=== PATIENT | male | born 1990 | race Caucasian/White ===

== ENCOUNTER 2016-08-31 05:55 | Emergency (ER) | payer OTHER ==
[~2016-08-31 05:55] MED LIST: CLON0.5T PO
[2016-08-31] MEDS ORDERED: ASPIRIN 81 MG CHEW TABLET As Ordered ONE (06:38)
[2016-08-31 06:52] LABS: BASO % 0.2 % (0.0-1.0); EOS # 0.1 K/mm3 (0.0-0.50); EOS % 1.2 % (0.0-3.0); LARGE UNSTAINED CELL # 0.2 K/mm3 (0.0-0.4); LARGE UNSTAINED CELL % 1.8 % (0.0-4.0); MEAN CORPUSCULAR HEMOGLOBIN 30.6 pg (27.0-33.0); MEAN CORPUSCULAR HGB CONC 34.3 g/dl (32.0-36.5); MEAN CORPUSCULAR VOLUME 89.3 fl (80.0-96.0); MONO # 0.5 K/mm3 (0.0-0.8); MONO % 5.9 % (0.0-5.0); NEUTROPHILS # 5.9 K/mm3 (1.8-7.7); NEUTROPHILS % 67.9 % (36.0-66.0); PLATELET COUNT, AUTOMATED 383 k/mm3 (150-450); RED CELL DISTRIBUTION WIDTH 12.5 % (11.5-14.5); WHITE BLOOD COUNT 8.8 K/mm3 (4.0-10.0)
[2016-08-31 07:07] LABS: ANION GAP 7 MEQ/L (8-16); BLOOD UREA NITROGEN 7 MG/DL (7-18); CALCIUM LEVEL 9.2 MG/DL (8.5-10.1); CARBON DIOXIDE LEVEL 29 MEQ/L (21-32); CHLORIDE LEVEL 105 MEQ/L (98-107); CREATININE FOR GFR 0.94 MG/DL (0.70-1.30); GLOMERULAR FILTRATION RATE > 60.0 (>60); GLUCOSE, FASTING 95 MG/DL (70-105); POTASSIUM SERUM 3.1 MEQ/L (3.5-5.1); SODIUM LEVEL 141 MEQ/L (136-145)
[2016-08-31] MEDS ORDERED: ACETAMINOPHEN 325 MG TAB As Ordered ONE (07:25)
[2016-08-31] MEDS ORDERED: POTASSIUM CHLORIDE 10 MEQ SR TABLET As Ordered ONE (07:25)
--- NOTE | 2016-08-31 07:37 | EDDOCDS ---
Nurse's Notes [facility] Name: Josue Oliveros Age: 26 yrs Sex: Male : 1990 Arrival Date: 08/31/2016 Time: 05:55 Bed 10 Private MD: Diagnosis: Cocaine abuse;Palpitations-due to same;Chest pain, unspecified Presentation: 08/31 06:02 Presenting complaint: Patient states: chest pain, heart racing, heart palpations, [facility] fluttering since about 8pm last evening. Aspirin was not taken prior to arrival. Adult Sepsis Screening: The patient does not have new or worsening altered mentation. Patient's respiratory rate is less than 22. Systolic blood pressure is greater than 100. Patient has a qSOFA score of 0- Negative Sepsis Screen. Suicide/Homicide risk assessment- the patient denies having any suicidal and/or homicidal ideations and does not present with any other emotional, behavioral or mental health complaints. 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 Transition of care: patient was not received from another setting of care. 06:02 Acuity: HEATH Level 3 [facility] 06:02 Method Of Arrival: Walkin/Carried/Asstd [facility] Triage Assessment: 06:04 General: Appears in no apparent distress, Behavior is cooperative. Pain: Location: [facility] chest Pain currently is 5 out of 10 on a pain scale. HIV screening NA for this visit Offered previously. Cardiovascular: Chest pain is described as Pain is 5 out of 10 on a pain scale. radiates Does not radiate. episodes are continuous began last evening. Historical: - Allergies: Tramadol HCl (Hives); - Home Meds: 1. atenolol 25 mg Oral tab 1 tab once daily ran out for quite some time 2. ibuprofen 800 mg Oral tab 1 tab every 8 hours as needed (Last dose: Unknown) - PMHx: ADD; Anxiety; Atrial Fib; dental problems; Panic Attacks; Substance Abuse; - PSHx: none; - Social history: Smoking status: Patient uses tobacco products, light tobacco smoker. No barriers to communication noted. - Family history: Not pertinent. - : The pt / caregiver states he / she is not on anticoagulants. Home medication list is obtained from the patient. - Exposure Risk Screening:: None identified. Screenin:43 Screening information is obtained from the patient. Fall risk: No risks identified. cf2 Assistance ADL's: requires no assistance with activities of daily living. Abuse/DV Screen: The patient / caregiver reports he/she is: not in a situation that causes fear, pain or injury. Nutritional screening: No deficits noted. Advance Directives: Further advance directive information is declined. home support is adequate. Assessment: 06:43 General: Patient to er states he was "shooting up cocaine last night and took Perc 10's cf2 (5 tablets) and now my chest hurts". Patient with visible fresh track daugherty to bilateral upper extremities. Patient states he shoots cocaine and snorts the Percocet. "I don't do it that often but I was with my friends and well you know". "I used to have a problem with drugs and stuff". Patient alert and oriented, no s/s distress, respirations equal and unlabored, skin warm and dry. No neuro deficits. Patient placed on program management specialist, IV access established via #20 to left forearm and bloods drawn. Urine sample obtained and sent to lab. . Cardiovascular: Capillary refill < 3 seconds Clubbing of nail beds is absent JVD is absent Rhythm is sinus rhythm Chest pain is described as diffuse, quality is burning, heaviness, is located in left anterior chest wall radiates Does not radiate. episodes are continuous Chest pain began last night after ingestion. Respiratory: No deficits noted. GI: No deficits noted. : No deficits noted. Derm: No deficits noted. Musculoskeletal: No deficits noted. Injury Description: No known injury. 07:34 General: Appears in no apparent distress, Behavior is anxious. Pain: Location: chest ml6 Pain currently is 5 out of 10 on a pain scale. Pain does not radiate. Quality of pain is described as aching, Pain began 2-3 days ago Is continuous Alleviated by nothing. Neurological: No deficits noted. 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 Cardiovascular: No deficits noted. Capillary refill < 3 seconds is brisk Heart tones S1 S2 present Edema is absent. Pulses are all present. Rhythm is sinus rhythm No ectopy. Chest pain is described as mild, quality is burning, heaviness, is located in substernal area radiates Does not radiate. 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 Respiratory: No deficits noted. Airway is patent Respiratory effort is even, unlabored, Respiratory pattern is. GI: No deficits noted. Vital Signs: 06:01 BP 141 / 86; Pulse 102; Resp 18; Temp 99.1; Pulse Ox 98% ; Weight 79.38 kg; Height 6 [facility] ft. 2 in. (187.96 cm); Pain 5/10; 07:35 BP 128 / 84; Pulse 78 MON; Resp 18; Temp 98.1(O); Pulse Ox 99% on R/A; Pain 5/10; ml6 06:01 Body Mass Index 22.47 (79.38 kg, 187.96 cm) [facility] Vitals: 06:01 Log In Time: August 31, 2016 at 05:55. [facility] ED Course: 05:56 Patient visited by Lou Ortega. b 05:56 Patient moved to Waiting [facility] 06:03 Triage Initiated [facility] 06:05 Patient moved to 10 [facility] 06:06 Tisha Taylor MD is Attending Physician. fg 06:07 Priscilla Burkett RN is Primary Nurse. cf2 06:07 Patient visited by Priscilla Burkett RN. cf2 06:17 Patient visited by Tisha Taylor MD. fg 06:37 Troponin Sent. cf2 06:38 Cardiac Injury Profile Sent. cf2 06:38 CBC with Diff Sent. cf2 06:38 Basic Metabolic Profile Sent. cf2 06:38 B-Type Natiuretic Peptide Sent. cf2 06:43 The patient / caregiver is instructed regarding the plan of care and ED course. Patient cf2 has correct armband on for positive identification. Placed in gown. Bed in low position. Call light in reach. Side rails up X 1. Side rails up X2. director of first impressions on. Pulse ox on. NIBP on. Property :Personal belongings accompany Pt. Door closed. Noise minimized. Visitors limited. Lights dimmed. Moved to private room. Verbal reassurance given. Warm blanket given. Pillow given. Head of bed elevated. 06:43 Inserted saline lock: 20 gauge in left forearm and blood collected. The patient cf2 tolerated the procedure well. No procedures done that require assistance. 06:52 Patient visited by Priscilla Burkett RN. cf2 07:02 Attending Physician role handed off by Tisha Taylor MD pc 07:02 Nilson Mcdaniel MD is Attending Physician. pc 07:14 Patient visited by Stephen Tobar RN. ml6 07:25 [facility] is Referral Physician. pc 07:25 Addiction Services is Referral Physician. pc 07:35 Discontinued IV bleeding controlled, pressure dressing applied, No redness/swelling at ml6 site. Administered Medications: 06:42 Drug: Aspirin 324 mg [aspirin 81 mg chewable tablet (4 tabs)] Route: PO; cf2 06:42 Drug: NS 0.9% 1000 ml [sodium chloride 0.9 % intravenous solution] Route: IV; Rate: cf2 bolus; Site: left antecubital; 07:33 Follow up: IV Status: Completed infusion; Infusion discontinued; IV Intake: 1000ml ml6 07:33 Drug: Potassium Chloride 40 mEq [potassium chloride ER 10 mEq tablet,extended release ml6 (4 tabs)] Route: PO; 07:33 Follow up: Response: Pt left department before re-evaluation is appropriate ml6 07:33 Drug: Acetaminophen 650 mg [acetaminophen 325 mg tablet (2 tabs)] Route: PO; ml6 07:33 Follow up: Response: Pt left department before re-evaluation is appropriate ml6 Intake: 07:33 IV: 1000.00ml; Total: 1000.00ml. ml6 Order Results: Lab Order: B-Type Natiuretic Peptide; SPEC'M 08/31/16 06:34 Test: BRAIN NATRIURETIC PEPTIDE; Value: 7.4; Range: <100; Units: PG/ML; Status: F Lab Order: Basic Metabolic Profile; SPEC'M 08/31/16 06:34 Test: GLUCOSE, FASTING; Value: 95; Range: 70-105; Units: MG/DL; Status: F Test: BLOOD UREA NITROGEN; Value: 7; Range: 7-18; Units: MG/DL; Status: F Test: CREATININE FOR GFR; Value: 0.94; Range: 0.70-1.30; Units: MG/DL; Status: F Test: GLOMERULAR FILTRATION RATE; Value: > 60.0; Range: >60; Status: F Test: SODIUM LEVEL; Value: 141; Range: 136-145; Units: MEQ/L; Status: F Test: POTASSIUM SERUM; Value: 3.1; Range: 3.5-5.1; Abnormal: Below low normal; Units: MEQ/L; Status: F Test: CHLORIDE LEVEL; Value: 105; Range: 98-107; Units: MEQ/L; Status: F Test: CARBON DIOXIDE LEVEL; Value: 29; Range: 21-32; Units: MEQ/L; Status: F Test: ANION GAP; Value: 7; Range: 8-16; Abnormal: Below low normal; Units: MEQ/L; Status: F Test: CALCIUM LEVEL; Value: 9.2; Range: 8.5-10.1; Units: MG/DL; Status: F Test Note: ; Units are mL/min/1.73 m2 Chronic Kidney Disease Staging per NKF: Stage I & II GFR >=60 Normal to Mildly Decreased Stage III GFR 30-59 Moderately Decreased Stage IV GFR 15-29 Severely Decreased Stage V GFR <15 Very Little GFR Left ESRD GFR <15 on RABBLER Lab Order: CBC with Diff; SPEC'M 08/31/16 06:34 Test: WHITE BLOOD COUNT; Value: 8.8; Range: 4.0-10.0; Units: K/mm3; Status: F Test: RED BLOOD COUNT; Value: 4.72; Range: 4.30-6.10; Units: M/mm3; Status: F Test: HEMOGLOBIN; Value: 14.5; Range: 14.0-18.0; Units: g/dl; Status: F Test: HEMATOCRIT; Value: 42.1; Range: 42.0-52.0; Units: %; Status: F Test: MEAN CORPUSCULAR VOLUME; Value: 89.3; Range: 80.0-96.0; Units: fl; Status: F Test: MEAN CORPUSCULAR HEMOGLOBIN; Value: 30.6; Range: 27.0-33.0; Units: pg; Status: F Test: MEAN CORPUSCULAR HGB CONC; Value: 34.3; Range: 32.0-36.5; Units: g/dl; Status: F Test: RED CELL DISTRIBUTION WIDTH; Value: 12.5; Range: 11.5-14.5; Units: %; Status: F Test: PLATELET COUNT, AUTOMATED; Value: 383; Range: 150-450; Units: k/mm3; Status: F Test: NEUTROPHILS %; Value: 67.9; Range: 36.0-66.0; Abnormal: Above high normal; Units: %; Status: F Test: LYMPH %; Value: 23.0; Range: 24.0-44.0; Abnormal: Below low normal; Units: %; Status: F Test: MONO %; Value: 5.9; Range: 0.0-5.0; Abnormal: Above high normal; Units: %; Status: F Test: EOS %; Value: 1.2; Range: 0.0-3.0; Units: %; Status: F Test: BASO %; Value: 0.2; Range: 0.0-1.0; Units: %; Status: F Test: LARGE UNSTAINED CELL %; Value: 1.8; Range: 0.0-4.0; Units: %; Status: F Test: NEUTROPHILS #; Value: 5.9; Range: 1.8-7.7; Units: K/mm3; Status: F Test: LYMPH #; Value: 2.0; Range: 1.5-6.5; Units: K/mm3; Status: F Test: MONO #; Value: 0.5; Range: 0.0-0.8; Units: K/mm3; Status: F Test: EOS #; Value: 0.1; Range: 0.0-0.50; Units: K/mm3; Status: F Test: BASO #; Value: 0.0; Range: 0.0-0.2; Units: K/mm3; Status: F Test: LARGE UNSTAINED CELL #; Value: 0.2; Range: 0.0-0.4; Units: K/mm3; Status: F Lab Order: Cardiac Injury Profile; SPEC'M 08/31/16 06:34 Test: CPK CREATINE PHOSPHOKINASE; Value: 111; Range: 39-308; Units: U/L; Status: F Test: CK-MB VALUE MASS; Value: 1.1; Range: 0.0-3.6; Units: NG/ML; Status: F Test: MB/CK RELATIVE INDEX; Value: 0.99; Range: < OR =4; Status: F Test Note: ; DIAGNOSIS CRITERIA MMB ng/ml Relative Index (RI) NON-AMI < or = 5 N/A [place]ZEL [place]ONE > 5 < or = 4 AMI > 5 > 4 Lab Order: Troponin; SPEC'M 08/31/16 06:34 Test: TROPONIN I; Value: < 0.02; Range: < 0.10; Units: NG/ML; Status: F Test Note: ; Troponin I Reference Interval for [employer] LOCI: 99th Percentile= 0.00-0.045 ng/ml Risk Stratification: <= 0.10 ng/ml Decreased Risk for Adverse Clinical Events. 0.10-1.50 ng/ml Increased Risk for Adverse Clinical Events. Evaluation of additional criterion and/or repeat testing in 2-6 hours is suggested to rule out myocardial damage. >= 1.50 ng/ml Indicative of Myocardial Injury. Outcome: 07:25 Discharge ordered by Provider. 07:35 Discharge Assessment: patient administered narcotics - no. The following High Risk 6 Discharge criteria are identified: None. Discharged to home ambulatory. Condition: stable. Discharge instructions given to patient, Instructed on discharge instructions, follow up and referral plans. medication usage, Demonstrated understanding of instructions, medications, discussed with patient that he needs to discontinue his opiate and cocaine use in order to feel better Pt was receptive of discharge instructions/ teaching. No special radiology studies were completed. 07:36 Patient left the ED. ml6 Signatures: Nilson Mcdaniel MD MD pc Lowe, Matthew, RN RN ml6 Lauren LundbergRN RN [facility] Tisha Taylor MD MD fg Beck, Gabriela gjb Familetti-Gonzalez, Christina,RN RN cf2 MTDVishal
--- NOTE | 2016-08-31 07:37 | EDDOCDS ---
Physician Documentation [facility] Name: Josue Oliveros Age: 26 yrs Sex: Male : 1990 Arrival Date: 08/31/2016 Time: 05:55 Bed 10 Private MD: Disposition: 08/31 07:23 Critical Care: Critical care not applicable. pc Disposition: 08/31/16 07:25 Discharged to Home/Self Care. Impression: Cocaine abuse, Palpitations - due to same, Chest pain, unspecified. - Condition is Stable. - Discharge Instructions: Nonspecific Chest Pain, Stimulant Use Disorder-Cocaine. - Medication Reconciliation, Local Pharmacy Hours form. - Follow up: [facility]; When: Call to arrange an appointment; Reason: To establish care. Follow up: Addiction Services; When: Call to arrange an appointment; Reason: To establish care. - Problem is new. - Symptoms are unchanged. Historical: - Allergies: Tramadol HCl (Hives); - Home Meds: 1. atenolol 25 mg Oral tab 1 tab once daily ran out for quite some time 2. ibuprofen 800 mg Oral tab 1 tab every 8 hours as needed (Last dose: Unknown) - PMHx: ADD; Anxiety; Atrial Fib; dental problems; Panic Attacks; Substance Abuse; - PSHx: none; - Social history: Smoking status: Patient uses tobacco products, light tobacco smoker. No barriers to communication noted. - Family history: Not pertinent. - : The pt / caregiver states he / she is not on anticoagulants. Home medication list is obtained from the patient. - Exposure Risk Screening:: None identified. Vital Signs: 06:01 BP 141 / 86; Pulse 102; Resp 18; Temp 99.1; Pulse Ox 98% ; Weight 79.38 kg / 175 lbs; [facility] Height 6 ft. 2 in. (187.96 cm); Pain 5/10; 07:35 BP 128 / 84; Pulse 78 MON; Resp 18; Temp 98.1(O); Pulse Ox 99% on R/A; Pain 5/10; ml6 06:01 Body Mass Index 22.47 (79.38 kg, 187.96 cm) [facility] MDM: 06:18 Aspirin Chewable Tablet 324 mg PO once ordered. fg 06:18 Dewaxer/Pulse Ox/q 30 min VS ordered. fg 06:18 IV Saline Lock ordered. fg 06:18 Rhythm Strip to chart ordered. fg 06:18 Undress patient appropriately for examination ordered. fg 06:18 NS 0.9% 1000 ml IV at bolus once ordered. fg 06:19 B-Type Natiuretic Peptide Ordered. EDMS 06:19 Basic Metabolic Profile Ordered. EDMS 06:19 CBC with Diff Ordered. EDMS 06:19 Cardiac Injury Profile Ordered. EDMS 06:19 Troponin Ordered. EDMS 06:19 portable chest Ordered. EDMS 06:19 ECG WITH READING ER PHYS+CARDIAG ordered. EDMS 07:21 Basic Metabolic Profile Reviewed. pc 07:21 CBC with Diff Reviewed. pc 07:21 B-Type Natiuretic Peptide Reviewed. pc 07:21 Cardiac Injury Profile Reviewed. pc 07:21 Troponin Reviewed. pc 07:21 Potassium Chloride Extended Release Tablet 40 mEq PO once ordered. pc 07:23 Acetaminophen Tablet 650 mg PO once ordered. pc 07:23 The patient was medicated with aspirin in the Emergency Department. Test pc interpretation: LAB - all labs as ordered have been reviewed, interpreted and considered in the overall management of the clinical presentation; X-RAY - interpreted by me, 2 view chest, no acute disease. The patient has been re-examined and re-evaluated. There is no appreciated change of the patient's symptoms at this time. Disposition: The historical points, examination findings, and any diagnostic results supporting the provided diagnosis, were discussed with the patient or legal guardian. The need for outpatient follow up with the provider listed on their discharge instructions was discussed. They were encouraged to return to [facility], or the nearest ED, if symptoms worsen/persist, or for any other questions/concerns. Administered Medications: 06:42 Drug: Aspirin 324 mg [aspirin 81 mg chewable tablet (4 tabs)] Route: PO; cf2 06:42 Drug: NS 0.9% 1000 ml [sodium chloride 0.9 % intravenous solution] Route: IV; Rate: cf2 bolus; Site: left antecubital; 07:33 Follow up: IV Status: Completed infusion; Infusion discontinued; IV Intake: 1000ml ml6 07:33 Drug: Potassium Chloride 40 mEq [potassium chloride ER 10 mEq tablet,extended release ml6 (4 tabs)] Route: PO; 07:33 Follow up: Response: Pt left department before re-evaluation is appropriate ml6 07:33 Drug: Acetaminophen 650 mg [acetaminophen 325 mg tablet (2 tabs)] Route: PO; ml6 07:33 Follow up: Response: Pt left department before re-evaluation is appropriate ml6 Signatures: Dispatcher [employer] Nilson Marie MD MD pc Lowe, Matthew RN RN ml6 Lauren Lundberg RN RN [facility] Tisha Taylor MD MD Priscilla Burkett RN RN cf2 MTDD
--- NOTE | 2016-08-31 07:44 | REP ---
Clinical: Chest pain . Comparison: 04/17/2016. Findings: The mediastinum and cardiac silhouette are stable and within normal limits for portable technique. The lung pearson are clear without acute consolidation, effusion, or pneumothorax. Skeletal structures are intact. Impression: Normal portable chest x-ray Signed by Edwin Zhao MD 08/31/2016 07:36 A
--- NOTE | 2016-09-01 07:19 | ECGEPIP ---
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
--- NOTE | 2016-09-02 08:37 | EDDOCDS ---
Nurse's Notes [facility] Name: Josue Oliveros Age: 26 yrs Sex: Male : 1990 Arrival Date: 08/31/2016 Time: 05:55 Bed 10 Private MD: Diagnosis: Cocaine abuse;Palpitations-due to same;Chest pain, unspecified Presentation: 08/31 06:02 Presenting complaint: Patient states: chest pain, heart racing, heart palpations, [facility] fluttering since about 8pm last evening. Aspirin was not taken prior to arrival. Adult Sepsis Screening: The patient does not have new or worsening altered mentation. Patient's respiratory rate is less than 22. Systolic blood pressure is greater than 100. Patient has a qSOFA score of 0- Negative Sepsis Screen. Suicide/Homicide risk assessment- the patient denies having any suicidal and/or homicidal ideations and does not present with any other emotional, behavioral or mental health complaints. 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 Transition of care: patient was not received from another setting of care. 06:02 Acuity: HEATH Level 3 [facility] 06:02 Method Of Arrival: Walkin/Carried/Asstd [facility] Triage Assessment: 06:04 General: Appears in no apparent distress, Behavior is cooperative. Pain: Location: [facility] chest Pain currently is 5 out of 10 on a pain scale. HIV screening NA for this visit Offered previously. Cardiovascular: Chest pain is described as Pain is 5 out of 10 on a pain scale. radiates Does not radiate. episodes are continuous began last evening. Historical: - Allergies: Tramadol HCl (Hives); - Home Meds: 1. atenolol 25 mg Oral tab 1 tab once daily ran out for quite some time 2. ibuprofen 800 mg Oral tab 1 tab every 8 hours as needed (Last dose: Unknown) - PMHx: ADD; Anxiety; Atrial Fib; dental problems; Panic Attacks; Substance Abuse; - PSHx: none; - Social history: Smoking status: Patient uses tobacco products, light tobacco smoker. No barriers to communication noted. - Family history: Not pertinent. - : The pt / caregiver states he / she is not on anticoagulants. Home medication list is obtained from the patient. - Exposure Risk Screening:: None identified. Screenin:43 Screening information is obtained from the patient. Fall risk: No risks identified. cf2 Assistance ADL's: requires no assistance with activities of daily living. Abuse/DV Screen: The patient / caregiver reports he/she is: not in a situation that causes fear, pain or injury. Nutritional screening: No deficits noted. Advance Directives: Further advance directive information is declined. home support is adequate. Assessment: 06:43 General: Patient to er states he was "shooting up cocaine last night and took Perc 10's cf2 (5 tablets) and now my chest hurts". Patient with visible fresh track daugherty to bilateral upper extremities. Patient states he shoots cocaine and snorts the Percocet. "I don't do it that often but I was with my friends and well you know". "I used to have a problem with drugs and stuff". Patient alert and oriented, no s/s distress, respirations equal and unlabored, skin warm and dry. No neuro deficits. Patient placed on patient monitor, IV access established via #20 to left forearm and bloods drawn. Urine sample obtained and sent to lab. . Cardiovascular: Capillary refill < 3 seconds Clubbing of nail beds is absent JVD is absent Rhythm is sinus rhythm Chest pain is described as diffuse, quality is burning, heaviness, is located in left anterior chest wall radiates Does not radiate. episodes are continuous Chest pain began last night after ingestion. Respiratory: No deficits noted. GI: No deficits noted. : No deficits noted. Derm: No deficits noted. Musculoskeletal: No deficits noted. Injury Description: No known injury. 07:34 General: Appears in no apparent distress, Behavior is anxious. Pain: Location: chest ml6 Pain currently is 5 out of 10 on a pain scale. Pain does not radiate. Quality of pain is described as aching, Pain began 2-3 days ago Is continuous Alleviated by nothing. Neurological: No deficits noted. 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 Cardiovascular: No deficits noted. Capillary refill < 3 seconds is brisk Heart tones S1 S2 present Edema is absent. Pulses are all present. Rhythm is sinus rhythm No ectopy. Chest pain is described as mild, quality is burning, heaviness, is located in substernal area radiates Does not radiate. 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 Respiratory: No deficits noted. Airway is patent Respiratory effort is even, unlabored, Respiratory pattern is. GI: No deficits noted. Vital Signs: 06:01 BP 141 / 86; Pulse 102; Resp 18; Temp 99.1; Pulse Ox 98% ; Weight 79.38 kg; Height 6 [facility] ft. 2 in. (187.96 cm); Pain 5/10; 07:35 BP 128 / 84; Pulse 78 MON; Resp 18; Temp 98.1(O); Pulse Ox 99% on R/A; Pain 5/10; ml6 06:01 Body Mass Index 22.47 (79.38 kg, 187.96 cm) [facility] Vitals: 06:01 Log In Time: August 31, 2016 at 05:55. [facility] ED Course: 05:56 Patient visited by Lou Ortega. b 05:56 Patient moved to Waiting [facility] 06:03 Triage Initiated [facility] 06:05 Patient moved to 10 [facility] 06:06 Tisha Taylor MD is Attending Physician. fg 06:07 Priscilla Burkett RN is Primary Nurse. cf2 06:07 Patient visited by Priscilla Burkett RN. cf2 06:17 Patient visited by Tisha Taylor MD. fg 06:37 Troponin Sent. cf2 06:38 Cardiac Injury Profile Sent. cf2 06:38 CBC with Diff Sent. cf2 06:38 Basic Metabolic Profile Sent. cf2 06:38 B-Type Natiuretic Peptide Sent. cf2 06:43 The patient / caregiver is instructed regarding the plan of care and ED course. Patient cf2 has correct armband on for positive identification. Placed in gown. Bed in low position. Call light in reach. Side rails up X 1. Side rails up X2. secured entrance monitor on. Pulse ox on. NIBP on. Property :Personal belongings accompany Pt. Door closed. Noise minimized. Visitors limited. Lights dimmed. Moved to private room. Verbal reassurance given. Warm blanket given. Pillow given. Head of bed elevated. 06:43 Inserted saline lock: 20 gauge in left forearm and blood collected. The patient cf2 tolerated the procedure well. No procedures done that require assistance. 06:52 Patient visited by Priscilla Burkett RN. cf2 07:02 Attending Physician role handed off by Tisha Taylor MD pc 07:02 Nilson Mcdaniel MD is Attending Physician. pc 07:14 Patient visited by Stephen Tobar RN. ml6 07:25 [facility] is Referral Physician. pc 07:25 Addiction Services is Referral Physician. pc 07:35 Discontinued IV bleeding controlled, pressure dressing applied, No redness/swelling at ml6 site. 07:42 [facility] [place] Payment Agreement was scanned into [employer] and attached to record. hs2 07:58 portable chest Returned. EDMS 13:46 T-Sheet-- Draft Copy was scanned into [employer] and attached to record. gb 13:46 ECG/EKG was scanned into [employer] and attached to record. gb 09/01 07:41 EKG-ADULT Returned. EDMS Administered Medications: 08/31 06:42 Drug: Aspirin 324 mg [aspirin 81 mg chewable tablet (4 tabs)] Route: PO; cf2 06:42 Drug: NS 0.9% 1000 ml [sodium chloride 0.9 % intravenous solution] Route: IV; Rate: cf2 bolus; Site: left antecubital; 07:33 Follow up: IV Status: Completed infusion; Infusion discontinued; IV Intake: 1000ml ml6 07:33 Drug: Potassium Chloride 40 mEq [potassium chloride ER 10 mEq tablet,extended release ml6 (4 tabs)] Route: PO; 07:33 Follow up: Response: Pt left department before re-evaluation is appropriate ml6 07:33 Drug: Acetaminophen 650 mg [acetaminophen 325 mg tablet (2 tabs)] Route: PO; ml6 07:33 Follow up: Response: Pt left department before re-evaluation is appropriate ml6 Intake: 07:33 IV: 1000.00ml; Total: 1000.00ml. ml6 Order Results: Lab Order: B-Type Natiuretic Peptide; SPEC'M 08/31/16 06:34 Test: BRAIN NATRIURETIC PEPTIDE; Value: 7.4; Range: <100; Units: PG/ML; Status: F Lab Order: Basic Metabolic Profile; SPEC'M 08/31/16 06:34 Test: GLUCOSE, FASTING; Value: 95; Range: 70-105; Units: MG/DL; Status: F Test: BLOOD UREA NITROGEN; Value: 7; Range: 7-18; Units: MG/DL; Status: F Test: CREATININE FOR GFR; Value: 0.94; Range: 0.70-1.30; Units: MG/DL; Status: F Test: GLOMERULAR FILTRATION RATE; Value: > 60.0; Range: >60; Status: F Test: SODIUM LEVEL; Value: 141; Range: 136-145; Units: MEQ/L; Status: F Test: POTASSIUM SERUM; Value: 3.1; Range: 3.5-5.1; Abnormal: Below low normal; Units: MEQ/L; Status: F Test: CHLORIDE LEVEL; Value: 105; Range: 98-107; Units: MEQ/L; Status: F Test: CARBON DIOXIDE LEVEL; Value: 29; Range: 21-32; Units: MEQ/L; Status: F Test: ANION GAP; Value: 7; Range: 8-16; Abnormal: Below low normal; Units: MEQ/L; Status: F Test: CALCIUM LEVEL; Value: 9.2; Range: 8.5-10.1; Units: MG/DL; Status: F Test Note: ; Units are mL/min/1.73 m2 Chronic Kidney Disease Staging per NKF: Stage I & II GFR >=60 Normal to Mildly Decreased Stage III GFR 30-59 Moderately Decreased Stage IV GFR 15-29 Severely Decreased Stage V GFR <15 Very Little GFR Left ESRD GFR <15 on DARKROOM TECHNICIAN Lab Order: CBC with Diff; SPEC'M 08/31/16 06:34 Test: WHITE BLOOD COUNT; Value: 8.8; Range: 4.0-10.0; Units: K/mm3; Status: F Test: RED BLOOD COUNT; Value: 4.72; Range: 4.30-6.10; Units: M/mm3; Status: F Test: HEMOGLOBIN; Value: 14.5; Range: 14.0-18.0; Units: g/dl; Status: F Test: HEMATOCRIT; Value: 42.1; Range: 42.0-52.0; Units: %; Status: F Test: MEAN CORPUSCULAR VOLUME; Value: 89.3; Range: 80.0-96.0; Units: fl; Status: F Test: MEAN CORPUSCULAR HEMOGLOBIN; Value: 30.6; Range: 27.0-33.0; Units: pg; Status: F Test: MEAN CORPUSCULAR HGB CONC; Value: 34.3; Range: 32.0-36.5; Units: g/dl; Status: F Test: RED CELL DISTRIBUTION WIDTH; Value: 12.5; Range: 11.5-14.5; Units: %; Status: F Test: PLATELET COUNT, AUTOMATED; Value: 383; Range: 150-450; Units: k/mm3; Status: F Test: NEUTROPHILS %; Value: 67.9; Range: 36.0-66.0; Abnormal: Above high normal; Units: %; Status: F Test: LYMPH %; Value: 23.0; Range: 24.0-44.0; Abnormal: Below low normal; Units: %; Status: F Test: MONO %; Value: 5.9; Range: 0.0-5.0; Abnormal: Above high normal; Units: %; Status: F Test: EOS %; Value: 1.2; Range: 0.0-3.0; Units: %; Status: F Test: BASO %; Value: 0.2; Range: 0.0-1.0; Units: %; Status: F Test: LARGE UNSTAINED CELL %; Value: 1.8; Range: 0.0-4.0; Units: %; Status: F Test: NEUTROPHILS #; Value: 5.9; Range: 1.8-7.7; Units: K/mm3; Status: F Test: LYMPH #; Value: 2.0; Range: 1.5-6.5; Units: K/mm3; Status: F Test: MONO #; Value: 0.5; Range: 0.0-0.8; Units: K/mm3; Status: F Test: EOS #; Value: 0.1; Range: 0.0-0.50; Units: K/mm3; Status: F Test: BASO #; Value: 0.0; Range: 0.0-0.2; Units: K/mm3; Status: F Test: LARGE UNSTAINED CELL #; Value: 0.2; Range: 0.0-0.4; Units: K/mm3; Status: F Lab Order: Cardiac Injury Profile; SPEC'M 08/31/16 06:34 Test: CPK CREATINE PHOSPHOKINASE; Value: 111; Range: 39-308; Units: U/L; Status: F Test: CK-MB VALUE MASS; Value: 1.1; Range: 0.0-3.6; Units: NG/ML; Status: F Test: MB/CK RELATIVE INDEX; Value: 0.99; Range: < OR =4; Status: F Test Note: ; DIAGNOSIS CRITERIA MMB ng/ml Relative Index (RI) NON-AMI < or = 5 N/A [place]ZEL [place]ONE > 5 < or = 4 AMI > 5 > 4 Lab Order: Troponin; SPEC'M 08/31/16 06:34 Test: TROPONIN I; Value: < 0.02; Range: < 0.10; Units: NG/ML; Status: F Test Note: ; Troponin I Reference Interval for [employer] LOCI: 99th Percentile= 0.00-0.045 ng/ml Risk Stratification: <= 0.10 ng/ml Decreased Risk for Adverse Clinical Events. 0.10-1.50 ng/ml Increased Risk for Adverse Clinical Events. Evaluation of additional criterion and/or repeat testing in 2-6 hours is suggested to rule out myocardial damage. >= 1.50 ng/ml Indicative of Myocardial Injury. Radiology Order: portable chest Test: portable chest REASON FOR EXAMINATION: Chest Pain; Clinical: Chest pain .; ; Comparison: 04/17/2016.; ; Findings:; The mediastinum and cardiac silhouette are stable and within normal limits for; portable technique. The lung pearson are clear without acute consolidation,; effusion, or pneumothorax. 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 07:35 Discharge Assessment: patient administered narcotics - no. The following High Risk ml6 Discharge criteria are identified: None. Discharged to home ambulatory. Condition: stable. Discharge instructions given to patient, Instructed on discharge instructions, follow up and referral plans. medication usage, Demonstrated understanding of instructions, medications, discussed with patient that he needs to discontinue his opiate and cocaine use in order to feel better Pt was receptive of discharge instructions/ teaching. No special radiology studies were completed. 07:36 Patient left the ED. ml6 Signatures: Dispatcher [employer] EDMS Nilson Mcdaniel MD MD Lillian Knight, Reg Reg gb Stephen Tobar, RN RN ml6 Lauren Lundberg RN RN [facility] Tisha Taylor MD MD Lou Ortega Hillary, Reg Reg hs2 Priscilla Burkett,RN RN cf2 Chart Complete [facility]
--- NOTE | 2016-09-02 08:37 | EDDOCDS ---
Physician Documentation [facility] Name: Josue Oliveros Age: 26 yrs Sex: Male : 1990 Arrival Date: 08/31/2016 Time: 05:55 Bed 10 Private MD: Disposition: 08/31 07:23 Critical Care: Critical care not applicable. pc Disposition: 08/31/16 07:25 Discharged to Home/Self Care. Impression: Cocaine abuse, Palpitations - due to same, Chest pain, unspecified. - Condition is Stable. - Discharge Instructions: Nonspecific Chest Pain, Stimulant Use Disorder-Cocaine. - Medication Reconciliation, Local Pharmacy Hours form. - Follow up: [facility]; When: Call to arrange an appointment; Reason: To establish care. Follow up: Addiction Services; When: Call to arrange an appointment; Reason: To establish care. - Problem is new. - Symptoms are unchanged. Historical: - Allergies: Tramadol HCl (Hives); - Home Meds: 1. atenolol 25 mg Oral tab 1 tab once daily ran out for quite some time 2. ibuprofen 800 mg Oral tab 1 tab every 8 hours as needed (Last dose: Unknown) - PMHx: ADD; Anxiety; Atrial Fib; dental problems; Panic Attacks; Substance Abuse; - PSHx: none; - Social history: Smoking status: Patient uses tobacco products, light tobacco smoker. No barriers to communication noted. - Family history: Not pertinent. - : The pt / caregiver states he / she is not on anticoagulants. Home medication list is obtained from the patient. - Exposure Risk Screening:: None identified. Vital Signs: 06:01 BP 141 / 86; Pulse 102; Resp 18; Temp 99.1; Pulse Ox 98% ; Weight 79.38 kg / 175 lbs; [facility] Height 6 ft. 2 in. (187.96 cm); Pain 5/10; 07:35 BP 128 / 84; Pulse 78 MON; Resp 18; Temp 98.1(O); Pulse Ox 99% on R/A; Pain 5/10; ml6 06:01 Body Mass Index 22.47 (79.38 kg, 187.96 cm) [facility] MDM: 06:18 Aspirin Chewable Tablet 324 mg PO once ordered. fg 06:18 Workforce Development Assistant/Pulse Ox/q 30 min VS ordered. fg 06:18 IV Saline Lock ordered. fg 06:18 Rhythm Strip to chart ordered. fg 06:18 Undress patient appropriately for examination ordered. fg 06:18 NS 0.9% 1000 ml IV at bolus once ordered. fg 06:19 B-Type Natiuretic Peptide Ordered. EDMS 06:19 Basic Metabolic Profile Ordered. EDMS 06:19 CBC with Diff Ordered. EDMS 06:19 Cardiac Injury Profile Ordered. EDMS 06:19 Troponin Ordered. EDMS 06:19 portable chest Ordered. EDMS 06:19 ECG WITH READING ER PHYS+CARDIAG ordered. EDMS 07:21 Basic Metabolic Profile Reviewed. pc 07:21 CBC with Diff Reviewed. pc 07:21 B-Type Natiuretic Peptide Reviewed. pc 07:21 Cardiac Injury Profile Reviewed. pc 07:21 Troponin Reviewed. pc 07:21 Potassium Chloride Extended Release Tablet 40 mEq PO once ordered. pc 07:23 Acetaminophen Tablet 650 mg PO once ordered. pc 07:23 The patient was medicated with aspirin in the Emergency Department. Test pc interpretation: LAB - all labs as ordered have been reviewed, interpreted and considered in the overall management of the clinical presentation; X-RAY - interpreted by me, 2 view chest, no acute disease. The patient has been re-examined and re-evaluated. There is no appreciated change of the patient's symptoms at this time. Disposition: The historical points, examination findings, and any diagnostic results supporting the provided diagnosis, were discussed with the patient or legal guardian. The need for outpatient follow up with the provider listed on their discharge instructions was discussed. They were encouraged to return to [facility], or the nearest ED, if symptoms worsen/persist, or for any other questions/concerns. 07:42 [facility] Payment Agreement was scanned into [employer] and attached to record. hs2 13:46 T-Sheet-- Draft Copy was scanned into [employer] and attached to record. gb 13:46 ECG/EKG was scanned into [employer] and attached to record. gb Administered Medications: 06:42 Drug: Aspirin 324 mg [aspirin 81 mg chewable tablet (4 tabs)] Route: PO; cf2 06:42 Drug: NS 0.9% 1000 ml [sodium chloride 0.9 % intravenous solution] Route: IV; Rate: cf2 bolus; Site: left antecubital; 07:33 Follow up: IV Status: Completed infusion; Infusion discontinued; IV Intake: 1000ml ml6 07:33 Drug: Potassium Chloride 40 mEq [potassium chloride ER 10 mEq tablet,extended release ml6 (4 tabs)] Route: PO; 07:33 Follow up: Response: Pt left department before re-evaluation is appropriate ml6 07:33 Drug: Acetaminophen 650 mg [acetaminophen 325 mg tablet (2 tabs)] Route: PO; ml6 07:33 Follow up: Response: Pt left department before re-evaluation is appropriate ml6 Signatures: Dispatcher [employer] EDMS Nilson Mcdaniel MD MD pc Barnhardt, Gloria, Reg Reg gb Stephen Tobar RN RN ml6 Lauren Lundberg RN RN [facility] Tisha Taylor MD MD Cristina Meier, Reg Reg hs2 Priscilla Burkett,RN RN cf2 The chart was reviewed and I authenticate all verbal orders and agree with the evaluation and treatment provided.Attachments: 07:42 [facility] Payment Agreement hs2 13:46 T-Sheet-- Draft Copy gb 13:46 ECG/EKG gb Chart Complete MTDD
--- NOTE | 2016-09-02 08:37 | EDDOCDS ---
Physician Documentation [facility] Name: Josue Oliveros Age: 26 yrs Sex: Male : 1990 Arrival Date: 08/31/2016 Time: 05:55 Bed 10 Private MD: Disposition: 08/31 07:23 Critical Care: Critical care not applicable. pc Disposition: 08/31/16 07:25 Discharged to Home/Self Care. Impression: Cocaine abuse, Palpitations - due to same, Chest pain, unspecified. - Condition is Stable. - Discharge Instructions: Nonspecific Chest Pain, Stimulant Use Disorder-Cocaine. - Medication Reconciliation, Local Pharmacy Hours form. - Follow up: [facility]; When: Call to arrange an appointment; Reason: To establish care. Follow up: Addiction Services; When: Call to arrange an appointment; Reason: To establish care. - Problem is new. - Symptoms are unchanged. Historical: - Allergies: Tramadol HCl (Hives); - Home Meds: 1. atenolol 25 mg Oral tab 1 tab once daily ran out for quite some time 2. ibuprofen 800 mg Oral tab 1 tab every 8 hours as needed (Last dose: Unknown) - PMHx: ADD; Anxiety; Atrial Fib; dental problems; Panic Attacks; Substance Abuse; - PSHx: none; - Social history: Smoking status: Patient uses tobacco products, light tobacco smoker. No barriers to communication noted. - Family history: Not pertinent. - : The pt / caregiver states he / she is not on anticoagulants. Home medication list is obtained from the patient. - Exposure Risk Screening:: None identified. Vital Signs: 06:01 BP 141 / 86; Pulse 102; Resp 18; Temp 99.1; Pulse Ox 98% ; Weight 79.38 kg / 175 lbs; [facility] Height 6 ft. 2 in. (187.96 cm); Pain 5/10; 07:35 BP 128 / 84; Pulse 78 MON; Resp 18; Temp 98.1(O); Pulse Ox 99% on R/A; Pain 5/10; ml6 06:01 Body Mass Index 22.47 (79.38 kg, 187.96 cm) [facility] MDM: 06:18 Aspirin Chewable Tablet 324 mg PO once ordered. fg 06:18 Custom Miller/Pulse Ox/q 30 min VS ordered. fg 06:18 IV Saline Lock ordered. fg 06:18 Rhythm Strip to chart ordered. fg 06:18 Undress patient appropriately for examination ordered. fg 06:18 NS 0.9% 1000 ml IV at bolus once ordered. fg 06:19 B-Type Natiuretic Peptide Ordered. EDMS 06:19 Basic Metabolic Profile Ordered. EDMS 06:19 CBC with Diff Ordered. EDMS 06:19 Cardiac Injury Profile Ordered. EDMS 06:19 Troponin Ordered. EDMS 06:19 portable chest Ordered. EDMS 06:19 ECG WITH READING ER PHYS+CARDIAG ordered. EDMS 07:21 Basic Metabolic Profile Reviewed. pc 07:21 CBC with Diff Reviewed. pc 07:21 B-Type Natiuretic Peptide Reviewed. pc 07:21 Cardiac Injury Profile Reviewed. pc 07:21 Troponin Reviewed. pc 07:21 Potassium Chloride Extended Release Tablet 40 mEq PO once ordered. pc 07:23 Acetaminophen Tablet 650 mg PO once ordered. pc 07:23 The patient was medicated with aspirin in the Emergency Department. Test pc interpretation: LAB - all labs as ordered have been reviewed, interpreted and considered in the overall management of the clinical presentation; X-RAY - interpreted by me, 2 view chest, no acute disease. The patient has been re-examined and re-evaluated. There is no appreciated change of the patient's symptoms at this time. Disposition: The historical points, examination findings, and any diagnostic results supporting the provided diagnosis, were discussed with the patient or legal guardian. The need for outpatient follow up with the provider listed on their discharge instructions was discussed. They were encouraged to return to [facility], or the nearest ED, if symptoms worsen/persist, or for any other questions/concerns. 07:42 [facility] [place] Agreement was scanned into [employer] and attached to record. hs2 13:46 T-Sheet-- Draft Copy was scanned into [employer] and attached to record. gb 13:46 ECG/EKG was scanned into [employer] and attached to record. gb Administered Medications: 06:42 Drug: Aspirin 324 mg [aspirin 81 mg chewable tablet (4 tabs)] Route: PO; cf2 06:42 Drug: NS 0.9% 1000 ml [sodium chloride 0.9 % intravenous solution] Route: IV; Rate: cf2 bolus; Site: left antecubital; 07:33 Follow up: IV Status: Completed infusion; Infusion discontinued; IV Intake: 1000ml ml6 07:33 Drug: Potassium Chloride 40 mEq [potassium chloride ER 10 mEq tablet,extended release ml6 (4 tabs)] Route: PO; 07:33 Follow up: Response: Pt left department before re-evaluation is appropriate ml6 07:33 Drug: Acetaminophen 650 mg [acetaminophen 325 mg tablet (2 tabs)] Route: PO; ml6 07:33 Follow up: Response: Pt left department before re-evaluation is appropriate ml6 Signatures: Dispatcher [employer] EDMS Nilson Mcdaniel MD MD pc Barnhardt, Gloria, Reg Reg gb Stephen Tobar RN RN ml6 Lauren Lundberg RN RN [facility] Tisha Taylor MD MD Cristina Meier, Reg Reg hs2 Priscilla Burkett,RN RN cf2 The chart was reviewed and I authenticate all verbal orders and agree with the evaluation and treatment provided.Attachments: 07:42 [facility] Payment Agreement hs2 13:46 T-Sheet-- Draft Copy gb 13:46 ECG/EKG gb Chart Complete MTDD
== END 2016-08-31 07:36 | disposition home or self-care (01) ==
LOC: M ED 05:55
DX: R07.9 Chest pain, unspecified (principal); R00.0 Tachycardia, unspecified; I48.91 Unspecified atrial fibrillation; F19.10 Other psychoactive substance abuse, uncomplicated; F17.210 Nicotine dependence, cigarettes, uncomplicated

== ENCOUNTER 2016-10-05 16:36 | Emergency (ER) | payer OTHER ==
[2016-10-05 17:20] LABS: BASO % 0.2 % (0.0-1.0); EOS # 0.1 K/mm3 (0.0-0.50); EOS % 0.6 % (0.0-3.0); LARGE UNSTAINED CELL # 0.3 K/mm3 (0.0-0.4); LARGE UNSTAINED CELL % 2.8 % (0.0-4.0); LYMPH # 1.4 K/mm3 (1.5-6.5); LYMPH % 15.6 % (24.0-44.0); MEAN CORPUSCULAR HEMOGLOBIN 29.8 pg (27.0-33.0); MEAN CORPUSCULAR HGB CONC 33.2 g/dl (32.0-36.5); MEAN CORPUSCULAR VOLUME 89.9 fl (80.0-96.0); MONO # 0.6 K/mm3 (0.0-0.8); NEUTROPHILS # 6.9 K/mm3 (1.8-7.7); NEUTROPHILS % 74.8 % (36.0-66.0); PLATELET COUNT, AUTOMATED 280 k/mm3 (150-450); RED CELL DISTRIBUTION WIDTH 12.4 % (11.5-14.5); WHITE BLOOD COUNT 9.2 K/mm3 (4.0-10.0)
--- NOTE | 2016-10-05 17:30 | REP ---
Clinical: Acute chest pain . Comparison: 08/31/2016 . Technique: PA and lateral. Findings: The mediastinum and cardiac silhouette are normal. The lung pearson are clear and without acute consolidation, effusion, or pneumothorax. The skeletal structures are intact and normal. Impression: 1. No acute cardiopulmonary process. Signed by Edwin Zhao MD 10/05/2016 05:20 P
[2016-10-05 17:52] LABS: ALBUMIN 4.2 GM/DL (3.2-5.2); ALBUMIN/GLOBULIN RATIO 1.35 (1.00-1.93); ALKALINE PHOSPHATASE 84 U/L (45-117); ALT/SGPT 19 U/L (12-78); ANION GAP 7 MEQ/L (8-16); AST/SGOT 19 U/L (15-37); BILIRUBIN,DIRECT 0.2 MG/DL (0.0-0.2); BILIRUBIN,TOTAL 0.7 MG/DL (0.2-1.0); BLOOD UREA NITROGEN 16 MG/DL (7-18); CALCIUM LEVEL 9.1 MG/DL (8.5-10.1); CARBON DIOXIDE LEVEL 29 MEQ/L (21-32); CHLORIDE LEVEL 106 MEQ/L (98-107); CREATININE FOR GFR 0.87 MG/DL (0.70-1.30); GLOMERULAR FILTRATION RATE > 60.0 (>60); GLUCOSE, FASTING 86 MG/DL (70-105); POTASSIUM SERUM 4.2 MEQ/L (3.5-5.1); SODIUM LEVEL 142 MEQ/L (136-145); TOTAL PROTEIN 7.3 GM/DL (6.4-8.2)
--- NOTE | 2016-10-05 18:32 | EDDOCDS ---
Nurse's Notes [facility] Name: Josue Oliveros Age: 26 yrs Sex: Male : 1990 Arrival Date: 10/05/2016 Time: 16:36 Bed 6 Private MD: Diagnosis: Chest pain, unspecified Presentation: 10/05 16:42 Presenting complaint: EMS states: Chest pain for 4 hours. History of A fib. Took Heroin [facility] yesterday. Has done cotton shots today x3. Has not been taking Atenolol. . FSBS--101. SL #20 left forearm. Had 1 nitro and 324mg aspirin. 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 324mg by EMS. Suicide/Homicide risk assessment- the patient denies having any suicidal and/or homicidal ideations and does not present with any other emotional, behavioral or mental health complaints. Status: Patient is not a sales and service engineer or dependent. Transition of care: patient was not received from another setting of care. 16:42 Acuity: HEATH Level 3 [facility] 16:42 Method Of Arrival: Ambulance [facility] 18:30 Adult Sepsis Screening: The patient does not have new or worsening altered mentation. ms18 Patient's respiratory rate is less than 22. Systolic blood pressure is greater than 100. Patient has a qSOFA score of 0- Negative Sepsis Screen. Triage Assessment: 16:48 HIV screening NA for this visit Offered previously. The patient is triaged at the [facility] bedside. See Assessment in Nurses Notes section of ED record. 18:30 Cardiovascular: Chest pain is described as diffuse, radiates Does not radiate. episodes ms18 are continuous began today. Historical: - Allergies: Tramadol HCl (Hives); - Home Meds: 1. atenolol 25 mg Oral tab 1 tab once daily ran out for quite some time 2. ibuprofen 800 mg Oral tab 1 tab every 8 hours as needed (Last dose: 10/05/2016 07:00) - PMHx: ADD; Anxiety; Atrial Fib; dental problems; Panic Attacks; Substance Abuse; - PSHx: none; - Social history: Smoking status: Patient uses tobacco products, light tobacco smoker. No barriers to communication noted, The patient speaks fluent Sinhala. - Family history: Not pertinent. - : The pt / caregiver states he / she is not on anticoagulants. Home medication list is obtained from the patient. - Exposure Risk Screening:: None identified. Screenin:50 Screening information is obtained from the patient. Fall risk: No risks identified. mcp Assistance ADL's: requires no assistance with activities of daily living. Abuse/DV Screen: The patient / caregiver reports he/she is: not in a situation that causes fear, pain or injury. Nutritional screening: No deficits noted. Advance Directives: There is no active DNR order. home support is adequate. Assessment: 16:48 General: Appears uncomfortable, Behavior is cooperative. Pain: Location: chest Pain mcp currently is 9 out of 10 on a pain scale. Neurological: No deficits noted. Cardiovascular: Rhythm is sinus tachycardia Chest pain is described as severe, quality is stabbing, radiates to left arm(s). Respiratory: Airway is patent Respiratory effort is even, unlabored, Breath sounds are clear bilaterally. Derm: Skin is pink, warm & dry. 18:25 General: Appears in no apparent distress, comfortable, slender, Behavior is appropriate ms18 for age, cooperative. Pain: Denies pain. Neurological: No deficits noted. Cardiovascular: Rhythm is regular Chest pain is denied. Respiratory: No deficits noted. Derm: Skin is pink, warm & dry. Vital Signs: 16:46 BP 130 / 58; Pulse 111; Resp 18; Temp 97.8(TE); Pulse Ox 97% on R/A; Weight 81.65 kg; dem1 Height 6 ft. 2 in. (187.96 cm); Pain 10/10; 18:03 BP 129 / 60; Pulse 110 MON; Resp 18; Temp 97.7(O); Pulse Ox 100% ; ms18 16:46 Body Mass Index 23.11 (81.65 kg, 187.96 cm) [facility] Vitals: 16:46 Log In Time N/A - ambulance arrival. [facility] ED Course: 16:37 Patient visited by Shital Hobson, Icu Registered Nurse. deg 16:37 Reena Roberson,ROMEO is Primary Nurse. deg 16:37 Ace Chou MD is Attending Physician. br1 16:37 Patient moved to Waiting deg 16:37 Patient moved to 6 deg 16:45 Triage Initiated mcp 16:50 The patient / caregiver is instructed regarding the plan of care and ED course. Patient mcp has correct armband on for positive identification. Placed in gown. Bed in low position. Call light in reach. Adult w/ patient. garbage pick up man on. Pulse ox on. NIBP on. 16:50 Maintain field IV. Dressing intact. Good blood return noted. Site clean & dry. Gauge & mcp site: #18 left forearm. 16:51 Patient visited by Demetrice Archer RN. mcp 16:54 EKG done. (by ED staff). Reviewed by Ace Chou MD. dem1 16:55 Patient visited by Tanya White. dem1 16:55 Patient visited by Ace Chou MD. br1 17:10 Labs drawn. (by ED staff). Sent per order to lab. mcp 17:12 Patient visited by Demetrice Archer RN. mcp 17:12 LIVER PROFILE Sent. mcp 17:12 LIPASE Sent. mcp 17:12 D-Dimer Quant Sent. mcp 17:12 Basic Metabolic Profile Sent. mcp 17:12 CBC with Diff Sent. mcp 17:12 Cardiac Injury Profile Sent. mcp 17:12 Troponin Sent. mcp 17:49 [facility] Agreement was scanned into [employer] and attached to record. [email or web address] 18:03 Patient visited by Ace Chou MD. br1 18:06 [facility] is Referral Physician. br1 18:13 Chest, 2 View (pa\E\lat) Returned. EDMS 18:28 Discontinued IV lock intact, bleeding controlled, pressure dressing applied, No ms18 redness/swelling at site. pt pulled out his own IV prior to being given discharge paperwork. No procedures done that require assistance. Administered Medications: 17:03 Drug: Nitrostat 0.4 mg [Nitrostat 0.4 mg sublingual tablet (1 tabs)] Route: Sublingual; [facility] Order Results: Lab Order: Basic Metabolic Profile; SPEC'M 10/05/16 17:07 Test: GLUCOSE, FASTING; Value: 86; Range: 70-105; Units: MG/DL; Status: F Test: BLOOD UREA NITROGEN; Value: 16; Range: 7-18; Units: MG/DL; Status: F Test: CREATININE FOR GFR; Value: 0.87; Range: 0.70-1.30; Units: MG/DL; Status: F Test: GLOMERULAR FILTRATION RATE; Value: > 60.0; Range: >60; Status: F Test: SODIUM LEVEL; Value: 142; Range: 136-145; Units: MEQ/L; Status: F Test: POTASSIUM SERUM; Value: 4.2; Range: 3.5-5.1; Units: MEQ/L; Status: F Test: CHLORIDE LEVEL; Value: 106; Range: 98-107; Units: MEQ/L; Status: F Test: CARBON DIOXIDE LEVEL; Value: 29; Range: 21-32; Units: MEQ/L; Status: F Test: ANION GAP; Value: 7; Range: 8-16; Abnormal: Below low normal; Units: MEQ/L; Status: F Test: CALCIUM LEVEL; Value: 9.1; Range: 8.5-10.1; Units: MG/DL; Status: F Test Note: ; Units are mL/min/1.73 m2 Chronic Kidney Disease Staging per NKF: Stage I & II GFR >=60 Normal to Mildly Decreased Stage III GFR 30-59 Moderately Decreased Stage IV GFR 15-29 Severely Decreased Stage V GFR <15 Very Little GFR Left ESRD GFR <15 on CATHODE MAKER Lab Order: CBC with Diff; SPEC'M 10/05/16 17:07 Test: WHITE BLOOD COUNT; Value: 9.2; Range: 4.0-10.0; Units: K/mm3; Status: F Test: RED BLOOD COUNT; Value: 4.89; Range: 4.30-6.10; Units: M/mm3; Status: F Test: HEMOGLOBIN; Value: 14.6; Range: 14.0-18.0; Units: g/dl; Status: F Test: HEMATOCRIT; Value: 43.9; Range: 42.0-52.0; Units: %; Status: F Test: MEAN CORPUSCULAR VOLUME; Value: 89.9; Range: 80.0-96.0; Units: fl; Status: F Test: MEAN CORPUSCULAR HEMOGLOBIN; Value: 29.8; Range: 27.0-33.0; Units: pg; Status: F Test: MEAN CORPUSCULAR HGB CONC; Value: 33.2; Range: 32.0-36.5; Units: g/dl; Status: F Test: RED CELL DISTRIBUTION WIDTH; Value: 12.4; Range: 11.5-14.5; Units: %; Status: F Test: PLATELET COUNT, AUTOMATED; Value: 280; Range: 150-450; Units: k/mm3; Status: F Test: NEUTROPHILS %; Value: 74.8; Range: 36.0-66.0; Abnormal: Above high normal; Units: %; Status: F Test: LYMPH %; Value: 15.6; Range: 24.0-44.0; Abnormal: Below low normal; Units: %; Status: F Test: MONO %; Value: 6.0; Range: 0.0-5.0; Abnormal: Above high normal; Units: %; Status: F Test: EOS %; Value: 0.6; Range: 0.0-3.0; Units: %; Status: F Test: BASO %; Value: 0.2; Range: 0.0-1.0; Units: %; Status: F Test: LARGE UNSTAINED CELL %; Value: 2.8; Range: 0.0-4.0; Units: %; Status: F Test: NEUTROPHILS #; Value: 6.9; Range: 1.8-7.7; Units: K/mm3; Status: F Test: LYMPH #; Value: 1.4; Range: 1.5-6.5; Abnormal: Below low normal; Units: K/mm3; Status: F Test: MONO #; Value: 0.6; Range: 0.0-0.8; Units: K/mm3; Status: F Test: EOS #; Value: 0.1; Range: 0.0-0.50; Units: K/mm3; Status: F Test: BASO #; Value: 0.0; Range: 0.0-0.2; Units: K/mm3; Status: F Test: LARGE UNSTAINED CELL #; Value: 0.3; Range: 0.0-0.4; Units: K/mm3; Status: F Lab Order: Cardiac Injury Profile; SPEC'M 10/05/16 17:07 Test: CPK CREATINE PHOSPHOKINASE; Value: 108; Range: 39-308; Units: U/L; Status: F Test: CK-MB VALUE MASS; Value: 1.6; Range: 0.0-3.6; Units: NG/ML; Status: F Test: MB/CK RELATIVE INDEX; Value: 1.48; Range: < OR =4; Status: F Test Note: ; DIAGNOSIS CRITERIA MMB ng/ml Relative Index (RI) NON-AMI < or = 5 N/A HAZEL ZONE > 5 < or = 4 AMI > 5 > 4 Lab Order: Troponin; [facility]' 10/05/16 17:07 Test: TROPONIN I; Value: < 0.02; Range: < 0.10; Units: NG/ML; Status: F Test Note: ; Troponin I Reference Interval for Siemens Cube Route LOCI: 99th Percentile= 0.00-0.045 ng/ml Risk Stratification: <= 0.10 ng/ml Decreased Risk for Adverse Clinical Events. 0.10-1.50 ng/ml Increased Risk for Adverse Clinical Events. Evaluation of additional criterion and/or repeat testing in 2-6 hours is suggested to rule out myocardial damage. >= 1.50 ng/ml Indicative of Myocardial Injury. Lab Order: D-Dimer Quant; [facility]' 10/05/16 17:07 Test: D-DIMER QUANT; Value: 408.3; Range: <500; Units: ng/ml; Status: F Lab Order: LIPASE; [facility]' 10/05/16 17:07 Test: LIPASE; Value: 84; Range: 73-393; Units: U/L; Status: F Lab Order: LIVER PROFILE; [facility] 10/05/16 17:07 Test: AST/SGOT; Value: 19; Range: 15-37; Units: U/L; Status: F Test: ALT/SGPT; Value: 19; Range: 12-78; Units: U/L; Status: F Test: ALKALINE PHOSPHATASE; Value: 84; Range: 45-117; Units: U/L; Status: F Test: BILIRUBIN,TOTAL; Value: 0.7; Range: 0.2-1.0; Units: MG/DL; Status: F Test: BILIRUBIN,DIRECT; Value: 0.2; Range: 0.0-0.2; Units: MG/DL; Status: F Test: TOTAL PROTEIN; Value: 7.3; Range: 6.4-8.2; Units: GM/DL; Status: F Test: ALBUMIN; Value: 4.2; Range: 3.2-5.2; Units: GM/DL; Status: F Test: ALBUMIN/GLOBULIN RATIO; Value: 1.35; Range: 1.00-1.93; Status: F Radiology Order: Chest, 2 View (pa\E\lat) Test: Chest, 2 View (pa\E\lat) REASON FOR EXAMINATION: Chest Pain; Clinical: Acute chest pain .; ; Comparison: 08/31/2016 .; ; Technique: PA and lateral.; ; Findings:; The mediastinum and cardiac silhouette are normal. The lung pearson are clear and; without acute consolidation, effusion, or pneumothorax. The skeletal structures; are intact and normal.; ; Impression:; 1. No acute cardiopulmonary process.; ; ; Signed by; Edwin Zhao MD 10/05/2016 05:20 P; Outcome: 18:06 Discharge ordered by Provider. br1 18:28 Discharge Assessment: Patient awake, alert and oriented x 3. No cognitive and/or ms18 functional deficits noted. Patient verbalized understanding of disposition instructions. patient administered narcotics - no. The following High Risk Discharge criteria are identified: None. Discharged to home ambulatory. Condition: good Condition: stable Condition: improved. Discharge instructions given to patient, Instructed on discharge instructions, follow up and referral plans. Demonstrated understanding of instructions, Pt was receptive of discharge instructions/ teaching. No special radiology studies were completed. Property sent home with patient. :Personal belongings accompany Pt. 18:31 Patient left the ED. ms18 Signatures: Dispatcher [employer] EDShital Camarillo, Icu Registered Nurse Unit deg Demetrice Archer RN Ace Machado mcp, MD MD br1 Tanya White Mallory, RN RN ms18 Yudelka Warner, Reg Reg [email or web address] MTDD
--- NOTE | 2016-10-05 18:32 | EDDOCDS ---
Physician Documentation [facility] Name: Josue Oliveros Age: 26 yrs Sex: Male : 1990 Arrival Date: 10/05/2016 Time: 16:36 Bed 6 Private MD: Disposition: 10/05/16 18:06 Discharged to Home/Self Care. Impression: Chest pain, unspecified. - Condition is Stable. - Discharge Instructions: Nonspecific Chest Pain. - Medication Reconciliation, Local Pharmacy Hours form. - Follow up: Private Physician; When: 2 - 3 days; Reason: Recheck today's complaints. Follow up: [facility]; When: 2 - 3 days; Reason: Recheck today's complaints. - Problem is new. - Symptoms are resolved. - Notes: You were seen in the ED for chest pain. Bloodwork along with EKG of the heart and chest Xray showed no acute cause of the symptoms. Although offered observation and further testing in the ED, you have declined and requested discharge home at this time. Please call your primary doctor to discuss the ED visit and arrange to be seen for follow up in the office - if you have no doctor please call the [facility] to arrange to be seen. Return to the ED for any return of chest pain, trouble breathing, lightheadedness, loss of consciousness, or any other concerns. Historical: - Allergies: Tramadol HCl (Hives); - Home Meds: 1. atenolol 25 mg Oral tab 1 tab once daily ran out for quite some time 2. ibuprofen 800 mg Oral tab 1 tab every 8 hours as needed (Last dose: 10/05/2016 07:00) - PMHx: ADD; Anxiety; Atrial Fib; dental problems; Panic Attacks; Substance Abuse; - PSHx: none; - Social history: Smoking status: Patient uses tobacco products, light tobacco smoker. No barriers to communication noted, The patient speaks fluent Armenian. - Family history: Not pertinent. - : The pt / caregiver states he / she is not on anticoagulants. Home medication list is obtained from the patient. - Exposure Risk Screening:: None identified. Vital Signs: 10/05 16:46 BP 130 / 58; Pulse 111; Resp 18; Temp 97.8(TE); Pulse Ox 97% on R/A; Weight 81.65 kg / dem1 180.01 lbs; Height 6 ft. 2 in. 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 br1 16:40 IV Saline Lock ordered. br1 16:40 Rhythm Strip to chart ordered. br1 16:40 Undress patient appropriately for examination ordered. br1 16:41 ECG WITH READING ER PHYS+CARDIAG ordered. EDMS 16:41 Basic Metabolic Profile Ordered. EDMS 16:41 CBC with Diff Ordered. EDMS 16:41 Cardiac Injury Profile Ordered. EDMS 16:41 Troponin Ordered. EDMS 16:42 Chest, 2 View (pa\E\lat) Ordered. EDMS 16:56 Nitrostat 0.4 mg Sublingual once ordered. br1 17:03 D-Dimer Quant Ordered. EDMS 17:05 LIPASE Ordered. EDMS 17:05 LIVER PROFILE Ordered. EDMS 17:48 Financial registration complete. [email or web address] 17:49 [facility] Payment Agreement was scanned into [employer] and attached to record. ks16 17:59 Basic Metabolic Profile Reviewed. br1 17:59 CBC with Diff Reviewed. br1 17:59 Cardiac Injury Profile Reviewed. br1 17:59 Troponin Reviewed. br1 17:59 D-Dimer Quant Reviewed. br1 17:59 LIPASE Reviewed. br1 17:59 LIVER PROFILE Reviewed. br1 Administered Medications: 17:03 Drug: Nitrostat 0.4 mg [Nitrostat 0.4 mg sublingual tablet (1 tabs)] Route: Sublingual; [facility] Signatures: Dispatcher [employer] EDMS Demetrice Archer RN RN mcp Roggie, Brian, MD MD br1 Reena Roberson RN RN ms18 Yudelka Warner, Reg Reg [email or web address] The chart was reviewed and I authenticate all verbal orders and agree with the evaluation and treatment provided.Corrections: (The following items were deleted from the chart) 17:05 16:58 LIVER PROFILE+LAB ordered. EDMS EDMS 17:05 16:58 LIPASE+LAB ordered. EDMS EDMS Attachments: 17:49 [facility] Payment Agreement [email or web address] MTDD
--- NOTE | 2016-10-06 19:46 | ECGEPIP ---
Stationary ECG Study [facility] - ED Test Date: 2016-10-05 Pat Name: NIEVES BLOCK Department: Room: - Gender: M Classifier Operator: tess : 1990 Requested By: OLINDA Pinto Order Number: [id number] Reading MD: Manuela Hunt Measurements Intervals [place] Rate: 106 P: 80 DC: 123 QRS: 38 QRSD: 93 T: 51 QT: 345 QTc: 459 Interpretive Statements SINUS TACHYCARDIA POSSIBLE LEFT ATRIAL ENLARGEMENT ABNORMAL RHYTHM ECG INCREASED RATE 08/31/16 Electronically Signed On 10-06-2016 19:46:21 EST by Manuela Hunt
--- NOTE | 2016-10-07 19:32 | EDDOCDS ---
Physician Documentation [facility] Name: Josue Oliveros Age: 26 yrs Sex: Male : 1990 Arrival Date: 10/05/2016 Time: 16:36 Bed 6 Private MD: Disposition: 10/05/16 18:06 Discharged to Home/Self Care. Impression: Chest pain, unspecified. - Condition is Stable. - Discharge Instructions: Nonspecific Chest Pain. - Medication Reconciliation, Local Pharmacy Hours form. - Follow up: Private Physician; When: 2 - 3 days; Reason: Recheck today's complaints. Follow up: [facility]; When: 2 - 3 days; Reason: Recheck today's complaints. - Problem is new. - Symptoms are resolved. - Notes: You were seen in the ED for chest pain. Bloodwork along with EKG of the heart and chest Xray showed no acute cause of the symptoms. Although offered observation and further testing in the ED, you have declined and requested discharge home at this time. Please call your primary doctor to discuss the ED visit and arrange to be seen for follow up in the office - if you have no doctor please call the [facility] to arrange to be seen. Return to the ED for any return of chest pain, trouble breathing, lightheadedness, loss of consciousness, or any other concerns. Historical: - Allergies: Tramadol HCl (Hives); - Home Meds: 1. atenolol 25 mg Oral tab 1 tab once daily ran out for quite some time 2. ibuprofen 800 mg Oral tab 1 tab every 8 hours as needed (Last dose: 10/05/2016 07:00) - PMHx: ADD; Anxiety; Atrial Fib; dental problems; Panic Attacks; Substance Abuse; - PSHx: none; - Social history: Smoking status: Patient uses tobacco products, light tobacco smoker. No barriers to communication noted, The patient speaks fluent Chinese. - Family history: Not pertinent. - : The pt / caregiver states he / she is not on anticoagulants. Home medication list is obtained from the patient. - Exposure Risk Screening:: None identified. Vital Signs: 10/05 16:46 BP 130 / 58; Pulse 111; Resp 18; Temp 97.8(TE); Pulse Ox 97% on R/A; Weight 81.65 kg / dem1 180.01 lbs; Height 6 ft. 2 in. 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 br1 16:40 IV Saline Lock ordered. br1 16:40 Rhythm Strip to chart ordered. br1 16:40 Undress patient appropriately for examination ordered. br1 16:41 ECG WITH READING ER PHYS+CARDIAG ordered. EDMS 16:41 Basic Metabolic Profile Ordered. EDMS 16:41 CBC with Diff Ordered. EDMS 16:41 Cardiac Injury Profile Ordered. EDMS 16:41 Troponin Ordered. EDMS 16:42 Chest, 2 View (pa\E\lat) Ordered. EDMS 16:56 Nitrostat 0.4 mg Sublingual once ordered. br1 17:03 D-Dimer Quant Ordered. EDMS 17:05 LIPASE Ordered. EDMS 17:05 LIVER PROFILE Ordered. EDMS 17:48 Financial registration complete. [email or web address] 17:49 [facility] Payment Agreement was scanned into [employer] and attached to record. ks16 17:59 Basic Metabolic Profile Reviewed. br1 17:59 CBC with Diff Reviewed. br1 17:59 Cardiac Injury Profile Reviewed. br1 17:59 Troponin Reviewed. br1 17:59 D-Dimer Quant Reviewed. br1 17:59 LIPASE Reviewed. br1 17:59 LIVER PROFILE Reviewed. br1 10/06 11:22 T-Sheet-- Draft Copy was scanned into [employer] and attached to record. gb 11:22 ECG/EKG was scanned into [employer] and attached to record. gb 11:23 Radiology Report was scanned into [employer] and attached to record. gb Administered Medications: 10/05 17:03 Drug: Nitrostat 0.4 mg [Nitrostat 0.4 mg sublingual tablet (1 tabs)] Route: Sublingual; [facility] Signatures: Dispatcher [employer] EDMS Demetrice Archer RN RN [facility] Lillian Knight, Reg Reg gb Ace Chou MD MD br1 Reena Roberson RN RN ms18 Alana, Yudelka, Reg Reg [email or web address] The chart was reviewed and I authenticate all verbal orders and agree with the evaluation and treatment provided.Corrections: (The following items were deleted from the chart) 17: 16:58 LIVER PROFILE+LAB ordered. EDMS EDMS 17: 16:58 LIPASE+LAB ordered. EDMS EDMS Attachments: 17:49 [facility] Payment Agreement [email or web address] 10/06 11:22 T-Sheet-- Draft Copy gb 11:22 ECG/EKG gb Chart Complete MTDD
--- NOTE | 2016-10-07 19:32 | EDDOCDS ---
Nurse's Notes [facility] Name: Josue Oliveros Age: 26 yrs Sex: Male : 1990 Arrival Date: 10/05/2016 Time: 16:36 Bed 6 Private MD: Diagnosis: Chest pain, unspecified Presentation: 10/05 16:42 Presenting complaint: EMS states: Chest pain for 4 hours. History of A fib. Took Heroin [facility] yesterday. Has done cotton shots today x3. Has not been taking Atenolol. . FSBS--101. SL #20 left forearm. Had 1 nitro and 324mg aspirin. 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 Suicide/Homicide risk assessment- the patient denies having any suicidal and/or homicidal ideations and does not present with any other emotional, behavioral or mental health complaints. Status: Patient is not a telegraph service rater or dependent. Transition of care: patient was not received from another setting of care. 16:42 Acuity: HEATH Level 3 [facility] 16:42 Method Of Arrival: Ambulance [facility] 18:30 Adult Sepsis Screening: The patient does not have new or worsening altered mentation. ms18 Patient's respiratory rate is less than 22. Systolic blood pressure is greater than 100. Patient has a qSOFA score of 0- Negative Sepsis Screen. Triage Assessment: 16:48 HIV screening NA for this visit Offered previously. The patient is triaged at the [facility] bedside. See Assessment in Nurses Notes section of ED record. 18:30 Cardiovascular: Chest pain is described as diffuse, radiates Does not radiate. episodes ms18 are continuous began today. Historical: - Allergies: Tramadol HCl (Hives); - Home Meds: 1. atenolol 25 mg Oral tab 1 tab once daily ran out for quite some time 2. ibuprofen 800 mg Oral tab 1 tab every 8 hours as needed (Last dose: 10/05/2016 07:00) - PMHx: ADD; Anxiety; Atrial Fib; dental problems; Panic Attacks; Substance Abuse; - PSHx: none; - Social history: Smoking status: Patient uses tobacco products, light tobacco smoker. No barriers to communication noted, The patient speaks fluent Nepali. - Family history: Not pertinent. - : The pt / caregiver states he / she is not on anticoagulants. Home medication list is obtained from the patient. - Exposure Risk Screening:: None identified. Screenin:50 Screening information is obtained from the patient. Fall risk: No risks identified. mcp Assistance ADL's: requires no assistance with activities of daily living. Abuse/DV Screen: The patient / caregiver reports he/she is: not in a situation that causes fear, pain or injury. Nutritional screening: No deficits noted. Advance Directives: There is no active DNR order. home support is adequate. Assessment: 16:48 General: Appears uncomfortable, Behavior is cooperative. Pain: Location: chest Pain mcp currently is 9 out of 10 on a pain scale. Neurological: No deficits noted. Cardiovascular: Rhythm is sinus tachycardia Chest pain is described as severe, quality is stabbing, radiates to left arm(s). Respiratory: Airway is patent Respiratory effort is even, unlabored, Breath sounds are clear bilaterally. Derm: Skin is pink, warm & dry. 18:25 General: Appears in no apparent distress, comfortable, slender, Behavior is appropriate ms18 for age, cooperative. Pain: Denies pain. Neurological: No deficits noted. Cardiovascular: Rhythm is regular Chest pain is denied. Respiratory: No deficits noted. Derm: Skin is pink, warm & dry. Vital Signs: 16:46 BP 130 / 58; Pulse 111; Resp 18; Temp 97.8(TE); Pulse Ox 97% on R/A; Weight 81.65 kg; dem1 Height 6 ft. 2 in. (187.96 cm); Pain 10/10; 18:03 BP 129 / 60; Pulse 110 MON; Resp 18; Temp 97.7(O); Pulse Ox 100% ; ms18 16:46 Body Mass Index 23.11 (81.65 kg, 187.96 cm) [facility] Vitals: 16:46 Log In Time N/A - ambulance arrival. [facility] ED Course: 16:37 Patient visited by Shital Hobson, Insights Strategist. deg 16:37 Reena Roberson,ROMEO is Primary Nurse. deg 16:37 Olinda Chou MD is Attending Physician. br1 16:37 Patient moved to Waiting deg 16:37 Patient moved to 6 deg 16:45 Triage Initiated mcp 16:50 The patient / caregiver is instructed regarding the plan of care and ED course. Patient mcp has correct armband on for positive identification. Placed in gown. Bed in low position. Call light in reach. Adult w/ patient. school health aide on. Pulse ox on. NIBP on. 16:50 Maintain field IV. Dressing intact. Good blood return noted. Site clean & dry. Gauge & mcp site: #18 left forearm. 16:51 Patient visited by Demetrice Archer RN. mcp 16:54 EKG done. (by ED staff). Reviewed by Olinda Chou MD. dem1 16:55 Patient visited by Tanya White. dem1 16:55 Patient visited by Olinda Chou MD. br1 17:10 Labs drawn. (by ED staff). Sent per order to lab. mcp 17:12 Patient visited by Demetrice Archer RN. mcp 17:12 LIVER PROFILE Sent. mcp 17:12 LIPASE Sent. mcp 17:12 D-Dimer Quant Sent. mcp 17:12 Basic Metabolic Profile Sent. mcp 17:12 CBC with Diff Sent. mcp 17:12 Cardiac Injury Profile Sent. mcp 17:12 Troponin Sent. mcp 17:49 [facility] Payment Agreement was scanned into [employer] and attached to record. ks16 18:03 Patient visited by Olinda Chou MD. br1 18:06 [facility] is Referral Physician. br1 18:13 Chest, 2 View (pa\E\lat) Returned. EDMS 18:28 Discontinued IV lock intact, bleeding controlled, pressure dressing applied, No ms18 redness/swelling at site. pt pulled out his own IV prior to being given discharge paperwork. No procedures done that require assistance. 10/06 11:22 T-Sheet-- Draft Copy was scanned into [employer] and attached to record. gb 11:22 ECG/EKG was scanned into [employer] and attached to record. gb 11:23 Radiology Report was scanned into [employer] and attached to record. gb 20:02 EKG-ADULT Returned. EDMS Administered Medications: 10/05 17:03 Drug: Nitrostat 0.4 mg [Nitrostat 0.4 mg sublingual tablet (1 tabs)] Route: Sublingual; [facility] Order Results: Lab Order: Basic Metabolic Profile; SPEC'M 10/05/16 17:07 Test: GLUCOSE, FASTING; Value: 86; Range: 70-105; Units: MG/DL; Status: F Test: BLOOD UREA NITROGEN; Value: 16; Range: 7-18; Units: MG/DL; Status: F Test: CREATININE FOR GFR; Value: 0.87; Range: 0.70-1.30; Units: MG/DL; Status: F Test: GLOMERULAR FILTRATION RATE; Value: > 60.0; Range: >60; Status: F Test: SODIUM LEVEL; Value: 142; Range: 136-145; Units: MEQ/L; Status: F Test: POTASSIUM SERUM; Value: 4.2; Range: 3.5-5.1; Units: MEQ/L; Status: F Test: CHLORIDE LEVEL; Value: 106; Range: 98-107; Units: MEQ/L; Status: F Test: CARBON DIOXIDE LEVEL; Value: 29; Range: 21-32; Units: MEQ/L; Status: F Test: ANION GAP; Value: 7; Range: 8-16; Abnormal: Below low normal; Units: MEQ/L; Status: F Test: CALCIUM LEVEL; Value: 9.1; Range: 8.5-10.1; Units: MG/DL; Status: F Test Note: ; Units are mL/min/1.73 m2 Chronic Kidney Disease Staging per NKF: Stage I & II GFR >=60 Normal to Mildly Decreased Stage III GFR 30-59 Moderately Decreased Stage IV GFR 15-29 Severely Decreased Stage V GFR <15 Very Little GFR Left ESRD GFR <15 on COAL GASIFICATION TECHNICIAN Lab Order: CBC with Diff; SPEC'M 10/05/16 17:07 Test: WHITE BLOOD COUNT; Value: 9.2; Range: 4.0-10.0; Units: K/mm3; Status: F Test: RED BLOOD COUNT; Value: 4.89; Range: 4.30-6.10; Units: M/mm3; Status: F Test: HEMOGLOBIN; Value: 14.6; Range: 14.0-18.0; Units: g/dl; Status: F Test: HEMATOCRIT; Value: 43.9; Range: 42.0-52.0; Units: %; Status: F Test: MEAN CORPUSCULAR VOLUME; Value: 89.9; Range: 80.0-96.0; Units: fl; Status: F Test: MEAN CORPUSCULAR HEMOGLOBIN; Value: 29.8; Range: 27.0-33.0; Units: pg; Status: F Test: MEAN CORPUSCULAR HGB CONC; Value: 33.2; Range: 32.0-36.5; Units: g/dl; Status: F Test: RED CELL DISTRIBUTION WIDTH; Value: 12.4; Range: 11.5-14.5; Units: %; Status: F Test: PLATELET COUNT, AUTOMATED; Value: 280; Range: 150-450; Units: k/mm3; Status: F Test: NEUTROPHILS %; Value: 74.8; Range: 36.0-66.0; Abnormal: Above high normal; Units: %; Status: F Test: LYMPH %; Value: 15.6; Range: 24.0-44.0; Abnormal: Below low normal; Units: %; Status: F Test: MONO %; Value: 6.0; Range: 0.0-5.0; Abnormal: Above high normal; Units: %; Status: F Test: EOS %; Value: 0.6; Range: 0.0-3.0; Units: %; Status: F Test: BASO %; Value: 0.2; Range: 0.0-1.0; Units: %; Status: F Test: LARGE UNSTAINED CELL %; Value: 2.8; Range: 0.0-4.0; Units: %; Status: F Test: NEUTROPHILS #; Value: 6.9; Range: 1.8-7.7; Units: K/mm3; Status: F Test: LYMPH #; Value: 1.4; Range: 1.5-6.5; Abnormal: Below low normal; Units: K/mm3; Status: F Test: MONO #; Value: 0.6; Range: 0.0-0.8; Units: K/mm3; Status: F Test: EOS #; Value: 0.1; Range: 0.0-0.50; Units: K/mm3; Status: F Test: BASO #; Value: 0.0; Range: 0.0-0.2; Units: K/mm3; Status: F Test: LARGE UNSTAINED CELL #; Value: 0.3; Range: 0.0-0.4; Units: K/mm3; Status: F Lab Order: Cardiac Injury Profile; SPEC'M 10/05/16 17:07 Test: CPK CREATINE PHOSPHOKINASE; Value: 108; Range: 39-308; Units: U/L; Status: F Test: CK-MB VALUE MASS; Value: 1.6; Range: 0.0-3.6; Units: NG/ML; Status: F Test: MB/CK RELATIVE INDEX; Value: 1.48; Range: < OR =4; Status: F Test Note: ; DIAGNOSIS CRITERIA MMB ng/ml Relative Index (RI) NON-AMI < or = 5 N/A HAZEL ZONE > 5 < or = 4 AMI > 5 > 4 Lab Order: Troponin; [facility]' 10/05/16 17:07 Test: TROPONIN I; Value: < 0.02; Range: < 0.10; Units: NG/ML; Status: F Test Note: ; Troponin I Reference Interval for [employer] LOCI: 99th Percentile= 0.00-0.045 ng/ml Risk Stratification: <= 0.10 ng/ml Decreased Risk for Adverse Clinical Events. 0.10-1.50 ng/ml Increased Risk for Adverse Clinical Events. Evaluation of additional criterion and/or repeat testing in 2-6 hours is suggested to rule out myocardial damage. >= 1.50 ng/ml Indicative of Myocardial Injury. Lab Order: D-Dimer Quant; [facility]' 10/05/16 17:07 Test: D-DIMER QUANT; Value: 408.3; Range: <500; Units: ng/ml; Status: F Lab Order: LIPASE; [facility] 10/05/16 17:07 Test: LIPASE; Value: 84; Range: 73-393; Units: U/L; Status: F Lab Order: LIVER PROFILE; [facility] 10/05/16 17:07 Test: AST/SGOT; Value: 19; Range: 15-37; Units: U/L; Status: F Test: ALT/SGPT; Value: 19; Range: 12-78; Units: U/L; Status: F Test: ALKALINE PHOSPHATASE; Value: 84; Range: 45-117; Units: U/L; Status: F Test: BILIRUBIN,TOTAL; Value: 0.7; Range: 0.2-1.0; Units: MG/DL; Status: F Test: BILIRUBIN,DIRECT; Value: 0.2; Range: 0.0-0.2; Units: MG/DL; Status: F Test: TOTAL PROTEIN; Value: 7.3; Range: 6.4-8.2; Units: GM/DL; Status: F Test: ALBUMIN; Value: 4.2; Range: 3.2-5.2; Units: GM/DL; Status: F Test: ALBUMIN/GLOBULIN RATIO; Value: 1.35; Range: 1.00-1.93; Status: F Radiology Order: EKG-ADULT Test: EKG-ADULT REASON FOR EXAMINATION: Chest Pain; Stationary ECG Study; [facility] - ED; ; Test Date: 2016-10-05; Pat Name: JOSUE OLIVEROS Department:; Room: -; Gender: M 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; : 1990 Requested By: OLINDA Pinto; Order Number: [id number] Reading MD: Manuela Hunt; Measurements; Intervals [place]; Rate: 106 P: 80; TN: 123 QRS: 38; QRSD: 93 T: 51; QT: 345; QTc: 459; Interpretive Statements; SINUS TACHYCARDIA; POSSIBLE LEFT ATRIAL ENLARGEMENT; ABNORMAL RHYTHM ECG; INCREASED RATE 08/31/16; Electronically Signed On 10-06-2016 19:46:21 EST by Manuela Hunt; Radiology Order: Chest, 2 View (pa\E\lat) Test: Chest, 2 View (pa\E\lat) REASON FOR EXAMINATION: Chest Pain; Clinical: Acute chest pain .; ; Comparison: 08/31/2016 .; ; Technique: PA and lateral.; ; Findings:; The mediastinum and cardiac silhouette are normal. The lung pearson are clear and; without acute consolidation, effusion, or pneumothorax. The skeletal structures; are intact and normal.; ; Impression:; 1. No acute cardiopulmonary process.; ; ; Signed by; Edwin Zhao MD 10/05/2016 05:20 P; Outcome: 18:06 Discharge ordered by Provider. br1 18:28 Discharge Assessment: Patient awake, alert and oriented x 3. No cognitive and/or ms18 functional deficits noted. Patient verbalized understanding of disposition instructions. patient administered narcotics - no. The following High Risk Discharge criteria are identified: None. Discharged to home ambulatory. Condition: good Condition: stable Condition: improved. Discharge instructions given to patient, Instructed on discharge instructions, follow up and referral plans. Demonstrated understanding of instructions, Pt was receptive of discharge instructions/ teaching. No special radiology studies were completed. Property sent home with patient. :Personal belongings accompany Pt. 18:31 Patient left the ED. ms18 Signatures: Dispatcher [employer] EDMS Shital Hobson, Insights Strategist Unit deg Demetrice Archer, ROMEO RN [facility] Lillian Knight, Reg Reg gb Olinda Chou MD MD br1 Tanya White1 Reena Roberson RN RN ms18 Yudelka Warner, Reg Reg ks16 Chart Complete MTDD
--- NOTE | 2016-10-07 19:32 | EDDOCDS ---
Physician Documentation [facility] Name: Josue Oliveros Age: 26 yrs Sex: Male : 1990 Arrival Date: 10/05/2016 Time: 16:36 Bed 6 Private MD: Disposition: 10/05/16 18:06 Discharged to Home/Self Care. Impression: Chest pain, unspecified. - Condition is Stable. - Discharge Instructions: Nonspecific Chest Pain. - Medication Reconciliation, Local Pharmacy Hours form. - Follow up: Private Physician; When: 2 - 3 days; Reason: Recheck today's complaints. Follow up: [facility]; When: 2 - 3 days; Reason: Recheck today's complaints. - Problem is new. - Symptoms are resolved. - Notes: You were seen in the ED for chest pain. Bloodwork along with EKG of the heart and chest Xray showed no acute cause of the symptoms. Although offered observation and further testing in the ED, you have declined and requested discharge home at this time. Please call your primary doctor to discuss the ED visit and arrange to be seen for follow up in the office - if you have no doctor please call the [facility] to arrange to be seen. Return to the ED for any return of chest pain, trouble breathing, lightheadedness, loss of consciousness, or any other concerns. Historical: - Allergies: Tramadol HCl (Hives); - Home Meds: 1. atenolol 25 mg Oral tab 1 tab once daily ran out for quite some time 2. ibuprofen 800 mg Oral tab 1 tab every 8 hours as needed (Last dose: 10/05/2016 07:00) - PMHx: ADD; Anxiety; Atrial Fib; dental problems; Panic Attacks; Substance Abuse; - PSHx: none; - Social history: Smoking status: Patient uses tobacco products, light tobacco smoker. No barriers to communication noted, The patient speaks fluent Belarusian. - Family history: Not pertinent. - : The pt / caregiver states he / she is not on anticoagulants. Home medication list is obtained from the patient. - Exposure Risk Screening:: None identified. Vital Signs: 10/05 16:46 BP 130 / 58; Pulse 111; Resp 18; Temp 97.8(TE); Pulse Ox 97% on R/A; Weight 81.65 kg / dem1 180.01 lbs; Height 6 ft. 2 in. (187.96 cm); Pain 10/10; 18:03 BP 129 / 60; Pulse 110 MON; Resp 18; Temp 97.7(O); Pulse Ox 100% ; ms18 16:46 Body Mass Index 23.11 (81.65 kg, 187.96 cm) dem1 MDM: 16:40 Director Of Assessing/Pulse Ox/q 30 min VS ordered. br1 16:40 IV Saline Lock ordered. br1 16:40 Rhythm Strip to chart ordered. br1 16:40 Undress patient appropriately for examination ordered. br1 16:41 ECG WITH READING ER PHYS+CARDIAG ordered. EDMS 16:41 Basic Metabolic Profile Ordered. EDMS 16:41 CBC with Diff Ordered. EDMS 16:41 Cardiac Injury Profile Ordered. EDMS 16:41 Troponin Ordered. EDMS 16:42 Chest, 2 View (pa\E\lat) Ordered. EDMS 16:56 Nitrostat 0.4 mg Sublingual once ordered. br1 17:03 D-Dimer Quant Ordered. EDMS 17:05 LIPASE Ordered. EDMS 17:05 LIVER PROFILE Ordered. EDMS 17:48 Financial registration complete. [email or web address] 17:49 [facility] Payment Agreement was scanned into [employer] and attached to record. ks16 17:59 Basic Metabolic Profile Reviewed. br1 17:59 CBC with Diff Reviewed. br1 17:59 Cardiac Injury Profile Reviewed. br1 17:59 Troponin Reviewed. br1 17:59 D-Dimer Quant Reviewed. br1 17:59 LIPASE Reviewed. br1 17:59 LIVER PROFILE Reviewed. br1 10/06 11:22 T-Sheet-- Draft Copy was scanned into [employer] and attached to record. gb 11:22 ECG/EKG was scanned into [employer] and attached to record. gb 11:23 Radiology Report was scanned into [employer] and attached to record. gb Administered Medications: 10/05 17:03 Drug: Nitrostat 0.4 mg [Nitrostat 0.4 mg sublingual tablet (1 tabs)] Route: Sublingual; [facility] Signatures: Dispatcher [employer] EDMS Demetrice Archer RN RN [facility] Lillian Knight, Reg Reg gb Ace Chou MD MD br1 Reena Roberson RN RN ms18 Alana, Yudelka, Reg Reg [email or web address] The chart was reviewed and I authenticate all verbal orders and agree with the evaluation and treatment provided.Corrections: (The following items were deleted from the chart) 17: 16:58 LIVER PROFILE+LAB ordered. EDMS EDMS 17: 16:58 LIPASE+LAB ordered. EDMS EDMS Attachments: 17:49 [facility] Payment Agreement [email or web address] 10/06 11:22 T-Sheet-- Draft Copy gb 11:22 ECG/EKG gb Chart Complete MTDD
== END 2016-10-05 18:31 | disposition home or self-care (01) ==
LOC: M ED 16:36
DX: R07.9 Chest pain, unspecified (principal); F90.9 Attention-deficit hyperactivity disorder, unspecified type; F41.0 Panic disorder [episodic paroxysmal anxiety]; I48.91 Unspecified atrial fibrillation; K08.9 Disorder of teeth and supporting structures, unspecified; F19.10 Other psychoactive substance abuse, uncomplicated; Z79.899 Other long term (current) drug therapy; Z88.8 Allergy status to other drugs, medicaments and biological substances

== ENCOUNTER 2016-10-12 01:33 | Emergency (ER) | payer OTHER ==
[2016-10-12] MEDS ORDERED: ASPIRIN 81 MG CHEW TABLET As Ordered ONE (01:51)
[2016-10-12 01:58] LABS: BASO % 0.2 % (0.0-1.0); EOS # 0.1 K/mm3 (0.0-0.50); EOS % 1.5 % (0.0-3.0); LARGE UNSTAINED CELL # 0.1 K/mm3 (0.0-0.4); LARGE UNSTAINED CELL % 1.9 % (0.0-4.0); LYMPH # 1.3 K/mm3 (1.5-6.5); LYMPH % 18.5 % (24.0-44.0); MEAN CORPUSCULAR HEMOGLOBIN 29.3 pg (27.0-33.0); MEAN CORPUSCULAR HGB CONC 32.5 g/dl (32.0-36.5); MEAN CORPUSCULAR VOLUME 90.4 fl (80.0-96.0); MONO # 0.4 K/mm3 (0.0-0.8); MONO % 5.2 % (0.0-5.0); NEUTROPHILS # 5.2 K/mm3 (1.8-7.7); NEUTROPHILS % 72.6 % (36.0-66.0); PLATELET COUNT, AUTOMATED 249 k/mm3 (150-450); RED CELL DISTRIBUTION WIDTH 12.3 % (11.5-14.5); WHITE BLOOD COUNT 7.1 K/mm3 (4.0-10.0)
[2016-10-12 02:23] LABS: ANION GAP 5 MEQ/L (8-16); BLOOD UREA NITROGEN 9 MG/DL (7-18); CALCIUM LEVEL 8.6 MG/DL (8.5-10.1); CARBON DIOXIDE LEVEL 31 MEQ/L (21-32); CHLORIDE LEVEL 106 MEQ/L (98-107); CREATININE FOR GFR 0.85 MG/DL (0.70-1.30); GLOMERULAR FILTRATION RATE > 60.0 (>60); GLUCOSE, FASTING 94 MG/DL (70-105); POTASSIUM SERUM 3.6 MEQ/L (3.5-5.1); SODIUM LEVEL 142 MEQ/L (136-145)
--- NOTE | 2016-10-12 03:47 | EDDOCDS ---
Physician Documentation [facility] Name: Josue Oliveros Age: 26 yrs Sex: Male : 1990 Arrival Date: 10/12/2016 Time: 01:33 Bed 8 Private MD: Disposition: 10/12/16 03:38 Patient has left against medical advice. Impression: Chest pain, unspecified. - Patients states they are going to Home/Self Care. - Condition is Good. - Discharge Instructions: Nonspecific Chest Pain. Medication Reconciliation, Local Pharmacy Hours form. Follow up: Private Physician; When: Call to arrange an appointment; Reason: Recheck today's complaints. - Problem is chronic. - Symptoms have improved. Historical: - Allergies: Tramadol HCl (Hives); - Home Meds: 1. ibuprofen 800 mg Oral tab 1 tab every 8 hours as needed - PMHx: ADD; Anxiety; Atrial Fib; dental problems; Panic Attacks; Substance Abuse; - PSHx: none; - Social history: Smoking status: Patient uses tobacco products, current every day smoker. Patient uses street drugs, heroin, Christina, IV drugs, heroin, No barriers to communication noted, The patient speaks fluent Ukrainian, Speaks appropriately for age, Preferred Language: Ukrainian. - Family history: Mother has/had A-fib. - : The pt / caregiver states he / she is not on anticoagulants. Home medication list is obtained from the patient. - Exposure Risk Screening:: None identified. Vital Signs: 10/12 01:40 BP 130 / 81; Pulse 98; Resp 16; Temp 97.5(O); Pulse Ox 100% on R/A; Weight 81.65 kg / lf1 180.01 lbs (R); Height 6 ft. 2 in. (187.96 cm); Pain 8/10; 01:42 BP 130 / 81 (auto/); mlc 01:43 Pulse Ox 99% ; mlc 02:08 BP 127 / 80 (auto/); mlc 02:08 Pulse 92 MON; Pulse Ox 100% ; mlc 02:30 BP 126 / 82 (auto/); mlc 02:30 Pulse 88 MON; Pulse Ox 100% ; mlc 02:59 Pulse 90 MON; Pulse Ox 100% ; mlc 03:00 BP 117 / 77 (auto/); mlc 03:00 Pulse 89 MON; Pulse Ox 100% ; mlc 03:30 BP 124 / 81 (auto/); mlc 03:31 Pulse 88 MON; Pulse Ox 100% ; mlc 01:40 Body Mass Index 23.11 (81.65 kg, 187.96 cm) lf1 MDM: 01:49 Aspirin Chewable Tablet 324 mg PO once ordered. fg 01:49 Home Health Aide Caregiver/Pulse Ox/q 30 min VS ordered. fg 01:49 IV Saline Lock ordered. fg 01:49 Rhythm Strip to chart ordered. fg 01:49 Undress patient appropriately for examination ordered. fg 01:49 NS 0.9% 1000 ml IV at bolus once ordered. fg 01:51 Basic Metabolic Profile Ordered. EDMS 01:51 CBC with Diff Ordered. EDMS 01:51 Cardiac Injury Profile Ordered. EDMS 01:51 Troponin Ordered. EDMS 01:51 portable chest Ordered. EDMS 01:51 ECG WITH READING ER PHYS+CARDIAG ordered. EDMS 03:15 Financial registration complete. hs2 03:16 [facility] Payment Agreement was scanned into [employer] and attached to record. hs2 Administered Medications: 02:02 Drug: Aspirin 324 mg [aspirin 81 mg chewable tablet (4 tabs)] Route: PO; mlc 03:01 Follow up: Response: No Adverse Reaction mlc 02:02 Drug: NS 0.9% 1000 ml [sodium chloride 0.9 % intravenous solution] Route: IV; Rate: mlc bolus; Site: right antecubital; 03:01 Follow up: IV Status: Completed infusion mlc Signatures: Dispatcher [employer] EDMO Laverne Bashir RN RN lf1 Aurelia Mar RN RN [facility] Tisha Taylor MD MD Cristina Meier, Reg Reg hs2 The chart was reviewed and I authenticate all verbal orders and agree with the evaluation and treatment provided.Attachments: 03:16 [facility] Payment Agreement hs2 MTDD
--- NOTE | 2016-10-12 03:47 | EDDOCDS ---
Nurse's Notes [facility] Name: Josue Oliveros Age: 26 yrs Sex: Male : 1990 Arrival Date: 10/12/2016 Time: 01:33 Bed 8 Private MD: Diagnosis: Chest pain, unspecified Presentation: 10/12 01:39 Presenting complaint: Patient states: Was injecting heroin 2 hours ago and started lf1 having chest pain one hour ago. Also reports doing Christina today. Pt. reports pain is currently 8/10 and pt. reports nothing makes it better. Pt states left shoulder feels weak. Adult Sepsis Screening: Patient has new or worsening altered mentation (1 point). Patient's respiratory rate is less than 22. Adult Sepsis Screening: Systolic blood pressure is greater than 100. Patient has a qSOFA score of 0- Negative Sepsis Screen. Suicide/Homicide risk assessment- the patient denies having any suicidal and/or homicidal ideations and does not present with any other emotional, behavioral or mental health complaints. Status: Patient is not a environmental services tech or dependent. Transition of care: patient was not received from another setting of care. 01:39 Acuity: HEATH Level 2 lf1 01:39 Method Of Arrival: Wheelchair lf1 Triage Assessment: 01:43 General: Appears slender, unkempt, Behavior is drowsy, restless. Pain: Location: lf1 anterior aspect of left upper chest, mid-sternal area and left breast Pain currently is 8 out of 10 on a pain scale. HIV screening NA for this visit Offered previously. The patient is triaged at the bedside. See Assessment in Nurses Notes section of ED record. Neurological: Level of Consciousness is awake, alert, obeys commands, Oriented to person, place, time, Speech is normal. EENT: No deficits noted. Cardiovascular: Chest pain is described as Pain is 8 out of 10 on a pain scale. quality is heaviness, is located in left anterior. Respiratory: Respiratory effort is even, unlabored, Respiratory pattern is regular, Reports shortness of breath. GI: Denies nausea, vomiting. Derm: track daugherty to BL UE. Injury Description: No known injury. Historical: - Allergies: Tramadol HCl (Hives); - Home Meds: 1. ibuprofen 800 mg Oral tab 1 tab every 8 hours as needed - PMHx: ADD; Anxiety; Atrial Fib; dental problems; Panic Attacks; Substance Abuse; - PSHx: none; - Social history: Smoking status: Patient uses tobacco products, current every day smoker. Patient uses street drugs, heroin, Christina, IV drugs, heroin, No barriers to communication noted, The patient speaks fluent Yi, Speaks appropriately for age, Preferred Language: Yi. - Family history: Mother has/had A-fib. - : The pt / caregiver states he / she is not on anticoagulants. Home medication list is obtained from the patient. - Exposure Risk Screening:: None identified. Screenin:48 Screening information is obtained from the patient. Fall risk: No risks identified. lf1 Assistance ADL's: requires no assistance with activities of daily living. Abuse/DV Screen: The patient / caregiver reports he/she is: not in a situation that causes fear, pain or injury. Nutritional screening: No deficits noted. Advance Directives: Currently, there is no health care proxy. home support is adequate. Assessment: 02:04 Adult Sepsis Screening:. General: Appears in no apparent distress, uncomfortable, mlc Behavior is cooperative. Pain: Location: xyphoid area and mid-sternal area Pain currently is 10 out of 10 on a pain scale. Neurological: Level of Consciousness is awake, alert, Oriented to person, place, time. Neurological: Pupils are PERRLA. Cardiovascular: Capillary refill < 3 seconds Heart tones S1 S2 present Rhythm is sinus rhythm Chest pain is described as Pain is 10 out of 10 on a pain scale. radiates Does not radiate. episodes are continuous. Respiratory: Airway is patent Respiratory effort is even, unlabored, Respiratory pattern is regular, Breath sounds are clear bilaterally. GI: Abdomen is non- distended Bowel sounds present X 4 quads. Abd is soft X 4 quads. Derm: Skin is pink, warm & dry. 03:00 Reassessment: Patient appears in no apparent distress at this time. Patient states mlc symptoms have not improved. pt reports decrease in pain, pt reports fatigue. resp easy/unlabored. . 03:44 General: Appears in no apparent distress, comfortable, Behavior is cooperative. mlc Neurological: Level of Consciousness is awake, alert, Oriented to person, place, time. Cardiovascular: Rhythm is sinus rhythm. Respiratory: Airway is patent Respiratory effort is even, unlabored, Respiratory pattern is regular. Vital Signs: 01:40 BP 130 / 81; Pulse 98; Resp 16; Temp 97.5(O); Pulse Ox 100% on R/A; Weight 81.65 kg lf1 (R); Height 6 ft. 2 in. (187.96 cm); Pain 8/10; 01:42 BP 130 / 81 (auto/); mlc 01:43 Pulse Ox 99% ; mlc 02:08 BP 127 / 80 (auto/); mlc 02:08 Pulse 92 MON; Pulse Ox 100% ; mlc 02:30 BP 126 / 82 (auto/); mlc 02:30 Pulse 88 MON; Pulse Ox 100% ; mlc 02:59 Pulse 90 MON; Pulse Ox 100% ; mlc 03:00 BP 117 / 77 (auto/); mlc 03:00 Pulse 89 MON; Pulse Ox 100% ; mlc 03:30 BP 124 / 81 (auto/); mlc 03:31 Pulse 88 MON; Pulse Ox 100% ; mlc 01:40 Body Mass Index 23.11 (81.65 kg, 187.96 cm) [facility] Vitals: 01:40 Log In Time: October 12, 2016 at 01:40. 1 ED Course: 01:37 Patient visited by Selena Osullivan. jp5 01:37 Patient moved to Waiting jp5 01:38 Aurelia Mar RN is Primary Nurse. kb5 01:38 Tisha Taylor MD is Attending Physician. fg 01:38 Patient visited by Tisha Taylor MD. fg 01:38 Patient moved to 2 kb5 01:43 Triage Initiated lf1 01:48 Patient visited by Laverne Bashir RN. lf1 01:54 Inserted saline lock: 20 gauge in right antecubital area and blood collected. The nn1 patient tolerated the procedure well. 01:56 EKG done. (by ED staff). Reviewed by Tisha Taylor MD. rn1 02:04 The patient / caregiver is instructed regarding the plan of care and ED course. Cardiac mlc monitor on. Pulse ox on. NIBP on. 02:07 Patient visited by Aurelia Mar RN. mlc 03:00 No procedures done that require assistance. mlc 03:01 Patient visited by Aurelia Mar RN. mlc 03:16 [facility] Payment Agreement was scanned into [employer] and attached to record. hs2 03:31 Patient moved to 8 cz 03:45 Discontinued IV lock intact, bleeding controlled, pressure dressing applied, No mlc redness/swelling at site. Administered Medications: 02:02 Drug: Aspirin 324 mg [aspirin 81 mg chewable tablet (4 tabs)] Route: PO; mlc 03:01 Follow up: Response: No Adverse Reaction [facility] 02:02 Drug: NS 0.9% 1000 ml [sodium chloride 0.9 % intravenous solution] Route: IV; Rate: mlc bolus; Site: right antecubital; 03:01 Follow up: IV Status: Completed infusion mlc Order Results: Lab Order: Basic Metabolic Profile; SPEC'M 10/12/16 01:49 Test: GLUCOSE, FASTING; Value: 94; Range: 70-105; Units: MG/DL; Status: F Test: BLOOD UREA NITROGEN; Value: 9; Range: 7-18; Units: MG/DL; Status: F Test: CREATININE FOR GFR; Value: 0.85; Range: 0.70-1.30; Units: MG/DL; Status: F Test: GLOMERULAR FILTRATION RATE; Value: > 60.0; Range: >60; Status: F Test: SODIUM LEVEL; Value: 142; Range: 136-145; Units: MEQ/L; Status: F Test: POTASSIUM SERUM; Value: 3.6; Range: 3.5-5.1; Units: MEQ/L; Status: F Test: CHLORIDE LEVEL; Value: 106; Range: 98-107; Units: MEQ/L; Status: F Test: CARBON DIOXIDE LEVEL; Value: 31; Range: 21-32; Units: MEQ/L; Status: F Test: ANION GAP; Value: 5; Range: 8-16; Abnormal: Below low normal; Units: MEQ/L; Status: F Test: CALCIUM LEVEL; Value: 8.6; Range: 8.5-10.1; Units: MG/DL; Status: F Test Note: ; Units are mL/min/1.73 m2 Chronic Kidney Disease Staging per NKF: Stage I & II GFR >=60 Normal to Mildly Decreased Stage III GFR 30-59 Moderately Decreased Stage IV GFR 15-29 Severely Decreased Stage V GFR <15 Very Little GFR Left ESRD GFR <15 on VP GENETIC Lab Order: CBC with Diff; SPEC'M 10/12/16 01:49 Test: WHITE BLOOD COUNT; Value: 7.1; Range: 4.0-10.0; Units: K/mm3; Status: F Test: RED BLOOD COUNT; Value: 4.62; Range: 4.30-6.10; Units: M/mm3; Status: F Test: HEMOGLOBIN; Value: 13.5; Range: 14.0-18.0; Abnormal: Below low normal; Units: g/dl; Status: F Test: HEMATOCRIT; Value: 41.7; Range: 42.0-52.0; Abnormal: Below low normal; Units: %; Status: F Test: MEAN CORPUSCULAR VOLUME; Value: 90.4; Range: 80.0-96.0; Units: fl; Status: F Test: MEAN CORPUSCULAR HEMOGLOBIN; Value: 29.3; Range: 27.0-33.0; Units: pg; Status: F Test: MEAN CORPUSCULAR HGB CONC; Value: 32.5; Range: 32.0-36.5; Units: g/dl; Status: F Test: RED CELL DISTRIBUTION WIDTH; Value: 12.3; Range: 11.5-14.5; Units: %; Status: F Test: PLATELET COUNT, AUTOMATED; Value: 249; Range: 150-450; Units: k/mm3; Status: F Test: NEUTROPHILS %; Value: 72.6; Range: 36.0-66.0; Abnormal: Above high normal; Units: %; Status: F Test: LYMPH %; Value: 18.5; Range: 24.0-44.0; Abnormal: Below low normal; Units: %; Status: F Test: MONO %; Value: 5.2; Range: 0.0-5.0; Abnormal: Above high normal; Units: %; Status: F Test: EOS %; Value: 1.5; Range: 0.0-3.0; Units: %; Status: F Test: BASO %; Value: 0.2; Range: 0.0-1.0; Units: %; Status: F Test: LARGE UNSTAINED CELL %; Value: 1.9; Range: 0.0-4.0; Units: %; Status: F Test: NEUTROPHILS #; Value: 5.2; Range: 1.8-7.7; Units: K/mm3; Status: F Test: LYMPH #; Value: 1.3; Range: 1.5-6.5; Abnormal: Below low normal; Units: K/mm3; Status: F Test: MONO #; Value: 0.4; Range: 0.0-0.8; Units: K/mm3; Status: F Test: EOS #; Value: 0.1; Range: 0.0-0.50; Units: K/mm3; Status: F Test: BASO #; Value: 0.0; Range: 0.0-0.2; Units: K/mm3; Status: F Test: LARGE UNSTAINED CELL #; Value: 0.1; Range: 0.0-0.4; Units: K/mm3; Status: F Lab Order: Cardiac Injury Profile; [facility] 10/12/16 01:49 Test: CPK CREATINE PHOSPHOKINASE; Value: 88; Range: 39-308; Units: U/L; Status: F Test: CK-MB VALUE MASS; Value: 1.0; Range: 0.0-3.6; Units: NG/ML; Status: F Test: MB/CK RELATIVE INDEX; Value: 1.13; Range: < OR =4; Status: F Test Note: ; DIAGNOSIS CRITERIA MMB ng/ml Relative Index (RI) NON-AMI < or = 5 N/A HAZEL ZONE > 5 < or = 4 AMI > 5 > 4 Lab Order: Troponin; [facility] 10/12/16 01:49 Test: TROPONIN I; Value: < 0.02; Range: < 0.10; Units: NG/ML; Status: F Test Note: ; Troponin I Reference Interval for Turbocoating LOCI: 99th Percentile= 0.00-0.045 ng/ml Risk Stratification: <= 0.10 ng/ml Decreased Risk for Adverse Clinical Events. 0.10-1.50 ng/ml Increased Risk for Adverse Clinical Events. Evaluation of additional criterion and/or repeat testing in 2-6 hours is suggested to rule out myocardial damage. >= 1.50 ng/ml Indicative of Myocardial Injury. Outcome: 03:38 Patient left against medical advice. fg 03:45 Discharge Assessment: patient administered narcotics - no. The following High Risk mlc Discharge criteria are identified: Yes, pt leaving AMA. The patient is leaving AMA: AMA form signed, Notification of AMA status is made to the charge nurse, the renal social worker, the ED attending physician. Condition: stable Condition: unchanged. Discharge instructions given to patient, Instructed on discharge instructions, Demonstrated understanding of instructions. No special radiology studies were completed. Property sent home with patient. 03:46 Patient left the ED. [facility] Signatures: Barak Sánchez, RN RN cz Cj Wing, MARKETING BUSINESS ANALYST MARKETING BUSINESS ANALYST kb5 Laverne Bashir RN RN lf1 Aurelia Mar RN RN [facility] Jose Freeman rn1 Mick Arroyo RN RN nn1 Selena Osullivan jp5 Tisha Taylor MD MD fg Stanton, Hillary, Reg Reg hs2 MTDD
--- NOTE | 2016-10-12 08:07 | REP ---
Clinical: Chest pain . Comparison: 10/05/2016 . Findings: The mediastinum and cardiac silhouette are stable and within normal limits for portable technique. The lung pearson are clear without acute consolidation, effusion, or pneumothorax. Skeletal structures are intact. Impression: Normal portable chest x-ray Signed by Edwin Zhao MD 10/12/2016 07:59 A
--- NOTE | 2016-10-13 15:08 | ECGEPIP ---
Stationary ECG Study [facility] - ED Test Date: 2016-10-12 Pat Name: NIEVES BLOCK Department: Room: - Gender: M Ladle Watcher: rn : 1990 Requested By: YOVANI Vivar Order Number: [id number] Reading MD: Manuela Hunt Measurements Intervals [place] Rate: 87 P: 78 ID: [id number] QRS: 37 QRSD: 106 T: 53 QT: 369 QTc: 445 Interpretive Statements SINUS RHYTHM DECREASED RATE 10/05/16 Electronically Signed On 10-13-2016 15:08:01 EST by Manuela Hunt
--- NOTE | 2016-10-14 04:47 | EDDOCDS ---
Physician Documentation [facility] Name: Josue Oliveros Age: 26 yrs Sex: Male : 1990 Arrival Date: 10/12/2016 Time: 01:33 Bed 8 Private MD: Disposition: 10/12/16 03:38 Patient has left against medical advice. Impression: Chest pain, unspecified. - Patients states they are going to Home/Self Care. - Condition is Good. - Discharge Instructions: Nonspecific Chest Pain. Medication Reconciliation, Local Pharmacy Hours form. Follow up: Private Physician; When: Call to arrange an appointment; Reason: Recheck today's complaints. - Problem is chronic. - Symptoms have improved. Historical: - Allergies: Tramadol HCl (Hives); - Home Meds: 1. ibuprofen 800 mg Oral tab 1 tab every 8 hours as needed - PMHx: ADD; Anxiety; Atrial Fib; dental problems; Panic Attacks; Substance Abuse; - PSHx: none; - Social history: Smoking status: Patient uses tobacco products, current every day smoker. Patient uses street drugs, heroin, Christina, IV drugs, heroin, No barriers to communication noted, The patient speaks fluent Taiwanese, Speaks appropriately for age, Preferred Language: Taiwanese. - Family history: Mother has/had A-fib. - : The pt / caregiver states he / she is not on anticoagulants. Home medication list is obtained from the patient. - Exposure Risk Screening:: None identified. Vital Signs: 10/12 01:40 BP 130 / 81; Pulse 98; Resp 16; Temp 97.5(O); Pulse Ox 100% on R/A; Weight 81.65 kg / lf1 180.01 lbs (R); Height 6 ft. 2 in. (187.96 cm); Pain 8/10; 01:42 BP 130 / 81 (auto/); mlc 01:43 Pulse Ox 99% ; mlc 02:08 BP 127 / 80 (auto/); mlc 02:08 Pulse 92 MON; Pulse Ox 100% ; mlc 02:30 BP 126 / 82 (auto/); mlc 02:30 Pulse 88 MON; Pulse Ox 100% ; mlc 02:59 Pulse 90 MON; Pulse Ox 100% ; mlc 03:00 BP 117 / 77 (auto/); mlc 03:00 Pulse 89 MON; Pulse Ox 100% ; mlc 03:30 BP 124 / 81 (auto/); mlc 03:31 Pulse 88 MON; Pulse Ox 100% ; mlc 01:40 Body Mass Index 23.11 (81.65 kg, 187.96 cm) lf1 MDM: 01:49 Aspirin Chewable Tablet 324 mg PO once ordered. fg 01:49 Veterinary Epidemiologist/Pulse Ox/q 30 min VS ordered. fg 01:49 IV Saline Lock ordered. fg 01:49 Rhythm Strip to chart ordered. fg 01:49 Undress patient appropriately for examination ordered. fg 01:49 NS 0.9% 1000 ml IV at bolus once ordered. fg 01:51 Basic Metabolic Profile Ordered. EDMS 01:51 CBC with Diff Ordered. EDMS 01:51 Cardiac Injury Profile Ordered. EDMS 01:51 Troponin Ordered. EDMS 01:51 portable chest Ordered. EDMS 01:51 ECG WITH READING ER PHYS+CARDIAG ordered. EDMS 03:15 Financial registration complete. hs2 03:16 [facility] Payment Agreement was scanned into [employer] and attached to record. hs2 21:27 T-Sheet-- Draft Copy was scanned into [employer] and attached to record. klr Administered Medications: 02:02 Drug: Aspirin 324 mg [aspirin 81 mg chewable tablet (4 tabs)] Route: PO; mlc 03:01 Follow up: Response: No Adverse Reaction mlc 02:02 Drug: NS 0.9% 1000 ml [sodium chloride 0.9 % intravenous solution] Route: IV; Rate: mlc bolus; Site: right antecubital; 03:01 Follow up: IV Status: Completed infusion mlc Signatures: Dispatcher [employer] EDIA Laverne Bashir RN RN lf1 Aurelia Mar RN RN [facility] Tisha Taylor MD MD Cristina Meier, Reg Reg hs2 Katina Vaughn klr The chart was reviewed and I authenticate all verbal orders and agree with the evaluation and treatment provided.Attachments: 03:16 [facility] Payment Agreement hs2 21:27 T-Sheet-- Draft Copy klr Chart Complete MTDD
--- NOTE | 2016-10-14 04:47 | EDDOCDS ---
Nurse's Notes [facility] Name: Josue Oliveros Age: 26 yrs Sex: Male : 1990 Arrival Date: 10/12/2016 Time: 01:33 Bed 8 Private MD: Diagnosis: Chest pain, unspecified Presentation: 10/12 01:39 Presenting complaint: Patient states: Was injecting heroin 2 hours ago and started lf1 having chest pain one hour ago. Also reports doing Christina today. Pt. reports pain is currently 8/10 and pt. reports nothing makes it better. Pt states left shoulder feels weak. Adult Sepsis Screening: Patient has new or worsening altered mentation (1 point). Patient's respiratory rate is less than 22. Adult Sepsis Screening: Systolic blood pressure is greater than 100. Patient has a qSOFA score of 0- Negative Sepsis Screen. Suicide/Homicide risk assessment- the patient denies having any suicidal and/or homicidal ideations and does not present with any other emotional, behavioral or mental health complaints. Status: Patient is not a director of home health services or dependent. Transition of care: patient was not received from another setting of care. 01:39 Acuity: HEATH Level 2 lf1 01:39 Method Of Arrival: Wheelchair lf1 Triage Assessment: 01:43 General: Appears slender, unkempt, Behavior is drowsy, restless. Pain: Location: lf1 anterior aspect of left upper chest, mid-sternal area and left breast Pain currently is 8 out of 10 on a pain scale. HIV screening NA for this visit Offered previously. The patient is triaged at the bedside. See Assessment in Nurses Notes section of ED record. Neurological: Level of Consciousness is awake, alert, obeys commands, Oriented to person, place, time, Speech is normal. EENT: No deficits noted. Cardiovascular: Chest pain is described as Pain is 8 out of 10 on a pain scale. quality is heaviness, is located in left anterior. Respiratory: Respiratory effort is even, unlabored, Respiratory pattern is regular, Reports shortness of breath. GI: Denies nausea, vomiting. Derm: track daugherty to BL UE. Injury Description: No known injury. Historical: - Allergies: Tramadol HCl (Hives); - Home Meds: 1. ibuprofen 800 mg Oral tab 1 tab every 8 hours as needed - PMHx: ADD; Anxiety; Atrial Fib; dental problems; Panic Attacks; Substance Abuse; - PSHx: none; - Social history: Smoking status: Patient uses tobacco products, current every day smoker. Patient uses street drugs, heroin, Christina, IV drugs, heroin, No barriers to communication noted, The patient speaks fluent Occitan, Speaks appropriately for age, Preferred Language: Occitan. - Family history: Mother has/had A-fib. - : The pt / caregiver states he / she is not on anticoagulants. Home medication list is obtained from the patient. - Exposure Risk Screening:: None identified. Screenin:48 Screening information is obtained from the patient. Fall risk: No risks identified. lf1 Assistance ADL's: requires no assistance with activities of daily living. Abuse/DV Screen: The patient / caregiver reports he/she is: not in a situation that causes fear, pain or injury. Nutritional screening: No deficits noted. Advance Directives: Currently, there is no health care proxy. home support is adequate. Assessment: 02:04 Adult Sepsis Screening:. General: Appears in no apparent distress, uncomfortable, mlc Behavior is cooperative. Pain: Location: xyphoid area and mid-sternal area Pain currently is 10 out of 10 on a pain scale. Neurological: Level of Consciousness is awake, alert, Oriented to person, place, time. Neurological: Pupils are PERRLA. Cardiovascular: Capillary refill < 3 seconds Heart tones S1 S2 present Rhythm is sinus rhythm Chest pain is described as Pain is 10 out of 10 on a pain scale. radiates Does not radiate. episodes are continuous. Respiratory: Airway is patent Respiratory effort is even, unlabored, Respiratory pattern is regular, Breath sounds are clear bilaterally. GI: Abdomen is non- distended Bowel sounds present X 4 quads. Abd is soft X 4 quads. Derm: Skin is pink, warm & dry. 03:00 Reassessment: Patient appears in no apparent distress at this time. Patient states mlc symptoms have not improved. pt reports decrease in pain, pt reports fatigue. resp easy/unlabored. . 03:44 General: Appears in no apparent distress, comfortable, Behavior is cooperative. mlc Neurological: Level of Consciousness is awake, alert, Oriented to person, place, time. Cardiovascular: Rhythm is sinus rhythm. Respiratory: Airway is patent Respiratory effort is even, unlabored, Respiratory pattern is regular. Social Work Consult: 03:51 LWBS/AMA AMA: Patient is refusing further stabilizing treatment at [facility], although jl offered treatment regardless of method of payment or ability to pay. Patient is aware that this action is being undertaken against the advice of the medical staff at [facility]. Pt. has capacity to understand the potential consequences of this choice. pt did notify ED staff. Patient / guardian did sign Refusal of Services form. Pt left before being seen by PSA. Vital Signs: 01:40 BP 130 / 81; Pulse 98; Resp 16; Temp 97.5(O); Pulse Ox 100% on R/A; Weight 81.65 kg lf1 (R); Height 6 ft. 2 in. (187.96 cm); Pain 8/10; 01:42 BP 130 / 81 (auto/); mlc 01:43 Pulse Ox 99% ; mlc 02:08 BP 127 / 80 (auto/); mlc 02:08 Pulse 92 MON; Pulse Ox 100% ; mlc 02:30 BP 126 / 82 (auto/); mlc 02:30 Pulse 88 MON; Pulse Ox 100% ; mlc 02:59 Pulse 90 MON; Pulse Ox 100% ; mlc 03:00 BP 117 / 77 (auto/); mlc 03:00 Pulse 89 MON; Pulse Ox 100% ; mlc 03:30 BP 124 / 81 (auto/); mlc 03:31 Pulse 88 MON; Pulse Ox 100% ; mlc 01:40 Body Mass Index 23.11 (81.65 kg, 187.96 cm) 1 Vitals: 01:40 Log In Time: October 12, 2016 at 01:40. 1 ED Course: 01:37 Patient visited by Selena Osullivan. jp5 01:37 Patient moved to Waiting jp5 01:38 Aurelia Mar,RN is Primary Nurse. kb5 01:38 Tisha Taylro MD is Attending Physician. fg 01:38 Patient visited by Tisha Taylor MD. fg 01:38 Patient moved to 2 kb5 01:43 Triage Initiated lf1 01:48 Patient visited by Laverne Bashir RN. lf1 01:54 Inserted saline lock: 20 gauge in right antecubital area and blood collected. The nn1 patient tolerated the procedure well. 01:56 EKG done. (by ED staff). Reviewed by Tisha Taylor MD. rn1 02:04 The patient / caregiver is instructed regarding the plan of care and ED course. Cardiac mlc monitor on. Pulse ox on. NIBP on. 02:07 Patient visited by Aurelia Mar RN. mlc 03:00 No procedures done that require assistance. mlc 03:01 Patient visited by Aurelia Mar RN. mlc 03:16 [facility] Payment Agreement was scanned into [employer] and attached to record. hs2 03:31 Patient moved to 8 cz 03:45 Discontinued IV lock intact, bleeding controlled, pressure dressing applied, No mlc redness/swelling at site. 08:33 portable chest Returned. EDMS 21:27 T-Sheet-- Draft Copy was scanned into [employer] and attached to record. klr 10/13 15:14 EKG-ADULT Returned. EDMS Administered Medications: 10/12 02:02 Drug: Aspirin 324 mg [aspirin 81 mg chewable tablet (4 tabs)] Route: PO; mlc 03:01 Follow up: Response: No Adverse Reaction mlc 02:02 Drug: NS 0.9% 1000 ml [sodium chloride 0.9 % intravenous solution] Route: IV; Rate: mlc bolus; Site: right antecubital; 03:01 Follow up: IV Status: Completed infusion mlc Order Results: Lab Order: Basic Metabolic Profile; SPEC'M 10/12/16 01:49 Test: GLUCOSE, FASTING; Value: 94; Range: 70-105; Units: MG/DL; Status: F Test: BLOOD UREA NITROGEN; Value: 9; Range: 7-18; Units: MG/DL; Status: F Test: CREATININE FOR GFR; Value: 0.85; Range: 0.70-1.30; Units: MG/DL; Status: F Test: GLOMERULAR FILTRATION RATE; Value: > 60.0; Range: >60; Status: F Test: SODIUM LEVEL; Value: 142; Range: 136-145; Units: MEQ/L; Status: F Test: POTASSIUM SERUM; Value: 3.6; Range: 3.5-5.1; Units: MEQ/L; Status: F Test: CHLORIDE LEVEL; Value: 106; Range: 98-107; Units: MEQ/L; Status: F Test: CARBON DIOXIDE LEVEL; Value: 31; Range: 21-32; Units: MEQ/L; Status: F Test: ANION GAP; Value: 5; Range: 8-16; Abnormal: Below low normal; Units: MEQ/L; Status: F Test: CALCIUM LEVEL; Value: 8.6; Range: 8.5-10.1; Units: MG/DL; Status: F Test Note: ; Units are mL/min/1.73 m2 Chronic Kidney Disease Staging per NKF: Stage I & II GFR >=60 Normal to Mildly Decreased Stage III GFR 30-59 Moderately Decreased Stage IV GFR 15-29 Severely Decreased Stage V GFR <15 Very Little GFR Left ESRD GFR <15 on DEMOLITION ENGINEER Lab Order: CBC with Diff; SPEC'M 10/12/16 01:49 Test: WHITE BLOOD COUNT; Value: 7.1; Range: 4.0-10.0; Units: K/mm3; Status: F Test: RED BLOOD COUNT; Value: 4.62; Range: 4.30-6.10; Units: M/mm3; Status: F Test: HEMOGLOBIN; Value: 13.5; Range: 14.0-18.0; Abnormal: Below low normal; Units: g/dl; Status: F Test: HEMATOCRIT; Value: 41.7; Range: 42.0-52.0; Abnormal: Below low normal; Units: %; Status: F Test: MEAN CORPUSCULAR VOLUME; Value: 90.4; Range: 80.0-96.0; Units: fl; Status: F Test: MEAN CORPUSCULAR HEMOGLOBIN; Value: 29.3; Range: 27.0-33.0; Units: pg; Status: F Test: MEAN CORPUSCULAR HGB CONC; Value: 32.5; Range: 32.0-36.5; Units: g/dl; Status: F Test: RED CELL DISTRIBUTION WIDTH; Value: 12.3; Range: 11.5-14.5; Units: %; Status: F Test: PLATELET COUNT, AUTOMATED; Value: 249; Range: 150-450; Units: k/mm3; Status: F Test: NEUTROPHILS %; Value: 72.6; Range: 36.0-66.0; Abnormal: Above high normal; Units: %; Status: F Test: LYMPH %; Value: 18.5; Range: 24.0-44.0; Abnormal: Below low normal; Units: %; Status: F Test: MONO %; Value: 5.2; Range: 0.0-5.0; Abnormal: Above high normal; Units: %; Status: F Test: EOS %; Value: 1.5; Range: 0.0-3.0; Units: %; Status: F Test: BASO %; Value: 0.2; Range: 0.0-1.0; Units: %; Status: F Test: LARGE UNSTAINED CELL %; Value: 1.9; Range: 0.0-4.0; Units: %; Status: F Test: NEUTROPHILS #; Value: 5.2; Range: 1.8-7.7; Units: K/mm3; Status: F Test: LYMPH #; Value: 1.3; Range: 1.5-6.5; Abnormal: Below low normal; Units: K/mm3; Status: F Test: MONO #; Value: 0.4; Range: 0.0-0.8; Units: K/mm3; Status: F Test: EOS #; Value: 0.1; Range: 0.0-0.50; Units: K/mm3; Status: F Test: BASO #; Value: 0.0; Range: 0.0-0.2; Units: K/mm3; Status: F Test: LARGE UNSTAINED CELL #; Value: 0.1; Range: 0.0-0.4; Units: K/mm3; Status: F Lab Order: Cardiac Injury Profile; SPEC'M 10/12/16 01:49 Test: CPK CREATINE PHOSPHOKINASE; Value: 88; Range: 39-308; Units: U/L; Status: F Test: CK-MB VALUE MASS; Value: 1.0; Range: 0.0-3.6; Units: NG/ML; Status: F Test: MB/CK RELATIVE INDEX; Value: 1.13; Range: < OR =4; Status: F Test Note: ; DIAGNOSIS CRITERIA MMB ng/ml Relative Index (RI) NON-AMI < or = 5 N/A HAZEL ZONE > 5 < or = 4 AMI > 5 > 4 Lab Order: Troponin; SPEC'M 10/12/16 01:49 Test: TROPONIN I; Value: < 0.02; Range: < 0.10; Units: NG/ML; Status: F Test Note: ; Troponin I Reference Interval for Siemens [place] LOCI: 99th Percentile= 0.00-0.045 ng/ml Risk Stratification: <= 0.10 ng/ml Decreased Risk for Adverse Clinical Events. 0.10-1.50 ng/ml Increased Risk for Adverse Clinical Events. Evaluation of additional criterion and/or repeat testing in 2-6 hours is suggested to rule out myocardial damage. >= 1.50 ng/ml Indicative of Myocardial Injury. Radiology Order: portable chest Test: portable chest REASON FOR EXAMINATION: Chest Pain; Clinical: Chest pain .; ; Comparison: 10/05/2016 .; ; Findings:; The mediastinum and cardiac silhouette are stable and within normal limits for; portable technique. The lung pearson are clear without acute consolidation,; effusion, or pneumothorax. Skeletal structures are intact.; ; Impression:; Normal portable chest x-ray; ; ; Signed by; Edwin Zhao MD 10/12/2016 07:59 A; Radiology Order: EKG-ADULT Test: EKG-ADULT REASON FOR EXAMINATION: Chest Pain; Stationary ECG Study; 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 fg 03:45 Discharge Assessment: patient administered narcotics - no. The following High Risk mlc Discharge criteria are identified: Yes, pt leaving AMA. The patient is leaving AMA: AMA form signed, Notification of AMA status is made to the charge nurse, the social media content specialist, the ED attending physician. Condition: stable Condition: unchanged. Discharge instructions given to patient, Instructed on discharge instructions, Demonstrated understanding of instructions. No special radiology studies were completed. Property sent home with patient. 03:46 Patient left the ED. mlc Signatures: Dispatcher [employer] EDMS Barak Sánchez, RN RN cz Geoff Quintana, PSA PSA jl Cj Wing, RHINOLOGIST RHINOLOGIST kb5 Laverne Bashir,RN RN lf1 Aurelia Mar,RN RN Jose Ash rn1 Mick ArroyoRN RN nn1 Selena Osullivan jp5 Tisha Taylor MD MD Cristina Meier, [facility] Reg 2 Katina Vaughn Chart Complete MTDD
--- NOTE | 2016-10-14 04:47 | EDDOCDS ---
Physician Documentation [facility] Name: Josue Oliveros Age: 26 yrs Sex: Male : 1990 Arrival Date: 10/12/2016 Time: 01:33 Bed 8 Private MD: Disposition: 10/12/16 03:38 Patient has left against medical advice. Impression: Chest pain, unspecified. - Patients states they are going to Home/Self Care. - Condition is Good. - Discharge Instructions: Nonspecific Chest Pain. Medication Reconciliation, Local Pharmacy Hours form. Follow up: Private Physician; When: Call to arrange an appointment; Reason: Recheck today's complaints. - Problem is chronic. - Symptoms have improved. Historical: - Allergies: Tramadol HCl (Hives); - Home Meds: 1. ibuprofen 800 mg Oral tab 1 tab every 8 hours as needed - PMHx: ADD; Anxiety; Atrial Fib; dental problems; Panic Attacks; Substance Abuse; - PSHx: none; - Social history: Smoking status: Patient uses tobacco products, current every day smoker. Patient uses street drugs, heroin, Christina, IV drugs, heroin, No barriers to communication noted, The patient speaks fluent Haitian, Speaks appropriately for age, Preferred Language: Haitian. - Family history: Mother has/had A-fib. - : The pt / caregiver states he / she is not on anticoagulants. Home medication list is obtained from the patient. - Exposure Risk Screening:: None identified. Vital Signs: 10/12 01:40 BP 130 / 81; Pulse 98; Resp 16; Temp 97.5(O); Pulse Ox 100% on R/A; Weight 81.65 kg / lf1 180.01 lbs (R); Height 6 ft. 2 in. (187.96 cm); Pain 8/10; 01:42 BP 130 / 81 (auto/); mlc 01:43 Pulse Ox 99% ; mlc 02:08 BP 127 / 80 (auto/); mlc 02:08 Pulse 92 MON; Pulse Ox 100% ; mlc 02:30 BP 126 / 82 (auto/); mlc 02:30 Pulse 88 MON; Pulse Ox 100% ; mlc 02:59 Pulse 90 MON; Pulse Ox 100% ; mlc 03:00 BP 117 / 77 (auto/); mlc 03:00 Pulse 89 MON; Pulse Ox 100% ; mlc 03:30 BP 124 / 81 (auto/); mlc 03:31 Pulse 88 MON; Pulse Ox 100% ; mlc 01:40 Body Mass Index 23.11 (81.65 kg, 187.96 cm) lf1 MDM: 01:49 Aspirin Chewable Tablet 324 mg PO once ordered. fg 01:49 It Support Consultant/Pulse Ox/q 30 min VS ordered. fg 01:49 IV Saline Lock ordered. fg 01:49 Rhythm Strip to chart ordered. fg 01:49 Undress patient appropriately for examination ordered. fg 01:49 NS 0.9% 1000 ml IV at bolus once ordered. fg 01:51 Basic Metabolic Profile Ordered. EDMS 01:51 CBC with Diff Ordered. EDMS 01:51 Cardiac Injury Profile Ordered. EDMS 01:51 Troponin Ordered. EDMS 01:51 portable chest Ordered. EDMS 01:51 ECG WITH READING ER PHYS+CARDIAG ordered. EDMS 03:15 Financial registration complete. hs2 03:16 [facility] Payment Agreement was scanned into [employer] and attached to record. hs2 21:27 T-Sheet-- Draft Copy was scanned into [employer] and attached to record. klr Administered Medications: 02:02 Drug: Aspirin 324 mg [aspirin 81 mg chewable tablet (4 tabs)] Route: PO; mlc 03:01 Follow up: Response: No Adverse Reaction mlc 02:02 Drug: NS 0.9% 1000 ml [sodium chloride 0.9 % intravenous solution] Route: IV; Rate: mlc bolus; Site: right antecubital; 03:01 Follow up: IV Status: Completed infusion mlc Signatures: Dispatcher [employer] EDAR Laverne Bashir RN RN lf1 Aurelia Mar RN RN [facility] [place] Tisha Taylor MD MD Cristina Meier, Reg Reg hs2 Katina Vaughn klr The chart was reviewed and I authenticate all verbal orders and agree with the evaluation and treatment provided.Attachments: 03:16 [facility] Payment Agreement hs2 21:27 T-Sheet-- Draft Copy klr Chart Complete MTDD
--- NOTE | 2016-10-14 20:47 | EDDOCDS ---
Nurse's Notes [facility], [place] Name: Jouse Oliveros Age: 26 yrs Sex: Male : 1990 Arrival Date: 10/12/2016 Time: 01:33 Bed 8 Private MD: Diagnosis: Chest pain, unspecified Presentation: 10/12 01:39 Presenting complaint: Patient states: Was injecting heroin 2 hours ago and started lf1 having chest pain one hour ago. Also reports doing Christina today. Pt. reports pain is currently 8/10 and pt. reports nothing makes it better. Pt states left shoulder feels weak. Adult Sepsis Screening: Patient has new or worsening altered mentation (1 point). Patient's respiratory rate is less than 22. Adult Sepsis Screening: Systolic blood pressure is greater than 100. Patient has a qSOFA score of 0- Negative Sepsis Screen. Suicide/Homicide risk assessment- the patient denies having any suicidal and/or homicidal ideations and does not present with any other emotional, behavioral or mental health complaints. Status: Patient is not a public service officer or dependent. Transition of care: patient was not received from another setting of care. 01:39 Acuity: HEATH Level 2 lf1 01:39 Method Of Arrival: Wheelchair lf1 Triage Assessment: 01:43 General: Appears slender, unkempt, Behavior is drowsy, restless. Pain: Location: lf1 anterior aspect of left upper chest, mid-sternal area and left breast Pain currently is 8 out of 10 on a pain scale. HIV screening NA for this visit Offered previously. The patient is triaged at the bedside. See Assessment in Nurses Notes section of ED record. Neurological: Level of Consciousness is awake, alert, obeys commands, Oriented to person, place, time, Speech is normal. EENT: No deficits noted. Cardiovascular: Chest pain is described as Pain is 8 out of 10 on a pain scale. quality is heaviness, is located in left anterior. Respiratory: Respiratory effort is even, unlabored, Respiratory pattern is regular, Reports shortness of breath. GI: Denies nausea, vomiting. Derm: track daugherty to BL UE. Injury Description: No known injury. Historical: - Allergies: Tramadol HCl (Hives); - Home Meds: 1. ibuprofen 800 mg Oral tab 1 tab every 8 hours as needed - PMHx: ADD; Anxiety; Atrial Fib; dental problems; Panic Attacks; Substance Abuse; - PSHx: none; - Social history: Smoking status: Patient uses tobacco products, current every day smoker. Patient uses street drugs, heroin, Christina, IV drugs, heroin, No barriers to communication noted, The patient speaks fluent Portuguese, Speaks appropriately for age, Preferred Language: Portuguese. - Family history: Mother has/had A-fib. - : The pt / caregiver states he / she is not on anticoagulants. Home medication list is obtained from the patient. - Exposure Risk Screening:: None identified. Screenin:48 Screening information is obtained from the patient. Fall risk: No risks identified. lf1 Assistance ADL's: requires no assistance with activities of daily living. Abuse/DV Screen: The patient / caregiver reports he/she is: not in a situation that causes fear, pain or injury. Nutritional screening: No deficits noted. Advance Directives: Currently, there is no health care proxy. home support is adequate. Assessment: 02:04 Adult Sepsis Screening:. General: Appears in no apparent distress, uncomfortable, mlc Behavior is cooperative. Pain: Location: xyphoid area and mid-sternal area Pain currently is 10 out of 10 on a pain scale. Neurological: Level of Consciousness is awake, alert, Oriented to person, place, time. Neurological: Pupils are PERRLA. Cardiovascular: Capillary refill < 3 seconds Heart tones S1 S2 present Rhythm is sinus rhythm Chest pain is described as Pain is 10 out of 10 on a pain scale. radiates Does not radiate. episodes are continuous. Respiratory: Airway is patent Respiratory effort is even, unlabored, Respiratory pattern is regular, Breath sounds are clear bilaterally. GI: Abdomen is non- distended Bowel sounds present X 4 quads. Abd is soft X 4 quads. Derm: Skin is pink, warm & dry. 03:00 Reassessment: Patient appears in no apparent distress at this time. Patient states mlc symptoms have not improved. pt reports decrease in pain, pt reports fatigue. resp easy/unlabored. . 03:44 General: Appears in no apparent distress, comfortable, Behavior is cooperative. mlc Neurological: Level of Consciousness is awake, alert, Oriented to person, place, time. Cardiovascular: Rhythm is sinus rhythm. Respiratory: Airway is patent Respiratory effort is even, unlabored, Respiratory pattern is regular. Social Work Consult: 03:51 LWBS/AMA AMA: Patient is refusing further stabilizing treatment at [facility], although jl offered treatment regardless of method of payment or ability to pay. Patient is aware that this action is being undertaken against the advice of the medical staff at [facility]. Pt. has capacity to understand the potential consequences of this choice. pt did notify ED staff. Patient / guardian did sign Refusal of Services form. Pt left before being seen by PSA. Vital Signs: 01:40 BP 130 / 81; Pulse 98; Resp 16; Temp 97.5(O); Pulse Ox 100% on R/A; Weight 81.65 kg lf1 (R); Height 6 ft. 2 in. (187.96 cm); Pain 8/10; 01:42 BP 130 / 81 (auto/); mlc 01:43 Pulse Ox 99% ; mlc 02:08 BP 127 / 80 (auto/); mlc 02:08 Pulse 92 MON; Pulse Ox 100% ; mlc 02:30 BP 126 / 82 (auto/); mlc 02:30 Pulse 88 MON; Pulse Ox 100% ; mlc 02:59 Pulse 90 MON; Pulse Ox 100% ; mlc 03:00 BP 117 / 77 (auto/); mlc 03:00 Pulse 89 MON; Pulse Ox 100% ; mlc 03:30 BP 124 / 81 (auto/); mlc 03:31 Pulse 88 MON; Pulse Ox 100% ; mlc 01:40 Body Mass Index 23.11 (81.65 kg, 187.96 cm) 1 Vitals: 01:40 Log In Time: October 12, 2016 at 01:40. 1 ED Course: 01:37 Patient visited by Selena Osullivan. jp5 01:37 Patient moved to Waiting jp5 01:38 Aurelia Mar,RN is Primary Nurse. kb5 01:38 Tisha Taylor MD is Attending Physician. fg 01:38 Patient visited by Tisha Taylor MD. fg 01:38 Patient moved to 2 kb5 01:43 Triage Initiated lf1 01:48 Patient visited by Laverne Bashir RN. lf1 01:54 Inserted saline lock: 20 gauge in right antecubital area and blood collected. The nn1 patient tolerated the procedure well. 01:56 EKG done. (by ED staff). Reviewed by Tisha Taylor MD. rn1 02:04 The patient / caregiver is instructed regarding the plan of care and ED course. Cardiac mlc monitor on. Pulse ox on. NIBP on. 02:07 Patient visited by Aurelia Mar RN. mlc 03:00 No procedures done that require assistance. mlc 03:01 Patient visited by Aurelia Mar RN. mlc 03:16 [facility] Payment Agreement was scanned into [employer] and attached to record. hs2 03:31 Patient moved to 8 cz 03:45 Discontinued IV lock intact, bleeding controlled, pressure dressing applied, No mlc redness/swelling at site. 08:33 portable chest Returned. EDMS 21:27 T-Sheet-- Draft Copy was scanned into [employer] and attached to record. klr 10/13 15:14 EKG-ADULT Returned. EDMS Administered Medications: 10/12 02:02 Drug: Aspirin 324 mg [aspirin 81 mg chewable tablet (4 tabs)] Route: PO; mlc 03:01 Follow up: Response: No Adverse Reaction mlc 02:02 Drug: NS 0.9% 1000 ml [sodium chloride 0.9 % intravenous solution] Route: IV; Rate: mlc bolus; Site: right antecubital; 03:01 Follow up: IV Status: Completed infusion mlc Order Results: Lab Order: Basic Metabolic Profile; SPEC'M 10/12/16 01:49 Test: GLUCOSE, FASTING; Value: 94; Range: 70-105; Units: MG/DL; Status: F Test: BLOOD UREA NITROGEN; Value: 9; Range: 7-18; Units: MG/DL; Status: F Test: CREATININE FOR GFR; Value: 0.85; Range: 0.70-1.30; Units: MG/DL; Status: F Test: GLOMERULAR FILTRATION RATE; Value: > 60.0; Range: >60; Status: F Test: SODIUM LEVEL; Value: 142; Range: 136-145; Units: MEQ/L; Status: F Test: POTASSIUM SERUM; Value: 3.6; Range: 3.5-5.1; Units: MEQ/L; Status: F Test: CHLORIDE LEVEL; Value: 106; Range: 98-107; Units: MEQ/L; Status: F Test: CARBON DIOXIDE LEVEL; Value: 31; Range: 21-32; Units: MEQ/L; Status: F Test: ANION GAP; Value: 5; Range: 8-16; Abnormal: Below low normal; Units: MEQ/L; Status: F Test: CALCIUM LEVEL; Value: 8.6; Range: 8.5-10.1; Units: MG/DL; Status: F Test Note: ; Units are mL/min/1.73 m2 Chronic Kidney Disease Staging per NKF: Stage I & II GFR >=60 Normal to Mildly Decreased Stage III GFR 30-59 Moderately Decreased Stage IV GFR 15-29 Severely Decreased Stage V GFR <15 Very Little GFR Left ESRD GFR <15 on STORAGE MANAGEMENT CONSULTANT Lab Order: CBC with Diff; SPEC'M 10/12/16 01:49 Test: WHITE BLOOD COUNT; Value: 7.1; Range: 4.0-10.0; Units: K/mm3; Status: F Test: RED BLOOD COUNT; Value: 4.62; Range: 4.30-6.10; Units: M/mm3; Status: F Test: HEMOGLOBIN; Value: 13.5; Range: 14.0-18.0; Abnormal: Below low normal; Units: g/dl; Status: F Test: HEMATOCRIT; Value: 41.7; Range: 42.0-52.0; Abnormal: Below low normal; Units: %; Status: F Test: MEAN CORPUSCULAR VOLUME; Value: 90.4; Range: 80.0-96.0; Units: fl; Status: F Test: MEAN CORPUSCULAR HEMOGLOBIN; Value: 29.3; Range: 27.0-33.0; Units: pg; Status: F Test: MEAN CORPUSCULAR HGB CONC; Value: 32.5; Range: 32.0-36.5; Units: g/dl; Status: F Test: RED CELL DISTRIBUTION WIDTH; Value: 12.3; Range: 11.5-14.5; Units: %; Status: F Test: PLATELET COUNT, AUTOMATED; Value: 249; Range: 150-450; Units: k/mm3; Status: F Test: NEUTROPHILS %; Value: 72.6; Range: 36.0-66.0; Abnormal: Above high normal; Units: %; Status: F Test: LYMPH %; Value: 18.5; Range: 24.0-44.0; Abnormal: Below low normal; Units: %; Status: F Test: MONO %; Value: 5.2; Range: 0.0-5.0; Abnormal: Above high normal; Units: %; Status: F Test: EOS %; Value: 1.5; Range: 0.0-3.0; Units: %; Status: F Test: BASO %; Value: 0.2; Range: 0.0-1.0; Units: %; Status: F Test: LARGE UNSTAINED CELL %; Value: 1.9; Range: 0.0-4.0; Units: %; Status: F Test: NEUTROPHILS #; Value: 5.2; Range: 1.8-7.7; Units: K/mm3; Status: F Test: LYMPH #; Value: 1.3; Range: 1.5-6.5; Abnormal: Below low normal; Units: K/mm3; Status: F Test: MONO #; Value: 0.4; Range: 0.0-0.8; Units: K/mm3; Status: F Test: EOS #; Value: 0.1; Range: 0.0-0.50; Units: K/mm3; Status: F Test: BASO #; Value: 0.0; Range: 0.0-0.2; Units: K/mm3; Status: F Test: LARGE UNSTAINED CELL #; Value: 0.1; Range: 0.0-0.4; Units: K/mm3; Status: F Lab Order: Cardiac Injury Profile; SPEC'M 10/12/16 01:49 Test: CPK CREATINE PHOSPHOKINASE; Value: 88; Range: 39-308; Units: U/L; Status: F Test: CK-MB VALUE MASS; Value: 1.0; Range: 0.0-3.6; Units: NG/ML; Status: F Test: MB/CK RELATIVE INDEX; Value: 1.13; Range: < OR =4; Status: F Test Note: ; DIAGNOSIS CRITERIA MMB ng/ml Relative Index (RI) NON-AMI < or = 5 N/A HAZEL ZONE > 5 < or = 4 AMI > 5 > 4 Lab Order: Troponin; SPEC'M 10/12/16 01:49 Test: TROPONIN I; Value: < 0.02; Range: < 0.10; Units: NG/ML; Status: F Test Note: ; Troponin I Reference Interval for Siemens Sagle LOCI: 99th Percentile= 0.00-0.045 ng/ml Risk Stratification: <= 0.10 ng/ml Decreased Risk for Adverse Clinical Events. 0.10-1.50 ng/ml Increased Risk for Adverse Clinical Events. Evaluation of additional criterion and/or repeat testing in 2-6 hours is suggested to rule out myocardial damage. >= 1.50 ng/ml Indicative of Myocardial Injury. Radiology Order: portable chest Test: portable chest REASON FOR EXAMINATION: Chest Pain; Clinical: Chest pain .; ; Comparison: 10/05/2016 .; ; Findings:; The mediastinum and cardiac silhouette are stable and within normal limits for; portable technique. The lung pearson are clear without acute consolidation,; effusion, or pneumothorax. Skeletal structures are intact.; ; Impression:; Normal portable chest x-ray; ; ; Signed by; Edwin Zhao MD 10/12/2016 07:59 A; Radiology Order: EKG-ADULT Test: EKG-ADULT REASON FOR EXAMINATION: Chest Pain; Stationary ECG Study; [facility] - ED; ; Test Date: 2016-10-12; Pat Name: JOSUE OLIVEROS Department:; Room: -; Gender: Senior Benefits Analyst: rn; : 1990 Requested By: TISHA Vivar; Order Number: [id number] Reading MD: Manuela Hunt; Measurements; Intervals Leander; Rate: 87 P: 78; WY: 143 QRS: 37; QRSD: 106 T: 53; QT: 369; QTc: 445; Interpretive Statements; SINUS RHYTHM; DECREASED RATE 10/05/16; Electronically Signed On 10-13-2016 15:08:01 EST by Manuela Hunt; Outcome: 03:38 Patient left against medical advice. fg 03:45 Discharge Assessment: patient administered narcotics - no. The following High Risk mlc Discharge criteria are identified: Yes, pt leaving AMA. The patient is leaving AMA: AMA form signed, Notification of AMA status is made to the charge nurse, the high school social studies tutor, the ED attending physician. Condition: stable Condition: unchanged. Discharge instructions given to patient, Instructed on discharge instructions, Demonstrated understanding of instructions. No special radiology studies were completed. Property sent home with patient. 03:46 Patient left the ED. mlc Signatures: Dispatcher [employer] EDMS Barak Sánchez, RN RN cz Geoff Quintana, PSA PSA jl Cj Wing, RN QUALITY RN QUALITY kb5 Laverne Bashir,RN RN lf1 Aurelia Mar,RN RN Jose Ash rn1 Mick ArroyoRN RN nn1 Selena Osullivan jp5 Tisha Taylor MD MD Cristina Meier, [facility] Reg 2 Katina Vaughn Chart Complete MTDD
--- NOTE | 2016-10-14 20:47 | EDDOCDS ---
Physician Documentation [facility] Name: Josue Oliveros Age: 26 yrs Sex: Male : 1990 Arrival Date: 10/12/2016 Time: 01:33 Bed 8 Private MD: Disposition: 10/12/16 03:38 Patient has left against medical advice. Impression: Chest pain, unspecified. - Patients states they are going to Home/Self Care. - Condition is Good. - Discharge Instructions: Nonspecific Chest Pain. Medication Reconciliation, Local Pharmacy Hours form. Follow up: Private Physician; When: Call to arrange an appointment; Reason: Recheck today's complaints. - Problem is chronic. - Symptoms have improved. Historical: - Allergies: Tramadol HCl (Hives); - Home Meds: 1. ibuprofen 800 mg Oral tab 1 tab every 8 hours as needed - PMHx: ADD; Anxiety; Atrial Fib; dental problems; Panic Attacks; Substance Abuse; - PSHx: none; - Social history: Smoking status: Patient uses tobacco products, current every day smoker. Patient uses street drugs, heroin, Christina, IV drugs, heroin, No barriers to communication noted, The patient speaks fluent Beninese, Speaks appropriately for age, Preferred Language: Beninese. - Family history: Mother has/had A-fib. - : The pt / caregiver states he / she is not on anticoagulants. Home medication list is obtained from the patient. - Exposure Risk Screening:: None identified. Vital Signs: 10/12 01:40 BP 130 / 81; Pulse 98; Resp 16; Temp 97.5(O); Pulse Ox 100% on R/A; Weight 81.65 kg / lf1 180.01 lbs (R); Height 6 ft. 2 in. (187.96 cm); Pain 8/10; 01:42 BP 130 / 81 (auto/); mlc 01:43 Pulse Ox 99% ; mlc 02:08 BP 127 / 80 (auto/); mlc 02:08 Pulse 92 MON; Pulse Ox 100% ; mlc 02:30 BP 126 / 82 (auto/); mlc 02:30 Pulse 88 MON; Pulse Ox 100% ; mlc 02:59 Pulse 90 MON; Pulse Ox 100% ; mlc 03:00 BP 117 / 77 (auto/); mlc 03:00 Pulse 89 MON; Pulse Ox 100% ; mlc 03:30 BP 124 / 81 (auto/); mlc 03:31 Pulse 88 MON; Pulse Ox 100% ; mlc 01:40 Body Mass Index 23.11 (81.65 kg, 187.96 cm) lf1 MDM: 01:49 Aspirin Chewable Tablet 324 mg PO once ordered. fg 01:49 Farmworker Rice/Pulse Ox/q 30 min VS ordered. fg 01:49 IV Saline Lock ordered. fg 01:49 Rhythm Strip to chart ordered. fg 01:49 Undress patient appropriately for examination ordered. fg 01:49 NS 0.9% 1000 ml IV at bolus once ordered. fg 01:51 Basic Metabolic Profile Ordered. EDMS 01:51 CBC with Diff Ordered. EDMS 01:51 Cardiac Injury Profile Ordered. EDMS 01:51 Troponin Ordered. EDMS 01:51 portable chest Ordered. EDMS 01:51 ECG WITH READING ER PHYS+CARDIAG ordered. EDMS 03:15 Financial registration complete. hs2 03:16 [facility] Payment Agreement was scanned into [employer] and attached to record. hs2 21:27 T-Sheet-- Draft Copy was scanned into [employer] and attached to record. klr Administered Medications: 02:02 Drug: Aspirin 324 mg [aspirin 81 mg chewable tablet (4 tabs)] Route: PO; mlc 03:01 Follow up: Response: No Adverse Reaction mlc 02:02 Drug: NS 0.9% 1000 ml [sodium chloride 0.9 % intravenous solution] Route: IV; Rate: mlc bolus; Site: right antecubital; 03:01 Follow up: IV Status: Completed infusion mlc Signatures: Dispatcher [employer] EDUT Laverne Bashir RN RN lf1 Aurelia Mar RN RN [facility] Tisha Taylor MD MD Cristina Meier, Reg Reg hs2 Katina Vaughn klr The chart was reviewed and I authenticate all verbal orders and agree with the evaluation and treatment provided.Attachments: 03:16 [facility] Payment Agreement hs2 21:27 T-Sheet-- Draft Copy klr Chart Complete MTDD
--- NOTE | 2016-10-14 20:47 | EDDOCDS ---
Physician Documentation [facility] Name: Josue Oliveros Age: 26 yrs Sex: Male : 1990 Arrival Date: 10/12/2016 Time: 01:33 Bed 8 Private MD: Disposition: 10/12/16 03:38 Patient has left against medical advice. Impression: Chest pain, unspecified. - Patients states they are going to Home/Self Care. - Condition is Good. - Discharge Instructions: Nonspecific Chest Pain. Medication Reconciliation, Local Pharmacy Hours form. Follow up: Private Physician; When: Call to arrange an appointment; Reason: Recheck today's complaints. - Problem is chronic. - Symptoms have improved. Historical: - Allergies: Tramadol HCl (Hives); - Home Meds: 1. ibuprofen 800 mg Oral tab 1 tab every 8 hours as needed - PMHx: ADD; Anxiety; Atrial Fib; dental problems; Panic Attacks; Substance Abuse; - PSHx: none; - Social history: Smoking status: Patient uses tobacco products, current every day smoker. Patient uses street drugs, heroin, Christina, IV drugs, heroin, No barriers to communication noted, The patient speaks fluent South African, Speaks appropriately for age, Preferred Language: South African. - Family history: Mother has/had A-fib. - : The pt / caregiver states he / she is not on anticoagulants. Home medication list is obtained from the patient. - Exposure Risk Screening:: None identified. Vital Signs: 10/12 01:40 BP 130 / 81; Pulse 98; Resp 16; Temp 97.5(O); Pulse Ox 100% on R/A; Weight 81.65 kg / lf1 180.01 lbs (R); Height 6 ft. 2 in. (187.96 cm); Pain 8/10; 01:42 BP 130 / 81 (auto/); mlc 01:43 Pulse Ox 99% ; mlc 02:08 BP 127 / 80 (auto/); mlc 02:08 Pulse 92 MON; Pulse Ox 100% ; mlc 02:30 BP 126 / 82 (auto/); mlc 02:30 Pulse 88 MON; Pulse Ox 100% ; mlc 02:59 Pulse 90 MON; Pulse Ox 100% ; mlc 03:00 BP 117 / 77 (auto/); mlc 03:00 Pulse 89 MON; Pulse Ox 100% ; mlc 03:30 BP 124 / 81 (auto/); mlc 03:31 Pulse 88 MON; Pulse Ox 100% ; mlc 01:40 Body Mass Index 23.11 (81.65 kg, 187.96 cm) lf1 MDM: 01:49 Aspirin Chewable Tablet 324 mg PO once ordered. fg 01:49 Certified Caregiver/Pulse Ox/q 30 min VS ordered. fg 01:49 IV Saline Lock ordered. fg 01:49 Rhythm Strip to chart ordered. fg 01:49 Undress patient appropriately for examination ordered. fg 01:49 NS 0.9% 1000 ml IV at bolus once ordered. fg 01:51 Basic Metabolic Profile Ordered. EDMS 01:51 CBC with Diff Ordered. EDMS 01:51 Cardiac Injury Profile Ordered. EDMS 01:51 Troponin Ordered. EDMS 01:51 portable chest Ordered. EDMS 01:51 ECG WITH READING ER PHYS+CARDIAG ordered. EDMS 03:15 Financial registration complete. hs2 03:16 [facility] Payment Agreement was scanned into [email or web address] and attached to record. hs2 21:27 T-Sheet-- Draft Copy was scanned into [email or web address] and attached to record. klr Administered Medications: 02:02 Drug: Aspirin 324 mg [aspirin 81 mg chewable tablet (4 tabs)] Route: PO; mlc 03:01 Follow up: Response: No Adverse Reaction mlc 02:02 Drug: NS 0.9% 1000 ml [sodium chloride 0.9 % intravenous solution] Route: IV; Rate: mlc bolus; Site: right antecubital; 03:01 Follow up: IV Status: Completed infusion mlc Signatures: Dispatcher [employer] EDUT Laverne Bashir RN RN lf1 Aurelia Mar RN RN [facility] Tisha Taylor MD MD Cristina Meier, Reg Reg hs2 Katina Vaughn klr The chart was reviewed and I authenticate all verbal orders and agree with the evaluation and treatment provided.Attachments: 03:16 [facility] Payment Agreement hs2 21:27 T-Sheet-- Draft Copy klr Chart Complete MTDD
--- NOTE | 2016-10-14 20:50 | EDDOCDS ---
Nurse's Notes [facility] Name: Josue Oliveros Age: 26 yrs Sex: Male : 1990 Arrival Date: 10/12/2016 Time: 01:33 Bed 8 Private MD: Diagnosis: Chest pain, unspecified Presentation: 10/12 01:39 Presenting complaint: Patient states: Was injecting heroin 2 hours ago and started lf1 having chest pain one hour ago. Also reports doing Christina today. Pt. reports pain is currently 8/10 and pt. reports nothing makes it better. Pt states left shoulder feels weak. Adult Sepsis Screening: Patient has new or worsening altered mentation (1 point). Patient's respiratory rate is less than 22. Adult Sepsis Screening: Systolic blood pressure is greater than 100. Patient has a qSOFA score of 0- Negative Sepsis Screen. Suicide/Homicide risk assessment- the patient denies having any suicidal and/or homicidal ideations and does not present with any other emotional, behavioral or mental health complaints. Status: Patient is not a support services coordinator or dependent. Transition of care: patient was not received from another setting of care. 01:39 Acuity: HEATH Level 2 lf1 01:39 Method Of Arrival: Wheelchair lf1 Triage Assessment: 01:43 General: Appears slender, unkempt, Behavior is drowsy, restless. Pain: Location: lf1 anterior aspect of left upper chest, mid-sternal area and left breast Pain currently is 8 out of 10 on a pain scale. HIV screening NA for this visit Offered previously. The patient is triaged at the bedside. See Assessment in Nurses Notes section of ED record. Neurological: Level of Consciousness is awake, alert, obeys commands, Oriented to person, place, time, Speech is normal. EENT: No deficits noted. Cardiovascular: Chest pain is described as Pain is 8 out of 10 on a pain scale. quality is heaviness, is located in left anterior. Respiratory: Respiratory effort is even, unlabored, Respiratory pattern is regular, Reports shortness of breath. GI: Denies nausea, vomiting. Derm: track daugherty to BL UE. Injury Description: No known injury. Historical: - Allergies: Tramadol HCl (Hives); - Home Meds: 1. ibuprofen 800 mg Oral tab 1 tab every 8 hours as needed - PMHx: ADD; Anxiety; Atrial Fib; dental problems; Panic Attacks; Substance Abuse; - PSHx: none; - Social history: Smoking status: Patient uses tobacco products, current every day smoker. Patient uses street drugs, heroin, Christina, IV drugs, heroin, No barriers to communication noted, The patient speaks fluent French, Speaks appropriately for age, Preferred Language: French. - Family history: Mother has/had A-fib. - : The pt / caregiver states he / she is not on anticoagulants. Home medication list is obtained from the patient. - Exposure Risk Screening:: None identified. Screenin:48 Screening information is obtained from the patient. Fall risk: No risks identified. lf1 Assistance ADL's: requires no assistance with activities of daily living. Abuse/DV Screen: The patient / caregiver reports he/she is: not in a situation that causes fear, pain or injury. Nutritional screening: No deficits noted. Advance Directives: Currently, there is no health care proxy. home support is adequate. Assessment: 02:04 Adult Sepsis Screening:. General: Appears in no apparent distress, uncomfortable, mlc Behavior is cooperative. Pain: Location: xyphoid area and mid-sternal area Pain currently is 10 out of 10 on a pain scale. Neurological: Level of Consciousness is awake, alert, Oriented to person, place, time. Neurological: Pupils are PERRLA. Cardiovascular: Capillary refill < 3 seconds Heart tones S1 S2 present Rhythm is sinus rhythm Chest pain is described as Pain is 10 out of 10 on a pain scale. radiates Does not radiate. episodes are continuous. Respiratory: Airway is patent Respiratory effort is even, unlabored, Respiratory pattern is regular, Breath sounds are clear bilaterally. GI: Abdomen is non- distended Bowel sounds present X 4 quads. Abd is soft X 4 quads. Derm: Skin is pink, warm & dry. 03:00 Reassessment: Patient appears in no apparent distress at this time. Patient states mlc symptoms have not improved. pt reports decrease in pain, pt reports fatigue. resp easy/unlabored. . 03:44 General: Appears in no apparent distress, comfortable, Behavior is cooperative. mlc Neurological: Level of Consciousness is awake, alert, Oriented to person, place, time. Cardiovascular: Rhythm is sinus rhythm. Respiratory: Airway is patent Respiratory effort is even, unlabored, Respiratory pattern is regular. Social Work Consult: 03:51 LWBS/AMA AMA: Patient is refusing further stabilizing treatment at [facility], although jl offered treatment regardless of method of payment or ability to pay. Patient is aware that this action is being undertaken against the advice of the medical staff at [facility]. Pt. has capacity to understand the potential consequences of this choice. pt did notify ED staff. Patient / guardian did sign Refusal of Services form. Pt left before being seen by PSA. Vital Signs: 01:40 BP 130 / 81; Pulse 98; Resp 16; Temp 97.5(O); Pulse Ox 100% on R/A; Weight 81.65 kg lf1 (R); Height 6 ft. 2 in. (187.96 cm); Pain 8/10; 01:42 BP 130 / 81 (auto/); mlc 01:43 Pulse Ox 99% ; mlc 02:08 BP 127 / 80 (auto/); mlc 02:08 Pulse 92 MON; Pulse Ox 100% ; mlc 02:30 BP 126 / 82 (auto/); mlc 02:30 Pulse 88 MON; Pulse Ox 100% ; mlc 02:59 Pulse 90 MON; Pulse Ox 100% ; mlc 03:00 BP 117 / 77 (auto/); mlc 03:00 Pulse 89 MON; Pulse Ox 100% ; mlc 03:30 BP 124 / 81 (auto/); mlc 03:31 Pulse 88 MON; Pulse Ox 100% ; mlc 01:40 Body Mass Index 23.11 (81.65 kg, 187.96 cm) 1 Vitals: 01:40 Log In Time: October 12, 2016 at 01:40. 1 ED Course: 01:37 Patient visited by Selena Osullivan. jp5 01:37 Patient moved to Waiting jp5 01:38 Aurelia Mar,RN is Primary Nurse. kb5 01:38 Tisha Taylor MD is Attending Physician. fg 01:38 Patient visited by Tisha Taylor MD. fg 01:38 Patient moved to 2 kb5 01:43 Triage Initiated lf1 01:48 Patient visited by Laverne Bashir RN. lf1 01:54 Inserted saline lock: 20 gauge in right antecubital area and blood collected. The nn1 patient tolerated the procedure well. 01:56 EKG done. (by ED staff). Reviewed by Tisha Taylor MD. rn1 02:04 The patient / caregiver is instructed regarding the plan of care and ED course. Cardiac mlc monitor on. Pulse ox on. NIBP on. 02:07 Patient visited by Aurelia Mar RN. mlc 03:00 No procedures done that require assistance. mlc 03:01 Patient visited by Aurelia Mar RN. mlc 03:16 [facility] Payment Agreement was scanned into [email or web address] and attached to record. hs2 03:31 Patient moved to 8 cz 03:45 Discontinued IV lock intact, bleeding controlled, pressure dressing applied, No mlc redness/swelling at site. 08:33 portable chest Returned. EDMS 21:27 T-Sheet-- Draft Copy was scanned into [email or web address] and attached to record. klr 10/13 15:14 EKG-ADULT Returned. EDMS Administered Medications: 10/12 02:02 Drug: Aspirin 324 mg [aspirin 81 mg chewable tablet (4 tabs)] Route: PO; mlc 03:01 Follow up: Response: No Adverse Reaction mlc 02:02 Drug: NS 0.9% 1000 ml [sodium chloride 0.9 % intravenous solution] Route: IV; Rate: mlc bolus; Site: right antecubital; 03:01 Follow up: IV Status: Completed infusion mlc Order Results: Lab Order: Basic Metabolic Profile; SPEC'M 10/12/16 01:49 Test: GLUCOSE, FASTING; Value: 94; Range: 70-105; Units: MG/DL; Status: F Test: BLOOD UREA NITROGEN; Value: 9; Range: 7-18; Units: MG/DL; Status: F Test: CREATININE FOR GFR; Value: 0.85; Range: 0.70-1.30; Units: MG/DL; Status: F Test: GLOMERULAR FILTRATION RATE; Value: > 60.0; Range: >60; Status: F Test: SODIUM LEVEL; Value: 142; Range: 136-145; Units: MEQ/L; Status: F Test: POTASSIUM SERUM; Value: 3.6; Range: 3.5-5.1; Units: MEQ/L; Status: F Test: CHLORIDE LEVEL; Value: 106; Range: 98-107; Units: MEQ/L; Status: F Test: CARBON DIOXIDE LEVEL; Value: 31; Range: 21-32; Units: MEQ/L; Status: F Test: ANION GAP; Value: 5; Range: 8-16; Abnormal: Below low normal; Units: MEQ/L; Status: F Test: CALCIUM LEVEL; Value: 8.6; Range: 8.5-10.1; Units: MG/DL; Status: F Test Note: ; Units are mL/min/1.73 m2 Chronic Kidney Disease Staging per NKF: Stage I & II GFR >=60 Normal to Mildly Decreased Stage III GFR 30-59 Moderately Decreased Stage IV GFR 15-29 Severely Decreased Stage V GFR <15 Very Little GFR Left ESRD GFR <15 on SEED PRODUCTION FIELD SUPERVISOR Lab Order: CBC with Diff; SPEC'M 10/12/16 01:49 Test: WHITE BLOOD COUNT; Value: 7.1; Range: 4.0-10.0; Units: K/mm3; Status: F Test: RED BLOOD COUNT; Value: 4.62; Range: 4.30-6.10; Units: M/mm3; Status: F Test: HEMOGLOBIN; Value: 13.5; Range: 14.0-18.0; Abnormal: Below low normal; Units: g/dl; Status: F Test: HEMATOCRIT; Value: 41.7; Range: 42.0-52.0; Abnormal: Below low normal; Units: %; Status: F Test: MEAN CORPUSCULAR VOLUME; Value: 90.4; Range: 80.0-96.0; Units: fl; Status: F Test: MEAN CORPUSCULAR HEMOGLOBIN; Value: 29.3; Range: 27.0-33.0; Units: pg; Status: F Test: MEAN CORPUSCULAR HGB CONC; Value: 32.5; Range: 32.0-36.5; Units: g/dl; Status: F Test: RED CELL DISTRIBUTION WIDTH; Value: 12.3; Range: 11.5-14.5; Units: %; Status: F Test: PLATELET COUNT, AUTOMATED; Value: 249; Range: 150-450; Units: k/mm3; Status: F Test: NEUTROPHILS %; Value: 72.6; Range: 36.0-66.0; Abnormal: Above high normal; Units: %; Status: F Test: LYMPH %; Value: 18.5; Range: 24.0-44.0; Abnormal: Below low normal; Units: %; Status: F Test: MONO %; Value: 5.2; Range: 0.0-5.0; Abnormal: Above high normal; Units: %; Status: F Test: EOS %; Value: 1.5; Range: 0.0-3.0; Units: %; Status: F Test: BASO %; Value: 0.2; Range: 0.0-1.0; Units: %; Status: F Test: LARGE UNSTAINED CELL %; Value: 1.9; Range: 0.0-4.0; Units: %; Status: F Test: NEUTROPHILS #; Value: 5.2; Range: 1.8-7.7; Units: K/mm3; Status: F Test: LYMPH #; Value: 1.3; Range: 1.5-6.5; Abnormal: Below low normal; Units: K/mm3; Status: F Test: MONO #; Value: 0.4; Range: 0.0-0.8; Units: K/mm3; Status: F Test: EOS #; Value: 0.1; Range: 0.0-0.50; Units: K/mm3; Status: F Test: BASO #; Value: 0.0; Range: 0.0-0.2; Units: K/mm3; Status: F Test: LARGE UNSTAINED CELL #; Value: 0.1; Range: 0.0-0.4; Units: K/mm3; Status: F Lab Order: Cardiac Injury Profile; SPEC'M 10/12/16 01:49 Test: CPK CREATINE PHOSPHOKINASE; Value: 88; Range: 39-308; Units: U/L; Status: F Test: CK-MB VALUE MASS; Value: 1.0; Range: 0.0-3.6; Units: NG/ML; Status: F Test: MB/CK RELATIVE INDEX; Value: 1.13; Range: < OR =4; Status: F Test Note: ; DIAGNOSIS CRITERIA MMB ng/ml Relative Index (RI) NON-AMI < or = 5 N/A [place]ZEL [place]ONE > 5 < or = 4 AMI > 5 > 4 Lab Order: Troponin; SPEC'M 10/12/16 01:49 Test: TROPONIN I; Value: < 0.02; Range: < 0.10; Units: NG/ML; Status: F Test Note: ; Troponin I Reference Interval for Siemens [place] LOCI: 99th Percentile= 0.00-0.045 ng/ml Risk Stratification: <= 0.10 ng/ml Decreased Risk for Adverse Clinical Events. 0.10-1.50 ng/ml Increased Risk for Adverse Clinical Events. Evaluation of additional criterion and/or repeat testing in 2-6 hours is suggested to rule out myocardial damage. >= 1.50 ng/ml Indicative of Myocardial Injury. Radiology Order: portable chest Test: portable chest REASON FOR EXAMINATION: Chest Pain; Clinical: Chest pain .; ; Comparison: 10/05/2016 .; ; Findings:; The mediastinum and cardiac silhouette are stable and within normal limits for; portable technique. The lung pearson are clear without acute consolidation,; effusion, or pneumothorax. 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 fg 03:45 Discharge Assessment: patient administered narcotics - no. The following High Risk mlc Discharge criteria are identified: Yes, pt leaving AMA. The patient is leaving AMA: AMA form signed, Notification of AMA status is made to the charge nurse, the social work administrator, the ED attending physician. Condition: stable Condition: unchanged. Discharge instructions given to patient, Instructed on discharge instructions, Demonstrated understanding of instructions. No special radiology studies were completed. Property sent home with patient. 03:46 Patient left the ED. mlc Signatures: Dispatcher [employer] EDMS Barak Sánchez, RN RN cz Geoff Quintana, PSA PSA jl Cj Wing, MOTEL OPERATOR MOTEL OPERATOR kb5 Laverne Bashir,RN RN lf1 Aurelia Mar,RN RN Jose Ash rn1 Mick ArroyoRN RN nn1 Selena Osullivan jp5 Tisha Taylor MD MD Cristina Meier, [facility] Reg 2 Katina Vaughn Chart Complete MTDD
--- NOTE | 2016-10-14 20:50 | EDDOCDS ---
Physician Documentation [facility] Name: Josue Oliveros Age: 26 yrs Sex: Male : 1990 Arrival Date: 10/12/2016 Time: 01:33 Bed 8 Private MD: Disposition: 10/12/16 03:38 Patient has left against medical advice. Impression: Chest pain, unspecified. - Patients states they are going to Home/Self Care. - Condition is Good. - Discharge Instructions: Nonspecific Chest Pain. Medication Reconciliation, Local Pharmacy Hours form. Follow up: Private Physician; When: Call to arrange an appointment; Reason: Recheck today's complaints. - Problem is chronic. - Symptoms have improved. Historical: - Allergies: Tramadol HCl (Hives); - Home Meds: 1. ibuprofen 800 mg Oral tab 1 tab every 8 hours as needed - PMHx: ADD; Anxiety; Atrial Fib; dental problems; Panic Attacks; Substance Abuse; - PSHx: none; - Social history: Smoking status: Patient uses tobacco products, current every day smoker. Patient uses street drugs, heroin, Christina, IV drugs, heroin, No barriers to communication noted, The patient speaks fluent Haitian, Speaks appropriately for age, Preferred Language: Haitian. - Family history: Mother has/had A-fib. - : The pt / caregiver states he / she is not on anticoagulants. Home medication list is obtained from the patient. - Exposure Risk Screening:: None identified. Vital Signs: 10/12 01:40 BP 130 / 81; Pulse 98; Resp 16; Temp 97.5(O); Pulse Ox 100% on R/A; Weight 81.65 kg / lf1 180.01 lbs (R); Height 6 ft. 2 in. (187.96 cm); Pain 8/10; 01:42 BP 130 / 81 (auto/); mlc 01:43 Pulse Ox 99% ; mlc 02:08 BP 127 / 80 (auto/); mlc 02:08 Pulse 92 MON; Pulse Ox 100% ; mlc 02:30 BP 126 / 82 (auto/); mlc 02:30 Pulse 88 MON; Pulse Ox 100% ; mlc 02:59 Pulse 90 MON; Pulse Ox 100% ; mlc 03:00 BP 117 / 77 (auto/); mlc 03:00 Pulse 89 MON; Pulse Ox 100% ; mlc 03:30 BP 124 / 81 (auto/); mlc 03:31 Pulse 88 MON; Pulse Ox 100% ; mlc 01:40 Body Mass Index 23.11 (81.65 kg, 187.96 cm) lf1 MDM: 01:49 Aspirin Chewable Tablet 324 mg PO once ordered. fg 01:49 Silicator/Pulse Ox/q 30 min VS ordered. fg 01:49 IV Saline Lock ordered. fg 01:49 Rhythm Strip to chart ordered. fg 01:49 Undress patient appropriately for examination ordered. fg 01:49 NS 0.9% 1000 ml IV at bolus once ordered. fg 01:51 Basic Metabolic Profile Ordered. EDMS 01:51 CBC with Diff Ordered. EDMS 01:51 Cardiac Injury Profile Ordered. EDMS 01:51 Troponin Ordered. EDMS 01:51 portable chest Ordered. EDMS 01:51 ECG WITH READING ER PHYS+CARDIAG ordered. EDMS 03:15 Financial registration complete. hs2 03:16 [facility] Payment Agreement was scanned into [employer] and attached to record. hs2 21:27 T-Sheet-- Draft Copy was scanned into [employer] and attached to record. klr Administered Medications: 02:02 Drug: Aspirin 324 mg [aspirin 81 mg chewable tablet (4 tabs)] Route: PO; mlc 03:01 Follow up: Response: No Adverse Reaction mlc 02:02 Drug: NS 0.9% 1000 ml [sodium chloride 0.9 % intravenous solution] Route: IV; Rate: mlc bolus; Site: right antecubital; 03:01 Follow up: IV Status: Completed infusion mlc Signatures: Dispatcher [employer] EDCT Laverne Bashir RN RN lf1 Aurelia Mar RN RN [facility] [place] [place] Tisha Taylor MD MD Cristina Meier, Reg Reg hs2 Katina Vaughn klr The chart was reviewed and I authenticate all verbal orders and agree with the evaluation and treatment provided.Attachments: 03:16 [facility] Payment Agreement hs2 21:27 T-Sheet-- Draft Copy klr Chart Complete MTDD
--- NOTE | 2016-10-14 20:50 | EDDOCDS ---
Physician Documentation [facility] Name: Josue Oliveros Age: 26 yrs Sex: Male : 1990 Arrival Date: 10/12/2016 Time: 01:33 Bed 8 Private MD: Disposition: 10/12/16 03:38 Patient has left against medical advice. Impression: Chest pain, unspecified. - Patients states they are going to Home/Self Care. - Condition is Good. - Discharge Instructions: Nonspecific Chest Pain. Medication Reconciliation, Local Pharmacy Hours form. Follow up: Private Physician; When: Call to arrange an appointment; Reason: Recheck today's complaints. - Problem is chronic. - Symptoms have improved. Historical: - Allergies: Tramadol HCl (Hives); - Home Meds: 1. ibuprofen 800 mg Oral tab 1 tab every 8 hours as needed - PMHx: ADD; Anxiety; Atrial Fib; dental problems; Panic Attacks; Substance Abuse; - PSHx: none; - Social history: Smoking status: Patient uses tobacco products, current every day smoker. Patient uses street drugs, heroin, Christina, IV drugs, heroin, No barriers to communication noted, The patient speaks fluent Ecuadorean, Speaks appropriately for age, Preferred Language: Ecuadorean. - Family history: Mother has/had A-fib. - : The pt / caregiver states he / she is not on anticoagulants. Home medication list is obtained from the patient. - Exposure Risk Screening:: None identified. Vital Signs: 10/12 01:40 BP 130 / 81; Pulse 98; Resp 16; Temp 97.5(O); Pulse Ox 100% on R/A; Weight 81.65 kg / lf1 180.01 lbs (R); Height 6 ft. 2 in. (187.96 cm); Pain 8/10; 01:42 BP 130 / 81 (auto/); mlc 01:43 Pulse Ox 99% ; mlc 02:08 BP 127 / 80 (auto/); mlc 02:08 Pulse 92 MON; Pulse Ox 100% ; mlc 02:30 BP 126 / 82 (auto/); mlc 02:30 Pulse 88 MON; Pulse Ox 100% ; mlc 02:59 Pulse 90 MON; Pulse Ox 100% ; mlc 03:00 BP 117 / 77 (auto/); mlc 03:00 Pulse 89 MON; Pulse Ox 100% ; mlc 03:30 BP 124 / 81 (auto/); mlc 03:31 Pulse 88 MON; Pulse Ox 100% ; mlc 01:40 Body Mass Index 23.11 (81.65 kg, 187.96 cm) lf1 MDM: 01:49 Aspirin Chewable Tablet 324 mg PO once ordered. fg 01:49 Bed Manager/Pulse Ox/q 30 min VS ordered. fg 01:49 IV Saline Lock ordered. fg 01:49 Rhythm Strip to chart ordered. fg 01:49 Undress patient appropriately for examination ordered. fg 01:49 NS 0.9% 1000 ml IV at bolus once ordered. fg 01:51 Basic Metabolic Profile Ordered. EDMS 01:51 CBC with Diff Ordered. EDMS 01:51 Cardiac Injury Profile Ordered. EDMS 01:51 Troponin Ordered. EDMS 01:51 portable chest Ordered. EDMS 01:51 ECG WITH READING ER PHYS+CARDIAG ordered. EDMS 03:15 Financial registration complete. hs2 03:16 [facility] Payment Agreement was scanned into [employer] and attached to record. hs2 21:27 T-Sheet-- Draft Copy was scanned into [employer] and attached to record. klr Administered Medications: 02:02 Drug: Aspirin 324 mg [aspirin 81 mg chewable tablet (4 tabs)] Route: PO; mlc 03:01 Follow up: Response: No Adverse Reaction mlc 02:02 Drug: NS 0.9% 1000 ml [sodium chloride 0.9 % intravenous solution] Route: IV; Rate: mlc bolus; Site: right antecubital; 03:01 Follow up: IV Status: Completed infusion mlc Signatures: Dispatcher [employer] EDHI Laverne Bashir RN RN lf1 Aurelia Mar RN RN [facility] Tisha Taylor MD MD Cristina Meier, Reg Reg hs2 Katina Vaughn klr The chart was reviewed and I authenticate all verbal orders and agree with the evaluation and treatment provided.Attachments: 03:16 [facility] Payment Agreement hs2 21:27 T-Sheet-- Draft Copy klr Chart Complete MTDD
== END 2016-10-12 03:46 | disposition home or self-care (01) ==
LOC: M ED 01:33
DX: R07.9 Chest pain, unspecified (principal); F11.20 Opioid dependence, uncomplicated; F90.0 Attention-deficit hyperactivity disorder, predominantly inattentive type; F41.9 Anxiety disorder, unspecified; I48.91 Unspecified atrial fibrillation; F17.200 Nicotine dependence, unspecified, uncomplicated; Z88.5 Allergy status to narcotic agent

== ENCOUNTER 2016-10-26 16:21 | Emergency (ER) | payer OTHER ==
[2016-10-26] MEDS ORDERED: ATEN25TA PO (16:35)
[2016-10-26 17:59] VITALS: BP 122/72
--- NOTE | 2016-10-26 20:44 | ECGEPIP ---
Stationary ECG Study [facility] - ED Test Date: 2016-10-26 Pat Name: NIEVES BLOCK Department: Room: - Gender: M Calker: ct : 1990 Requested By: Vani Chairez Order Number: [id number] Reading MD: Vani Chairez Measurements Intervals [place] Rate: 104 P: 78 [place]: 140 QRS: 54 QRSD: 92 T: 62 QT: 347 QTc: 458 Interpretive Statements SINUS TACHYCARDIA ABNORMAL RHYTHM ECG NONSPECIFIC ST T WAVE CHANGES PROLONGED QTC CW 10/12/16 - RATE INCREASED NONSPECIFIC ST T WAVE CHANGES Electronically Signed On 10-26-2016 20:44:45 EST by Vani Chairez
== END 2016-10-26 18:03 | disposition home or self-care (01) ==
LOC: M ED 17:25
DX: T40.1X1A Poisoning by heroin, accidental (unintentional), initial encounter (principal); X58.XXXA Exposure to other specified factors, initial encounter; Y92.89 Other specified places as the place of occurrence of the external cause; Y93.89 Activity, other specified; Y99.8 Other external cause status; I48.91 Unspecified atrial fibrillation; Z79.899 Other long term (current) drug therapy; F17.210 Nicotine dependence, cigarettes, uncomplicated

== ENCOUNTER 2016-11-19 03:30 | Emergency (ER) | payer OTHER ==
[~2016-11-19] VITALS: Ht 188 cm; Wt 83.9 kg
[~2016-11-19 03:30] MED LIST changes: +ATEN25TA PO
[2016-11-19] MEDS ORDERED: NS 1,000 ML IV ONE (04:00)
[2016-11-19 04:30] LABS: BASO % 0.1 % (0.0-1.0); EOS # 0.1 K/mm3 (0.0-0.50); EOS % 0.5 % (0.0-3.0); LARGE UNSTAINED CELL # 0.1 K/mm3 (0.0-0.4); LARGE UNSTAINED CELL % 1.1 % (0.0-4.0); LYMPH # 1.3 K/mm3 (1.5-6.5); LYMPH % 10.8 % (24.0-44.0); MEAN CORPUSCULAR HEMOGLOBIN 30.4 pg (27.0-33.0); MEAN CORPUSCULAR HGB CONC 32.5 g/dl (32.0-36.5); MEAN CORPUSCULAR VOLUME 93.6 fl (80.0-96.0); MONO # 0.7 K/mm3 (0.0-0.8); MONO % 6.4 % (0.0-5.0); NEUTROPHILS # 8.8 K/mm3 (1.8-7.7); NEUTROPHILS % 81.1 % (36.0-66.0); PLATELET COUNT, AUTOMATED 227 k/mm3 (150-450); WHITE BLOOD COUNT 10.8 K/mm3 (4.0-10.0)
[2016-11-19] MEDS ORDERED: ONDANSETRON 4MG/2ML VIAL (J2405) IV ONE (04:30)
[2016-11-19 05:16] LABS: ALBUMIN 4.5 GM/DL (3.2-5.2); ALBUMIN/GLOBULIN RATIO 1.22 (1.00-1.93); ALKALINE PHOSPHATASE 68 U/L (45-117); ALT/SGPT 86 U/L (12-78); ANION GAP 9 MEQ/L (8-16); AST/SGOT 26 U/L (15-37); BILIRUBIN,DIRECT 0.1 MG/DL (0.0-0.2); BILIRUBIN,TOTAL 0.9 MG/DL (0.2-1.0); BLOOD UREA NITROGEN 10 MG/DL (7-18); CALCIUM LEVEL 8.9 MG/DL (8.5-10.1); CARBON DIOXIDE LEVEL 30 MEQ/L (21-32); CHLORIDE LEVEL 100 MEQ/L (98-107); CREATININE FOR GFR 0.82 MG/DL (0.70-1.30); GLOMERULAR FILTRATION RATE > 60.0 (>60); GLUCOSE, FASTING 102 MG/DL (70-105); POTASSIUM SERUM 3.4 MEQ/L (3.5-5.1); SODIUM LEVEL 139 MEQ/L (136-145); TOTAL PROTEIN 8.2 GM/DL (6.4-8.2)
[2016-11-19] MEDS ORDERED: GI COCKTAIL 50ML BTL(HYOSCYAMINE/MAALOX/LIDOCAINE VISCOUS)(1:3:1) PO ONE (05:45)
[2016-11-19 06:30] VITALS: BP 151/77
--- NOTE | 2016-11-19 08:26 | ECGEPIP ---
Stationary ECG Study [facility] - ED Test Date: 2016-11-19 Pat Name: NIEVES BLOCK Department: Room: - Gender: M Commissions Coordinator: De La RosaB: 1990 Requested By: PARAG Rodgers Order Number: [id number] Reading MD: Manuela Hunt Measurements Intervals [place] Rate: 98 P: 77 [place]: 144 QRS: 50 QRSD: 104 T: 66 QT: 353 QTc: 453 Interpretive Statements SINUS RHYTHM SIMILAR 10/26/16 Electronically Signed On 11-19-2016 8:25:43 EDT by Manuela Hunt
== END 2016-11-19 06:33 | disposition home or self-care (01) ==
LOC: M ED 05:14
DX: R07.9 Chest pain, unspecified (principal); R11.2 Nausea with vomiting, unspecified
CPT/HCPCS: 80048; 80076; 82550; 82553; 83690; 85025; 93005; 93041; 96361; 96374; 99284; J2405

== ENCOUNTER 2016-11-19 22:50 | Emergency (ER) | payer OTHER ==
[~2016-11-19] VITALS: Ht 188 cm; Wt 83.9 kg
[2016-11-19 22:50] VITALS: BP 139/79
== END 2016-11-20 | disposition left against medical advice (07) ==
LOC: M ED 23:37
DX: R11.10 Vomiting, unspecified (principal); Z53.21 Procedure and treatment not carried out due to patient leaving prior to being seen by health care provider

== ENCOUNTER 2017-07-07 03:22 | Emergency (ER) | payer MEDICAID ==
[~2017-07-07] VITALS: Ht 188 cm; Wt 76.8 kg
[~2017-07-07 03:22] MED LIST changes: +NORCOTAB PO; +PENI500T PO
[2017-07-07 04:36] LABS: BASO % 0.1 % (0.0-1.0); EOS # 0.1 10^3/uL (0.0-0.50); IMMATURE GRANULOCYTE % 0.4 % (0-0); LYMPH % 6.9 % (24.0-44.0); MEAN CORPUSCULAR HEMOGLOBIN 30.5 pg (27.0-33.0); MEAN CORPUSCULAR HGB CONC 33.4 g/dl (32.0-36.5); MEAN CORPUSCULAR VOLUME 91.1 fl (80.0-96.0); MONO # 1.1 10^3/uL (0.0-0.8); MONO % 7.5 % (0.0-5.0); NEUTROPHILS # 12.2 10^3/uL (1.8-7.7); NEUTROPHILS % 84.1 % (36.0-66.0); PLATELET COUNT, AUTOMATED 349 10^3/uL (150-450); RED CELL DISTRIBUTION WIDTH 12.7 % (11.5-14.5); WHITE BLOOD COUNT 14.5 10^3/uL (4.0-10.0)
[2017-07-07 04:40] LABS: VENOUS BASE EXCESS 0.1 (-2.0-2.0); VENOUS O2 SATURATION 98.3 % (60.0-80.0); VENOUS PARTIAL PRESSURE CO2 43.1 mmHg (38.0-50.0); VENOUS PARTIAL PRESSURE O2 106.9 mmHg (30.0-50.0); VENOUS STANDARD HCO3 24.6 MEQ/L; VENOUS TOTAL CO2 26.6 MEQ/L (24.0-28.0)
[2017-07-07 05:06] LABS: ALBUMIN 3.8 GM/DL (3.2-5.2); ALBUMIN/GLOBULIN RATIO 1.19 (1.00-1.93); ALKALINE PHOSPHATASE 80 U/L (45-117); ALT/SGPT 26 U/L (12-78); ANION GAP 8 MEQ/L (8-16); AST/SGOT 29 U/L (7-37); BILIRUBIN,DIRECT 0.1 MG/DL (0.0-0.2); BILIRUBIN,TOTAL 0.3 MG/DL (0.2-1.0); BLOOD UREA NITROGEN 15 MG/DL (7-18); CALCIUM LEVEL 8.6 MG/DL (8.5-10.1); CARBON DIOXIDE LEVEL 29 MEQ/L (21-32); CHLORIDE LEVEL 103 MEQ/L (98-107); CREATININE FOR GFR 0.83 MG/DL (0.70-1.30); GLOMERULAR FILTRATION RATE > 60.0 (>60); GLUCOSE, FASTING 144 MG/DL (70-105); POTASSIUM SERUM 3.5 MEQ/L (3.5-5.1); SODIUM LEVEL 140 MEQ/L (136-145)
[2017-07-07 05:27] LABS: METHADONE URINE NEGATIVE (NEGATIVE)
[2017-07-07 05:45] VITALS: BP 119/60
== END 2017-07-07 05:57 | disposition home or self-care (01) ==
LOC: EDBD 03:22 → M ED 03:22
DX: F11.129 Opioid abuse with intoxication, unspecified (principal); T40.1X1A Poisoning by heroin, accidental (unintentional), initial encounter; Z79.2 Long term (current) use of antibiotics; Z88.5 Allergy status to narcotic agent
CPT/HCPCS: 36415; 80048; 80076; 80307; 82550; 82803; 83605; 84443; 85025; 93041; 99285; G0480

== ENCOUNTER 2017-08-15 01:23 | Emergency (ER) | payer MEDICAID | END 2017-08-15 03:59 | disposition home or self-care (01) | LOC: M ED 01:23 | DX: F16.10 Hallucinogen abuse, uncomplicated (principal); Z88.5 Allergy status to narcotic agent; F17.210 Nicotine dependence, cigarettes, uncomplicated | CPT/HCPCS: 93005 ==

== ENCOUNTER 2017-08-17 01:23 | Emergency (ER) | payer MEDICAID, SELFPAY ==
[2017-08-17] MEDS: NALOXONE INJ 2 MG/2 ML SYRINGE (J2310) IM ×2 (01:14)
[~2017-08-17 01:23] MED LIST changes: -ATEN25TA PO; -CLON0.5T PO; +NALOXONE INJ 2 MG/2 ML SYRINGE (J2310) IV; -NORCOTAB PO; -PENI500T PO
== END 2017-08-17 01:40 | disposition home or self-care (01) ==
LOC: M ED 01:23
DX: F12.10 Cannabis abuse, uncomplicated (principal); T40.1X4A Poisoning by heroin, undetermined, initial encounter; X58.XXXA Exposure to other specified factors, initial encounter; Y92.89 Other specified places as the place of occurrence of the external cause; Y93.89 Activity, other specified; Y99.8 Other external cause status; F17.210 Nicotine dependence, cigarettes, uncomplicated
CPT/HCPCS: J2310

== ENCOUNTER 2017-08-18 18:08 | Emergency (ER) | payer MEDICAID ==
[2017-08-18] MEDS ORDERED: CLINDAMYCIN 900 MG in APPROPRIATE DILUENT 1 EA IV (21:15)
== END 2017-08-18 21:31 | disposition home or self-care (01) ==
LOC: M ED 18:08
DX: R07.89 Other chest pain (principal); I48.91 Unspecified atrial fibrillation; Z88.5 Allergy status to narcotic agent; F11.20 Opioid dependence, uncomplicated
CPT/HCPCS: 71020

== ENCOUNTER 2017-09-27 04:52 | Emergency (ER) | payer MEDICAID, SELFPAY, OTHER | END 2017-09-27 06:48 | disposition home or self-care (01) | LOC: M ED 04:52 | DX: R07.89 Other chest pain (principal); I10 Essential (primary) hypertension; F41.9 Anxiety disorder, unspecified; F33.9 Major depressive disorder, recurrent, unspecified; I48.91 Unspecified atrial fibrillation; Z88.5 Allergy status to narcotic agent; F17.210 Nicotine dependence, cigarettes, uncomplicated; F11.20 Opioid dependence, uncomplicated | CPT/HCPCS: 93005 ==

== ENCOUNTER 2017-12-21 00:26 | Emergency (ER) | payer MEDICAID ==
[2017-12-21 00:46] LABS: BASO % 0.3 % (0.0-1.0); EOS # 0.2 10^3/uL (0.0-0.50); EOS % 1.9 % (0.0-3.0); HEMATOCRIT 42.4 % (42.0-52.0); HEMOGLOBIN 14.2 g/dl (13.5-17.5); IMMATURE GRANULOCYTE % 0.2 % (0-3.0); LYMPH # 2.2 10^3/uL (1.5-6.5); LYMPH % 23.7 % (24.0-44.0); MEAN CORPUSCULAR HEMOGLOBIN 30.7 pg (27.0-33.0); MEAN CORPUSCULAR HGB CONC 33.5 g/dl (32.0-36.5); MEAN CORPUSCULAR VOLUME 91.6 fl (80.0-96.0); MONO # 0.8 10^3/uL (0.0-0.8); MONO % 9.1 % (0.0-5.0); NEUTROPHILS # 5.9 10^3/uL (1.8-7.7); NEUTROPHILS % 64.8 % (36.0-66.0); PLATELET COUNT, AUTOMATED 327 10^3/uL (150-450); RED BLOOD COUNT 4.63 10^6/uL (4.30-6.10); RED CELL DISTRIBUTION WIDTH 13.7 % (11.5-14.5); WHITE BLOOD COUNT 9.1 10^3/uL (4.0-10.0)
[2017-12-21 01:20] LABS: PROTHROMBIN TIME 14.4 SECONDS (12.4-14.5)
[2017-12-21 01:21] LABS: PARTIAL THROMBOPLASTIN TIME 29.9 SECONDS (26.8-37.9)
[2017-12-21 01:22] LABS: ANION GAP 2 MEQ/L (8-16); BLOOD UREA NITROGEN 15 MG/DL (7-18); CALCIUM LEVEL 8.8 MG/DL (8.5-10.1); CARBON DIOXIDE LEVEL 31 MEQ/L (21-32); CHLORIDE LEVEL 106 MEQ/L (98-107); CPK CREATINE PHOSPHOKINASE 139 U/L (39-308); CREATININE FOR GFR 0.94 MG/DL (0.70-1.30); ETHYL ALCOHOL (ETHANOL) 0.006 % (0.000-0.010); GLOMERULAR FILTRATION RATE > 60.0 (>60); GLUCOSE, FASTING 91 MG/DL (70-100); POTASSIUM SERUM 4.3 MEQ/L (3.5-5.1); SODIUM LEVEL 139 MEQ/L (136-145); TROPONIN I < 0.02 NG/ML (< 0.10)
[2017-12-21 01:23] LABS: CK-MB VALUE MASS 1.2 NG/ML (<3.6); MB/CK RELATIVE INDEX 0.86 (< OR =4)
[2017-12-21] MEDS: NS 1,000 ML IV (01:34)
[2017-12-21 02:06] LABS: AMPHETAMINES LEVEL URINE POSITIVE (NEGATIVE); BARBITURATES URINE NEGATIVE (NEGATIVE); BENZODIAZEPINES URINE NEGATIVE (NEGATIVE); CANNABINOIDS URINE NEGATIVE (NEGATIVE); COCAINE METABOLITE URINE NEGATIVE (NEGATIVE); METHADONE URINE NEGATIVE (NEGATIVE); OPIATES URINE POSITIVE (NEGATIVE); PHENCYCLIDINE URINE NEGATIVE (NEGATIVE)
== END 2017-12-21 02:24 | disposition home or self-care (01) ==
LOC: M ED 00:26
DX: F16.10 Hallucinogen abuse, uncomplicated (principal); I10 Essential (primary) hypertension; F19.10 Other psychoactive substance abuse, uncomplicated; F17.200 Nicotine dependence, unspecified, uncomplicated; Z88.5 Allergy status to narcotic agent
CPT/HCPCS: 93005

== ENCOUNTER 2018-03-11 07:57 | Emergency (ER) | payer OTHER ==
[2018-03-11] MEDS: NS 1,000 ML IV ×2 (08:48→12:04)
[2018-03-11] MEDS: LORazepam 2 MG/ML VIAL (J2060) IV (08:51)
[2018-03-11] MEDS: ASPIRIN 81 MG CHEW TABLET PO (08:51)
[2018-03-11 09:10] LABS: BASO % 0.4 % (0.0-1.0); EOS % 0.6 % (0.0-3.0); HEMOGLOBIN 13.3 g/dl (13.5-17.5); IMMATURE GRANULOCYTE % 0.3 % (0-3.0); LYMPH # 1.9 10^3/uL (1.5-6.5); LYMPH % 28.1 % (24.0-44.0); MEAN CORPUSCULAR HGB CONC 32.4 g/dl (32.0-36.5); MEAN CORPUSCULAR VOLUME 92.6 fl (80.0-96.0); MONO # 0.9 10^3/uL (0.0-0.8); MONO % 12.4 % (0.0-5.0); NEUTROPHILS % 58.2 % (36.0-66.0); PLATELET COUNT, AUTOMATED 298 10^3/uL (150-450); RED BLOOD COUNT 4.43 10^6/uL (4.30-6.10); RED CELL DISTRIBUTION WIDTH 13.4 % (11.5-14.5); WHITE BLOOD COUNT 6.8 10^3/uL (4.0-10.0)
[2018-03-11 09:21] LABS: INR 1.25; PROTHROMBIN TIME 15.8 SECONDS (12.1-14.4)
[2018-03-11 09:23] LABS: PARTIAL THROMBOPLASTIN TIME 33.6 SECONDS (25.4-37.6)
[2018-03-11 09:42] LABS: ALBUMIN 3.9 GM/DL (3.2-5.2); ALBUMIN/GLOBULIN RATIO 1.08 (1.00-1.93); ALKALINE PHOSPHATASE 85 U/L (45-117); ALT/SGPT 20 U/L (12-78); ANION GAP 8 MEQ/L (8-16); AST/SGOT 17 U/L (7-37); BILIRUBIN,DIRECT 0.1 MG/DL (0.0-0.2); BILIRUBIN,TOTAL 0.4 MG/DL (0.2-1.0); BLOOD UREA NITROGEN 14 MG/DL (7-18); CALCIUM LEVEL 8.5 MG/DL (8.5-10.1); CARBON DIOXIDE LEVEL 27 MEQ/L (21-32); CHLORIDE LEVEL 106 MEQ/L (98-107); CPK CREATINE PHOSPHOKINASE 191 U/L (39-308); CREATININE FOR GFR 1.12 MG/DL (0.70-1.30); ETHYL ALCOHOL (ETHANOL) < 0.003 % (0.000-0.010); GLOMERULAR FILTRATION RATE > 60.0 (>60); GLUCOSE, FASTING 71 MG/DL (70-100); LIPASE 81 U/L (73-393); POTASSIUM SERUM 4.2 MEQ/L (3.5-5.1); SALICYLATE LEVEL 5.1 MG/DL (5.0-30.0); SODIUM LEVEL 141 MEQ/L (136-145); TOTAL PROTEIN 7.5 GM/DL (6.4-8.2); TROPONIN I < 0.02 NG/ML (< 0.10)
[2018-03-11 09:47] LABS: CK-MB VALUE MASS 2.6 NG/ML (<3.6); FREE T4 1.04 NG/DL (0.76-1.46); MB/CK RELATIVE INDEX 1.36 (< OR =4)
[2018-03-11 09:54] LABS: ACETAMINOPHEN LEVEL < 2.0 UG/ML (10.0-30.0)
[2018-03-11] MEDS ORDERED: AMMONIA AROMATIC INHALANT (FLOOR STOCK) As Ordered (11:16)
[2018-03-11 11:58] LABS: AMPHETAMINES LEVEL URINE NEGATIVE (NEGATIVE); BARBITURATES URINE NEGATIVE (NEGATIVE); BENZODIAZEPINES URINE NEGATIVE (NEGATIVE); CANNABINOIDS URINE NEGATIVE (NEGATIVE); COCAINE METABOLITE URINE NEGATIVE (NEGATIVE); METHADONE URINE NEGATIVE (NEGATIVE); OPIATES URINE POSITIVE (NEGATIVE); PHENCYCLIDINE URINE NEGATIVE (NEGATIVE)
[2018-03-11 16:19] LABS: CK-MB VALUE MASS 2.4 NG/ML (<3.6); CPK CREATINE PHOSPHOKINASE 166 U/L (39-308); MB/CK RELATIVE INDEX 1.44 (< OR =4); TROPONIN I < 0.02 NG/ML (< 0.10)
== END 2018-03-11 17:46 | disposition home or self-care (01) ==
LOC: M ED 07:57
DX: R07.89 Other chest pain (principal); F19.10 Other psychoactive substance abuse, uncomplicated; Z88.5 Allergy status to narcotic agent; F17.210 Nicotine dependence, cigarettes, uncomplicated
CPT/HCPCS: J2060

== ENCOUNTER 2018-04-08 18:31 | Emergency (ER) | payer OTHER ==
[2018-04-08] MEDS: KETOROLAC 60 MG/2 ML VIAL (J1885) IM ×2 (19:45→19:49)
== END 2018-04-08 20:23 | disposition left against medical advice (07) ==
LOC: M ED 18:31
DX: S20.219A Contusion of unspecified front wall of thorax, initial encounter (principal); W51.XXXA Accidental striking against or bumped into by another person, initial encounter; Y92.89 Other specified places as the place of occurrence of the external cause; F17.200 Nicotine dependence, unspecified, uncomplicated; Z88.5 Allergy status to narcotic agent
CPT/HCPCS: 71046

== ENCOUNTER 2018-05-21 02:08 | Emergency (ER) | payer OTHER | END 2018-05-21 04:10 | disposition home or self-care (01) | LOC: M ED 02:08 | DX: F19.10 Other psychoactive substance abuse, uncomplicated (principal); F17.210 Nicotine dependence, cigarettes, uncomplicated | CPT/HCPCS: 99284 ==

== ENCOUNTER 2018-06-26 02:33 | Emergency (ER) | payer OTHER | END 2018-06-26 02:52 | disposition left against medical advice (07) | LOC: M ED 02:33 | DX: M25.571 Pain in right ankle and joints of right foot (principal); V09.9XXA Pedestrian injured in unspecified transport accident, initial encounter; Y92.410 Unspecified street and highway as the place of occurrence of the external cause; Y93.9 Activity, unspecified; Y99.9 Unspecified external cause status; F19.10 Other psychoactive substance abuse, uncomplicated; Z72.0 Tobacco use; Z88.5 Allergy status to narcotic agent; Z53.21 Procedure and treatment not carried out due to patient leaving prior to being seen by health care provider | CPT/HCPCS: 99283 ==

== ENCOUNTER 2018-10-13 16:00 | Emergency (ER) | payer OTHER ==
[~2018-10-13] VITALS: Ht 188 cm; Wt 82.1 kg
[~2018-10-13 16:00] MED LIST changes: +ATEN25TA PO; +CLON0.5T8 PO; -NALOXONE INJ 2 MG/2 ML SYRINGE (J2310) IV; +NORCOTAB PO; +PENI500T PO
[2018-10-13] MEDS ORDERED: LORazepam 2 MG/ML VIAL (J2060) IM ONE (17:00)
[2018-10-13] MEDS ORDERED: LORazepam 2 MG/ML VIAL (J2060) IV STA (17:01)
[2018-10-13] MEDS ORDERED: LORazepam 2 MG TAB PO ONE (18:15)
[2018-10-14 05:20] VITALS: BP 120/66
== END 2018-10-14 05:54 | disposition home or self-care (01) ==
LOC: M ED 16:00 → EDBD 16:00 → M ED 10-14 05:54
DX: F19.10 Other psychoactive substance abuse, uncomplicated (principal); F60.9 Personality disorder, unspecified; Z88.5 Allergy status to narcotic agent; F17.210 Nicotine dependence, cigarettes, uncomplicated
CPT/HCPCS: 96374; 99284; J2060

== ENCOUNTER 2018-11-04 21:49 | Emergency (ER) | payer OTHER ==
[~2018-11-04] VITALS: Ht 188 cm; Wt 93.0 kg
[2018-11-04 22:28] LABS: HEMATOCRIT 41.7 % (42.0-52.0); MEAN CORPUSCULAR HEMOGLOBIN 31.6 pg (27.0-33.0); MEAN CORPUSCULAR HGB CONC 33.6 g/dl (32.0-36.5); MEAN CORPUSCULAR VOLUME 94.1 fl (80.0-96.0); PLATELET COUNT, AUTOMATED 303 10^3/uL (150-450); RED BLOOD COUNT 4.43 10^6/uL (4.30-6.10); WHITE BLOOD COUNT 10.2 10^3/uL (4.0-10.0)
[2018-11-04] MEDS ORDERED: LORazepam 1 MG TAB PO ONE (22:45)
[2018-11-04 22:48] LABS: ACETAMINOPHEN LEVEL < 2.0 UG/ML (10.0-30.0); ALBUMIN 4.4 GM/DL (3.2-5.2); ALT/SGPT 87 U/L (12-78); BILIRUBIN,DIRECT 0.3 MG/DL (0.0-0.2); BILIRUBIN,TOTAL 1.1 MG/DL (0.2-1.0); BLOOD UREA NITROGEN 22 MG/DL (7-18); CALCIUM LEVEL 8.5 MG/DL (8.5-10.1); CARBON DIOXIDE LEVEL 28 MEQ/L (21-32); CHLORIDE LEVEL 107 MEQ/L (98-107); CREATININE FOR GFR 0.94 MG/DL (0.70-1.30); ETHYL ALCOHOL (ETHANOL) < 0.003 % (0.000-0.010); GLOMERULAR FILTRATION RATE > 60.0 (>60); GLUCOSE, FASTING 92 MG/DL (70-100); POTASSIUM SERUM 4.2 MEQ/L (3.5-5.1); SALICYLATE LEVEL 3.8 MG/DL (5.0-30.0); SODIUM LEVEL 140 MEQ/L (136-145); TOTAL PROTEIN 8.1 GM/DL (6.4-8.2)
[2018-11-05 06:25] VITALS: BP 138/79
[2018-11-05 06:57] LABS: AMPHETAMINES LEVEL URINE POSITIVE (NEGATIVE); BARBITURATES URINE NEGATIVE (NEGATIVE); BENZODIAZEPINES URINE NEGATIVE (NEGATIVE); CANNABINOIDS URINE NEGATIVE (NEGATIVE); COCAINE METABOLITE URINE POSITIVE (NEGATIVE); METHADONE URINE NEGATIVE (NEGATIVE); OPIATES URINE POSITIVE (NEGATIVE); PHENCYCLIDINE URINE NEGATIVE (NEGATIVE)
== END 2018-11-05 07:43 | disposition home or self-care (01) ==
LOC: M ED 21:49
DX: F19.10 Other psychoactive substance abuse, uncomplicated (principal); I48.91 Unspecified atrial fibrillation; I10 Essential (primary) hypertension; F32.9 Major depressive disorder, single episode, unspecified; F41.9 Anxiety disorder, unspecified; Z88.5 Allergy status to narcotic agent
CPT/HCPCS: 80048; 80076; 80307; 84443; 85027; 99284; G0480

== ENCOUNTER 2018-11-07 09:53 | Emergency (ER) | payer OTHER ==
[~2018-11-07] VITALS: Ht 188 cm; Wt 81.7 kg
[~2018-11-07 09:53] MED LIST changes: +HYDR-3715 PO; -NORCOTAB PO
[2018-11-07] MEDS ORDERED: NS 1,000 ML IV ONE ×2 (10:00→12:00)
[2018-11-07 11:04] LABS: BASO % 0.3 % (0.0-1.0); EOS # 0.1 10^3/uL (0.0-0.50); EOS % 1.6 % (0.0-3.0); HEMATOCRIT 41.2 % (42.0-52.0); HEMOGLOBIN 13.7 g/dl (13.5-17.5); LYMPH # 2.1 10^3/uL (1.5-6.5); LYMPH % 23.8 % (24.0-44.0); MEAN CORPUSCULAR HEMOGLOBIN 31.1 pg (27.0-33.0); MEAN CORPUSCULAR HGB CONC 33.3 g/dl (32.0-36.5); MEAN CORPUSCULAR VOLUME 93.4 fl (80.0-96.0); MONO # 1.1 10^3/uL (0.0-0.8); MONO % 12.4 % (0.0-5.0); NEUTROPHILS # 5.3 10^3/uL (1.8-7.7); NEUTROPHILS % 61.7 % (36.0-66.0); PLATELET COUNT, AUTOMATED 291 10^3/uL (150-450); RED BLOOD COUNT 4.41 10^6/uL (4.30-6.10); WHITE BLOOD COUNT 8.7 10^3/uL (4.0-10.0)
[2018-11-07 11:21] LABS: ERYTHROCYTE SEDIMENTATION RATE 7 mm/hr (0-15)
[2018-11-07 11:37] LABS: ACETAMINOPHEN LEVEL < 2.0 UG/ML (10.0-30.0); ALBUMIN 4.2 GM/DL (3.2-5.2); ALT/SGPT 77 U/L (12-78); BILIRUBIN,DIRECT 0.3 MG/DL (0.0-0.2); BILIRUBIN,TOTAL 0.8 MG/DL (0.2-1.0); BLOOD UREA NITROGEN 13 MG/DL (7-18); CALCIUM LEVEL 9.1 MG/DL (8.5-10.1); CARBON DIOXIDE LEVEL 27 MEQ/L (21-32); CHLORIDE LEVEL 102 MEQ/L (98-107); CPK CREATINE PHOSPHOKINASE 781 U/L (39-308); CREATININE FOR GFR 1.02 MG/DL (0.70-1.30); ETHYL ALCOHOL (ETHANOL) < 0.003 % (0.000-0.010); GLOMERULAR FILTRATION RATE > 60.0 (>60); GLUCOSE, FASTING 61 MG/DL (70-100); POTASSIUM SERUM 3.6 MEQ/L (3.5-5.1); SALICYLATE LEVEL < 1.7 MG/DL (5.0-30.0); SODIUM LEVEL 139 MEQ/L (136-145); TOTAL PROTEIN 7.8 GM/DL (6.4-8.2)
[2018-11-07 11:43] LABS: AMPHETAMINES LEVEL URINE NEGATIVE (NEGATIVE); BARBITURATES URINE NEGATIVE (NEGATIVE); BENZODIAZEPINES URINE NEGATIVE (NEGATIVE); CANNABINOIDS URINE NEGATIVE (NEGATIVE); COCAINE METABOLITE URINE POSITIVE (NEGATIVE); METHADONE URINE NEGATIVE (NEGATIVE); OPIATES URINE POSITIVE (NEGATIVE); PHENCYCLIDINE URINE NEGATIVE (NEGATIVE)
[2018-11-07 11:59] VITALS: BP 131/68
[2018-11-07] MEDS ORDERED: LORazepam 2 MG/ML VIAL (J2060) IV STA (12:32)
--- NOTE | 2018-11-08 06:17 | ECGEPIP ---
Stationary ECG Study 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
== END 2018-11-07 13:15 | disposition left against medical advice (07) ==
LOC: M ED 09:53
DX: F19.10 Other psychoactive substance abuse, uncomplicated (principal); I48.91 Unspecified atrial fibrillation; R00.0 Tachycardia, unspecified; Z88.5 Allergy status to narcotic agent
CPT/HCPCS: 36415; 80048; 80076; 80307; 82550; 84443; 85025; 85652; 93005; 93041; 94760; 99285; G0480

== ENCOUNTER 2018-11-07 21:59 | Emergency (ER) | payer OTHER ==
[2018-11-07] MEDS ORDERED: chlorproMAZINE INJ 50MG/2ML AMP (J3230) IM STA (22:26)
[2018-11-08 12:18] VITALS: BP 127/63
== END 2018-11-08 12:20 | disposition home or self-care (01) ==
LOC: M ED 21:59
DX: F16.10 Hallucinogen abuse, uncomplicated (principal); F19.10 Other psychoactive substance abuse, uncomplicated; R00.0 Tachycardia, unspecified; Z88.5 Allergy status to narcotic agent
CPT/HCPCS: 96372; 99284; J3230

== ENCOUNTER 2018-11-26 00:52 | Emergency (ER) | payer OTHER ==
[~2018-11-26] VITALS: Ht 188 cm; Wt 81.8 kg
[2018-11-26 00:52] VITALS: BP 126/78
== END 2018-11-26 02:07 | disposition left against medical advice (07) ==
LOC: M ED 00:52
DX: Z53.21 Procedure and treatment not carried out due to patient leaving prior to being seen by health care provider (principal)

== ENCOUNTER 2019-01-13 10:53 | Emergency (ER) | payer OTHER ==
[~2019-01-13] VITALS: Ht 188 cm; Wt 81.8 kg
[2019-01-13] MEDS ORDERED: DOXY100C37 PO (11:28)
--- NOTE | 2019-01-13 11:34 | REP ---
Clinical: Foreign body. Technique: AP and lateral views of the left forearm. Findings: Fractured needle fragment is identified in the subcutaneous tissues along the anterior proximal third of the forearm. No bony Impression: Fractured needle fragment in the anterior subcutaneous tissues. Electronically Signed by Edwin Zhao MD 01/13/2019 11:25 A
--- NOTE | 2019-01-13 13:00 | REP ---
Clinical: Foreign body. Technique: Real time rubio scale and color evaluation using linear high frequency transducer. Findings: Ultrasound examination is limited due to multiple factors including the patient's mental status. The needle fragment is identified and does not appear to be within a patent vessel as color images do not show surrounding flow. However, the possibility that this needle fragment is surrounded by clot in the thrombosed vessel cannot be definitively excluded. Electronically Signed by Edwin Zhao MD 01/13/2019 12:51 P
[2019-01-13 17:31] VITALS: BP 122/71
--- NOTE | 2019-01-15 16:22 | ED PDOC ---
Post-Departure Follow-Up dr pérez faxed formal report of extremity us for fu Vani Hadley MD January 15, 2019 16:22
== END 2019-01-13 17:32 | disposition home or self-care (01) ==
LOC: M ED 10:53
DX: S50.852A Superficial foreign body of left forearm, initial encounter (principal); W46.0XXA Contact with hypodermic needle, initial encounter; Y92.9 Unspecified place or not applicable; F16.10 Hallucinogen abuse, uncomplicated; Z88.5 Allergy status to narcotic agent

== ENCOUNTER 2019-04-03 11:43 | Emergency (ER) | payer OTHER, SELFPAY ==
[~2019-04-03] VITALS: Ht 188 cm; Wt 102.3 kg
[2019-04-03 11:43] VITALS: BP 131/73
[~2019-04-03 11:43] MED LIST changes: +DOXY100C37 PO
[2019-04-03] MEDS ORDERED: IBUP-1022 PO (12:39)
[2019-04-03] MEDS ORDERED: PENI25TA PO (12:39)
== END 2019-04-03 13:06 | disposition home or self-care (01) ==
LOC: M ED 11:43
DX: K02.9 Dental caries, unspecified (principal); Z88.5 Allergy status to narcotic agent

== ENCOUNTER 2019-04-22 08:47 | Emergency (ER) | payer OTHER, SELFPAY ==
[~2019-04-22 08:47] MED LIST changes: +IBUP-1022 PO; +PENI25TA PO
[2019-04-22 09:26] LABS: BASO % 0.1 % (0.0-1.0); EOS % 0.4 % (0.0-3.0); HEMATOCRIT 39.5 % (42.0-52.0); HEMOGLOBIN 13.6 g/dl (13.5-17.5); LYMPH # 0.3 10^3/uL (1.5-5.0); MEAN CORPUSCULAR HEMOGLOBIN 31.6 pg (27.0-33.0); MEAN CORPUSCULAR HGB CONC 34.4 g/dl (32.0-36.5); MEAN CORPUSCULAR VOLUME 91.9 fl (80.0-96.0); MONO % 0.6 % (0.0-5.0); NEUTROPHILS # 6.4 10^3/uL (1.5-8.5); NEUTROPHILS % 93.8 % (36.0-66.0); PLATELET COUNT, AUTOMATED 261 10^3/uL (150-450); WHITE BLOOD COUNT 6.8 10^3/uL (4.0-10.0)
[2019-04-22] MEDS ORDERED: ACETAMINOPHEN TAB 650MG DOSE (2X325MG) PO ONE (09:30)
[2019-04-22] MEDS ORDERED: NS 1,000 ML IV ONE ×2 (09:30→12:15)
[2019-04-22 09:40] LABS: INR 1.35; PROTHROMBIN TIME 16.4 SECONDS (11.8-14.0)
--- NOTE | 2019-04-22 09:50 | REP ---
Clinical: Acute chest pain . Comparison: 04/08/2018 . Findings: The mediastinum and cardiac silhouette are stable and within normal limits for portable technique. The lung pearson are clear without acute consolidation, effusion, or pneumothorax. Skeletal structures are intact. Impression: No acute cardiopulmonary process appreciated. Electronically Signed by Edwin Zhao MD 04/22/2019 09:42 A
[2019-04-22 10:01] LABS: ALBUMIN 3.7 GM/DL (3.2-5.2); ALT/SGPT 18 U/L (12-78); BILIRUBIN,DIRECT 0.3 MG/DL (0.0-0.2); BILIRUBIN,TOTAL 1.2 MG/DL (0.2-1.0); BLOOD UREA NITROGEN 17 MG/DL (7-18); CALCIUM LEVEL 8.9 MG/DL (8.5-10.1); CARBON DIOXIDE LEVEL 26 MEQ/L (21-32); CHLORIDE LEVEL 105 MEQ/L (98-107); CK-MB VALUE MASS 1.3 NG/ML (<3.6); CPK CREATINE PHOSPHOKINASE 128 U/L (39-308); CREATININE FOR GFR 1.02 MG/DL (0.70-1.30); GLOMERULAR FILTRATION RATE > 60.0 (>60); GLUCOSE, FASTING 91 MG/DL (70-100); LIPASE 85 U/L (73-393); MB/CK RELATIVE INDEX 1.02 (< OR =4); POTASSIUM SERUM 3.8 MEQ/L (3.5-5.1); SODIUM LEVEL 140 MEQ/L (136-145); TOTAL PROTEIN 7.6 GM/DL (6.4-8.2); TROPONIN I < 0.02 NG/ML (< 0.10)
[2019-04-22 14:42] VITALS: BP 101/55
--- NOTE | 2019-04-23 16:45 | ECGEPIP ---
[facility] - ED Test Date: 2019-04-22 Pat Name: NIEVES BLOCK Department: Room: - Gender: Male Pyroglazer: bobo : 1990 Requested By: OLINDA Pinto Order Number: [id number] Reading MD: Manuela Hunt Measurements Intervals [place] Rate: 120 P: 79 [place]: 134 QRS: 51 QRSD: 111 T: 56 QT: 319 QTc: 451 Interpretive Statements SINUS TACHYCARDIA MODERATE INTRAVENTRICULAR CONDUCTION DELAY ABNORMAL RHYTHM ECG INCREASED RATE/IVCD COMPARED 11/07/18 Electronically Signed on 04-23-2019 16:45:22 EDT by Manuela Hunt
== END 2019-04-22 14:52 | disposition home or self-care (01) ==
LOC: M ED 08:47
DX: R07.9 Chest pain, unspecified (principal); R50.9 Fever, unspecified; R06.02 Shortness of breath; I48.91 Unspecified atrial fibrillation; F19.10 Other psychoactive substance abuse, uncomplicated; Z88.5 Allergy status to narcotic agent

== ENCOUNTER 2019-05-03 08:58 | Inpatient (IN) | payer MEDICAID, SELFPAY ==
[~2019-05-03] VITALS: Ht 188 cm; Wt 79.5 kg
[2019-05-03] MEDS ORDERED: ACETAMINOPHEN 325 MG TAB PO ONE ×2 (09:15→10:15)
[2019-05-03] MEDS ORDERED: PROMETHAZINE INJ 25 MG/ML VIAL (J2550) IM ONE (09:45)
[2019-05-03] MEDS ORDERED: NS 1,000 ML IV ONE ×4 (10:15→18:30)
[2019-05-03] MEDS ORDERED: LORazepam 2 MG/ML VIAL (J2060) IM STA (10:15)
[2019-05-03 10:22] LABS: HEMATOCRIT 44.3 % (42.0-52.0); HEMOGLOBIN 14.9 g/dl (13.5-17.5); MEAN CORPUSCULAR HEMOGLOBIN 31.6 pg (27.0-33.0); MEAN CORPUSCULAR HGB CONC 33.6 g/dl (32.0-36.5); MEAN CORPUSCULAR VOLUME 94.1 fl (80.0-96.0); PLATELET COUNT, AUTOMATED 234 10^3/uL (150-450); RED BLOOD COUNT 4.71 10^6/uL (4.30-6.10)
--- NOTE | 2019-05-03 10:28 | REP ---
TWO-VIEW CHEST: REASON: Chest pain. COMPARISON: 04/22/2019 The technique utilized in obtaining the radiograph has magnified the cardiac silhouette and accentuated the interstitial markings. FINDINGS: The superior mediastinal structures are midline. The cardiac silhouette is unremarkable in size, shape, and position. The diaphragmatic surfaces of the lungs are regular, and the costophrenic angles are clear. The pulmonary pearson are clear. The imaged osseous structures are intact. IMPRESSION: There is no acute cardiopulmonary disease. No change. Electronically Signed by Edvin Ryder DO 05/03/2019 11:24 A
[2019-05-03 10:55] LABS: LYMPHOCYTES 3 % (16-44); METAMYELOCYTES 1 % (0-0); MONOCYTES 2 % (0-5); NEUTROPHILS 82 % (28-66); PLATELET ESTIMATE NORMAL (NORMAL)
[2019-05-03 10:59] LABS: BLOOD UREA NITROGEN 28 MG/DL (7-18); CALCIUM LEVEL 8.9 MG/DL (8.5-10.1); CARBON DIOXIDE LEVEL 26 MEQ/L (21-32); CHLORIDE LEVEL 102 MEQ/L (98-107); CREATININE FOR GFR 1.27 MG/DL (0.70-1.30); GLOMERULAR FILTRATION RATE > 60.0 (>60); GLUCOSE, FASTING 80 MG/DL (70-100); POTASSIUM SERUM 3.7 MEQ/L (3.5-5.1); SODIUM LEVEL 136 MEQ/L (136-145)
[2019-05-03 11:42] LABS: INFLUENZA A AMPLIFICATION NEGATIVE (NEGATIVE); INFLUENZA B AMPLIFICATION NEGATIVE (NEGATIVE)
[2019-05-03] MEDS ORDERED: IBUPROFEN 600 MG TAB PO ONE (13:30)
[2019-05-03 14:33] LABS: ALBUMIN 3.8 GM/DL (3.2-5.2); ALT/SGPT 71 U/L (12-78); BILIRUBIN,DIRECT 0.8 MG/DL (0.0-0.2); BILIRUBIN,TOTAL 1.6 MG/DL (0.2-1.0); TOTAL PROTEIN 7.4 GM/DL (6.4-8.2)
[2019-05-03 16:25] LABS: AMPHETAMINES LEVEL URINE POSITIVE (NEGATIVE); BARBITURATES URINE NEGATIVE (NEGATIVE); BENZODIAZEPINES URINE NEGATIVE (NEGATIVE); CANNABINOIDS URINE NEGATIVE (NEGATIVE); COCAINE METABOLITE URINE POSITIVE (NEGATIVE); METHADONE URINE NEGATIVE (NEGATIVE); OPIATES URINE POSITIVE (NEGATIVE); PHENCYCLIDINE URINE NEGATIVE (NEGATIVE)
[2019-05-03] MEDS ORDERED: NALOXONE INJ 0.4 MG/1 ML VIAL (J2310) IV STA (16:43)
[2019-05-03 17:15] LABS: BASO % 0.2 % (0.0-1.0); HEMATOCRIT 39.6 % (42.0-52.0); HEMOGLOBIN 13.5 g/dl (13.5-17.5); LYMPH # 0.3 10^3/uL (1.5-5.0); LYMPH % 1.4 % (24.0-44.0); MEAN CORPUSCULAR HEMOGLOBIN 32.2 pg (27.0-33.0); MEAN CORPUSCULAR HGB CONC 34.1 g/dl (32.0-36.5); MEAN CORPUSCULAR VOLUME 94.5 fl (80.0-96.0); MONO % 4.6 % (0.0-5.0); NEUTROPHILS % 93.3 % (36.0-66.0); PLATELET COUNT, AUTOMATED 213 10^3/uL (150-450); RED BLOOD COUNT 4.19 10^6/uL (4.30-6.10); WHITE BLOOD COUNT 21.5 10^3/uL (4.0-10.0)
[2019-05-03 17:38] LABS: BLOOD UREA NITROGEN 32 MG/DL (7-18); CALCIUM LEVEL 8.2 MG/DL (8.5-10.1); CARBON DIOXIDE LEVEL 24 MEQ/L (21-32); CHLORIDE LEVEL 105 MEQ/L (98-107); CREATININE FOR GFR 1.43 MG/DL (0.70-1.30); GLOMERULAR FILTRATION RATE > 60.0 (>60); GLUCOSE, FASTING 102 MG/DL (70-100); POTASSIUM SERUM 3.9 MEQ/L (3.5-5.1); SODIUM LEVEL 137 MEQ/L (136-145)
[2019-05-03] MEDS ORDERED: PIPERACILLIN/TAZOBACTAM SOD 3.375 GM in D5W MINI-BAG PLUS 50 ML IV ONE (18:30)
--- NOTE | 2019-05-03 19:13 | REPVR ---
EXAM: CT Abdomen and Pelvis Without Contrast EXAM DATE/TIME: 05/03/2019 5:54 PM CLINICAL HISTORY: 28 years old, male; Condition or disease; Kidney or ureter condition; Acute renal insufficiency; Fever and vomiting; Additional info: Fever, vomiting, acute renal failure TECHNIQUE: Imaging protocol: Computed tomography of the abdomen and pelvis without contrast. Radiation optimization: All CT scans at this facility use at least one of these dose optimization techniques: automated exposure control; mA and/or kV adjustment per patient size (includes targeted exams where dose is matched to clinical indication); or iterative reconstruction. COMPARISON: CT ABD PELVIS W/O CONTRAST 05/04/2014 7:45 AM FINDINGS: Lungs: There is atelectasis at the lung bases. Liver: The liver is normal. Gallbladder and bile ducts: The gallbladder is normal. Pancreas: The pancreas is normal. Spleen: The spleen is mildly enlarged measuring 14.5 cm. No focal lesion is seen. Adrenals: The adrenal glands are normal. Kidneys and ureters: The kidneys are normal. No calculus or hydronephrosis. Stomach and bowel: Unremarkable. No obstruction. No mucosal thickening. Appendix: The appendix contains small appendicoliths. No wall thickening or inflammation. No dilation. No change from prior scan. Intraperitoneal space: Unremarkable. No free air. No significant fluid collection. Vasculature: Unremarkable. No abdominal aortic aneurysm. Lymph nodes: Unremarkable. No enlarged lymph nodes. Bladder: The bladder is normal with no evidence of calculi. Reproductive: Unremarkable as visualized. Bones/joints: Unremarkable. No acute fracture. Soft tissues: Unremarkable. IMPRESSION: 1. No renal lesion, calculus or hydronephrosis. 2. There are appendicoliths in the appendix with no evidence of acute appendicitis. No change from prior scan. 3. Mild splenomegaly, 14.5 cm. 4. No acute findings. Electronically signed by: Jamie Robles On 05/03/2019 19:13:33 PM
[2019-05-03] MEDS ORDERED: VANCOMYCIN HCL 1,000 MG, VIAL MATE ADAPTER 1 EACH in D5W 250 ML IV ONE (19:30)
[2019-05-03 19:45] VITALS: BP 106/58
[2019-05-03 20:00] VITALS: BP 89/53
[2019-05-03] MEDS: NS 1,000 ML IV SCH (20:36)
[2019-05-03 21:00] VITALS: BP 92/55
[2019-05-03 21:00] LABS: HEMATOCRIT 35.3 % (42.0-52.0); HEMOGLOBIN 11.7 g/dl (13.5-17.5); MEAN CORPUSCULAR HEMOGLOBIN 31.6 pg (27.0-33.0); MEAN CORPUSCULAR HGB CONC 33.1 g/dl (32.0-36.5); MEAN CORPUSCULAR VOLUME 95.4 fl (80.0-96.0); PLATELET COUNT, AUTOMATED 192 10^3/uL (150-450)
[2019-05-03 21:26] LABS: ALBUMIN 2.5 GM/DL (3.2-5.2); ALT/SGPT 232 U/L (12-78); BILIRUBIN,TOTAL 2.1 MG/DL (0.2-1.0); BLOOD UREA NITROGEN 27 MG/DL (7-18); CALCIUM LEVEL 7.2 MG/DL (8.5-10.1); CARBON DIOXIDE LEVEL 22 MEQ/L (21-32); CHLORIDE LEVEL 112 MEQ/L (98-107); CREATININE FOR GFR 1.31 MG/DL (0.70-1.30); GLOMERULAR FILTRATION RATE > 60.0 (>60); GLUCOSE, FASTING 118 MG/DL (70-100); POTASSIUM SERUM 3.8 MEQ/L (3.5-5.1); SODIUM LEVEL 141 MEQ/L (136-145); TOTAL PROTEIN 5.7 GM/DL (6.4-8.2)
[2019-05-03 21:40] LABS: LYMPHOCYTES 1 % (16-44); MONOCYTES 4 % (0-5); NEUTROPHILS 88 % (28-66)
[2019-05-03 21:41] LABS: PLATELET ESTIMATE NORMAL (NORMAL)
[2019-05-03 22:00] VITALS: BP 83/46
[2019-05-03 23:00] VITALS: BP 82/45
[2019-05-03] MEDS ORDERED: SODIUM CHLORIDE 0.9% 1000ML IV ONE (23:15)
[2019-05-04] VITALS (19 sets, daily range): BP systolic 75–104; BP diastolic 45–59
[2019-05-04] MEDS: PIPERACILLIN/TAZOBACTAM SOD 3.375 GM in D5W MINI-BAG PLUS 50 ML IV SCH ×4 (00:20→20:41)
[2019-05-04] MEDS: NS 1,000 ML IV SCH ×3 (03:19→16:30)
[2019-05-04 04:17] LABS: BASO # 0.1 10^3/uL (0.0-0.2); BASO % 0.2 % (0.0-1.0); HEMATOCRIT 37.5 % (42.0-52.0); HEMOGLOBIN 11.7 g/dl (13.5-17.5); LYMPH # 0.8 10^3/uL (1.5-5.0); LYMPH % 3.7 % (24.0-44.0); MEAN CORPUSCULAR HGB CONC 31.2 g/dl (32.0-36.5); MEAN CORPUSCULAR VOLUME 102.5 fl (80.0-96.0); MONO # 1.6 10^3/uL (0.0-0.8); NEUTROPHILS # 19.7 10^3/uL (1.5-8.5); NEUTROPHILS % 88.5 % (36.0-66.0); PLATELET COUNT, AUTOMATED 149 10^3/uL (150-450); RED BLOOD COUNT 3.66 10^6/uL (4.30-6.10); WHITE BLOOD COUNT 22.3 10^3/uL (4.0-10.0)
[2019-05-04] MEDS: VANCOMYCIN HCL 1,000 MG, VIAL MATE ADAPTER 1 EACH in D5W 250 ML IV SCH ×3 (04:39→20:42)
[2019-05-04 04:45] LABS: PLATELET COUNT, AUTOMATED 176 10^3/uL (150-450)
[2019-05-04 04:47] LABS: ALBUMIN 2.1 GM/DL (3.2-5.2); ALT/SGPT 201 U/L (12-78); BILIRUBIN,TOTAL 1.8 MG/DL (0.2-1.0); BLOOD UREA NITROGEN 24 MG/DL (7-18); CARBON DIOXIDE LEVEL 17 MEQ/L (21-32); CHLORIDE LEVEL 119 MEQ/L (98-107); CK-MB VALUE MASS 1.1 NG/ML (<3.6); CPK CREATINE PHOSPHOKINASE 251 U/L (39-308); CREATININE FOR GFR 1.04 MG/DL (0.70-1.30); GLOMERULAR FILTRATION RATE > 60.0 (>60); GLUCOSE, FASTING 72 MG/DL (70-100); MB/CK RELATIVE INDEX 0.44 (< OR =4); POTASSIUM SERUM 4.2 MEQ/L (3.5-5.1); SODIUM LEVEL 142 MEQ/L (136-145); TOTAL PROTEIN 5.4 GM/DL (6.4-8.2); TROPONIN I < 0.02 NG/ML (< 0.10)
[2019-05-04 04:57] LABS: FIBRINOGEN 342 MG/DL (221-452); INR 1.77; PARTIAL THROMBOPLASTIN TIME 33.9 SECONDS (25.0-38.4); PROTHROMBIN TIME 20.4 SECONDS (11.8-14.0)
[2019-05-04 05:07] LABS: ERYTHROCYTE SEDIMENTATION RATE 11 mm/hr (0-15)
[2019-05-04 05:34] LABS: D-DIMER QUANT > 4000 ng/ml (<500)
--- NOTE | 2019-05-04 05:44 | ECGEPIP ---
[facility] - ED Test Date: 2019-05-03 Pat Name: NIEVES BLOCK Department: Room: - Gender: Male Enologist: : 1990 Requested By: Nilson Garza Order Number: [id number] Reading MD: Nilson Mcdaniel Measurements Intervals [place] Rate: 145 P: 74 AK: 112 QRS: 24 QRSD: 90 T: 46 QT: 307 QTc: 477 Interpretive Statements SINUS TACHYCARDIA WITH SHORT AK INTERVAL RATE CHANGE COMPARED TO 04/22/19 Electronically Signed on 05-04-2019 5:44:13 EDT by Nilson Mcdaniel
--- NOTE | 2019-05-04 07:21 | REP ---
REASON FOR EXAM: Nausea and vomiting. COMPARISON EXAMINATION: 05/26/2015 Multiple ultrasonographic images of the liver show the hepatic parenchymal echopattern to be within normal limits. There are no masses or ductal dilatation. The common bile duct measures 4 mm. Multiple ultrasonographic images of the gallbladder show no abnormal gallbladder wall thickening or pericholecystic fluid. The gallbladder wall is actually thinner today than when seen on the prior exam of 05/26/2015. The imaged portion of pancreas and right kidney are within normal limits. IMPRESSION: Right upper quadrant ultrasound is within normal limits and essentially unchanged from the prior exam. Electronically Signed by Edvin Ryder DO 05/04/2019 09:17 A
--- NOTE | 2019-05-04 13:59 | HPE ---
DATE OF ADMISSION: 05/03/2019 CHIEF COMPLAINT: Chest pain. This is 28-year-old male with a history of substance abuse who states that approximately 3 a.m. this morning, he used emerita. He developed chest pain shortly thereafter. He felt "oozy." He had dry mouth. He came to the emergency room by ambulance. Upon arrival, temperature was 103.2, pulse was 146, blood pressure was 121/80, respirations were 24, oxygen (O2) saturation was 100% on room air. Laboratory studies were drawn. White count was 5.0, hemoglobin 14.9, hematocrit 44.3, platelets were 234, neutrophils were 82. He had 12 bands. Platelets were normal. Electrolytes were normal. Blood urea nitrogen (BUN) was elevated at 28, creatinine was 1.27, total bilirubin was 1.6, direct bilirubin 0.8, AST was 238, ALT 71. Urine for toxicology was positive for opiates, positive for amphetamines, positive for cocaine. Radiology studies: Chest x-ray showed no acute cardiopulmonary disease. Gallbladder ultrasound was negative. Abdomen and pelvis CAT scan without contrast showed no renal lesion, calculus, or hydronephrosis. There are appendicoliths in the appendix with no evidence of acute appendicitis. No change from prior scan. Mild splenomegaly 14.5 cm. No acute findings. The patient was given Tylenol for the fever. He was nauseated. He did vomit. He was given phenergan. He was given lorazepam for agitation with good response. Intravenous (IV) fluids were started. Blood pressure was slightly low, around 11. Fluid boluses were increased. Blood pressure was monitored. Dropped into the 80s. He received more fluid boluses. Temperature was rechecked at 1500 and was down to 101. The patient was less responsive; and in the afternoon, Narcan was given. The patient does respond if stimulated. Laboratories were repeated. At 1705, electrolytes were normal. BUN was elevated at 32, creatinine 1.43. White count was up to 21.5, hemoglobin 13.5, hematocrit 39.6, platelets were 216. Decision was made to admit the patient. The hospitalists were called. The patient will be admitted. Blood cultures will be drawn. IV antibiotics, vancomycin and Zosyn will be started. IV fluids continued. The patient admitted to the service of Dr. Estrada to the intensive care unit. Fever, substance abuse, dehydration. ALLERGIES: TRAMADOL. PRIMARY CARE PROVIDER: He currently has none. SOCIAL HISTORY: He is . He states he lives wherever. Ethyl alcohol (EtOH): None if ever. He smokes at least one pack of cigarettes per day, he said. Recreational drug use: Urine positive for amphetamines, opiates, cocaine. PAST MEDICAL HISTORY: Anxiety. Per the record, it says atrial fibrillation. I can find that confirmed nowhere. The patient is not cooperative. Does not state yes or no, that he has had it, or even knows what it is. Stated past history and found in the old record of a foot drop treated in the past by Dr. Larson. PAST SURGICAL HISTORY: Per the record, it says jaw. He is not cooperative in any confirmation of this. HOME MEDICATIONS: None per the record. FAMILY HISTORY: States father alive with a history of alcohol abuse, chronic back pain, anxiety, hypertension, chronic obstructive pulmonary disease (COPD). The patient does not deny or discuss this. He is not cooperative with answering very many questions. Per the record, mother, history of alcohol abuse, anxiety, and heart murmur. Again, the patient is not cooperative with answering. teletypesetter monitor shows sinus tachycardia. The patient is sleeping but is arousable. Attempt at review of systems, the patient was not cooperative. He did say he was currently in no pain and that he had to go urinate. Otherwise, he was not cooperating with answering questions for review of systems. PHYSICAL EXAMINATION: A 28-year-old male, in no acute distress. Height 74 inches, weight 77.27 kg, body mass index (BMI) 21.9. The is asleep, arouses easily, and then goes back to sleep. Does know where he is and who he is and his date of . Pupils equal and react to light. Extraocular movements (EOMs) intact Cornea and sclerae clear. Conjunctivae normal. No facial asymmetry. Pharynx, tongue, and gums pink and moist. Tongue is midline. NECK: Supple without lymphadenopathy. No thyromegaly. No goiter. CHEST: Clear to auscultation without wheeze or retraction. HEART: Regular without murmur or gallop. ABDOMEN: Benign. Bowel sounds positive. GENITOURINARY ()/RECTAL: Not done. EXTREMITIES: Moving all extremities equally well, spontaneously with purpose. Peripheral pulses equal and palpable bilaterally. No clubbing, cyanosis, or edema. SKIN: Is warm and dry. Small sore just above his left eyebrow. No open areas or drainage. IMPRESSION AND PLAN: 1. Polysubstance abuse. 2. Dehydration. 3. Fever of unknown origin. 4. Hypotension. The patient will be admitted to ICU. Hypotension and dehydration. Continue IV fluids. Recheck a med profile. Elevated white count. Vancomycin and Zosyn. Blood cultures, urine culture. Tylenol for fever. Deep venous thrombosis (DVT) prophylaxis. The patient is moving all extremities. Early ambulation.
--- NOTE | 2019-05-04 15:10 | IPNPDOC ---
Text Note Date of Service The patient was seen on 05/04/19. NOTE SUBJECTIVE: This is a 28-year-old male admitted with sepsis. Source is unknown. He also appears to have a toxic encephalopathy due to substance abuse and metabolic encephalopathy associated with sepsis. This morning he is starting to awaken, but still is not fully alert and appropriate. For example, he is stating he is hungry but does not realize he has food on a tray in front of him. OBJECTIVE: Physical exam Please see below for vital signs. HENT: Neck is supple, no adenopathy or thyromegaly, oral mucosa is moist, no scleral injection Cardiovascular: Regular rate and rhythm with a normal S1 and S2. Respiratory: Clear to auscultation with good air movement. Abdomen: Soft, nontender, nondistended, bowel tones are present. Extremities: No peripheral edema or lesions. Neuro: No gross neuromotor deficit, patient is able to feed himself ASSESSMENT/PLAN: 1. Sepsis. Patient has leukocytosis with a white cell count of 22.3. Patient has mild temperature of 99.1. He has been transiently tachycardic with heart rate of 104. He has been hypotensive with systolics down to 81. The patient remains on empiric antibiotics of vancomycin and Zosyn; blood cultures are negative to date. MRSA PCR is positive, however. 2. Toxic encephalopathy. Patient has a history of polysubstance abuse. Urine drug screen is positive for amphetamines and opiates and cocaine. 3. Metabolic encephalopathy. This is being attributed to sepsis. Both his metabolic and toxic encephalopathy are improving with supportive care. The patient has been kept in the ICU due to persistent relative hypotension. He is entirely asymptomatic, however. If he remains otherwise stable he can be transitioned to PCU. VS,Fishbone, I+O VS, Fishbone, I+O Laboratory Tests 05/03/19 17:05 Red Blood Count 4.19 L, Mean Corpuscular Volume 94.5, Mean Corpuscular H emoglobin 32.2, Mean Corpuscular Hemoglobin Concent 34.1, Red Cell Distribution Width 12.8, Neutrophils (%) (Auto) 93.3 H, Lymphocytes (%) (Auto) 1.4 L, Monocytes (%) (Auto) 4.6, Eosinophils (%) (Auto) 0.0, Basophils (%) (Auto) 0.2, Neutrophils # (Auto) 20.0 H, Lymphocytes # (Auto) 0.3 L, Monocytes # (Auto) 1.0 H, Eosinophils # (Auto) 0.0, Basophils # (Auto) 0.0, Calcium Level 8.2 L 05/03/19 20:53 Red Blood Count 3.70 L, Mean Corpuscular Volume 95.4, Mean Corpuscular Hemog lobin 31.6, Mean Corpuscular Hemoglobin Concent 33.1, Red Cell Distribution Width 13.0, Calcium Level 7.2 L, Aspartate Amino Transf (AST/SGOT) 478 H, Alanine Aminotransferase (ALT/SGPT) 232 H, Alkaline Phosphatase 166 H, Total Bilirubin 2.1 H, Total Protein 5.7 #L, Albumin 2.5 #L 05/04/19 04:09 Red Blood Count 3.66 L, Mean Corpuscular Volume 102.5 H, Mean Corpuscular Hemoglobin 32.0, Mean Corpuscular Hemoglobin Concent 31.2 L, Red Cell Distribution Width 13.2, Neutrophils (%) (Auto) 88.5 H, Lymphocytes (%) (Auto) 3.7 L, Monocytes (%) (Auto) 7.0 H, Eosinophils (%) (Auto) 0.0, Basophils (%) (Auto) 0.2, Neutrophils # (Auto) 19.7 H, Lymphocytes # (Auto) 0.8 L, Monocytes # (Auto) 1.6 H, Eosinophils # (Auto) 0.0, Basophils # (Auto) 0.1, Calcium Level 7.0 L, Aspartate Amino Transf (AST/SGOT) 306 H, Alanine Aminotransferase (ALT/SGPT) 201 H, Alkaline Phosphatase 144 H, Total Bilirubin 1.8 H, Total Protein 5.4 L, Albumin 2.1 L, Total Creatine Kinase 251 05/04/19 04:36 Vital Signs Date Time Temp Pulse Resp B/P (MAP) Pulse Ox O2 Delivery O2 Flow Rate FiO2 05/04/19 12:39 99.1 92 16 98/50 (66) 98 05/03/19 09:10 Room Air I&O- Last 24 Hours up to 6 AM 05/04/19 06:00 Intake Total 5665 ml Output Total 1750 ml Balance 3915 ml KENZIE NOVAK MD May 04, 2019 15:10
--- NOTE | 2019-05-04 15:21 | IPN ---
DATE: 05/04/2019 He was admitted from the emergency room (ER). He had come after taking emerita and complained of chest pain, burning, and left anterior. He had also felt lightheaded. He was given intravenous (IV) fluids. His white count went up. He was started on IV antibiotics, and ultrasound right upper quadrant was negative. CT scan, other than mild splenomegaly, was unremarkable. He was admitted to the intensive care unit (ICU) unit. He had been hypotensive, was getting IV fluid boluses. Serial troponins are being done. Discussed with Dr. Jara, hospitalist. He recommends also an echocardiogram to look for valvular problem, endocarditis. Procalcitonin has been ordered. CRP and sed rate. Antibiotics are being continued. He has remained afebrile. He was febrile when he came in; in the morning at 9:10 a.m. was 103. He was given Tylenol. It was down to 101.5 at 1323 hours, and he has been afebrile since with the most recent temperature being 97.5, but remains hypotensive, 78/48, 95/45, currently running 80s systolic. Discussed with Dr. Jara. We are continuing the IV fluids, antibiotics. An EKG was done, showed sinus rhythm. There were no acute ischemic changes. Repeat labs at 2053 hours have shown the AST and ALT going up to 478, 232, with a bilirubin of 2.1. Repeat labs are pending. Patient remains oriented to person/place. Patient was assessed by Dr. Jara, will followup on the current labs that have just been ordered. Continue IV fluids as well as IV antibiotics.
--- NOTE | 2019-05-04 17:16 | ECGEPIP ---
[facility] Test Date: 2019-05-04 Pat Name: NIEVES BLOCK Department: Room: [place] [address] Gender: Male Pattern Puncher: DIXIE : 1990 Requested By: Monika Nicole [facility] Order Number: [id number] Reading MD: Rasta Lamb Measurements Intervals [place] Rate: 86 P: 73 GA: 147 QRS: 32 QRSD: 93 T: 39 QT: 392 QTc: 470 Interpretive Statements SINUS RHYTHM COMPARED TO THE LAST FOUR TRACINGS IN THE SYSTEM, HEART RATE IS NOW SLOWER OTHERWISE NO SIGNIFICANT CHANGES Electronically Signed on 05-04-2019 17:16:16 EDT by Rasta Lamb
[2019-05-04] MEDS: IBUPROFEN 600 MG TAB PO PRN (20:43)
[2019-05-05] VITALS (7 sets, daily range): BP systolic 99–133; BP diastolic 57–91
[2019-05-05] MEDS: NS 1,000 ML IV SCH ×2 (01:52→20:42)
[2019-05-05] MEDS: PIPERACILLIN/TAZOBACTAM SOD 3.375 GM in D5W MINI-BAG PLUS 50 ML IV SCH ×4 (01:52→20:42)
[2019-05-05] MEDS: VANCOMYCIN HCL 1,000 MG, VIAL MATE ADAPTER 1 EACH in D5W 250 ML IV SCH (04:38)
[2019-05-05 05:08] LABS: BASO % 0.2 % (0.0-1.0); EOS # 0.1 10^3/uL (0.0-0.5); EOS % 0.7 % (0.0-3.0); HEMATOCRIT 32.6 % (42.0-52.0); HEMOGLOBIN 10.8 g/dl (13.5-17.5); LYMPH # 1.6 10^3/uL (1.5-5.0); LYMPH % 10.2 % (24.0-44.0); MEAN CORPUSCULAR HEMOGLOBIN 31.6 pg (27.0-33.0); MEAN CORPUSCULAR HGB CONC 33.1 g/dl (32.0-36.5); MEAN CORPUSCULAR VOLUME 95.3 fl (80.0-96.0); MONO % 6.8 % (0.0-5.0); NEUTROPHILS # 12.4 10^3/uL (1.5-8.5); NEUTROPHILS % 81.4 % (36.0-66.0); PLATELET COUNT, AUTOMATED 169 10^3/uL (150-450); RED BLOOD COUNT 3.42 10^6/uL (4.30-6.10); WHITE BLOOD COUNT 15.2 10^3/uL (4.0-10.0)
[2019-05-05 05:40] LABS: ALBUMIN 2.4 GM/DL (3.2-5.2); ALT/SGPT 130 U/L (12-78); BILIRUBIN,TOTAL 0.4 MG/DL (0.2-1.0); BLOOD UREA NITROGEN 11 MG/DL (7-18); CALCIUM LEVEL 7.9 MG/DL (8.5-10.1); CARBON DIOXIDE LEVEL 24 MEQ/L (21-32); CHLORIDE LEVEL 116 MEQ/L (98-107); CREATININE FOR GFR 0.76 MG/DL (0.70-1.30); GLOMERULAR FILTRATION RATE > 60.0 (>60); GLUCOSE, FASTING 102 MG/DL (70-100); POTASSIUM SERUM 3.7 MEQ/L (3.5-5.1); SODIUM LEVEL 144 MEQ/L (136-145); TOTAL PROTEIN 5.7 GM/DL (6.4-8.2)
[2019-05-05] MEDS: IBUPROFEN 600 MG TAB PO PRN ×2 (05:49→18:04)
--- NOTE | 2019-05-05 06:35 | ECHO ---
DATE OF PROCEDURE: 05/04/2019 DATE OF : 1990 AGE: 28 REFERRING PHYSICIAN: Monika Robert PATIENT LOCATION: Room 3210 REASON FOR STUDY: Chest pain. 2-D MEASUREMENTS: IVS: 0.9 cm LV: 5.0 cm LVPW: 0.9 cm LA: 3.3 cm Aorta: 2.8 cm IVC: 2.7 cm DOPPLER MEASUREMENTS: Peak velocity across the aortic valve: 1.3 m/s Peak velocity across the LVOT: 0.89 m/s Mitral E: 0.81 Mitral A: 0.52 Ratio: 1.6 Maximum tricuspid valve velocity: 2.0 m/s 2-D COMMENTS: 1. Normal left ventricular size, wall thickness, and normal global left ventricular systolic function. The estimated left ventricular systolic ejection fraction is 60-65%. 2. Normal left atrium. Normal right atrium and right ventricle. 3. The atrial septum appeared to be normal without evidence of defect or shunt. 4. Normal aortic root. 5. No pericardial effusion seen. 6. The aortic valve, mitral valve, tricuspid valve, and pulmonic valve appeared to be normal. The proximal pulmonary artery branches also appeared to be normal. 7. The inferior vena cava is dilated, central venous pressure might be elevated. DOPPLER: Only trace mitral regurgitation and trace tricuspid regurgitation detected. The calculated pulmonary artery systolic pressure was normal. Assessment of the left ventricular diastolic function also was normal. IMPRESSION: 1. Normal global left ventricular systolic function. Left ventricular diastolic function also was normal. 2. Trace mitral regurgitation. 3. Trace tricuspid regurgitation with a normal calculated pulmonary artery systolic pressure. 4. The inferior vena cava/IVC was enlarged. MTDD
[2019-05-05 10:54] LABS: HEPATITIS B SURFACE ANTIGEN NEGATIVE (NEGATIVE)
[2019-05-05 11:13] LABS: HEPATITIS B CORE ANTIBODY IGM NEGATIVE (NEGATIVE)
[2019-05-05 11:14] LABS: HIV 1&2 SCREEN CENTAUR NEGATIVE (NEGATIVE)
[2019-05-05 11:15] LABS: HEPATITIS A ANTIBODY IGM NEGATIVE (NEGATIVE)
[2019-05-05 11:20] LABS: HEPATITIS C VIRUS ABY INDEX > 11.0 INDEX (<0.8)
--- NOTE | 2019-05-05 14:11 | PHACANCOPD ---
PHARMACY VANCOMYCIN DOSING Pt Demographics Demographics Patient Age:28 , Weight:79.500 , Gender: male Adjusted Body Weight Date: 05/05/19, Adjusted Body Weight: Kg Events Past 24 Hours Events Past 24 Hours: NO: Dialysis, Diuretic Therapy, Change in CrCl, Fever, Elevation in WBC, Pending Diagnostics, Pending Procedures, Other Vancomycin Vancomycin Target Ranges: 15-20 mcg/ml Vancomycin Load Y/N: No Load Dose Date Time Vancomycin Load Dose: Date: Time: Vancomycin Dose Date: 05/05/19. Current Vancomycin Dose: [1250MG IV Q8H] Intermittent Dosing?: No Labs Labs Item Value Date Time White Blood Count 15.2 10^3/uL H 05/05/19458 White Blood Count 22.3 10^3/uL H 05/04/19408 White Blood Count 25.0 10^3/uL H 05/03/192052 Creatinine 1.31 MG/DL H 05/03/192052 Creatinine 1.04 MG/DL 05/04/19408 Creatinine 0.76 MG/DL 05/05/19458 Vancomycin Level Trough 10.9 UG/ML 05/05/19 1248 C-Reactive Protein, Quantitative 10.80 MG/DL H 05/04/19 0409 Procalcitonin 43.71 NG/ML 05/04/19 0409 Micro Microbiology 05/05/19 Blood Culture, Received Pending 05/03/19 Blood Culture - Preliminary, Resulted 05/03/19 Blood Culture - Preliminary, Resulted No growth after 24 hours . All specim... 05/03/19 Urine Culture - Final, Complete Creatinine Clearance Date:05/05/19. Creatinine Clearance: . Assessment and Plan Maintaining Current Dose?: No Reason for dose change: Trough too low Pharmacist Note Pharmacist Note Date: 05/05/19. Pharmacist note: Trough today resulted at 10.9 mg/ml. This is below our goal of 15-20mcg/ml. Pt's renal function has improved and WBCs are trending down. Micro has not resulted in any growth yet. I have increased this patient's dose to Vanco 1250mg IV Q8H@1400. I have scheduled a repeat trough for tomorrow @1300. We will continue to monitor and adjust dose as needed. [facility] May 05, 2019 14:11
[2019-05-05] MEDS: VANCOMYCIN HCL 500 MG in D5W MINI-BAG PLUS 100 ML IV SCH ×2 (14:39→22:23)
[2019-05-05] MEDS: VANCOMYCIN HCL 750 MG, VIAL MATE ADAPTER 1 EACH in D5W 250 ML IV SCH ×2 (17:52→23:29)
--- NOTE | 2019-05-05 20:10 | IPNPDOC ---
Text Note Date of Service The patient was seen on 05/05/19. NOTE Subjective: This is a 28-year-old male admitted with sepsis. He also had toxic metabolic encephalopathy due to substance abuse and metabolic encephalopathy associated with sepsis. He is fully awake, alert and conversant today. He has been afebrile. Blood pressures are controlled. Objective: Physical exam: Please see below for vital signs. General: Patient is sitting up in a chair and his mother is in the room HENT: Neck is supple, no adenopathy or thyromegaly, oral mucosa is moist, no scleral injection Cardiovascular: Regular rate and rhythm with a normal S1 and S2. Respiratory: Clear to auscultation with good air movement. Abdomen: Soft, nontender, nondistended, bowel tones are present. Extremities: No peripheral edema or lesions Neuro: No gross neuromotor deficit, patient is able to feed himself Skin: Patient has some tattoos and markings of IV drug abuse ASSESSMENT/PLAN: 1. Sepsis. His leukocytosis has improved to a white cell count of 15.2. Patient has been afebrile. Tachycardia and hypotension have resolved. The patient remains on empiric antibiotics of vancomycin and Zosyn; one of 2 blood cultures is positive for gram-positive cocci in clusters. MRSA PCR is positive. Awaiting final culture result; have obtained repeat blood culture as well. Echocardiogram obtained did not show signs of endocarditis; patient's sedimentation rate is only 11. Doubt need for transesophageal echocardiogram. 2. Toxic encephalopathy. Patient has a history of polysubstance abuse. Urine drug screen was positive for amphetamines and opiates and cocaine. Toxic encephalopathy is resolved. 3. Polysubstance abuse. The patient is being given resources and referral for [facility] rehabilitation services. 4. Metabolic encephalopathy. This is being attributed to sepsis. Both his metabolic and toxic encephalopathy are improving with supportive care. The patient's sepsis is resolving. Hypotension and tachycardia have resolved. Patient is sufficiently stable for transition to medical floor with remote telemetry monitoring. VS,Fishbone, I+O VS, Fishbone, I+O Laboratory Tests 05/05/19 04:59 Red Blood Count 3.42 L, Mean Corpuscular Volume 95.3, Mean Corpuscular Hemoglobin 31.6, Mean Corpuscular Hemoglobin Concent 33.1, Red Cell Distribution Width 13.2, Neutrophils (%) (Auto) 81.4 H, Lymphocytes (%) (Auto) 10.2 L, Mo nocytes (%) (Auto) 6.8 H, Eosinophils (%) (Auto) 0.7, Basophils (%) (Auto) 0.2, Neutrophils # (Auto) 12.4 H, Lymphocytes # (Auto) 1.6, Monocytes # (Auto) 1.0 H, Eosinophils # (Auto) 0.1, Basophils # (Auto) 0.0, Calcium Level 7.9 L, Aspartate Amino Transf (AST/SGOT) 123 H, Alanine Aminotransferase (ALT/SGPT) 130 H, Alkaline Phosphatase 143 H, Total Bilirubin 0.4 #, Total Protein 5.7 L, Albumin 2.4 L Vital Signs Date Time Temp Pulse Resp B/P (MAP) Pulse Ox O2 Delivery O2 Flow Rate FiO2 05/05/19 15:38 98.1 67 18 133/91 (105) 100 05/03/19 09:10 Room Air l I&O- Last 24 Hours up to 6 AM 05/05/19 06:00 Intake Total 5380 ml Output Total 2375 ml Balance 3005 ml KENZIE NOVAK MD May 05, 2019 20:10
[2019-05-06] MEDS: PIPERACILLIN/TAZOBACTAM SOD 3.375 GM in D5W MINI-BAG PLUS 50 ML IV SCH ×2 (01:39→09:18)
[2019-05-06 06:00] VITALS: BP 123/77
[2019-05-06] MEDS: NS 1,000 ML IV SCH ×2 (06:03→19:01)
[2019-05-06] MEDS: VANCOMYCIN HCL 500 MG in D5W MINI-BAG PLUS 100 ML IV SCH ×3 (06:03→22:07)
[2019-05-06 06:51] LABS: BASO % 0.2 % (0.0-1.0); EOS # 0.1 10^3/uL (0.0-0.5); EOS % 1.3 % (0.0-3.0); HEMATOCRIT 33.9 % (42.0-52.0); LYMPH % 21.7 % (24.0-44.0); MEAN CORPUSCULAR HEMOGLOBIN 30.7 pg (27.0-33.0); MEAN CORPUSCULAR HGB CONC 32.4 g/dl (32.0-36.5); MEAN CORPUSCULAR VOLUME 94.7 fl (80.0-96.0); MONO # 0.4 10^3/uL (0.0-0.8); MONO % 4.7 % (0.0-5.0); NEUTROPHILS # 6.7 10^3/uL (1.5-8.5); NEUTROPHILS % 71.7 % (36.0-66.0); PLATELET COUNT, AUTOMATED 207 10^3/uL (150-450); RED BLOOD COUNT 3.58 10^6/uL (4.30-6.10); WHITE BLOOD COUNT 9.4 10^3/uL (4.0-10.0)
[2019-05-06 07:16] LABS: BLOOD UREA NITROGEN 7 MG/DL (7-18); CALCIUM LEVEL 8.2 MG/DL (8.5-10.1); CARBON DIOXIDE LEVEL 23 MEQ/L (21-32); CHLORIDE LEVEL 114 MEQ/L (98-107); CREATININE FOR GFR 0.81 MG/DL (0.70-1.30); GLOMERULAR FILTRATION RATE > 60.0 (>60); GLUCOSE, FASTING 84 MG/DL (70-100); POTASSIUM SERUM 3.4 MEQ/L (3.5-5.1); SODIUM LEVEL 144 MEQ/L (136-145)
[2019-05-06] MEDS: VANCOMYCIN HCL 750 MG, VIAL MATE ADAPTER 1 EACH in D5W 250 ML IV SCH ×3 (07:26→23:19)
--- NOTE | 2019-05-06 11:13 | IPNPDOC ---
Subjective Date Seen The patient was seen on 05/06/19. Subjective Chief Complaint/HPI feels fine. afebrile this am. No overnight events. Events since last encounter none Constitutional: Denies: Chills, Fever, Malaise, Night Sweats, Weakness, Fatigue, Weight Loss, Lethargy, Other Eyes: Denies: Pain, Vision change, Conjunctivae inflammation, Eyelid inflammation, Redness, Other ENT: Denies: Head Aches, Ear Pain, Dysphagia, Sinus Congestion, Post Nasal Drip, Sore Throat, Epistaxis, Other Symptoms Skin: Denies: Rash, Lesions, Jaundice, Bruising, Itching, Dry, Breakdown, Nail Changes, Other Pulmonary: Denies: Dyspnea, Cough, Pleuritic Chest Pain, Other Symptoms Cardiovascular: Denies: Chest Pain, Palpitations, Orthopnea, Paroxysmal Noc. Dyspnea, Edema, Lt Headedness, Other Symptoms Gastrointestinal: Denies: Nausea, Vomiting, Abdominal Pain, Diarrhea, Constipation, Melena, Hematochezia, Other Symptoms Genitourinary: Denies: Dysuria, Frequency, Incontinence, Hematuria, Retention, Other Symptoms Hematologic: Denies: Bruising, Bleeding Excessively, Petecchia, Purpura, Enlarged Lymph Nodes, Other Hematologic Endocrine: Denies: Polydipsia, Polyphagia, Polyuria, Heat Intolerance, Cold Intolerance, Other Endocrine Sx Musculoskeletal: Denies: Neck Pain, Back Pain, Shoulder Pain, Arm Pain, Hand Pain, Leg Pain, Foot Pain, Joint Pain, Muscle Pain, Spasms, Other Symptoms Neurological: Denies: Weakness, Numbness, Incoordination, Change in speech, Confusion, Seizures, Other Symptoms Psych: Denies: Mood Normal, Anxiety, Depression, Memory Issues, Thoughts of Self Harm, Anger, Thoughts of Harming Other, Other Psych Objective Physical Examination General Exam: Positive: Cooperative, No Acute Distress Eye Exam: Positive: PERRLA, Conjunctiva & lids normal, EOMI ENT Exam: Positive: Atraumatic, Tongue Midline, Nares Patent, Ext Auditory Canal Nml Neck Exam: Positive: Supple, Other (no LAD, nor thyromegaly) Chest Exam: Positive: Clear to auscultation Heart Exam: Positive: Rate Normal, Regular Rhythm, Normal S1, Normal S2; Negative: Tachycardic, Bradycardic, Irregular Rhythm, Gallops, Murmurs, Rubs, Other Abdomen Exam: Positive: Normal bowel sounds, Soft Extremity Exam: Positive: Clubbing, Cyanosis Skin Exam: Positive: Nl turgor and temperature; Negative: Rash, Breakdown, Lesion, Pruritus, Other skin issue Neuro Exam: Positive: Normal Speech, Strength at 5/5 X4 ext, Sensation Intact Assessment /Plan Assessment # MRSA bacteremia (+ve PCR) with septic shock - improved with treatment, WBC normal this am. - stop zosyn, continue vanco with pharm to dose - vanco level pending this afternoon - Dr. Mackenzie's office notified by me of consult - TT Echo normal - repeat b.cx pending - urine cx negative # Polysubstance abuse - HIV negative # HEP C + - HCV RNA pending Plan/VTE VTE Prophylaxis Ordered?: Yes Disposition Will need IV abx at discharge for 4-6 weeks pending ID recommendations. VS, I&O, 24H, Fishbone Vital Signs/I&O Vital Signs Date Time Temp Pulse Resp B/P (MAP) Pulse Ox O2 Delivery O2 Flow Rate FiO2 05/06/19 06:00 97.7 58 15 123/77 (92) 97 05/03/19 09:10 Room Air I&O- Last 24 Hours up to 6 AM 05/06/19 05:59 Intake Total 1325 ml Output Total 1625 ml Balance -300 ml Laboratory Data 24H LABS Laboratory Tests 2 05/05/19 12:48: Vancomycin Level Trough 10.9 05/06/19 06:20: Immature Granulocyte % (Auto) 0.4, White Blood Count 9.4, Red Blood Count 3.58L, Hemoglobin 11.0L, Hematocrit 33.9L, Mean Corpuscular Volume 94.7, Mean Corpuscular Hemoglobin 30.7, Mean Corpuscular Hemoglobin Concent 32.4, Red Cell Distribution Width 12.9, Platelet Count 207, Neutrophils (%) (Auto) 71.7H, Lymphocytes (%) (Auto) 21.7L, Monocytes (%) (Auto) 4.7, Eosinophils (%) (Auto) 1.3, Basophils (%) (Auto) 0.2, Neutrophils # (Auto) 6.7, Lymphocytes # (Auto) 2.0, Monocytes # (Auto) 0.4, Eosinophils # (Auto) 0.1, Basophils # (Auto) 0.0, Nucleated Red Blood Cells % (auto) 0.0, Anion Gap 7L, Glomerular Filtration Rate > 60.0, Blood Urea Nitrogen 7, Creatinine 0.81, Sodium Level 144, Potassium Level 3.4L, Chloride Level 114H, Carbon Dioxide Level 23, Calcium Level 8.2L CBC/BMP Laboratory Tests 05/06/19 06:20 Red Blood Count 3.58 L, Mean Corpuscular Volume 94.7, Mean Corpuscular Hemoglobin 30.7, Mean Corpuscular Hemoglobin Concent 32.4, Red Cell Distribution Width 12.9, Neutrophils (%) (Auto) 71.7 H, Lymphocytes (%) (Auto) 21.7 L, Monocytes (%) (Auto) 4.7, Eosinophils (%) (Auto) 1.3, Basophils (%) (Auto) 0.2, Neutrophils # (Auto) 6.7, Lymphocytes # (Auto) 2.0, Monocytes # (Auto) 0.4, Eosinophils # (Auto) 0.1, Basophils # (Auto) 0.0, Calcium Level 8.2 L Microbiology Microbiology 05/05/19 Blood Culture, Received Pending 05/03/19 Blood Culture - Preliminary, Resulted 05/03/19 Blood Culture - Preliminary, Resulted No Growth after 48 hours. All Specime... 05/03/19 Urine Culture - Final, Complete ZACHARY DIEGO MD May 06, 2019 11:13
[2019-05-06] MEDS: IBUPROFEN 600 MG TAB PO PRN ×2 (12:34→23:20)
[2019-05-06 13:34] LABS: VANCOMYCIN LEVEL TROUGH 18.7 UG/ML (10.0-20.0)
--- NOTE | 2019-05-06 13:53 | PHACANCOPD ---
PHARMACY VANCOMYCIN DOSING Pt Demographics Demographics Patient Age:28 , Weight:79.500 , Gender: male Adjusted Body Weight Date: 05/05/19, Adjusted Body Weight: [79.5] Kg Events Past 24 Hours Events Past 24 Hours: NO: Dialysis, Diuretic Therapy, Change in CrCl, Fever, Elevation in WBC, Pending Diagnostics, Pending Procedures, Other Vancomycin Vancomycin indication: leukoscytosis Vancomycin Target Ranges: 15-20 mcg/ml Vancomycin Load Y/N: No Load Dose Date Time Vancomycin Load Dose: 1G in ER Date:05/03/19 Time: 0500 Vancomycin Dose Date: 05/05/19. Current Vancomycin Dose: [1250MG IV Q8H] Intermittent Dosing?: No Labs Micro Microbiology 05/05/19 Blood Culture - Preliminary, Resulted No growth after 24 hours . All specim... 05/03/19 Blood Culture - Preliminary, Resulted 05/03/19 Blood Culture - Preliminary, Resulted No Growth after 48 hours. All Specime... 05/03/19 Urine Culture - Final, Complete Creatinine Clearance Date:05/05/19. Creatinine Clearance: [159.27]. Assessment and Plan Maintaining Current Dose?: Yes Reason for dose change: No Dose Change Pharmacist Note Pharmacist Note Date: 05/06/19/. Pharmacist note: Today's trough came back at 18.7mg/mL, which is within our therapeutic goal range of 15-20mg/mL. The patient's renal function seems to be stable (SCr= 0.81, CrCl=18.7) so we will continue the dose of 1250mg IV Q8H and will continue to monitor renal function and will adjust dosing as necessary. 05/05/19. Pharmacist note: Trough today resulted at 10.9 mg/ml. This is below our goal of 15-20mcg/ml. Pt's renal function has improved and WBCs are trending down. Micro has not resulted in any growth yet. I have increased this patient's dose to Vanco 1250mg IV Q8H@1400. I have scheduled a repeat trough for tomorrow @1300. We will continue to monitor and adjust dose as needed. PARAG MOHAN, PHARMACY May 06, 2019 13:53
[2019-05-06 14:00] VITALS: BP 144/80
[2019-05-06 14:30] LABS: C REACTIVE PROTEIN QUANTITATIV 2.42 MG/DL (0.00-0.30)
[2019-05-06] MEDS ORDERED: ISOVUE-370 76% 100ML VIAL (Q9967) As Ordered ONE (16:59)
--- NOTE | 2019-05-06 21:14 | CR ---
DATE OF CONSULTATION: 05/06/2019 CONSULTING PHYSICIAN: Dr. Harding. REASON FOR CONSULTATION: Bacteremia. HISTORY OF PRESENT ILLNESS: This is a 28-year-old male with a pertinent past medical history of IV drug abuse and dental caries who presented to the ER on 05/03/2019 morning after he woke up in the morning feeling feverish, chest pain, lightheadedness, dizzy. He described himself being in shock. He states that two days prior he abused heroin and Christina intravenously and it might have contributed to this. He states that the day after that he used the drugs he thinks that he felt fine but at least 48 hours lateral he just woke up feverish and just not feeling well. In the ER he was not cooperative and he was agitated but at the time of my exam three days later the patient was coherent and provided a history that was supplemented by his mother as well. Patient at this current time does admit to having some lower rib pain and right upper quadrant pain. He is unsure if he was yellow on the day of but he notice while he was admitted he did have a yellow tinge which is currently improving. He denies having any upper sternal pain, any shortness of breathing. He denies any nausea, vomiting, diarrhea or constipation. Since he has been admitted he was only febrile for the first 12 hours afterwards he has been afebrile and stable. He does admit that recently he was released from [facility] in March. He states that he was there for 3 months and during that conviction he was tested for hepatitis C and was negative. He does admit that prior to going to [facility] he was more careful of not sharing his needles and making sure his needles were clean. He states that after he was released he was not as cautious and it is likely that he shared some needles. PAST MEDICAL HISTORY: 1. Polysubstance abuse. 2. IV drug use (heroin and Christina). PAST SURGICAL HISTORY: Multiple dental procedure as he has poor dentition. HOME MEDICATIONS: None. ALLERGIES: Tramadol. FAMILY HISTORY: Father with history of alcohol abuse, chronic back pain, anxiety, hypertension, COPD. Mother with history of alcohol abuse, anxiety and heart murmur. SOCIAL HISTORY: , currently has no living arrangement. States that the will be living with his ex-girlfriend once he is discharged. He denies any alcohol use. Admits to smoking at least 1 pack of cigarettes a day. RECREATIONAL DRUG USE: Admits to IV heroin and Christina use. Urine was positive for amphetamines, opioids and cocaine. PHYSICAL EXAMINATION: VITALS: Temperature 98.3, pulse 52, respirations 16, blood pressure 144/80 (101), pulse ox 97% on room air. GENERAL: This is a pleasant 28-year-old male who does not appear in any acute distress. Appropriately answering questions. Alert and oriented times three. HEENT: Atraumatic, normocephalic. Pupils equal, round and reactive. Moist mucous membranes but very poor dentition with multiple dental caries appreciated. No erythema and no tenderness of the jaw line or gums. No JVD no lymphadenopathy. CARDIAC: Regular rate and rhythm. No audible murmurs, rubs or gallops. LUNGS: Clear to auscultation bilaterally. No audible wheezing, rhonchi, or rales. ABDOMEN: Positive bowel sounds in all four quadrants. Soft and nondistended, slight tenderness on the upper right quadrant with palpation and tenderness of the lower rib and epigastric as well. No splenomegaly and no hepatomegaly. EXTREMITIES: No lower extremity edema or calf tenderness. No petechiae noted. No splinter hemorrhages noted. INTEGUMENTARY: Slightly elam in color but no jaundice noted. LABS: Hematology: WBC 9.4, hemoglobin 11.0, hematocrit 33.9, platelets 207, erythrocyte sedimentation rate 11. Chemistry: Sodium 144, potassium 3.4, chloride 114, carbon dioxide 23, anion gap 7, BUN 7, creatinine 0.81, fasting glucose 84, calcium 8.2, CRP on 05/04/2019 was 10.80, repeat today was 2.42, procalcitonin was 43.71. Toxicology: Positive for opioids, amphetamines and cocaine. Coagulation: D-dimer was greater than 4,000. Serology: Positive for hepatitic C, RNA load currently pending, influenza negative, hep B IGM and hep B surface antigen and hep B core was negative. Microbiology: Blood culture times 1 for 72 hours no growth. Blood culture times 1 positive, prelim for gram positive cocci in clusters. Lab was called and states that it was growing coags negative Staphylococcus aureus . Will have official species tomorrow. Urine culture was negative for growth. Repeat blood culture on 05/05, no growth for 24 hours. IMAGING: Chest x-ray no acute cardiopulmonary disease. Gallbladder ultrasound shows right upper quadrant ultrasound within normal limits, essentially unchanged from prior exam. Abdominal and pelvic CT shows no renal lesions, calculi, hydronephrosis. There is a appendicolith in the appendix with no evidence of acute appendicitis. Mild splenomegaly at 14.5. No acute changes. Echocardiogram done in 05/04/2019 normal global left ventricular systolic function with left ventricular diastolic function. Trace mitral regurg, tricuspid regurg with normal calculated pulmonary artery systolic pressure. Inferior vena cava was enlarged. ASSESSMENT AND PLAN: This is a 28-year-old male with a pertinent past medical history of polysubstance abuse of IV drug use, poor dentition who presented to the ER for fevers, chills and generalized malaise. While the patient was admitted he did have a significant leukocytosis of 25 which has since come down to 9.4 today. His erythrocyte sedimentation rate was also elevated at 10.80 which has come down to 2.42 and he was started on IV antibiotics, vancomycin and Zosyn. Blood cultures times one is currently positive for gram positive cocci in clusters. Hepatitis C is also positive with current RNA pending. 1. Fever. Unsure of the original fever that the patient did have. It possibly can be due to acute hepatitis but because of the such elevated procalcitonin on admission at 43.71 and his current complaint on having lower chest discomfort and epigastric pain and his history of IV drug abuse, I do recommend a CT of the chest with contrast to rule out septic emboli. If positive for septic emboli, need to consider a GETACHEW to rule out a right heart endocarditis. We will continue with the vancomycin for now. I am unsure if the blood culture times one was a contaminate. We will get the official species tomorrow. Lab did confirm that it was a coag negative staphylococcus, so it is more likely going to be a contaminate but we will not discontinue any of the antibiotics until repeat procalcitonin and CT of the chest is completed. 2. Acute hepatitis C infection. Patient was recently just released from [facility] and tested for hepatitis C in early January which was negative. This is possibly an acute illness and this can be contributing to a lot of his symptoms. RNA viral load is currently still pending. He does not need treatment at the current time, just give supportive therapy for right upper quadrant abdominal pain. AST and ALT is continuing to improve. Once the patient is ready for treatment he will need to followup with infectious disease outpatient. At that time we will get repeat HCV RNA values to see if the patient has cleared the virus or will need oral medication. We have discussed with the patient this plan and he is agreeable to such. 3. History of dental caries. Patient has very poor dentition. He will need to followup with a dentist outpatient. I do not believe this is a possible source but also need to consider it is the possible source for an infection as bacteremia is still high on the list. It is slightly low. Upon discharge he will need to followup with a dentist.
[2019-05-06 22:00] VITALS: BP 119/66
[2019-05-07] MEDS: VANCOMYCIN HCL 500 MG in D5W MINI-BAG PLUS 100 ML IV SCH (05:39)
[2019-05-07 06:00] VITALS: BP 117/65
[2019-05-07] MEDS: VANCOMYCIN HCL 750 MG, VIAL MATE ADAPTER 1 EACH in D5W 250 ML IV SCH (06:42)
--- NOTE | 2019-05-07 13:59 | IPNPDOC ---
Subjective Date Seen The patient was seen on 05/07/19. Subjective Chief Complaint/HPI Afebrile. Feels fine, no complaints. Objective Physical Examination General Exam: Positive: Cooperative, No Acute Distress Eye Exam: Positive: PERRLA, Conjunctiva & lids normal, EOMI ENT Exam: Positive: Atraumatic Neck Exam: Positive: Supple, Other (no LAD, nor thyromegaly) Chest Exam: Positive: Clear to auscultation Heart Exam: Positive: Rate Normal, Regular Rhythm, Normal S1, Normal S2; Negative: Tachycardic, Bradycardic, Irregular Rhythm, Gallops, Murmurs, Rubs, Other Abdomen Exam: Positive: Normal bowel sounds, Soft Extremity Exam: Positive: Clubbing, Cyanosis Skin Exam: Positive: Nl turgor and temperature; Negative: Rash, Breakdown, Lesion, Pruritus, Other skin issue Neuro Exam: Positive: Normal Speech Assessment /Plan Assessment # SIRS w/o infection likely due to Underlying Hepatitis C and adverse reaction to MDMA drug ingestion - patient does not have MRSA bacteremia, B.cx 1/2 + staph epi, followup b.cx are NGTD - stop vanco, no need for further abx - appreciate ID input - CT chest reviewed by me, and does not demonstrate septic emboli - d/w lab procalcitonin won't be resulted until tomorrow # MRSA colonization - patient informed that he's a MRSA carrier w/o active infection at this time # Polysubstance abuse - HIV negative - f/u with [facility] for substance abuse counseling # HEP C + - HCV RNA pending - follow up with ID clinic in 4-6 weeks for evaluation and consideration for treatment Plan/VTE VTE Prophylaxis Ordered?: Yes VS, I&O, 24H, Fishbone Vital Signs/I&O Vital Signs Date Time Temp Pulse Resp B/P (MAP) Pulse Ox O2 Delivery O2 Flow Rate FiO2 05/07/19 06:00 97.7 69 16 117/65 (82) 98 05/03/19 09:10 Room Air I&O- Last 24 Hours up to 6 AM 05/07/19 06:00 Intake Total 2835 ml Balance 2835 ml Laboratory Data 24H LABS Laboratory Tests 2 05/07/19 06:14: Hepatitis B Surface Antibody POSITIVE Microbiology Microbiology 05/05/19 Blood Culture - Preliminary, Resulted No Growth after 48 hours. All Specime... 05/03/19 Blood Culture - Final, Complete Staphylococcus Epidermidis 05/03/19 Blood Culture - Preliminary, Resulted No Growth after 72 hours. All specime... 05/03/19 Urine Culture - Final, Complete ZACHARY DIEGO MD May 07, 2019 13:59
[2019-05-07 14:00] VITALS: BP 133/92
--- NOTE | 2019-05-07 15:06 | REP ---
CT of the chest with IV contrast: There are no infiltrates. There is a small right pleural effusion and a tiny left pleural effusion. There are no lung nodules. There are no masses. There is no mediastinal, hilar or axillary lymphadenopathy. The thoracic aorta is unremarkable. Cardiac size is normal. There is no pericardial effusion. In the upper abdomen the high hepatic parenchyma is homogeneous. There appears to be a small volume of fluid surrounding the gallbladder. No gallbladder calculi are identified, however the gallbladder is not imaged in entirety. The visualized areas of the pancreas and spleen are unremarkable. The adrenals are unremarkable. Impression: Small bilateral pleural effusions as described. There are no lung nodules or masses. There is no adenopathy. Lung pearson otherwise clear. Small volume of fluid surrounding the gallbladder. The gallbladder is not imaged in entirety. The visualized hepatic parenchyma is unremarkable. Electronically Signed by Finn Lemons MD 05/07/2019 02:57 P
--- NOTE | 2019-05-13 00:35 | DSES ---
DATE OF ADMISSION: 05/03/2019 DATE OF DISCHARGE: 05/07/2019 DISCHARGE DIAGNOSES: 1. Systemic inflammatory response syndrome without infection, likely due to underlying hepatitis C and adverse reaction to MDMA drug ingestion. 2. Toxic metabolic encephalopathy, resolved. 3. Methicillin-resistant Staphylococcus aureus colonization. 4. Polysubstance abuse. 5. Hepatitis C positive status. 6. Hypotension secondary to systemic inflammatory response syndrome without infection. PROCEDURES PERFORMED DURING THIS HOSPITALIZATION: None. CONSULTANTS ON THE CASE: Infectious disease service of Dr. Mackenzie. DISPOSITION: The patient is discharged home in stable condition. DISCHARGE INSTRUCTIONS: The patient is instructed to followup with the infectious disease clinic in approximately 4-6 weeks for evaluation and consideration of treatment of his hepatitis C. In addition, the patient is to followup with the [facility] for ongoing substance abuse group therapy counselor. He is to followup with his primary care provider within the next 1-2 weeks time. CONDITION AT DISCHARGE: Stable, improved from admission. RELEVANT IMAGING STUDIES ARE THE FOLLOWING: CT scan of the chest showed no acute pathology. Please reference report and image for details. CT of the abdomen and pelvis: Showed no renal lesion, calculus, or hydronephrosis. Mild splenomegaly measured 14.5 cm. No evidence of acute appendicitis. Ultrasound of the gallbladder was within normal limits, showing no acute pathology. Chest x-ray showed no acute cardiopulmonary process. Echocardiogram with Doppler showed normal left ventricular ejection fraction with no evidence of valvular heart disease, cardiomyopathy, pericardial effusion, or endocarditis. RELEVANT LABS WERE THE FOLLOWING: Microbiology: Blood cultures one out of two were Staphylococcus epidermidis, which was felt to be a contaminant. Repeat blood cultures on 05/05/2019 were no growth to date. Urine cultures were no growth. MRSA PCR was positive for MRSA colonization. Hepatitis Bs antibody was positive. Hepatitis C RNA is negative. Hepatitis C antibody index was greater than 11. HIV antigen antibody combination was negative. Urine drug screen was positive for opiates, amphetamines, as well as cocaine. Sodium was 136, potassium 3.7, chloride 102, bicarbonate is 26, BUN is 28, creatinine is 1.27, total bilirubin is 1.6, AST initially was 238 with ALT of 71, and alkaline phosphatase of 170. When it was subsequently repeated, it did trend high at an AST of 478, ALT of 232, and alkaline phosphatase of 166. Procalcitonin was 43.7. Repeat procalcitonin was 2.85. Urinalysis showed trace ketones, cloudy appearance, 7 WBCs, 1+ bacteria, a small amount of sediment. PT is 20.4, INR is 1.77, D-Dimer was greater than 4000. White blood cell count upon admission was 5; it did spike to 25, hemoglobin was 11 and hematocrit was , platelet count was 234. ESR was 11. DISCHARGE MEDICATIONS: None. HOSPITAL COURSE: Mr. Oliveros is a 28-year-old gentleman who presented to the emergency room (ER) following ingestion of emerita, a recreational drug, secondary to a temperature of 103.9 and tachycardia of 146. He was suspected of being dehydrated and was found to be acutely intoxicated on his urine drug screen with polysubstances. In the ER, he was hydrated with IV fluids and monitored. Over the course of his ER stay, he became unresponsive and was treated with Narcan, which improved his mentation, although he remained confused. He was noted to have a stable blood pressure upon admission, which subsequently dropped to 78/48. His initial WBC upon admission to the emergency department (ED) was in the normal range. When I was rechecking his blood pressure dropped, and he became unresponsive with altered mental status. His white blood cell count was found to be 12.5. In addition, he was noted to have acute hepatitis. He was there bolused with improvement in his fluids, he did not necessitate any pressors. He was admitted to the hospitalist service to the intensive care unit (ICU) under the care of Dr. Estrada. He was empirically placed on vancomycin and Zosyn. Preliminary blood cultures obtained upon admission: One out of two did grow Staphylococcus epidermidis, which initially was reported as gram-positive cocci. The patient did test positive for methicillin-resistant Staphylococcus aureus (MRSA) nasal swab, so it was suspected that this could possibly be a MRSA bacteremia. Infectious disease was consulted; however, the lab reported that he was growing coagulase negative Staphylococcus aureus, which turned out to be Staphylococcus epidermidis (epi). It was felt that this was a contaminant. Repeat blood cultures did not grow any organisms. The patient's urine culture was also negative. Imaging done, as described above, was not found to be indicative of any acute infection. It was suspected that likely this was a response to the drugs that he was ingesting, that he was having a systemic inflammatory response syndrome. The patient was found to be HIV negative. However, he did test positive for hepatitis C with negative hepatitis C RNA. He was recommended for followup by the infectious disease service in their clinic as an outpatient for consideration for treatment. Clinically the patient improved. He was transferred to the floor. He was not noted to have any further systemic inflammatory response, and he had a complete resolution of his toxic metabolic encephalopathy, and he was subsequently discharged home in stable condition.
== END 2019-05-07 15:15 | disposition home or self-care (01) ==
LOC: M ED 08:58 → EEVIPCON 18:21 → M ED INP 18:21 → M ICU 19:30 → M MSPAV 05-05 15:33
PROVIDERS: ADMIT Internal Medicine; ATTEND Internal Medicine
DX: B17.10 Acute hepatitis C without hepatic coma (principal); G92 Toxic encephalopathy; I95.9 Hypotension, unspecified; F11.10 Opioid abuse, uncomplicated; E86.0 Dehydration; F17.210 Nicotine dependence, cigarettes, uncomplicated; F11.90 Opioid use, unspecified, uncomplicated; Z88.8 Allergy status to other drugs, medicaments and biological substances; K02.9 Dental caries, unspecified

== ENCOUNTER 2019-06-21 14:52 | Emergency (ER) | payer MEDICAID ==
[~2019-06-21] VITALS: Ht 188 cm; Wt 76.2 kg
[2019-06-21] MEDS ORDERED: NALOXONE INJ 2 MG/2 ML SYRINGE (J2310) IM ONE (15:15)
[2019-06-21 16:13] LABS: BASO % 0.2 % (0.0-1.0); EOS % 0.4 % (0.0-3.0); HEMOGLOBIN 13.2 g/dl (13.5-17.5); LYMPH # 1.6 10^3/uL (1.5-5.0); LYMPH % 14.1 % (24.0-44.0); MEAN CORPUSCULAR HEMOGLOBIN 30.7 pg (27.0-33.0); MONO # 0.8 10^3/uL (0.0-0.8); MONO % 7.3 % (0.0-5.0); NEUTROPHILS # 8.6 10^3/uL (1.5-8.5); NEUTROPHILS % 77.6 % (36.0-66.0); PLATELET COUNT, AUTOMATED 345 10^3/uL (150-450); WHITE BLOOD COUNT 11.1 10^3/uL (4.0-10.0)
[2019-06-21 16:54] LABS: ACETAMINOPHEN LEVEL < 2.0 UG/ML (10.0-30.0); ALT/SGPT 18 U/L (12-78); BILIRUBIN,DIRECT 0.2 MG/DL (0.0-0.2); BILIRUBIN,TOTAL 0.6 MG/DL (0.2-1.0); BLOOD UREA NITROGEN 15 MG/DL (7-18); CALCIUM LEVEL 8.9 MG/DL (8.5-10.1); CARBON DIOXIDE LEVEL 25 MEQ/L (21-32); CHLORIDE LEVEL 108 MEQ/L (98-107); CPK CREATINE PHOSPHOKINASE 227 U/L (39-308); CREATININE FOR GFR 1.12 MG/DL (0.70-1.30); ETHYL ALCOHOL (ETHANOL) < 0.003 % (0.000-0.010); GLOMERULAR FILTRATION RATE > 60.0 (>60); GLUCOSE, FASTING 73 MG/DL (70-100); SODIUM LEVEL 140 MEQ/L (136-145); TOTAL PROTEIN 7.6 GM/DL (6.4-8.2)
[2019-06-21 23:15] VITALS: BP 112/64
--- NOTE | 2019-06-22 11:54 | ECGEPIP ---
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
== END 2019-06-21 23:46 | disposition home or self-care (01) ==
LOC: EDBD 14:52 → M ED 14:52
DX: F15.10 Other stimulant abuse, uncomplicated (principal); I10 Essential (primary) hypertension; G43.909 Migraine, unspecified, not intractable, without status migrainosus; Z88.5 Allergy status to narcotic agent
CPT/HCPCS: 36415; 80048; 80076; 82550; 84443; 85025; 93005; 93041; 94760; 96372; 99285; G0480; J2310

== ENCOUNTER 2019-06-22 07:27 | Emergency (ER) | payer MEDICAID ==
[~2019-06-22] VITALS: Ht 188 cm; Wt 74.9 kg
[2019-06-22] MEDS ORDERED: NS 1,000 ML IV ONE (09:00)
[2019-06-22 09:17] LABS: BASO % 0.1 % (0.0-1.0); EOS % 0.4 % (0.0-3.0); HEMATOCRIT 40.9 % (42.0-52.0); HEMOGLOBIN 13.2 g/dl (13.5-17.5); LYMPH % 12.9 % (24.0-44.0); MEAN CORPUSCULAR HEMOGLOBIN 30.2 pg (27.0-33.0); MEAN CORPUSCULAR HGB CONC 32.3 g/dl (32.0-36.5); MEAN CORPUSCULAR VOLUME 93.6 fl (80.0-96.0); MONO # 0.4 10^3/uL (0.0-0.8); MONO % 5.7 % (0.0-5.0); NEUTROPHILS # 6.2 10^3/uL (1.5-8.5); NEUTROPHILS % 80.6 % (36.0-66.0); PLATELET COUNT, AUTOMATED 318 10^3/uL (150-450); RED BLOOD COUNT 4.37 10^6/uL (4.30-6.10); WHITE BLOOD COUNT 7.7 10^3/uL (4.0-10.0)
[2019-06-22 09:39] LABS: ERYTHROCYTE SEDIMENTATION RATE 6 mm/hr (0-15)
[2019-06-22 09:51] LABS: ALBUMIN 3.9 GM/DL (3.2-5.2); ALT/SGPT 16 U/L (12-78); BILIRUBIN,TOTAL 0.7 MG/DL (0.2-1.0); BLOOD UREA NITROGEN 17 MG/DL (7-18); C REACTIVE PROTEIN QUANTITATIV < 0.30 MG/DL (0.00-0.30); CARBON DIOXIDE LEVEL 27 MEQ/L (21-32); CHLORIDE LEVEL 110 MEQ/L (98-107); CREATININE FOR GFR 0.85 MG/DL (0.70-1.30); GLOMERULAR FILTRATION RATE > 60.0 (>60); GLUCOSE, FASTING 85 MG/DL (70-100); POTASSIUM SERUM 4.3 MEQ/L (3.5-5.1); SODIUM LEVEL 140 MEQ/L (136-145); TOTAL PROTEIN 7.6 GM/DL (6.4-8.2)
[2019-06-22 10:30] VITALS: BP 112/53
[2019-06-22] MEDS ORDERED: KETOROLAC 30 MG/ML VIAL (J1885) IV ONE (11:00)
--- NOTE | 2019-06-22 12:01 | ECGEPIP ---
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
== END 2019-06-22 10:47 | disposition home or self-care (01) ==
LOC: M ED 07:27
DX: R53.81 Other malaise (principal); F19.90 Other psychoactive substance use, unspecified, uncomplicated; I10 Essential (primary) hypertension; F41.9 Anxiety disorder, unspecified; M21.379 Foot drop, unspecified foot; F17.200 Nicotine dependence, unspecified, uncomplicated; Z88.5 Allergy status to narcotic agent; Z59.0 Homelessness
CPT/HCPCS: 80053; 85025; 85652; 86140; 87040; 93005; 96361; 96374; 99284; J1885

== ENCOUNTER 2019-07-29 03:24 | Emergency (ER) | payer OTHER ==
[~2019-07-29] VITALS: Ht 185.4 cm; Wt 90.9 kg
[2019-07-29 03:24] VITALS: BP 126/77
[~2019-07-29 03:24] MED LIST changes: +CLON0.5T2 PO; -CLON0.5T8 PO
[2019-07-29] MEDS ORDERED: SUBO8MIS SL (03:34)
== END 2019-07-29 06:16 | disposition left against medical advice (07) ==
LOC: M ED 03:24
DX: Z53.21 Procedure and treatment not carried out due to patient leaving prior to being seen by health care provider (principal)

== ENCOUNTER 2019-08-30 02:39 | Emergency (ER) | payer OTHER ==
[~2019-08-30] VITALS: Ht 188 cm; Wt 86.4 kg
[~2019-08-30 02:39] MED LIST changes: +SUBO8MIS SL
[2019-08-30 02:46] VITALS: BP 134/84
[2019-08-30] MEDS ORDERED: AUGM500T34 PO (03:11)
[2019-08-30] MEDS ORDERED: KETOROLAC 60 MG/2 ML VIAL (J1885) IM ONE (03:15)
[2019-08-30] MEDS ORDERED: AUGMENTIN 875 MG TAB PO ONE (03:15)
[2019-08-30] MEDS ORDERED: ACET-683 PO (19:40)
[2019-08-30] MEDS ORDERED: ONDA4TAB6 PO (21:33)
== END 2019-08-30 03:29 | disposition home or self-care (01) ==
LOC: EDBD 02:39 → M ED 02:39
DX: J02.9 Acute pharyngitis, unspecified (principal); R10.9 Unspecified abdominal pain; F15.21 Other stimulant dependence, in remission; Z79.891 Long term (current) use of opiate analgesic; Z88.5 Allergy status to narcotic agent; F17.210 Nicotine dependence, cigarettes, uncomplicated

== ENCOUNTER 2019-08-30 19:25 | Emergency (ER) | payer OTHER ==
[~2019-08-30] VITALS: Ht 188 cm; Wt 84.0 kg
[~2019-08-30 19:25] MED LIST changes: +AUGM500T34 PO
[2019-08-30] MEDS ORDERED: ACET-683 PO (19:40)
[2019-08-30] MEDS ORDERED: ONDANSETRON 4 MG ORAL DISINTEGRATING TAB (Q0162 PER 1MG) PO ONE (20:30)
[2019-08-30 20:50] LABS: BASO % 0.2 % (0.0-1.0); EOS % 0.2 % (0.0-3.0); HEMATOCRIT 45.9 % (42.0-52.0); HEMOGLOBIN 14.8 g/dl (13.5-17.5); LYMPH # 1.2 10^3/uL (1.5-5.0); LYMPH % 9.5 % (24.0-44.0); MEAN CORPUSCULAR HEMOGLOBIN 29.8 pg (27.0-33.0); MEAN CORPUSCULAR HGB CONC 32.2 g/dl (32.0-36.5); MEAN CORPUSCULAR VOLUME 92.5 fl (80.0-96.0); MONO # 1.5 10^3/uL (0.0-0.8); MONO % 11.6 % (0.0-5.0); NEUTROPHILS # 9.9 10^3/uL (1.5-8.5); NEUTROPHILS % 78.2 % (36.0-66.0); PLATELET COUNT, AUTOMATED 251 10^3/uL (150-450); RED BLOOD COUNT 4.96 10^6/uL (4.30-6.10); WHITE BLOOD COUNT 12.6 10^3/uL (4.0-10.0)
[2019-08-30 21:14] LABS: BLOOD UREA NITROGEN 26 MG/DL (7-18); CALCIUM LEVEL 9.7 MG/DL (8.5-10.1); CARBON DIOXIDE LEVEL 26 MEQ/L (21-32); CHLORIDE LEVEL 100 MEQ/L (98-107); CREATININE FOR GFR 1.16 MG/DL (0.70-1.30); GLOMERULAR FILTRATION RATE > 60.0 (>60); GLUCOSE, FASTING 135 MG/DL (70-100); SODIUM LEVEL 136 MEQ/L (136-145)
[2019-08-30 21:32] VITALS: BP 123/85
[2019-08-30] MEDS ORDERED: ONDA4TAB6 PO (21:33)
== END 2019-08-30 21:43 | disposition home or self-care (01) ==
LOC: M ED 19:25
DX: J02.9 Acute pharyngitis, unspecified (principal); E86.0 Dehydration; Z79.891 Long term (current) use of opiate analgesic; Z88.5 Allergy status to narcotic agent; F17.210 Nicotine dependence, cigarettes, uncomplicated
CPT/HCPCS: 36415; 80048; 85025; 87070; 99283; Q0162

== ENCOUNTER 2019-08-31 02:37 | Emergency (ER) | payer OTHER ==
[~2019-08-31] VITALS: Ht 188 cm; Wt 83.6 kg
[~2019-08-31 02:37] MED LIST changes: +ACET-683 PO; +ONDA4TAB6 PO
[2019-08-31 03:05] LABS: HEMATOCRIT 45.2 % (42.0-52.0); HEMOGLOBIN 14.7 g/dl (13.5-17.5); MEAN CORPUSCULAR HEMOGLOBIN 29.8 pg (27.0-33.0); MEAN CORPUSCULAR HGB CONC 32.5 g/dl (32.0-36.5); MEAN CORPUSCULAR VOLUME 91.7 fl (80.0-96.0); PLATELET COUNT, AUTOMATED 264 10^3/uL (150-450); RED BLOOD COUNT 4.93 10^6/uL (4.30-6.10); WHITE BLOOD COUNT 12.6 10^3/uL (4.0-10.0)
[2019-08-31 03:25] LABS: AMPHETAMINES LEVEL URINE POSITIVE (NEGATIVE); BARBITURATES URINE NEGATIVE (NEGATIVE); BENZODIAZEPINES URINE NEGATIVE (NEGATIVE); CANNABINOIDS URINE NEGATIVE (NEGATIVE); COCAINE METABOLITE URINE NEGATIVE (NEGATIVE); METHADONE URINE NEGATIVE (NEGATIVE); OPIATES URINE NEGATIVE (NEGATIVE); PHENCYCLIDINE URINE NEGATIVE (NEGATIVE)
[2019-08-31 03:36] LABS: ACETAMINOPHEN LEVEL < 2.0 UG/ML (10.0-30.0); ALBUMIN 4.6 GM/DL (3.2-5.2); ALT/SGPT 17 U/L (12-78); BILIRUBIN,DIRECT 0.3 MG/DL (0.0-0.2); BILIRUBIN,TOTAL 0.9 MG/DL (0.2-1.0); BLOOD UREA NITROGEN 27 MG/DL (7-18); CALCIUM LEVEL 9.6 MG/DL (8.5-10.1); CARBON DIOXIDE LEVEL 27 MEQ/L (21-32); CHLORIDE LEVEL 99 MEQ/L (98-107); ETHYL ALCOHOL (ETHANOL) < 0.003 % (0.000-0.010); GLOMERULAR FILTRATION RATE > 60.0 (>60); GLUCOSE, FASTING 92 MG/DL (70-100); POTASSIUM SERUM 3.8 MEQ/L (3.5-5.1); SALICYLATE LEVEL < 1.7 MG/DL (5.0-30.0); SODIUM LEVEL 135 MEQ/L (136-145); TOTAL PROTEIN 9.1 GM/DL (6.4-8.2)
[2019-08-31] MEDS ORDERED: ACETAMINOPHEN TAB 650MG DOSE (2X325MG) PO ONE (07:45)
[2019-08-31] MEDS ORDERED: AUGMENTIN 500 MG TAB PO ONE (07:45)
[2019-08-31 08:07] VITALS: BP 126/80
== END 2019-08-31 08:09 | disposition home or self-care (01) ==
LOC: M ED 02:37
DX: F15.10 Other stimulant abuse, uncomplicated (principal); Z79.891 Long term (current) use of opiate analgesic; Z88.5 Allergy status to narcotic agent; F17.210 Nicotine dependence, cigarettes, uncomplicated
CPT/HCPCS: 36415; 80048; 80076; 80307; 84443; 85027; 99284; G0480

== ENCOUNTER 2019-09-11 21:31 | Emergency (ER) | payer OTHER ==
[~2019-09-11] VITALS: Ht 188 cm; Wt 81.8 kg
[2019-09-11 21:50] VITALS: BP 118/85
[2019-09-11] MEDS ORDERED: ATEN25TA (21:52)
[2019-09-11] MEDS ORDERED: KETO10TAB PO (22:08)
[2019-09-11] MEDS ORDERED: AUGM875T28 PO (22:08)
[2019-09-11] MEDS ORDERED: AUGMENTIN 875 MG TAB PO ONE (22:15)
[2019-09-11] MEDS ORDERED: KETOROLAC TROMETHAMINE 10 MG TAB PO ONE (22:15)
== END 2019-09-11 22:34 | disposition home or self-care (01) ==
LOC: M ED 21:31
DX: K02.9 Dental caries, unspecified (principal); Z88.5 Allergy status to narcotic agent

== ENCOUNTER 2019-09-18 15:28 | Emergency (ER) | payer OTHER ==
[~2019-09-18] VITALS: Ht 188 cm; Wt 75.3 kg
[~2019-09-18 15:28] MED LIST changes: +ATEN25TA; +AUGM875T28 PO; +KETO10TAB PO
[2019-09-18 15:38] VITALS: BP 128/86
== END 2019-09-18 16:05 | disposition home or self-care (01) ==
LOC: EDBD 15:28 → M ED 15:28
DX: F16.10 Hallucinogen abuse, uncomplicated (principal); Z88.5 Allergy status to narcotic agent

== ENCOUNTER 2019-09-19 07:54 | Emergency (ER) | payer OTHER ==
[~2019-09-19] VITALS: Ht 188 cm; Wt 75.4 kg
[2019-09-19 08:23] VITALS: BP 117/73
[2019-09-19 08:57] LABS: HEMATOCRIT 43.9 % (42.0-52.0); HEMOGLOBIN 14.2 g/dl (13.5-17.5); MEAN CORPUSCULAR HGB CONC 32.3 g/dl (32.0-36.5); MEAN CORPUSCULAR VOLUME 92.6 fl (80.0-96.0); PLATELET COUNT, AUTOMATED 296 10^3/uL (150-450); RED BLOOD COUNT 4.74 10^6/uL (4.30-6.10); WHITE BLOOD COUNT 7.9 10^3/uL (4.0-10.0)
[2019-09-19 09:14] LABS: ALBUMIN 4.5 GM/DL (3.2-5.2); ALT/SGPT 16 U/L (12-78); BILIRUBIN,DIRECT 0.2 MG/DL (0.0-0.2); BILIRUBIN,TOTAL 0.7 MG/DL (0.2-1.0); BLOOD UREA NITROGEN 19 MG/DL (7-18); CARBON DIOXIDE LEVEL 24 MEQ/L (21-32); CHLORIDE LEVEL 110 MEQ/L (98-107); CREATININE FOR GFR 1.12 MG/DL (0.70-1.30); GLOMERULAR FILTRATION RATE > 60.0 (>60); GLUCOSE, FASTING 69 MG/DL (70-100); SALICYLATE LEVEL 2.2 MG/DL (5.0-30.0); SODIUM LEVEL 142 MEQ/L (136-145)
[2019-09-19 09:15] LABS: ACETAMINOPHEN LEVEL < 2.0 UG/ML (10.0-30.0); ETHYL ALCOHOL (ETHANOL) < 0.003 % (0.000-0.010)
--- NOTE | 2019-09-19 13:29 | ECGEPIP ---
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
== END 2019-09-19 10:33 | disposition left against medical advice (07) ==
LOC: EDBD 07:54 → M ED 07:54
DX: R45.89 Other symptoms and signs involving emotional state (principal); F15.20 Other stimulant dependence, uncomplicated; Z88.5 Allergy status to narcotic agent
CPT/HCPCS: 36415; 80048; 80076; 84443; 85027; 93005; 99284; G0480

== ENCOUNTER 2019-12-15 06:10 | Emergency (ER) | payer OTHER ==
[2019-12-15] MEDS ORDERED: NS 1,000 ML IV ONE ×3 (06:30→09:15)
[2019-12-15] MEDS ORDERED: LORazepam 2 MG/ML VIAL (J2060) IV STA (06:30)
[2019-12-15] MEDS ORDERED: LORazepam 2 MG/ML VIAL (J2060) As Ordered ONE (06:46)
[2019-12-15 06:54] LABS: BASO % 0.2 % (0.0-1.0); EOS # 0.1 10^3/uL (0.0-0.5); EOS % 0.7 % (0.0-3.0); HEMATOCRIT 41.7 % (42.0-52.0); HEMOGLOBIN 14.3 g/dl (13.5-17.5); LYMPH # 1.6 10^3/uL (1.5-5.0); MEAN CORPUSCULAR HEMOGLOBIN 31.5 pg (27.0-33.0); MEAN CORPUSCULAR HGB CONC 34.3 g/dl (32.0-36.5); MEAN CORPUSCULAR VOLUME 91.9 fl (80.0-96.0); MONO # 1.4 10^3/uL (0.0-0.8); MONO % 10.3 % (0.0-5.0); NEUTROPHILS # 10.5 10^3/uL (1.5-8.5); NEUTROPHILS % 76.5 % (36.0-66.0); PLATELET COUNT, AUTOMATED 330 10^3/uL (150-450); RED BLOOD COUNT 4.54 10^6/uL (4.30-6.10); WHITE BLOOD COUNT 13.7 10^3/uL (4.0-10.0)
--- NOTE | 2019-12-15 07:24 | ECGEPIP ---
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
[2019-12-15 07:38] LABS: ACETAMINOPHEN LEVEL < 2.0 UG/ML (10.0-30.0); ALBUMIN 4.4 GM/DL (3.2-5.2); ALT/SGPT 37 U/L (12-78); BILIRUBIN,DIRECT 0.3 MG/DL (0.0-0.2); BILIRUBIN,TOTAL 1.1 MG/DL (0.2-1.0); BLOOD UREA NITROGEN 20 MG/DL (7-18); CARBON DIOXIDE LEVEL 24 MEQ/L (21-32); CHLORIDE LEVEL 107 MEQ/L (98-107); CPK CREATINE PHOSPHOKINASE 1126 U/L (39-308); CREATININE FOR GFR 1.25 MG/DL (0.70-1.30); GLOMERULAR FILTRATION RATE > 60.0 (>60); GLUCOSE, FASTING 68 MG/DL (70-100); SALICYLATE LEVEL 1.7 MG/DL (5.0-30.0); SODIUM LEVEL 139 MEQ/L (136-145); TOTAL PROTEIN 8.1 GM/DL (6.4-8.2)
[2019-12-15] MEDS ORDERED: DEXTROSE 50% 50 ML SYRINGE IV STA (07:40)
[2019-12-15 07:50] LABS: ETHYL ALCOHOL (ETHANOL) < 0.003 % (0.000-0.010)
[2019-12-15 07:51] LABS: AMPHETAMINES LEVEL URINE POSITIVE (NEGATIVE); BARBITURATES URINE NEGATIVE (NEGATIVE); BENZODIAZEPINES URINE NEGATIVE (NEGATIVE); CANNABINOIDS URINE NEGATIVE (NEGATIVE); COCAINE METABOLITE URINE POSITIVE (NEGATIVE); METHADONE URINE NEGATIVE (NEGATIVE); OPIATES URINE NEGATIVE (NEGATIVE); PHENCYCLIDINE URINE NEGATIVE (NEGATIVE)
[2019-12-15 11:13] LABS: BLOOD UREA NITROGEN 17 MG/DL (7-18); CALCIUM LEVEL 7.3 MG/DL (8.5-10.1); CARBON DIOXIDE LEVEL 19 MEQ/L (21-32); CHLORIDE LEVEL 119 MEQ/L (98-107); CPK CREATINE PHOSPHOKINASE 816 U/L (39-308); CREATININE FOR GFR 1.01 MG/DL (0.70-1.30); GLOMERULAR FILTRATION RATE > 60.0 (>60); GLUCOSE, FASTING 74 MG/DL (70-100); POTASSIUM SERUM 5.2 MEQ/L (3.5-5.1); SODIUM LEVEL 144 MEQ/L (136-145)
[2019-12-15 13:21] VITALS: BP 125/58
== END 2019-12-15 17:48 | disposition home or self-care (01) ==
LOC: M ED 06:10
DX: F15.10 Other stimulant abuse, uncomplicated (principal); F14.10 Cocaine abuse, uncomplicated; F19.10 Other psychoactive substance abuse, uncomplicated; R94.31 Abnormal electrocardiogram [ECG] [EKG]; F33.9 Major depressive disorder, recurrent, unspecified; F17.210 Nicotine dependence, cigarettes, uncomplicated
CPT/HCPCS: 51701; 80048; 80076; 80307; 82550; 84443; 85025; 93005; 93041; 94760; 96361; 96374; 96375; 99285; G0480; J2060

== ENCOUNTER 2019-12-17 05:46 | Emergency (ER) | payer OTHER ==
[~2019-12-17] VITALS: Ht 188 cm; Wt 89.5 kg
[2019-12-17 05:47] VITALS: BP 138/82
== END 2019-12-17 06:25 | disposition home or self-care (01) ==
LOC: M ED 05:46
DX: F19.10 Other psychoactive substance abuse, uncomplicated (principal); F17.218 Nicotine dependence, cigarettes, with other nicotine-induced disorders; G43.909 Migraine, unspecified, not intractable, without status migrainosus; Z88.5 Allergy status to narcotic agent

== ENCOUNTER 2019-12-21 19:04 | Emergency (ER) | payer OTHER ==
[~2019-12-21] VITALS: Ht 188 cm; Wt 85.0 kg
[2019-12-21 19:16] VITALS: BP 126/80
[2019-12-21] MEDS ORDERED: LORazepam 2 MG/ML VIAL (J2060) IV STA (19:23)
[2019-12-21] MEDS ORDERED: METOCLOPRAMIDE INJ 10MG/2ML VIAL (J2765 PER 1) IV ONE (19:30)
[2019-12-21] MEDS ORDERED: NS 1,000 ML IV ONE (19:30)
== END 2019-12-21 19:33 | disposition left against medical advice (07) ==
LOC: EDBD 19:04 → M ED 19:04
DX: F19.10 Other psychoactive substance abuse, uncomplicated (principal); R11.2 Nausea with vomiting, unspecified; F17.200 Nicotine dependence, unspecified, uncomplicated; Z88.5 Allergy status to narcotic agent

== ENCOUNTER 2020-02-24 15:47 | Emergency (ER) | payer MEDICAID, OTHER, SELFPAY ==
[~2020-02-24] VITALS: Ht 188 cm; Wt 92.3 kg
[2020-02-24] MEDS ORDERED: ONDANSETRON 4MG/2ML VIAL IV ONE (16:15)
[2020-02-24] MEDS ORDERED: NS 1,000 ML IV ONE (16:15)
[2020-02-24] MEDS ORDERED: GI COCKTAIL 50ML BTL(HYOSCYAMINE/MAALOX/LIDOCAINE VISCOUS)(1:3:1) PO ONE (17:30)
[2020-02-24 17:44] LABS: HEMOGLOBIN 15.8 g/dl (13.5-17.5); MEAN CORPUSCULAR HEMOGLOBIN 31.2 pg (27.0-33.0); MEAN CORPUSCULAR HGB CONC 34.3 g/dl (32.0-36.5); MEAN CORPUSCULAR VOLUME 90.9 fl (80.0-96.0); PLATELET COUNT, AUTOMATED 308 10^3/uL (150-450); RED BLOOD COUNT 5.06 10^6/uL (4.30-6.10); WHITE BLOOD COUNT 21.1 10^3/uL (4.0-10.0)
[2020-02-24] MEDS ORDERED: ONDANSETRON 4 MG ORAL DISINTEGRATING TAB PO ONE ×2 (17:45→18:00)
[2020-02-24 18:23] LABS: ACETAMINOPHEN LEVEL < 2.0 UG/ML (10.0-30.0); ALBUMIN 5.2 GM/DL (3.2-5.2); ALT/SGPT 17 U/L (12-78); BILIRUBIN,DIRECT 0.3 MG/DL (0.0-0.2); BILIRUBIN,TOTAL 1.7 MG/DL (0.2-1.0); CPK CREATINE PHOSPHOKINASE 285 U/L (39-308); ETHYL ALCOHOL (ETHANOL) < 0.003 % (0.000-0.010); SALICYLATE LEVEL < 1.7 MG/DL (5.0-30.0); TOTAL PROTEIN 9.2 GM/DL (6.4-8.2)
[2020-02-24 18:30] LABS: ATYPICAL LYMPH 1 % (0-5); LYMPHOCYTES 4 % (16-44); METAMYELOCYTES 2 % (0-0); MONOCYTES 16 % (0-5); MYELOCYTES 1 % (0-0); NEUTROPHILS 73 % (28-66); PLATELET ESTIMATE NORMAL (NORMAL); TEAR DROP CELLS 1+
[2020-02-24 18:31] LABS: ANISOCYTOSIS 1+
[2020-02-24 19:13] LABS: AMPHETAMINES LEVEL URINE POSITIVE (NEGATIVE); BARBITURATES URINE NEGATIVE (NEGATIVE); BENZODIAZEPINES URINE NEGATIVE (NEGATIVE); CANNABINOIDS URINE NEGATIVE (NEGATIVE); COCAINE METABOLITE URINE NEGATIVE (NEGATIVE); METHADONE URINE NEGATIVE (NEGATIVE); OPIATES URINE POSITIVE (NEGATIVE); PHENCYCLIDINE URINE NEGATIVE (NEGATIVE)
[2020-02-24 19:36] VITALS: BP 122/78
--- NOTE | 2020-02-24 21:33 | ECGEPIP ---
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
--- NOTE | 2020-02-25 07:28 | REP ---
REASON: Drug overdose. COMPARISON: Multiple, the latest 05/03/2019. The technique utilized in obtaining the radiograph has magnified the cardiac silhouette and accentuated the interstitial markings. The CP angles are not included on the portable radiograph. With that exception, there is no abnormality and no change from the prior exam. IMPRESSION: No acute disease. Exam limitations, as described above. Electronically Signed by Edvin Ryder DO 02/25/2020 09:34 A
== END 2020-02-24 19:55 | disposition home or self-care (01) ==
LOC: M ED 15:47
DX: F15.229 Other stimulant dependence with intoxication, unspecified (principal); F41.9 Anxiety disorder, unspecified; Z88.8 Allergy status to other drugs, medicaments and biological substances
CPT/HCPCS: 36415; 71045; 80047; 80076; 80307; 82550; 83605; 84443; 84484; 85025; 93005; 93041; 94760; 99285; G0480; Q0162

== ENCOUNTER 2020-02-28 07:46 | Emergency (ER) | payer MEDICAID, SELFPAY ==
[~2020-02-28] VITALS: Ht 188 cm; Wt 90.4 kg
[2020-02-28] MEDS ORDERED: PENICILLIN V POTASSIUM 500 MG TAB PO ONE (08:30)
[2020-02-28] MEDS ORDERED: ACETAMINOPHEN 500 MG TAB PO ONE (08:30)
[2020-02-28 09:15] LABS: BASO % 0.3 % (0.0-1.0); EOS # 0.1 10^3/uL (0.0-0.5); EOS % 0.6 % (0.0-3.0); HEMATOCRIT 44.2 % (42.0-52.0); HEMOGLOBIN 15.4 g/dl (13.5-17.5); LYMPH % 11.2 % (24.0-44.0); MEAN CORPUSCULAR HEMOGLOBIN 30.9 pg (27.0-33.0); MEAN CORPUSCULAR HGB CONC 34.8 g/dl (32.0-36.5); MEAN CORPUSCULAR VOLUME 88.6 fl (80.0-96.0); MONO # 1.1 10^3/uL (0.0-0.8); MONO % 11.8 % (0.0-5.0); NEUTROPHILS # 6.9 10^3/uL (1.5-8.5); NEUTROPHILS % 75.9 % (36.0-66.0); PLATELET COUNT, AUTOMATED 286 10^3/uL (150-450); RED BLOOD COUNT 4.99 10^6/uL (4.30-6.10); WHITE BLOOD COUNT 9.1 10^3/uL (4.0-10.0)
[2020-02-28] MEDS ORDERED: PENI500T PO (09:41)
[2020-02-28 09:55] VITALS: BP 122/81
== END 2020-02-28 09:58 | disposition home or self-care (01) ==
LOC: M ED 07:46
DX: K02.9 Dental caries, unspecified (principal); K08.89 Other specified disorders of teeth and supporting structures; H92.02 Otalgia, left ear; F17.200 Nicotine dependence, unspecified, uncomplicated; F19.10 Other psychoactive substance abuse, uncomplicated; Z88.5 Allergy status to narcotic agent

== ENCOUNTER 2020-03-06 05:34 | Emergency (ER) | payer MEDICAID, SELFPAY ==
[~2020-03-06] VITALS: Ht 188 cm; Wt 86.9 kg
[2020-03-06 06:01] LABS: BASO % 0.4 % (0.0-1.0); EOS # 0.1 10^3/uL (0.0-0.5); EOS % 1.5 % (0.0-3.0); HEMATOCRIT 39.8 % (42.0-52.0); HEMOGLOBIN 13.9 g/dl (13.5-17.5); LYMPH % 23.9 % (24.0-44.0); MEAN CORPUSCULAR HEMOGLOBIN 30.3 pg (27.0-33.0); MEAN CORPUSCULAR HGB CONC 34.9 g/dl (32.0-36.5); MEAN CORPUSCULAR VOLUME 86.7 fl (80.0-96.0); MONO # 1.4 10^3/uL (0.0-0.8); NEUTROPHILS # 4.9 10^3/uL (1.5-8.5); PLATELET COUNT, AUTOMATED 313 10^3/uL (150-450); RED BLOOD COUNT 4.59 10^6/uL (4.30-6.10); WHITE BLOOD COUNT 8.5 10^3/uL (4.0-10.0)
[2020-03-06 06:37] LABS: ACETAMINOPHEN LEVEL < 2.0 UG/ML (10.0-30.0); ALBUMIN 3.9 GM/DL (3.2-5.2); ALT/SGPT 27 U/L (12-78); BILIRUBIN,DIRECT 0.2 MG/DL (0.0-0.2); BILIRUBIN,TOTAL 0.7 MG/DL (0.2-1.0); BLOOD UREA NITROGEN 19 MG/DL (7-18); CALCIUM LEVEL 9.1 MG/DL (8.5-10.1); CARBON DIOXIDE LEVEL 29 MEQ/L (21-32); CHLORIDE LEVEL 99 MEQ/L (98-107); CPK CREATINE PHOSPHOKINASE 455 U/L (39-308); CREATININE FOR GFR 1.22 MG/DL (0.70-1.30); ETHYL ALCOHOL (ETHANOL) < 0.003 % (0.000-0.010); GLOMERULAR FILTRATION RATE > 60.0 (>60); GLUCOSE, FASTING 82 MG/DL (70-100); POTASSIUM SERUM 3.6 MEQ/L (3.5-5.1); SALICYLATE LEVEL < 1.7 MG/DL (5.0-30.0); SODIUM LEVEL 138 MEQ/L (136-145)
[2020-03-06] MEDS ORDERED: HALOPERIDOL 5MG/ML VIAL (J1630 PER 1) IV ONE (06:45)
[2020-03-06] MEDS ORDERED: diphenhydrAMINE 25MG CAP PO ONE (06:45)
[2020-03-06 06:49] LABS: AMPHETAMINES LEVEL URINE POSITIVE (NEGATIVE); BARBITURATES URINE NEGATIVE (NEGATIVE); BENZODIAZEPINES URINE NEGATIVE (NEGATIVE); CANNABINOIDS URINE NEGATIVE (NEGATIVE); COCAINE METABOLITE URINE NEGATIVE (NEGATIVE); METHADONE URINE NEGATIVE (NEGATIVE); OPIATES URINE POSITIVE (NEGATIVE); PHENCYCLIDINE URINE NEGATIVE (NEGATIVE)
[2020-03-06 06:54] LABS: MB/CK RELATIVE INDEX 0.88 (< OR =4); TROPONIN I < 0.02 NG/ML (< 0.10)
[2020-03-06] MEDS ORDERED: NS 1,000 ML IV ONE (07:45)
--- NOTE | 2020-03-06 09:50 | ECGEPIP ---
[facility] - ED Test Date: 2020-03-06 Pat Name: NIEVES BLOCK Department: Room: - Gender: Male Block Handler: [email or web address] : 1990 Requested By: RUDI SMITH Order Number: [id number] Reading MD: Nilson Mcdaniel Measurements Intervals [place] Rate: 103 P: 73 GA: 140 QRS: 33 QRSD: 113 T: 50 QT: 358 QTc: 469 Interpretive Statements SINUS TACHYCARDIA POOR R WAVE PROGRESSION MODERATE INTRAVENTRICULAR CONDUCTION DELAY SIMILAR TO 02/24/20 Electronically Signed on 03-06-2020 9:50:05 EDT by Nilson Mcdaniel
[2020-03-06 14:29] VITALS: BP 113/62
== END 2020-03-06 14:33 | disposition home or self-care (01) ==
LOC: M ED 05:34
DX: F11.10 Opioid abuse, uncomplicated (principal); F15.129 Other stimulant abuse with intoxication, unspecified; F33.9 Major depressive disorder, recurrent, unspecified; F41.9 Anxiety disorder, unspecified; G43.909 Migraine, unspecified, not intractable, without status migrainosus; F17.210 Nicotine dependence, cigarettes, uncomplicated
CPT/HCPCS: 80048; 80076; 80307; 82550; 82553; 84443; 84484; 85025; 87486; 87581; 87633; 87798; 93005; 93041; 94760; 96374; 99285; G0480; J1630

== ENCOUNTER 2020-03-17 13:46 | Emergency (ER) | payer MEDICAID | END 2020-03-17 14:13 | disposition left against medical advice (07) | LOC: M ED 13:46 | DX: Z53.21 Procedure and treatment not carried out due to patient leaving prior to being seen by health care provider (principal) ==

== ENCOUNTER 2020-03-23 13:36 | Emergency (ER) | payer OTHER, MEDICAID ==
[2020-03-23] MEDS ORDERED: ASPIRIN 81 MG CHEW TABLET ONE (13:37)
[2020-04-20 16:07] LABS: BASO % 0.3 % (0.0-1.0); EOS % 0.2 % (0.0-3.0); HEMATOCRIT 42.3 % (42.0-52.0); HEMOGLOBIN 13.8 g/dl (13.5-17.5); LYMPH # 0.9 10^3/uL (1.5-5.0); LYMPH % 13.6 % (24.0-44.0); MEAN CORPUSCULAR HEMOGLOBIN 30.4 pg (27.0-33.0); MEAN CORPUSCULAR HGB CONC 32.6 g/dl (32.0-36.5); MEAN CORPUSCULAR VOLUME 93.2 fl (80.0-96.0); MONO # 0.3 10^3/uL (0.0-0.8); MONO % 4.5 % (0.0-5.0); NEUTROPHILS # 5.4 10^3/uL (1.5-8.5); NEUTROPHILS % 81.1 % (36.0-66.0); PLATELET COUNT, AUTOMATED 338 10^3/uL (150-450); RED BLOOD COUNT 4.54 10^6/uL (4.30-6.10); WHITE BLOOD COUNT 6.6 10^3/uL (4.0-10.0)
[2020-04-26 21:30] LABS: D-DIMER QUANT < 270 ng/ml (<500); INR 1.15; PARTIAL THROMBOPLASTIN TIME 35.5 SECONDS (25.0-38.4); PROTHROMBIN TIME 14.9 SECONDS (11.8-14.0)
--- NOTE | 2020-05-04 11:42 | ECGEPIP ---
[facility] - ED Test Date: 2020-03-23 Pat Name: NIEVES BLOCK Department: Room: - Gender: Male Manager Stone: BASIL : 1990 Requested By: EMERGENCY ROOM Order Number: [id number] Reading MD: Nilson Mcdaniel Measurements Intervals [place] Rate: 88 P: 72 MT: 140 QRS: 24 QRSD: 98 T: 49 QT: 359 QTc: 435 Interpretive Statements SINUS RHYTHM WITH SINUS ARRHYTHMIA SEE SCANNED DOWNTIME REPORT
[2020-05-06 11:59] LABS: ALBUMIN 4.1 GM/DL (3.2-5.2); ALT/SGPT 21 U/L (12-78); BILIRUBIN,DIRECT 0.2 MG/DL (0.0-0.2); BILIRUBIN,TOTAL 0.4 MG/DL (0.2-1.0); BLOOD UREA NITROGEN 11 MG/DL (7-18); CALCIUM LEVEL 9.3 MG/DL (8.5-10.1); CARBON DIOXIDE LEVEL 30 MEQ/L (21-32); CHLORIDE LEVEL 110 MEQ/L (98-107); CK-MB VALUE MASS < 1.0 NG/ML (<3.6); CPK CREATINE PHOSPHOKINASE 104 U/L (39-308); GLOMERULAR FILTRATION RATE > 60.0 (>60); GLUCOSE, FASTING 93 MG/DL (70-100); LIPASE 108 U/L (73-393); MB/CK RELATIVE INDEX 0.96 (< OR =4); POTASSIUM SERUM 3.7 MEQ/L (3.5-5.1); SODIUM LEVEL 140 MEQ/L (136-145); TOTAL PROTEIN 7.8 GM/DL (6.4-8.2); TROPONIN I < 0.02 NG/ML (< 0.10)
== END 2020-03-23 19:10 | disposition home or self-care (01) ==
LOC: M ED 13:36
DX: R07.89 Other chest pain (principal); I48.91 Unspecified atrial fibrillation; R91.8 Other nonspecific abnormal finding of lung field; F11.10 Opioid abuse, uncomplicated; Z88.6 Allergy status to analgesic agent

== ENCOUNTER 2020-04-06 23:39 | Emergency (ER) | payer MEDICAID ==
[~2020-04-06] VITALS: Ht 188 cm; Wt 97.8 kg
[2020-04-07 00:54] VITALS: BP 130/83
[2020-04-07 02:32] LABS: BASO % 0.3 % (0.0-1.0); EOS # 0.2 10^3/uL (0.0-0.5); EOS % 2.3 % (0.0-3.0); HEMATOCRIT 40.2 % (42.0-52.0); HEMOGLOBIN 13.1 g/dl (13.5-17.5); LYMPH # 1.8 10^3/uL (1.5-5.0); LYMPH % 27.2 % (24.0-44.0); MEAN CORPUSCULAR HGB CONC 32.6 g/dl (32.0-36.5); MEAN CORPUSCULAR VOLUME 92.2 fl (80.0-96.0); MONO # 0.5 10^3/uL (0.0-0.8); MONO % 6.9 % (0.0-5.0); NEUTROPHILS # 4.1 10^3/uL (1.5-8.5); PLATELET COUNT, AUTOMATED 334 10^3/uL (150-450); RED BLOOD COUNT 4.36 10^6/uL (4.30-6.10); WHITE BLOOD COUNT 6.5 10^3/uL (4.0-10.0)
[2020-04-07 03:17] LABS: ALBUMIN 3.9 GM/DL (3.2-5.2); BILIRUBIN,DIRECT 0.2 MG/DL (0.0-0.2); BILIRUBIN,TOTAL 0.6 MG/DL (0.2-1.0); TOTAL PROTEIN 7.5 GM/DL (6.4-8.2)
[2020-04-07] MEDS ORDERED: KETOROLAC 30 MG/ML 1ML VIAL IV ONE (03:30)
--- NOTE | 2020-04-29 11:11 | ECGEPIP ---
[facility] - ED Test Date: 2020-04-06 Pat Name: NIEVES BLOCK Department: Room: - Gender: Male Sericulturist: yan : 1990 Requested By: Nilson Garza Order Number: [id number] Reading MD: Manuela Hunt Measurements Intervals [place] Rate: 93 P: 78 NV: 139 QRS: 37 QRSD: 94 T: 50 QT: 356 QTc: 443 Interpretive Statements SINUS RHYTHM POSSIBLE LEFT ATRIAL ENLARGEMENT BORDERLINE ECG SEE SCANNED DOWNTIME REPORT
--- NOTE | 2020-05-14 15:03 | REP ---
PORTABLE CHEST X-RAY: SINGLE VIEW HISTORY: Chest pain. COMPARISON: Chest x-ray from 02/24/20 FINDINGS: Monitoring electrodes overlie the chest. The lungs are well inflated and clear. The pleural angles are sharp. The pulmonary vasculature is not increased. No significant bony abnormality. IMPRESSION: Negative portable chest x-ray. MTDD
== END 2020-04-07 03:45 | disposition home or self-care (01) ==
LOC: M ED 23:39
DX: R07.89 Other chest pain (principal); F41.9 Anxiety disorder, unspecified; B18.2 Chronic viral hepatitis C; F17.200 Nicotine dependence, unspecified, uncomplicated; F19.10 Other psychoactive substance abuse, uncomplicated
CPT/HCPCS: 71045; 80047; 80076; 83690; 83880; 85025; 87040; 93005; 93041; 94760; 99284; J1885

== ENCOUNTER 2020-05-05 01:06 | Emergency (ER) | payer MEDICAID, OTHER ==
[~2020-05-05] VITALS: Ht 188 cm; Wt 71.0 kg
[2020-05-05] MEDS ORDERED: NS 1,000 ML IV SCH (01:28)
[2020-05-05 01:55] LABS: BASO % 0.4 % (0.0-1.0); EOS # 0.1 10^3/uL (0.0-0.5); EOS % 0.9 % (0.0-3.0); HEMATOCRIT 39.9 % (42.0-52.0); HEMOGLOBIN 13.4 g/dl (13.5-17.5); LYMPH # 2.7 10^3/uL (1.5-5.0); LYMPH % 38.4 % (24.0-44.0); MEAN CORPUSCULAR HEMOGLOBIN 30.3 pg (27.0-33.0); MEAN CORPUSCULAR HGB CONC 33.6 g/dl (32.0-36.5); MEAN CORPUSCULAR VOLUME 90.3 fl (80.0-96.0); MONO # 0.8 10^3/uL (0.0-0.8); MONO % 11.1 % (0.0-5.0); NEUTROPHILS # 3.4 10^3/uL (1.5-8.5); NEUTROPHILS % 48.9 % (36.0-66.0); PLATELET COUNT, AUTOMATED 302 10^3/uL (150-450); RED BLOOD COUNT 4.42 10^6/uL (4.30-6.10)
[2020-05-05 02:49] LABS: ACETAMINOPHEN LEVEL < 2.0 UG/ML (10.0-30.0); ALBUMIN 4.3 GM/DL (3.2-5.2); ALT/SGPT 260 U/L (12-78); BILIRUBIN,DIRECT 0.3 MG/DL (0.0-0.2); BILIRUBIN,TOTAL 0.9 MG/DL (0.2-1.0); BLOOD UREA NITROGEN 25 MG/DL (7-18); CALCIUM LEVEL 9.5 MG/DL (8.5-10.1); CARBON DIOXIDE LEVEL 23 MEQ/L (21-32); CHLORIDE LEVEL 107 MEQ/L (98-107); CPK CREATINE PHOSPHOKINASE 474 U/L (39-308); ETHYL ALCOHOL (ETHANOL) < 0.003 % (0.000-0.010); GLOMERULAR FILTRATION RATE > 60.0 (>60); GLUCOSE, FASTING 65 MG/DL (70-100); POTASSIUM SERUM 3.9 MEQ/L (3.5-5.1); SALICYLATE LEVEL < 1.7 MG/DL (5.0-30.0); SODIUM LEVEL 139 MEQ/L (136-145); TOTAL PROTEIN 8.4 GM/DL (6.4-8.2)
[2020-05-05 03:00] VITALS: BP 113/69
--- NOTE | 2020-05-08 10:10 | ECGEPIP ---
[facility] - ED Test Date: 2020-05-05 Pat Name: NIEVES BLOCK Department: Room: - Gender: Male Caretaker Grounds: ana : 1990 Requested By: OLINDA Pinto Order Number: [id number] Reading MD: Nilson Mcdaniel Measurements Intervals [place] Rate: 101 P: 82 [place]: 140 QRS: 69 QRSD: 96 T: 68 QT: 351 QTc: 456 Interpretive Statements SINUS TACHYCARDIA POSSIBLE LEFT ATRIAL ENLARGEMENT SIMILAR TO 04/06/20 Electronically Signed on 05-08-2020 10:10:06 EDT by Nilson Mcdaniel
== END 2020-05-05 03:36 | disposition home or self-care (01) ==
LOC: M ED 01:06
DX: Z53.20 Procedure and treatment not carried out because of patient's decision for unspecified reasons (principal); T40.4X1A Poisoning by other synthetic narcotics, accidental (unintentional), initial encounter; T50.901A Poisoning by unspecified drugs, medicaments and biological substances, accidental (unintentional), initial encounter; F11.20 Opioid dependence, uncomplicated; F16.10 Hallucinogen abuse, uncomplicated; R00.0 Tachycardia, unspecified; B18.2 Chronic viral hepatitis C; I48.91 Unspecified atrial fibrillation; I10 Essential (primary) hypertension; F41.9 Anxiety disorder, unspecified; F32.9 Major depressive disorder, single episode, unspecified
CPT/HCPCS: 36415; 71045; 80048; 80076; 82550; 84443; 85025; 93005; 93041; 94760; 96360; 96361; 99285; G0480

== ENCOUNTER 2020-05-08 15:10 | Emergency (ER) | payer MEDICAID, OTHER ==
[~2020-05-08] VITALS: Ht 188 cm; Wt 82.0 kg
[2020-05-08 19:34] VITALS: BP 108/54
== END 2020-05-08 19:40 | disposition home or self-care (01) ==
LOC: EDBD 15:10 → EDSEX 15:10 → M ED 15:10
DX: T40.1X1A Poisoning by heroin, accidental (unintentional), initial encounter (principal); X58.XXXA Exposure to other specified factors, initial encounter; Y92.89 Other specified places as the place of occurrence of the external cause; Z79.899 Other long term (current) drug therapy; Z88.8 Allergy status to other drugs, medicaments and biological substances; F17.210 Nicotine dependence, cigarettes, uncomplicated

== ENCOUNTER 2020-05-18 20:32 | Emergency (ER) | payer MEDICAID, OTHER ==
[~2020-05-18] VITALS: Ht 188 cm; Wt 84.0 kg
[2020-05-18 20:41] VITALS: BP 102/72
[2020-05-18] MEDS ORDERED: LOSA50TA88 PO (20:45)
[2020-05-18] MEDS ORDERED: PENI500T PO (20:45)
[2020-05-18] MEDS ORDERED: ATEN25TA PO (20:45)
== END 2020-05-18 22:00 | disposition left against medical advice (07) ==
LOC: M ED 20:32
DX: Z53.20 Procedure and treatment not carried out because of patient's decision for unspecified reasons (principal); F16.10 Hallucinogen abuse, uncomplicated; M25.561 Pain in right knee; F17.200 Nicotine dependence, unspecified, uncomplicated; Z88.8 Allergy status to other drugs, medicaments and biological substances

== ENCOUNTER 2020-05-26 05:34 | Emergency (ER) | payer MEDICAID ==
[~2020-05-26] VITALS: Ht 188 cm; Wt 78.0 kg
[~2020-05-26 05:34] MED LIST changes: +LOSA50TA88 PO
[2020-05-26] MEDS ORDERED: LORazepam 2 MG/ML VIAL IV STA (05:40)
[2020-05-26] MEDS ORDERED: LORazepam 2 MG/ML VIAL As Ordered ONE (05:41)
[2020-05-26 13:00] VITALS: BP 141/69
== END 2020-05-26 13:06 | disposition home or self-care (01) ==
LOC: M ED 05:34
DX: F19.120 Other psychoactive substance abuse with intoxication, uncomplicated (principal); F17.200 Nicotine dependence, unspecified, uncomplicated; Z79.2 Long term (current) use of antibiotics; Z79.899 Other long term (current) drug therapy; Z88.6 Allergy status to analgesic agent
CPT/HCPCS: 96374; 99285; J2060

== ENCOUNTER 2020-06-22 18:27 | Emergency (ER) | payer MEDICAID ==
[2020-06-22 18:33] VITALS: BP 143/82
[2020-06-22] MEDS ORDERED: LORazepam 2 MG/ML VIAL IM STA (18:35)
[2020-06-22] MEDS ORDERED: LORazepam 2 MG/ML VIAL As Ordered ONE (18:43)
== END 2020-06-22 19:10 | disposition home or self-care (01) ==
LOC: EDBD 18:27 → M ED 18:27
DX: F19.10 Other psychoactive substance abuse, uncomplicated (principal)

== ENCOUNTER 2020-07-01 00:26 | Emergency (ER) | payer MEDICAID ==
[2020-07-01 00:35] VITALS: BP 126/85
== END 2020-07-01 00:53 | disposition left against medical advice (07) ==
LOC: M ED 00:26
DX: F19.10 Other psychoactive substance abuse, uncomplicated (principal); F17.210 Nicotine dependence, cigarettes, uncomplicated; F11.10 Opioid abuse, uncomplicated; I48.91 Unspecified atrial fibrillation; Z88.8 Allergy status to other drugs, medicaments and biological substances; Z79.899 Other long term (current) drug therapy

== ENCOUNTER 2020-07-08 16:15 | Emergency (ER) | payer MEDICAID ==
[~2020-07-08] VITALS: Ht 188 cm; Wt 70.5 kg
[2020-07-08 18:28] VITALS: BP 132/63
== END 2020-07-08 18:32 | disposition home or self-care (01) ==
LOC: M ED 16:15
DX: F15.10 Other stimulant abuse, uncomplicated (principal); B19.20 Unspecified viral hepatitis C without hepatic coma; Z88.8 Allergy status to other drugs, medicaments and biological substances

== ENCOUNTER 2020-07-10 10:31 | Observation (INO) | payer MEDICAID ==
[~2020-07-10] VITALS: Ht 188 cm; Wt 71.2 kg
[2020-07-10] MEDS ORDERED: LORazepam 2 MG/ML VIAL IV STA (10:37)
[2020-07-10] MEDS ORDERED: diphenhydrAMINE 50MG/ML VIAL (J1200) IM ONE (10:45)
[2020-07-10] MEDS ORDERED: NS 1,000 ML IV ONE ×2 (10:45)
[2020-07-10] MEDS ORDERED: HALOPERIDOL 5MG/ML VIAL (J1630 PER 1) IM ONE (10:45)
[2020-07-10 11:25] LABS: BASO % 0.5 % (0.0-1.0); EOS % 0.3 % (0.0-3.0); HEMATOCRIT 43.5 % (42.0-52.0); HEMOGLOBIN 13.6 g/dl (13.5-17.5); LYMPH % 34.8 % (24.0-44.0); MEAN CORPUSCULAR HEMOGLOBIN 28.6 pg (27.0-33.0); MEAN CORPUSCULAR HGB CONC 31.3 g/dl (32.0-36.5); MEAN CORPUSCULAR VOLUME 91.6 fl (80.0-96.0); MONO # 0.9 10^3/uL (0.0-0.8); MONO % 10.6 % (0.0-5.0); NEUTROPHILS # 4.7 10^3/uL (1.5-8.5); NEUTROPHILS % 53.6 % (36.0-66.0); PLATELET COUNT, AUTOMATED 312 10^3/uL (150-450); RED BLOOD COUNT 4.75 10^6/uL (4.30-6.10); WHITE BLOOD COUNT 8.7 10^3/uL (4.0-10.0)
[2020-07-10] MEDS ORDERED: ONDANSETRON 4MG/2ML VIAL IV ONE (11:30)
[2020-07-10] MEDS ORDERED: MORPHINE 4 MG/ML 1ML VIAL/SYRINGE (J2270) IV ONE (11:30)
[2020-07-10 12:09] LABS: ALBUMIN 4.2 GM/DL (3.2-5.2); ALT/SGPT 29 U/L (12-78); BILIRUBIN,DIRECT 0.2 MG/DL (0.0-0.2); BILIRUBIN,TOTAL 0.6 MG/DL (0.2-1.0); CK-MB VALUE MASS 5.6 NG/ML (<3.6); CPK CREATINE PHOSPHOKINASE 309 U/L (39-308); ETHYL ALCOHOL (ETHANOL) < 0.003 % (0.000-0.010); MB/CK RELATIVE INDEX 1.81 (< OR =4); SALICYLATE LEVEL 1.8 MG/DL (5.0-30.0); TROPONIN I < 0.02 NG/ML (< 0.10)
--- NOTE | 2020-07-10 12:22 | REP ---
INDICATION: Altered Mental Status COMPARISON: 05/05/2020 TECHNIQUE: Portable AP view of the chest FINDINGS: The mediastinum and cardiac silhouette are stable and within normal limits for portable technique. The lung pearson are clear without acute consolidation, effusion, or pneumothorax. Skeletal structures are intact. IMPRESSION: No acute cardiopulmonary process appreciated. <Electronically signed by Edwin Zhao > 07/10/20 0849
--- NOTE | 2020-07-10 12:27 | REP ---
INDICATION: Altered Mental Status COMPARISON: 01/01/2014 TECHNIQUE: Axial noncontrast images from the skull base to the vertex with coronal reformations. This CT examination was performed using the following dose reduction techniques: Automated exposure control, adjustment of mA and/or kv according to the patient's size, and use of iterative reconstruction technique. FINDINGS: The ventricles, sulci, and cisterns are normal in position and appearance. Sam-white differentiation is maintained. No acute intracranial hemorrhage, mass/mass effect, pathology or trauma/injury. No evidence for acute infarction. No extra-axial fluid collection. Calvarium is intact. Paranasal sinuses and mastoid air cells are clear. IMPRESSION: Normal noncontrast head CT. No evidence for acute intracranial pathology or trauma/injury. <Electronically signed by Edwin Zhao > 07/10/20 [id number]
[2020-07-10] MEDS ORDERED: DEXTROSE 50% 50 ML SYRINGE IV STA (15:38)
[2020-07-10] MEDS ORDERED: D5W/0.45% SODIUM CHLORIDE 1,000 ML IV ONE (15:45)
[2020-07-10 16:47] LABS: CK-MB VALUE MASS 18.2 NG/ML (<3.6); MB/CK RELATIVE INDEX 0.57 (< OR =4)
[2020-07-10 17:18] LABS: AMPHETAMINES LEVEL URINE POSITIVE (NEGATIVE); BARBITURATES URINE NEGATIVE (NEGATIVE); BENZODIAZEPINES URINE NEGATIVE (NEGATIVE); CANNABINOIDS URINE NEGATIVE (NEGATIVE); COCAINE METABOLITE URINE NEGATIVE (NEGATIVE); METHADONE URINE NEGATIVE (NEGATIVE); OPIATES URINE POSITIVE (NEGATIVE); PHENCYCLIDINE URINE NEGATIVE (NEGATIVE)
[2020-07-10] MEDS ORDERED: HALOPERIDOL 5MG/ML VIAL (J1630 PER 1) IV PRN (19:00)
[2020-07-10] MEDS ORDERED: LORazepam 2 MG/ML VIAL IV PRN (19:00)
[2020-07-10] MEDS ORDERED: med rec comment (19:17)
--- NOTE | 2020-07-10 19:24 | HPEPDOC ---
General Date of Admission Jul 10, 2020 at 18:45 Date of Service: Jul 10, 2020 Chief Complaint The patient is a 29-year-old male admitted with a reason for visit of Overdose, Polysubstance Abuse. Source: Patient History of Present Illness Patient sedated after he got chemical restraints to control his aggressive and combative behavior. He received haldol, ativan and benadryl. All history is taken from chart review, ED notes adn ED physician. Patient is a polysubstance user and is frequently in our ED due to drug related behavior. Today he was found in the bathroom of [employer] banging his head on the wall with bags of substances around him. police was called. He was combative and hyperagitated with the [employer]. He was brought to the ED in the ED on presentation he was fighting , shouting and being aggressive requiring several staff to control him so has placed on chemical restraints. Poison control was called and they recommended CPK. CPK was elevated so the patient was admitted for Rhabdomyolysis and drug overdose. At this point it is unknown if it was recreational/ accidental or suicidal. As per ED physician he did not make any sense as he was completely und er the effect of the drugs that he took. On caling his name he just opened his eyes and went back to sleep. Home Medications Miscellaneous Medications Atenolol (Atenolol) 25 Mg Tablet, 25 MG PO, (Reported) Losartan Potassium (Losartan Potassium) 50 Mg Tablet, 50 MG PO, (Reported) Penicillin V Potassium (Penicillin V Potassium) 500 Mg Tablet, 500 MG PO, (Reported) Allergies Coded Allergies: tramadol (Verified Allergy, Intermediate, HIVES, 05/26/20) Past Medical History Medical History polysubstance abuse anxiety/ depression costochondritis hypertension migraines right foot drop seen in chart review Surgical History Jaw surgery Family History Significant Family History: COPD (father), Hypertension (father) Social History * Smoker: current smoker Alcohol: rarely Drugs: heroin, other (amphetamine) A-FIB/CHADSVASC A-FIB History Current/History of A-Fib/PAF?: No Review of Systems Other systems Could not be done as patient is sedated. Physical Examination General Exam: Positive: Other (sedated) ENT Exam: Positive: Tongue Midline, Other ENT (dry mucous membranes) Neck Exam: Positive: Supple; Negative: JVD, thyromegaly Chest Exam: Positive: Clear to auscultation Heart Exam: Positive: Rate Normal, Regular Rhythm, Normal S1, Normal S2; Negative: Murmurs, Rubs Telemetry: Positive: No significant arrhythmia Abdomen Exam: Positive: Normal bowel sounds, Soft, Hepatospenomegaly; Negative: Tenderness Extremity Exam: Negative: Clubbing, Cyanosis, Edema Skin Exam: Positive: Other skin issue (bruise on the left collar bone, right elbow) Neuro Exam: Positive: Other (sedated) Vital Signs Vital Signs Date Time Temp Pulse Resp B/P (MAP) Pulse Ox O2 Delivery O2 Flow Rate FiO2 07/10/20 18:30 83 16 128/64 (85) 99 Room Air 07/10/20 11:59 99.0 Laboratory Data Labs 24H Laboratory Tests 2 07/10/20 11:04: Immature Granulocyte % (Auto) 0.2, Neutrophils (%) (Auto) 53.6, Lymphocytes (%) (Auto) 34.8, Monocytes (%) (Auto) 10.6H, Eosinophils (%) (Auto) 0.3, Basophils (%) (Auto) 0.5, Neutrophils # (Auto) 4.7, Lymphocytes # (Auto) 3.0, Monocytes # (Auto) 0.9H, Eosinophils # (Auto) 0.0, Basophils # (Auto) 0.0, Nucleated Red Blood Cells % (auto) 0.0, Total Bilirubin 0.6, Direct Bilirubin 0.2, Aspartate Amino Transf (AST/SGOT) 35, Alanine Aminotransferase (ALT/SGPT) 29, Alkaline Phosphatase 96, Ammonia 34H, Total Creatine Kinase 309H, Creatine Kinase MB 5.6H, Creatine Kinase MB Relative Index 1.81, Troponin I < 0.02, Total Protein 8.0, Albumin 4.2, Albumin/Globulin Ratio 1.1, Thyroid Stimulating Hormone (TSH) 2.860, Salicylates Level 1.8L, Acetaminophen Level 6.0L, Ethyl Alcohol Level < 0.003 07/10/20 15:27: Total Creatine Kinase 3175#H, Creatine Kinase MB 18.2H, Creatine Kinase MB Relative Index 0.57 07/10/20 15:32: Bedside Glucose (Misc Panel) 67L 07/10/20 16:34: Bedside Glucose (Misc Panel) 104 07/10/20 16:43: Urine Opiates Screen POSITIVEH, Urine Methadone Screen NEGATIVE, Urine Barbiturates Screen NEGATIVE, Urine Phencyclidine Screen NEGATIVE, Urine Amphetamines Screen POSITIVEH, Urine Benzodiazepines Screen NEGATIVE, Urine Cecy kaitlin Metabolite Screen NEGATIVE, Urine Cannabinoids Screen NEGATIVE 07/10/20 17:24: Lactic Acid Level 0.5 07/10/20 18:14: CBC/BMP Laboratory Tests 07/10/20 11:04 Assessment/Plan Patient sedated after he got chemical restraints to control his aggressive and combative behavior. He received haldol, ativan and benadryl. All history is taken from chart review, ED notes adn ED physician. Patient is a polysubstance user and is frequently in our ED due to drug related behavior. Today he was found in the bathroom of [employer] banging his head on the wall with bags of substances around him. police was called. He was combative and hyperagitated with the [employer]. He was brought to the ED in the ED on presentation he was fighting , shouting and being aggressive requiring several staff to control him so has placed on chemical restraints. Poison control was called and they recommended CPK. CPK was elevated so the patient was admitted for Rhabdomyolysis and drug overdose. At this point it is unknown if it was recreational/ accidental or suicidal. Acute metabolic encephalopathy from recreational drug overdose. Drug overdose unknown if it is accidental or intensional U tox positive for opiates and amphetamines. will place a sitter when he becomes awake before we can get more history from him Haldol and ativan prn agitation Rhabdomyolysis continue IVF Hypoglycemia continue dextrose/ ns. Plan / VTE VTE Prophylaxis Ordered?: Yes EVER NUR MD Jul 10, 2020 19:24
[2020-07-10 21:15] VITALS: BP 106/63
[2020-07-10] MEDS: D5W/0.9% SODIUM CHLORIDE 1,000 ML IV SCH (21:42)
[2020-07-11] VITALS: BP 109/66
[2020-07-11 04:00] VITALS: BP 111/60
[2020-07-11] MEDS: D5W/0.9% SODIUM CHLORIDE 1,000 ML IV SCH (04:35)
[2020-07-11 07:52] VITALS: BP 118/72
--- NOTE | 2020-07-11 18:57 | ECGEPIP ---
[facility] - ED Test Date: 2020-07-10 Pat Name: NIEVES BLOCK Department: Room: - Gender: Male Ui Developer: brynn : 1990 Requested By: Vani Chairez Order Number: [id number] Reading MD: Vani Chairez Measurements Intervals [place] Rate: 110 P: 84 IA: 134 QRS: 74 QRSD: 89 T: 72 QT: 331 QTc: 449 Interpretive Statements SINUS TACHYCARDIA POSSIBLE LEFT ATRIAL ENLARGEMENT ABNORMAL RHYTHM ECG NONSPECIFIC ST T WAVE CHANGES BASELINE ARTIFACT MAY AFFECT READING Electronically Signed on 07-11-2020 18:56:55 EST by Vani Chairez
--- NOTE | 2020-07-11 21:50 | DS.PDOC ---
Discharge Summary General Date of Admission Jul 10, 2020 at 18:45 Date of Discharge 07/11/20 Discharge Summary PROCEDURES PERFORMED DURING STAY: [None]. DISCHARGE DIAGNOSES: Recreational Drug overdose (Heroin) Acute Metabolic encephalopathy Rhabdomyolysis Hypoglycemia SECONDARY DIAGNOSIS: Polysubstance abuse Anxiety/ depression Costochondritis Hypertension Migraines COMPLICATIONS/CHIEF COMPLAINT: Overdose, Polysubstance Abuse. HOSPITAL COURSE: Patient sedated after he got chemical restraints to control his aggressive and combative behavior. He received haldol, ativan and benadryl. All history is taken from chart review, ED notes adn ED physician. Patient is a francisco ysubstance user and is frequently in our ED due to drug related behavior. Today he was found in the bathroom of [employer] banging his head on the wall with bags of substances around him. police was called. He was combative and hyperagitated with the [employer]. He was brought to the ED in the ED on presentation he was fighting , shouting and being aggressive requiring several staff to c ontrol him so has placed on chemical restraints. Poison control was called and they recommended CPK. CPK was elevated so the patient was admitted for Rhabdomyolysis and drug overdose. At this point it is unknown if it was recreational/ accidental or suicidal. Acute metabolic encephalopathy from recreational drug overdose. Now resolved. Drug overdose unknown if it is accidental or intensional U tox positive for opiates and amphetamines. Rhabdomyolysis received IVF. Hypoglycemia resolved DISCHARGE MEDICATIONS: Please see below. ALLERGIES: Please see below. PHYSICAL EXAMINATION ON DISCHARGE: VITAL SIGNS: Please see below. General Exam: Positive: Other (sedated) ENT Exam: Positive: Tongue Midline, Other ENT (dry mucous membranes) Neck Exam: Positive: Supple; Negative: JVD, thyromegaly Chest Exam: Positive: Clear to auscultation Heart Exam: Positive: Rate Normal, Regular Rhythm, Normal S1, Normal S2; Negative: Murmurs, Rubs Telemetry: Positive: No significant arrhythmia Abdomen Exam: Positive: Normal bowel sounds, Soft, Hepatospenomegaly; Negative: Tenderness Extremity Exam: Negative: Clubbing, Cyanosis, Edema Skin Exam: Positive: Other skin issue (bruise on the left collar bone, right elbow) Neuro Exam: Positive: Other (sedated) LABORATORY DATA: Please see below. ACTIVITY: [As tolerated]. DIET: Regular DISPOSITION: 01 Home, Self-Care. DISCHARGE CONDITION: [Stable]. TIME SPENT ON DISCHARGE: 35 minutes. Vital Signs/I&Os Vital Signs Date Time Temp Pulse Resp B/P (MAP) Pulse Ox O2 Delivery O2 Flow Rate FiO2 07/11/20 07:52 98.8 79 18 118/72 (87) 97 Room Air I&O- Last 24 Hours up to 6 AM 07/11/20 07:00 Intake Total 4550 ml Output Total 0 ml Balance 4550 ml Discharge Medications Miscellaneous Medications [med rec comment] , (Reported) unable to speak with patient no recent meds in external and pharmacy listed has no current scripts Allergies Coded Allergies: tramadol (Verified Allergy, Intermediate, HIVES, 05/26/20) EVER NUR MD Jul 11, 2020 21:50
== END 2020-07-11 13:05 | disposition home or self-care (01) ==
LOC: M ED 10:31 → M ED INP 18:45 → ENRESERV 20:09 → M PCU 21:10
PROVIDERS: ADMIT Internal Medicine Nephrology; ATTEND Internal Medicine Nephrology
DX: T40.1X1A Poisoning by heroin, accidental (unintentional), initial encounter (principal); G93.41 Metabolic encephalopathy; M62.82 Rhabdomyolysis; E16.2 Hypoglycemia, unspecified; F19.20 Other psychoactive substance dependence, uncomplicated; F32.9 Major depressive disorder, single episode, unspecified; F41.9 Anxiety disorder, unspecified; M94.0 Chondrocostal junction syndrome [Tietze]; I10 Essential (primary) hypertension; G43.909 Migraine, unspecified, not intractable, without status migrainosus; Z79.899 Other long term (current) drug therapy; F17.218 Nicotine dependence, cigarettes, with other nicotine-induced disorders
CPT/HCPCS: 36415; 70450; 71045; 80047; 80076; 80307; 82140; 82550; 82553; 83605; 84443; 85025; 93005; 93041; 94760; 96361; 96374; 96375; 96376; 99285; G0480; J1200; J1630; J2060; U0002

== ENCOUNTER 2020-07-19 23:40 | Emergency (ER) | payer MEDICAID ==
[~2020-07-19] VITALS: Ht 188 cm; Wt 72.0 kg
[~2020-07-19 23:40] MED LIST changes: +med rec comment
[2020-07-19] MEDS ORDERED: diphenhydrAMINE 50MG/ML VIAL (J1200) IM STA (23:54)
[2020-07-19] MEDS ORDERED: HALOPERIDOL 5MG/ML VIAL (J1630 PER 1) IM STA (23:54)
[2020-07-19] MEDS ORDERED: LORazepam 2 MG/ML VIAL IM STA (23:54)
[2020-07-20] MEDS ORDERED: NS 1,000 ML IV ONE ×3 (00:30→02:30)
[2020-07-20 00:55] LABS: BASO % 0.3 % (0.0-1.0); EOS # 0.1 10^3/uL (0.0-0.5); EOS % 1.3 % (0.0-3.0); HEMATOCRIT 39.3 % (42.0-52.0); HEMOGLOBIN 12.8 g/dl (13.5-17.5); LYMPH # 2.3 10^3/uL (1.5-5.0); LYMPH % 26.1 % (24.0-44.0); MEAN CORPUSCULAR HEMOGLOBIN 29.6 pg (27.0-33.0); MEAN CORPUSCULAR HGB CONC 32.6 g/dl (32.0-36.5); MONO % 11.1 % (0.0-5.0); NEUTROPHILS # 5.2 10^3/uL (1.5-8.5); NEUTROPHILS % 60.9 % (36.0-66.0); PLATELET COUNT, AUTOMATED 305 10^3/uL (150-450); RED BLOOD COUNT 4.32 10^6/uL (4.30-6.10); WHITE BLOOD COUNT 8.6 10^3/uL (4.0-10.0)
[2020-07-20 01:33] LABS: ACETAMINOPHEN LEVEL < 2.0 UG/ML (10.0-30.0); ALBUMIN 3.9 GM/DL (3.2-5.2); ALT/SGPT 45 U/L (12-78); AMPHETAMINES LEVEL URINE POSITIVE (NEGATIVE); BARBITURATES URINE NEGATIVE (NEGATIVE); BENZODIAZEPINES URINE NEGATIVE (NEGATIVE); BILIRUBIN,DIRECT 0.2 MG/DL (0.0-0.2); BILIRUBIN,TOTAL 0.5 MG/DL (0.2-1.0); BLOOD UREA NITROGEN 27 MG/DL (7-18); CALCIUM LEVEL 8.6 MG/DL (8.5-10.1); CANNABINOIDS URINE NEGATIVE (NEGATIVE); CARBON DIOXIDE LEVEL 29 MEQ/L (21-32); CHLORIDE LEVEL 104 MEQ/L (98-107); COCAINE METABOLITE URINE NEGATIVE (NEGATIVE); CPK CREATINE PHOSPHOKINASE 580 U/L (39-308); CREATININE FOR GFR 1.24 MG/DL (0.70-1.30); ETHYL ALCOHOL (ETHANOL) < 0.003 % (0.000-0.010); GLOMERULAR FILTRATION RATE > 60.0 (>60); GLUCOSE, FASTING 74 MG/DL (70-100); MAGNESIUM LEVEL 2.1 MG/DL (1.8-2.4); METHADONE URINE NEGATIVE (NEGATIVE); OPIATES URINE POSITIVE (NEGATIVE); PHENCYCLIDINE URINE NEGATIVE (NEGATIVE); POTASSIUM SERUM 3.9 MEQ/L (3.5-5.1); SODIUM LEVEL 138 MEQ/L (136-145); TOTAL PROTEIN 7.8 GM/DL (6.4-8.2)
--- NOTE | 2020-07-20 05:40 | ECGEPIP ---
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
[2020-07-20 09:00] VITALS: BP 111/69
[2020-07-20] MEDS ORDERED: LITH300C PO (11:13)
[2020-07-20] MEDS ORDERED: SERO200T PO (11:13)
[2020-07-20] MEDS ORDERED: COGE1INJ PO (11:13)
[2020-07-20] MEDS ORDERED: NALT50TA4 PO (11:13)
[2020-07-20] MEDS ORDERED: ABIL1INJ2 IM (11:13)
[2020-07-20] MEDS ORDERED: METF500T13 PO (11:13)
== END 2020-07-20 11:40 | disposition home or self-care (01) ==
LOC: M ED 23:40
DX: F16.229 Hallucinogen dependence with intoxication, unspecified (principal)
CPT/HCPCS: 36415; 80048; 80076; 80307; 82550; 83735; 84443; 85025; 93005; 93041; 94760; 96360; 96361; 96372; 99285; G0480; J1200; J1630; J2060

== ENCOUNTER 2020-07-29 23:10 | Emergency (ER) | payer MEDICAID ==
[~2020-07-29 23:10] MED LIST changes: +ABIL1INJ2 IM; +COGE1INJ PO; +LITH300C PO; +METF500T13 PO; +NALT50TA4 PO; +SERO200T PO
[2020-07-29] MEDS ORDERED: LORazepam 2 MG/ML VIAL As Ordered ONE (23:23)
[2020-07-29] MEDS ORDERED: LORazepam 2 MG/ML VIAL IM STA (23:24)
[2020-07-29] MEDS ORDERED: LORazepam 2 MG/ML VIAL IM ONE (23:45)
[2020-07-30] MEDS ORDERED: HALOPERIDOL 5MG/ML VIAL (J1630 PER 1) IM STA (00:04)
[2020-07-30 00:30] LABS: HEMATOCRIT 40.5 % (42.0-52.0); HEMOGLOBIN 12.9 g/dl (13.5-17.5); MEAN CORPUSCULAR HEMOGLOBIN 29.1 pg (27.0-33.0); MEAN CORPUSCULAR HGB CONC 31.9 g/dl (32.0-36.5); MEAN CORPUSCULAR VOLUME 91.2 fl (80.0-96.0); PLATELET COUNT, AUTOMATED 376 10^3/uL (150-450); RED BLOOD COUNT 4.44 10^6/uL (4.30-6.10); WHITE BLOOD COUNT 12.5 10^3/uL (4.0-10.0)
[2020-07-30 01:02] LABS: ACETAMINOPHEN LEVEL < 2.0 UG/ML (10.0-30.0); ALBUMIN 3.9 GM/DL (3.2-5.2); ALT/SGPT 39 U/L (12-78); BILIRUBIN,DIRECT 0.2 MG/DL (0.0-0.2); BILIRUBIN,TOTAL 0.5 MG/DL (0.2-1.0); BLOOD UREA NITROGEN 23 MG/DL (7-18); CALCIUM LEVEL 8.8 MG/DL (8.5-10.1); CARBON DIOXIDE LEVEL 28 MEQ/L (21-32); CHLORIDE LEVEL 107 MEQ/L (98-107); CPK CREATINE PHOSPHOKINASE 427 U/L (39-308); ETHYL ALCOHOL (ETHANOL) < 0.003 % (0.000-0.010); GLOMERULAR FILTRATION RATE > 60.0 (>60); GLUCOSE, FASTING 79 MG/DL (70-100); SALICYLATE LEVEL < 1.7 MG/DL (5.0-30.0); SODIUM LEVEL 140 MEQ/L (136-145); TOTAL PROTEIN 7.9 GM/DL (6.4-8.2)
[2020-07-30 14:46] VITALS: BP 106/65
== END 2020-07-30 14:45 | disposition home or self-care (01) ==
LOC: M ED 23:10
DX: F15.14 Other stimulant abuse with stimulant-induced mood disorder (principal); I10 Essential (primary) hypertension; G43.909 Migraine, unspecified, not intractable, without status migrainosus; Z88.8 Allergy status to other drugs, medicaments and biological substances; F17.210 Nicotine dependence, cigarettes, uncomplicated
CPT/HCPCS: 36415; 80048; 80076; 82550; 84443; 85027; 96372; 99285; G0480; J2060

== ENCOUNTER 2020-08-03 20:21 | Emergency (ER) | payer MEDICAID ==
[~2020-08-03] VITALS: Ht 175.3 cm; Wt 69.5 kg
[2020-08-03] MEDS ORDERED: HALOPERIDOL 5MG/ML VIAL (J1630 PER 1) As Ordered ONE (20:36)
[2020-08-03] MEDS ORDERED: LORazepam 2 MG/ML VIAL As Ordered ONE (20:37)
[2020-08-03] MEDS ORDERED: HALOPERIDOL 5MG/ML VIAL (J1630 PER 1) IM STA (20:45)
[2020-08-03] MEDS ORDERED: LORazepam 2 MG/ML VIAL IM STA (20:45)
[2020-08-03 23:40] LABS: HEMATOCRIT 39.1 % (42.0-52.0); HEMOGLOBIN 12.3 g/dl (13.5-17.5); MEAN CORPUSCULAR HEMOGLOBIN 29.1 pg (27.0-33.0); MEAN CORPUSCULAR HGB CONC 31.5 g/dl (32.0-36.5); MEAN CORPUSCULAR VOLUME 92.7 fl (80.0-96.0); PLATELET COUNT, AUTOMATED 340 10^3/uL (150-450); RED BLOOD COUNT 4.22 10^6/uL (4.30-6.10); WHITE BLOOD COUNT 9.4 10^3/uL (4.0-10.0)
[2020-08-03 23:49] LABS: BLOOD UREA NITROGEN 19 MG/DL (7-18); CALCIUM LEVEL 8.9 MG/DL (8.5-10.1); CARBON DIOXIDE LEVEL 32 MEQ/L (21-32); CHLORIDE LEVEL 108 MEQ/L (98-107); CREATININE FOR GFR 0.98 MG/DL (0.70-1.30); GLOMERULAR FILTRATION RATE > 60.0 (>60); GLUCOSE, FASTING 83 MG/DL (70-100); POTASSIUM SERUM 4.1 MEQ/L (3.5-5.1); SODIUM LEVEL 141 MEQ/L (136-145)
[2020-08-04] MEDS ORDERED: NS 1,000 ML IV ONE (09:00)
[2020-08-04 09:06] LABS: CPK CREATINE PHOSPHOKINASE 541 U/L (39-308)
[2020-08-04 12:00] VITALS: BP 116/68
== END 2020-08-04 12:20 | disposition home or self-care (01) ==
LOC: EDBD 20:21 → M ED 20:21
DX: F19.10 Other psychoactive substance abuse, uncomplicated (principal)
CPT/HCPCS: 80048; 82550; 85027; 94760; 96360; 96361; 96372; 99285; J1630; J2060

== ENCOUNTER 2020-08-10 12:47 | Emergency (ER) | payer MEDICAID | END 2020-08-10 13:28 | disposition left against medical advice (07) | LOC: M ED 12:47 → EDBD 12:47 → M ED 13:28 | DX: Z53.21 Procedure and treatment not carried out due to patient leaving prior to being seen by health care provider (principal) ==

== ENCOUNTER 2020-08-14 07:55 | Emergency (ER) | payer MEDICAID ==
[2020-08-14] MEDS ORDERED: LORazepam 2 MG/ML VIAL IM ONE (08:00)
[2020-08-14] MEDS ORDERED: LORazepam 2 MG/ML VIAL As Ordered ONE (08:02)
[2020-08-14] MEDS ORDERED: LORazepam 2 MG/ML VIAL IM STA (08:06)
[2020-08-14 22:26] VITALS: BP 129/70
== END 2020-08-14 22:45 | disposition home or self-care (01) ==
LOC: M ED 07:55
DX: F15.159 Other stimulant abuse with stimulant-induced psychotic disorder, unspecified (principal); B19.20 Unspecified viral hepatitis C without hepatic coma; Z88.5 Allergy status to narcotic agent
CPT/HCPCS: 96372; 99285; J2060

== ENCOUNTER 2020-08-24 22:21 | Emergency (ER) | payer MEDICAID ==
[~2020-08-24] VITALS: Ht 188 cm; Wt 65.1 kg
[2020-08-24] MEDS ORDERED: LORazepam 2 MG/ML VIAL IV STA (22:34)
[2020-08-24] MEDS ORDERED: NS 1,000 ML IV ONE (22:45)
[2020-08-24 22:52] LABS: BASO % 0.3 % (0.0-1.0); EOS % 0.3 % (0.0-3.0); HEMATOCRIT 43.1 % (42.0-52.0); HEMOGLOBIN 13.6 g/dl (13.5-17.5); LYMPH % 23.2 % (24.0-44.0); MEAN CORPUSCULAR HEMOGLOBIN 29.3 pg (27.0-33.0); MEAN CORPUSCULAR HGB CONC 31.6 g/dl (32.0-36.5); MEAN CORPUSCULAR VOLUME 92.9 fl (80.0-96.0); MONO # 0.9 10^3/uL (0.0-0.8); NEUTROPHILS % 68.6 % (36.0-66.0); PLATELET COUNT, AUTOMATED 424 10^3/uL (150-450); RED BLOOD COUNT 4.64 10^6/uL (4.30-6.10)
[2020-08-24] MEDS ORDERED: HALOPERIDOL 5MG/ML VIAL (J1630 PER 1) IM ONE (23:15)
[2020-08-24] MEDS ORDERED: diphenhydrAMINE 50MG/ML VIAL (J1200) IM ONE (23:15)
[2020-08-24] MEDS ORDERED: LORazepam 2 MG/ML VIAL IM ONE (23:15)
[2020-08-24 23:26] LABS: ALBUMIN 4.4 GM/DL (3.2-5.2); ALT/SGPT 39 U/L (12-78); BILIRUBIN,TOTAL 0.6 MG/DL (0.2-1.0); BLOOD UREA NITROGEN 32 MG/DL (7-18); CALCIUM LEVEL 9.5 MG/DL (8.5-10.1); CARBON DIOXIDE LEVEL 29 MEQ/L (21-32); CHLORIDE LEVEL 108 MEQ/L (98-107); CPK CREATINE PHOSPHOKINASE 177 U/L (39-308); CREATININE FOR GFR 1.44 MG/DL (0.70-1.30); GLOMERULAR FILTRATION RATE > 60.0 (>60); GLUCOSE, FASTING 73 MG/DL (70-100); POTASSIUM SERUM 4.6 MEQ/L (3.5-5.1); SODIUM LEVEL 142 MEQ/L (136-145); TOTAL PROTEIN 8.7 GM/DL (6.4-8.2)
[2020-08-25] MEDS ORDERED: NS 1,000 ML IV ONE
[2020-08-25 08:00] VITALS: BP 103/55
== END 2020-08-25 12:30 | disposition home or self-care (01) ==
LOC: M ED 22:21
DX: F19.10 Other psychoactive substance abuse, uncomplicated (principal); Z76.5 Malingerer [conscious simulation]; I10 Essential (primary) hypertension; F33.9 Major depressive disorder, recurrent, unspecified; F41.9 Anxiety disorder, unspecified; G43.909 Migraine, unspecified, not intractable, without status migrainosus; F17.210 Nicotine dependence, cigarettes, uncomplicated
CPT/HCPCS: 36415; 80053; 82550; 85025; 96361; 96372; 96374; 99285; J1200; J1630; J2060

== ENCOUNTER 2020-08-30 10:11 | Emergency (ER) | payer MEDICAID ==
[~2020-08-30] VITALS: Ht 188 cm; Wt 72.7 kg
[2020-08-30] MEDS ORDERED: LORazepam 2 MG/ML VIAL IV STA (10:16)
[2020-08-30 10:27] LABS: BASO % 0.3 % (0.0-1.0); EOS # 0.1 10^3/uL (0.0-0.5); EOS % 0.7 % (0.0-3.0); HEMATOCRIT 42.8 % (42.0-52.0); HEMOGLOBIN 13.4 g/dl (13.5-17.5); LYMPH % 19.6 % (24.0-44.0); MEAN CORPUSCULAR HEMOGLOBIN 29.3 pg (27.0-33.0); MEAN CORPUSCULAR HGB CONC 31.3 g/dl (32.0-36.5); MEAN CORPUSCULAR VOLUME 93.4 fl (80.0-96.0); MONO # 0.9 10^3/uL (0.0-0.8); MONO % 5.6 % (0.0-5.0); NEUTROPHILS # 11.3 10^3/uL (1.5-8.5); NEUTROPHILS % 73.3 % (36.0-66.0); PLATELET COUNT, AUTOMATED 404 10^3/uL (150-450); RED BLOOD COUNT 4.58 10^6/uL (4.30-6.10); WHITE BLOOD COUNT 15.3 10^3/uL (4.0-10.0)
[2020-08-30] MEDS ORDERED: diphenhydrAMINE 50MG/ML VIAL (J1200) IM ONE (10:30)
[2020-08-30] MEDS ORDERED: HALOPERIDOL 5MG/ML VIAL (J1630 PER 1) IM ONE (10:30)
[2020-08-30] MEDS ORDERED: NS 1,000 ML IV ONE ×2 (10:30→11:45)
[2020-08-30 11:23] LABS: ACETAMINOPHEN LEVEL < 2.0 UG/ML (10.0-30.0); ALBUMIN 4.2 GM/DL (3.2-5.2); ALT/SGPT 37 U/L (12-78); BILIRUBIN,DIRECT 0.1 MG/DL (0.0-0.2); BILIRUBIN,TOTAL 0.4 MG/DL (0.2-1.0); BLOOD UREA NITROGEN 25 MG/DL (7-18); CALCIUM LEVEL 8.8 MG/DL (8.5-10.1); CARBON DIOXIDE LEVEL 28 MEQ/L (21-32); CHLORIDE LEVEL 105 MEQ/L (98-107); CREATININE FOR GFR 1.06 MG/DL (0.70-1.30); ETHYL ALCOHOL (ETHANOL) < 0.003 % (0.000-0.010); GLOMERULAR FILTRATION RATE > 60.0 (>60); GLUCOSE, FASTING 77 MG/DL (70-100); POTASSIUM SERUM 4.7 MEQ/L (3.5-5.1); SALICYLATE LEVEL 2.3 MG/DL (5.0-30.0); SODIUM LEVEL 140 MEQ/L (136-145)
[2020-08-30 11:59] LABS: CK-MB VALUE MASS 12.4 NG/ML (<3.6); CPK CREATINE PHOSPHOKINASE 479 U/L (39-308); MB/CK RELATIVE INDEX 2.59 (< OR =4); TROPONIN I < 0.02 NG/ML (< 0.10)
[2020-08-30 12:13] LABS: RSV AMPLIFICATION NEGATIVE (NEGATIVE)
[2020-08-30] MEDS ORDERED: D5W/0.45% SODIUM CHLORIDE 1,000 ML IV ONE (16:00)
[2020-08-31 02:28] LABS: AMPHETAMINES LEVEL URINE POSITIVE (NEGATIVE); BARBITURATES URINE NEGATIVE (NEGATIVE); BENZODIAZEPINES URINE NEGATIVE (NEGATIVE); CANNABINOIDS URINE NEGATIVE (NEGATIVE); COCAINE METABOLITE URINE NEGATIVE (NEGATIVE); METHADONE URINE NEGATIVE (NEGATIVE); OPIATES URINE POSITIVE (NEGATIVE); PHENCYCLIDINE URINE NEGATIVE (NEGATIVE)
[2020-08-31 04:45] VITALS: BP 106/65
--- NOTE | 2020-08-31 08:48 | ECGEPIP ---
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
== END 2020-08-31 05:05 | disposition home or self-care (01) ==
LOC: M ED 10:11
DX: F19.10 Other psychoactive substance abuse, uncomplicated (principal); R00.0 Tachycardia, unspecified; R94.31 Abnormal electrocardiogram [ECG] [EKG]; G43.909 Migraine, unspecified, not intractable, without status migrainosus; F41.9 Anxiety disorder, unspecified; F32.9 Major depressive disorder, single episode, unspecified; F17.200 Nicotine dependence, unspecified, uncomplicated; Z88.5 Allergy status to narcotic agent
CPT/HCPCS: 80048; 80076; 80307; 82550; 82553; 84443; 85025; 86140; 87631; 93005; 96361; 96365; 96366; 96372; 96375; 99285; G0480; J1200; J1630; J2060

== ENCOUNTER 2020-09-11 15:06 | Emergency (ER) | payer MEDICAID, OTHER ==
[~2020-09-11] VITALS: Ht 185.4 cm; Wt 70.5 kg
[2020-09-11 15:34] VITALS: BP 131/87
== END 2020-09-11 16:01 | disposition home or self-care (01) ==
LOC: M ED 15:06
DX: F43.20 Adjustment disorder, unspecified (principal); F33.9 Major depressive disorder, recurrent, unspecified; Z88.8 Allergy status to other drugs, medicaments and biological substances; F17.210 Nicotine dependence, cigarettes, uncomplicated

== ENCOUNTER 2020-09-16 21:01 | Emergency (ER) | payer OTHER ==
[~2020-09-16] VITALS: Ht 188 cm; Wt 68.2 kg
--- OUTSIDE RECORDS SUMMARY | 2020-09-16 21:10 | CCD ---
Author Author NIEVES West Autogen erated Organization [facility] Address Unknown Phone Unavailable Care Team Providers Care Sew On Operator Name Role Phone Jennifer Ding Practitioner Rosales Roberson Practitioner Cynthia Romeo AttendingPractitioner1 Angely Edwards Practitioner Mi Kaur Practitioner Laverne Horvath Practitioner Dinh Horvath AdmittingPractitioner1 Functional Status Allergies Name Onset Date Reaction Severity TRAMADOL (Allergy) SunJul 31 07:00:00 EST 2016 Dyspnea Mild to moderate TRAMADOL (Allergy) SunJul 31 07:00:00 EST 2016 Erythema (finding) Mild to moderate Encounters Program Name Primary Diagnosis Admission Date/ Time Discharge Date/Time Integrated Outpatient Waiting Heroin use disorder, severe, dependence SunJanuary 02 12:39:00 EDT 2019 SunFeb 16 19:36:00 EDT 2019 [place] Opioid use disorder, teodora re SunJun 23 21:03:00 EST 2018Jul 02 15:41:00 EST 2018 [place] Severe amphetamine substance use disorder SunJun 24 08:29:00 EST 2018Jun 25 09:42:00 EST 2019 Immunizations No Known Immunizations Lab Results Result Type Result Value Date BUPRENORPHINE QUANT 407 NG/ML S un January 05 23:39:26 EDT 2018 NORBUPRENORPHINE QUANT 167 NG/ML SunJanuary 05 23:39:26 EDT 2019 ETHANOL SCREEN NEGATIVE MG/DL Murillo n January 05 23:39:26 EDT 2019 BENZODIAZEPINES NEGATIVE NG/ML S January 05 23:39:26 EDT 2018 COCAINE POSITIVE NG/ML SunDecember 18 23:39:26 EDT 2018 COCAINE LC/MS/MS POSITIVE NG/ML SunJanuary 05 23:39:26 EDT 2019 THC20,QUAL,URINE NEGATIVE NG/ML SunJanuary 05 23:39:26 EDT 2018 CREATININE 232.5 MG/DL SunDecember 18 23:39:26 EDT 2018 OPIATES NEGATIVE NG/ML SunDecember 18 23:39:26 EDT 2018 COMMENT PENDING SunJanuary 06 09 :31:53 EDT 2018 BUPRENORPHINE QUANT 6 NG/ML M on January 06 09:45:18 EDT 2018 NORBUPRENORPHINE QUANT 32 NG/ML SunJanuary 06 09:45:18 EDT 2018 ETHANOL SCREEN NEGATIVE MG/DL Mo n January 06 09:45:18 EDT 2018 BENZODIAZEPINES NEGATIVE NG/ML M on January 06 09:45:18 EDT 2018 COCAINE POSITIVE NG/ML SunDecember 19 0 09:45:18 EDT 2018 COCAINE LC/MS/MS POSITIVE NG/ML SunJanuary 06 09:45:18 EDT 2018 THC20,QUAL,URINE POSITIVE NG/ML SunJanuary 06 09:45:18 EDT 2018 CARBOXY THC 22 NG/ML SunDecember 19 0 09:45:18 EDT 2018 CARBOXY THC TO CREAT. RATIO 5 NG/MG SunJanuary 06 09:45:18 EDT 2018 CREATININE 389.4 MG/DL SunDecember 19 0 09:45:18 EDT 2018 OPIATES NEGATIVE NG/ML SunDecember 19 0 09:45:18 EDT 2018 BUPRENORPHINE QUANT 324 NG/ML T January 14 11:10:39 EDT 2018 NORBUPRENORPHINE QUANT 155 NG/ML SunJanuary 14 11:10:39 EDT 2018 ETHANOL SCREEN NEGATIVE MG/DL January 14 11:10:39 EDT 2018 MDMA NEGATIVE NG/ML SunJanuary 14 1 1:10:39 EDT 2018 AMPHETAMINES NEGATIVE NG/ML SunJanuary 14 11:10:39 EDT 2018 BARBITURATES NEGATIVE NG/ML SunJanuary 14 11:10:39 EDT 2018 BENZODIAZEPINES NEGATIVE NG/ML T January 14 11:10:39 EDT 2018 COCAINE POSITIVE NG/ML SunDecember 19 8 11:10:39 EDT 2018 COCAINE LC/MS/MS POSITIVE NG/ML SunJanuary 14 11:10:39 EDT 2018 THC20,QUAL,URINE NEGATIVE NG/ML SunJanuary 14 11:10:39 EDT 2018 CREATININE 128.1 MG/DL SunDecember 19 8 11:10:39 EDT 2018 METHADONE METABOLITE NEGATIVE NG/ML SunJanuary 14 11:10:39 EDT 2018 OPIATES NEGATIVE NG/ML SunDecember 19 8 11:10:39 EDT 2018 PHENCYCLIDINE NEGATIVE NG/ML SunJanuary 14 11:10:39 EDT 2019 Medications No Known Medication Information Problems Active Concerns * Opioid abuse * Code: 6268096 * Start Date: SunAug 20 07:00:00 EST 2011 * Text: * Tobacco user * Code: 411890950 * Start Date: SunAug 20 07:00:00 EST 2002 * Text: * Addiction/Abstinence/Withdrawal * Code: USER-Addiction * Start Date: SunAug 08 07:00:00 EST 2015 * Text: * Biomedical * Code: USER-Biomedical * Start Date: SunAug 08 07:00:00 EST 2015 * Text: * Legal * Code: USER-Legal * Start Date: SunAug 08 07:00:00 EST 2015 * Text: * Emotional/Behavioral/State of Change * Code: USER-Emotional * Start Date: SunAug 08 07:00:00 EST 2015 * Text: Procedures No Known Procedures Social History Social History Observation Description Clark e Smoking Status Current Every Da y Smoker SunJun 23 07:00:00 EST 2018 Smoking Status Current Every Da y Smoker SunJun 23 07:00:00 EST 2018 Sex Male SunJul 11 07:00:00 EST 1990 Vital Signs Vital Sign Measurement Date Temperature 97.6 [DEGF] SunJun 29 10:06:00 2018 Temperature 36.4 JOSE JUAN SunJun 20 10:06:00 2018 Heart Rate 89 /MIN SunJun 29 10:06:00 2018 Respiration 18 /MIN SunJun 20 10:06:00 2018 SpO2 97 % SunJun 29 10:06 :00 2018 Systolic 118 MM[HG] SunJun 29 1 0:06:00 2018 Diastolic 68 MM[HG] SunJun 29 10:06:00 2018 BP Position 2 Position SunJun 20 10:06:00 2018 Height 6 2.0 ft SunJun 29 10: 06:00 2018 Height 74 in SunJun 29 10: 06:00 2018 Height 188 cm SunJun 29 10: 06:00 2018 Weight Lbs 180 lbs SunJun 29 10:06:00 2018 Weight Kgs 81.8 KG SunJun 29 10:06:00 2018 BMI 23.1 % SunJun 29 10:06: 00 EST 2018 Temperature 97.4 [DEGF] Sun 06 03:44:00 EST 2019 Temperature 36.3 JOSE JUAN Sun Nov 0 6 03:44:00 EST 2018 Heart Rate 69 /MIN Sun 06 03:44:00 EST 2018 Respiration 16 /MIN Sun 0 6 03:44:00 EST 2018 Systolic 107 MM[HG] Sun 06 0 3:44:00 EST 2018 Diastolic 61 MM[HG] Sun 06 03:44:00 EST 2018 BP Position 1 Position Sun 0 6 03:44:00 EST 2018 Temperature 98.0 [DEGF] Sun 05 21:36:00 EST 2019 Temperature 36.7 JOSE JUAN Sun Nov 0 5 21:36:00 EST 2018 Heart Rate 100 /MIN Sun 05 21:36:00 EST 2018 Respiration 16 /MIN Sun 0 5 21:36:00 EST 2018 Systolic 103 MM[HG] Sun 05 2 1:36:00 EST 2018 Diastolic 71 MM[HG] Sun 05 21:36:00 EST 2018 BP Position 3 Position Sun 0 5 21:36:00 EST 2018 Temperature 97.3 [DEGF] Sun 05 08:54:00 EST 2019 Temperature 36.3 JOSE JUAN Sun Nov 0 5 08:54:00 EST 2018 Heart Rate 82 /MIN Sun 05 08:54:00 EST 2018 Respiration 16 /MIN Sun 0 5 08:54:00 EST 2018 SpO2 96 % Sun 05 08:54 :00 EST 2018 Systolic 115 MM[HG] Sun 05 0 8:54:00 EST 2018 Diastolic 71 MM[HG] Sun 05 08:54:00 EST 2018 Temperature 97.8 [DEGF] SunJanuary 03 11:53:00 EDT 2018 Temperature 36.6 JOSE JUAN SunDecember 18 7 11:53:00 EDT 2018 Heart Rate 95 /MIN SunJanuary 03 11:53:00 EDT 2018 Respiration 16 /MIN SunDecember 18 7 11:53:00 EDT 2018 Systolic 116 MM[HG] SunJanuary 03 1:53:00 EDT 2018 Diastolic 77 MM[HG] SunJanuary 03 11:53:00 EDT 2018 BP Position 2 Position SunDecember 18 11:53:00 EDT 2018 Height 6 2.0 ft SunJanuary 03 11: 53:00 EDT 2018 Height 74 in SunJanuary 03 11: 53:00 EDT 2018 Height 188 cm Fri May 17 11: 53:00 EDT 2018 Weight Lbs 166 lbs SunJanuary 03 11:53:00 EDT 2018 Weight Kgs 75.5 KG SunJanuary 03 11:53:00 EDT 2018 BMI 21.3 % SunJanuary 03 11:53: 00 EDT 2018 Temperature 97.7 [DEGF] SunJanuary 02 13:32:00 EDT 2018 Temperature 36.5 JOSE JUAN SunDecember 18 13:32:00 EDT 2018 Heart Rate 97 /MIN SunJanuary 02 13:32:00 EDT 2018 Respiration 17 /MIN SunDecember 18 13:32:00 EDT 2018 Systolic 117 MM[HG] SunJanuary 02 3:32:00 EDT 2018 Diastolic 74 MM[HG] SunJanuary 02 13:32:00 EDT 2018 BP Position 2 Position SunDecember 18 13:32:00 EDT 2018 Height 6 2 ft SunJanuary 02 13: 32:00 EDT 2018 Height 74 in SunJanuary 02 13: 32:00 EDT 2018 Height 188 cm SunJanuary 02 13: 32:00 EDT 2018 Weight Lbs 166 lbs SunJanuary 02 13:32:00 EDT 2018 Weight Kgs 75.5 KG SunJanuary 02 13:32:00 EDT 2018 BMI 21.3 % SunJanuary 02 13:32: 00 EDT 2018
--- OUTSIDE RECORDS SUMMARY | 2020-09-16 21:10 | CCD ---
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 .................. : [phone] Age ................................ : 29 Film# .................. .:[id number] Sex ................................. : M Unsigned transcriptions are preliminary reports and do not represent a medical or legal document CT ABD & PELVIS W/ IV ONLY 88290 COMPLETE:04/14/20 17:29 YANETH 65934 Reason(s): trauma. Contrast agent in mL: 75 Isovue 370 Method of administration: Intravenous Electronically Reviewed and Signed By Ace Moreira MD , 04/15/20 12:05, DARRYL Transcribe Initials: DZ , Transcribe Date: 04/14/20 22:28, Dictation Date: Copy for: ROSANA GOMEZ via fax Copy for: EMERGENCY DEPT via modem Copy for: 710 MED REC DISCHARGED Page 2 of 2 Name Value Range Interpretation Code Description Data Darlene rce(s) Supporting Document(s) ID Date Data Source [id number] 04/15/2020 12:04:00 [place] [address] PHONE: [phone] FAX: [phone] Name .................. : UAMIR Hanna Acct Number.................. : [id number] ROOM. ................. : TR-1B MR Number ................... : [id number] Stay type ............. : E/R Discharge Date......... ... : 04/14/20 Admit Date ......... : 04/14/20 Admit Phys .................... : KHUSHBOO MIN Date of ....... : 1990 Family Phys ................... : NONE Phone .................. : [phone] Age ................................ : 29 Film# .................. .:[id number] Sex ................................. : M Unsigned transcriptions are preliminary reports and do not represent a medical or legal document CT THORAX W/CONTRAST 17357 COMPLETE:04/14/20 17:29 YANETH 19440 Reason(s): trauma, rhonchi, lower t spine pain s/p fall. hx of IVDU and has CT OF THE CHEST WITH CONTRAST: COMPARISON: 10/17/15 FINDINGS: No reactive mediastinal or hilar adenopathy. No aneurysmal dilatation of the aorta. No aortic dissection. No cardiac enlargement or pericardial effusion. No infiltrate. No effusion. The lungs are expanded. No fracture. IMPRESSION: Unremarkable CT chest with contrast. The lungs are expanded. No infiltrate. No fracture. While performing the above CT examination, radiation dose reduction was accomplished utilizing automated exposure control, adjusting of the mA and kV based on the patient's body size and/or the use of imperative reconstructive techniques. CT dose: 560.8 mGycm Contrast agent in mL: 75 Isovue 370 Method of administration: Intravenous Electronically Reviewed and Signed By Ace Moreira MD , 04/15/20 12:04, [facility] Transcribe Initials: DIMITRIS , Transcribe Date: 04/14/20 22:25, Dictation Date: Page 1 of 2 [place] [address] PHONE: [phone] FAX: [phone] Name .................. : UMAIR Hanna Acct Number.................. : [id number] ROOM. ................. : TR-1B MR Number ................... : [id number] Stay type ............. : E/R Discharge Date......... ... : 04/14/20 Admit Date ......... : 04/14/20 Admit Phys .................... : KHUSHBOO MIN Date of ....... : 1990 Family Phys ................... : NONE Phone .................. : [phone] Age ................................ : 29 Film# .................. .:[id number] Sex ................................. : M Unsigned transcriptions are preliminary reports and do not represent a medical or legal document CT THORAX W/CONTRAST 28771 COMPLETE:04/14/20 17:29 YANETH 28299 Reason(s): trauma, rhonchi, lower t spine pain s/p fall. hx of IVDU and has Copy for: ROSANA GOMEZ via fax Copy for: EMERGENCY DEPT via modem Copy for: 710 MED REC DISCHARGED Page 2 of 2 Name Value Range Interpretation Code Description Data Darlene rce(s) Supporting Document(s) ID Date Data Source [id number] 04/15/2020 12:03:00 [place] [address] PHONE: [phone] FAX: [phone] Name .................. : UMAIR Hanna Acct Number.................. : [id number] ROOM. ................. : TR-1B MR Number ................... : [id number] Stay type ............. : E/R Discharge Date......... ... : 04/14/20 Admit Date ......... : 04/14/20 Admit Phys .................... : KHUSHBOO LEONARD Date of ....... : 1990 Family Phys ................... : NONE Phone .................. : [phone] Age ................................ : 29 Film# .................. .:[id number] Sex ................................. : M Unsigned transcriptions are preliminary reports and do not represent a medical or legal document CT HEAD W/O CONTRAST 22629 COMPLETE:04/14/20 17:29 YANETH 26336 Reason(s): Head Injury CT OF THE HEAD WITHOUT CONTRAST: INDICATION: Trauma. COMPARISON: 05/09/18 FINDINGS: No intra-axial or extra-axial collections of fluid. Ventricles and sulci unremarkable. No midline shift or mass effect. Visualized paranasal sinuses and mastoid air cells unremarkable. IMPRESSION: No acute intracranial process. While performing the above CT examination, radiation dose reduction was accomplished utilizing automated exposure control, adjusting of the mA and kV based on the patient's body size and/or the use of imperative reconstructive techniques. CT dose: 856 mGycm Electronically Reviewed and Signed By Ace Moreira MD , 04/15/20 12:03, DARRYL Transcribe Initials: DIMITRIS , Transcribe Date: 04/14/20 22:31, Dictation Date: Copy for: ROSANA GOMEZ via fax Copy for: EMERGENCY DEPT via [facility] Copy for: 710 MED REC DISCHARGED Page 1 of 1 Name Value Range Interpretation Code Description Data Darlene rce(s) Supporting Document(s) ID Date Data Source [id number] 04/14/2020 02:27:00 PM EDT [facility] 1 OrderSheet [facility] Emergency Department [address] [place] [address] Phone #: ext- [phone] 04/14/2020 14:24 Patient: NIEVES BLOCK Sex: M : 1990 Age: 29yWEIGHT:81.6 kg (S) HEIGHT:74 inches (S) BMI:23.1ALLERGIES: TraMADol HClCHIEF COMPLAINT: cycling, head, back, streetDIAGNOSIS: Contusion, Drug abuse, Sinus tachycardia, ProblemLAB ORDERSOrder Description Priority Entered Acknowledged InitialedBlood Culture STAT 14:55 04/14/2020 16:04 Grant,q10m X2 (Sched Griffin Chirinos R.N.14:55 04/14/2020) P.A.-C;Blood Culture STAT 14:55 04/14/2020 16:04 Grant,q10m X2 (Sched Griffin ChapinNMasoud15:05 04/14/2020) P.A.- C;CBC w Diff STAT 14:55 04/14/2020 15:02 Griffin Burns R.N. P.A.-C;CMP STAT 14:55 04/14/2020 15:02 Griffin Burns R.N. P.A.-C;Culture, Urine STAT 14:55 04/14/2020 15:02 Grant,(Urine, Clean Griffin Chirinos R.N.Catch) P.A.-C;Lactic Acid STAT 14:55 04/14/2020 15:02 Koffi Burns R.N. P.A.-C;PT/INR STAT 14:55 04/14/2020 15:02 Griffin Burns R.N. P.A.-C;PT/PTT STAT 14:55 04/14/2020 15:02 Griffin Burns R.N. P.A.-C;Troponin-T STAT 14:55 04/14/2020 15:02 Griffin Burns R.N. P.A.-C;Urinalysis (Clean STAT 14:55 04/14/2020 15:42 Gilda Claros) Griffin Christianson RN P.A.-C;Venous Blood Gas STAT 14:55 04/14/2020 15:11 Grant, 2 OrderSheet [facility] Emergency Department [address] [place] [address] Phone #: ext- [phone] 04/14/2020 14:24 Patient: NIEVES BLOCK Sex: M : 1990 Age: 29y Griffin Noland.A.- C;DIAGNOSTIC STUDY ORDERSOrder Description Priority Entered Acknowledged InitialedChest 2 View STAT 14:55 04/14/2020 Cancelled: Other 14:58 Griffin(Oxygen?(No)) Griffin LucianoA.-C P.A.-C; Reason for Study: FeverWrist Complete STAT 14:55 04/14/2020 15:25 Grant,Right Griffin Chirinos R.N.(Oxygen?(No)) P.A.-C; Reason for Study: Pain, Wrist InjuryFoot Complete STAT 14:55 04/14/2020 15:25 Grant,Right Griffin Chirinos R.N.(Oxygen?(No)) P.A.-C; Reason for Study: PainCT Head W/O Cont STAT 14:55 04/14/2020 Cancelled: Other 14:57 Griffin(Oxygen?(No)) Griffin Christianson P.A.-C P.A.-C; Reason for Study: Head InjuryMRI Spine Thoracic STAT 14:55 04/14/2020 Cancelled: Other 14:57 LuxopherW/O Cont Griffin Christianson P.A.-C(Oxygen?(No)) (No) P.A.-C; Reason for Study: ? spinal abscess vs injuryMRI Spine Lumbar STAT 14:55 04/14/2020 Cancelled: Other 14:57 ChristopherW/O Cont Griffin Christianson P.A.-C(Oxygen?(No)) (No) P.A.-C; Reason for Study: ? spinal abscess vs injuryChest 2 View STAT 14:59 04/14/2020 15:25 Grant,(Oxygen?(No)) Griffin Chirinos R.N. P.A.-C; Reason for Study: Congestion, FeverCT Chest W/ Cont STAT 16:12 04/14/2020 16:14 Grant,(Oxygen?(No)) Griffin Chirinos R.N.(IV?(Yes)) P.A.-C; Reason for Study: trauma, rhochi, lower t spine pain s/p fall. hx of IVDU and has feverCT Abd PEL W/ IV STAT 16:12 04/14/2020 16:14 Grant,Contrast Only Griffin Chirinos R.N.(Oxygen?(No)) P.A.-C;(IV?(Yes)) Reason for Study: trauma. 3 OrderSheet [facility] Emergency Department [address] [place] [address] Phone #: ext- [phone] 04/14/2020 14:24 Patient: NIEVES BLOCK Sex: M : 1990 Age: 29yCT Spine Lumbar STAT 16:12 04/14/2020 16:14 Marika Burns Cont Griffin Chirinos R.N.(Oxygen?(No)) P.A.-C;(IV?(Yes)) Reason for Study: REFORMAT. hx of IVDU and upper lumber pain s/p fall, but has feverCT Spine Thoracic STAT 16:12 04/14/2020 16:14 Marika Burns Cont Griffin Chirinos R.N.(Oxygen?(No)) P.A.-C;(IV?(Yes)) Reason for Study: REFORMAT: lower tspine pain; fall; hx of IVDU; has feverCT Head W/O Cont STAT 16:13 04/14/2020 16:14 Grant,(Oxygen?(No)) Griffin Chirinos R.N. P.A.-C; Reason for Study: Head InjuryMEDICATION/IV/DRIP/FLUID ORDERSOrder Description Priority Entered Acknowledged InitialedIV NS : Bolus 1000 14:55 04/14/2020 15:10 Grant,mL, then 75 mL/hr Griffin Chirinos R.N. P.A.-C;Ofirmev IV 1000 mg 14:55 04/14/2020 16:05 Grant,(NOW x1, Infuse Griffin Chirinos R.N.over 15 minutes) P.A.-C;Ativan IVP 2 mg 16:38 04/14/2020 16:43 Marquita,(HIGH ALERT Griffin Sam R.N.MEDICATION) P.A.-C;IV NS 1000 mL 17:36 04/14/2020 17:39 Grant,Bolus : Bolus 1000 Griffin Chirinos R.N.mL (X1) P.A.-C;GENERAL ORDERSOrder Description Priority Entered Acknowledged InitialedAccucheck 14:55 04/14/2020 15:11 Griffin Burns R.N. P.A.-C;Blood Pressure 14:55 04/14/2020 15:01 [facility] EDMonitor Mae Martinez P.A.-C; Qqtk3HSH 14:55 04/14/2020 15:01 [place] ED Mae Martinez P.A.-C; [id number] 14:55 04/14/2020 15:02 Grant, 4 OrderSheet [facility] Emergency Department [address] [place] [address] Phone #: ext- [phone] 04/14/2020 14:24 Patient: NIEVES BLOCK Sex: M : 1990 Age: 29y Griffin Chirinos R.N., P.A.-C;Pulse oximeter 14:55 04/14/2020 15:01 [facility] ED(Continuous) Mae Martinez P.A.-C; Znkg2Upgmob Lock 14:55 04/14/2020 15:02 Griffin Burns R.N., P.A.-C;Vitals 14:55 04/14/2020 15:01 [facility] ED Mae Martinez P.A.-C; [id number] Monitor 14:55 04/14/2020 15:01 [facility](continuous) Mae Martinez P.A.-C; Tech1[Electronically signed by Taran Burns R.N. (19:41 04/14/2020)][Electronically signed by Griffin Christianson P.A.-C (20:51 04/14/2020)][Electronically locked by Taran Burns R.N. (19:41 04/14/2020)] Name Value Range Interpretation Code Description Data Darlene rce(s) Supporting Document(s) ID Date Data Source [id number] 04/14/2020 02:27:00 PM EDT [facility] 1 Medication Reconciliation Report [facility] Emergency Department [address] [place] [address] Phone #: ext- [phone] 04/14/2020 14:24 Patient: NIEVES BLOCK Sex: M : 1990 Age: 29yWeight: 81.6 kgHeight/Length: 74 in.BMI: 23.1ALLERGIES: TraMADol HClThe patient's Home Medications are listed below:THE FOLLOWING MEDICATIONS NEED TO BE RECONCILED: No medicationsThe source(s) of the original Home Medication information:patientThe following Medications were given to the patient in the Emergency Department:IV NS IV Fluids bolus 0, then 1000 mL/hr, administered: 04/14/2020 3:09:00 PMOfirmev Drip IV bolus 0, then 1000mg, administered: 04/14/2020 3:40:00 PMAtivan [IVP] IVP 2 mg, administered: 04/14/2020 4:43:00 PMNS [IV] IV Fluids bolus 0, then 1000 mL/hr, administered: 04/14/2020 5:39:00 PMThe following Medications were prescribed to the patient:None. Name Value Range Interpretation Code Description Data Darlene rce(s) Supporting Document(s) ID Date Data Source [id number] 04/14/2020 02:27:00 PM EDT [facility] 1 Medication Administration Record [facility] Emergency Department [address] [place] [address] Phone #: ext- [phone] 04/14/2020 14:24 Patient: NIEVES BLOCK Sex: M : 1990 Age: 29yWeight: 81.6 kgHeight/Length: 74 inBMI: 23.1ALLERGIES: TraMADol HCl Date/Time Medication Administered Medication OrderedStart IV NS IV NS : Bolus 1000 mL, then 7515:09 04/14/2020 Dose: IV Fluids mL/hrTaran Burns R.N. Rate: 1000 mL/hr over 60 minute(s)---- Dispensed: 1000 mL bagStop Site: #1 left wrist16:25 04/14/2020Taran Burns R.N.Start Ofirmev * Ofirmev IV 1000 mg (NOW x1,15:40 04/14/2020 Dose: 1000mg * Drip IV Infuse over 15 minutes)Taran Burns R.N.----Stop19:15 04/14/2020Taran Burns R.N.Given ATIVAN [IVP] (LORAZEPAM) Ativan IVP 2 mg (HIGH ALERT16:43 04/14/2020 Dose: 2 mg IVP MEDICATION)Cecy Juárez R.N. Site: #1 left wristStart NS [IV] IV NS 1000 mL Bolus : Bolus 382491:39 04/14/2020 Dose: IV Fluids mL (X1)Taran Burns R.N. Rate: 1000 mL/hr over 60 minute(s)---- Dispensed: 1000 mL bagStop Site: #1 left wrist19:40 04/14/2020Taran Burns R.N. Name Value Range Interpretation Code Description Data Darlene rce(s) Supporting Document(s) ID Date Data Source [id number] 04/14/2020 02:27:00 PM EDT [facility] 1 General Instructions [facility] Emergency Department [address] [place] [address] Phone #: ext- [phone] 04/14/2020 14:24 Patient: NIEVES BLOCK Sex: M : 1990 Age: 29ySinus tachycardiaChronic substance abuse- heroin.No intoxication, delirium, delusions, hallucinations or perceptualdisturbances. No anxiety or drug induced psychotic disorder or mood disorder.Multiple contusions to the right wrist and right foot. ;abnormal serum liver function test. (Please f/u with PCP for furhter eval of elevated liver tests).INSTRUCTIONSNo dietary restrictions. Take clear liquids only.(Recommend to utilize OTC Motrin and Tylenol to control inflammation and pain management.Recommend to follow the instructions on the bottle and not to exceed.Please f/u with PCP or call [facility] to establish care.).Warnings: GENERAL WARNINGS: Return or contact your physician immediately if your conditionworsens or changes unexpectedly, if not improving as expected, or if other problems arise.Follow-up:Return to the emergency department as needed. Follow up with your healthcare provider in about twodays. Call for an appointment. Reason for referral: evaluation and treatment.Understanding of the discharge instructions verbalized by patient.Follow-up with: [facility], , , [address], ,[place], [address] Follow up. Reason for referral: evaluation, treatment and To establish care. ADDITIONAL INFORMATIONDrug AbuseUse and abuse of drugs like marijuana, amphetamines (speed, crank), cocaine, heroin or prescriptionpain medicines, sedatives and sleeping pills, MDMA, ecstasy, bath salts, PCP, mescaline and LSDm ay lead to addiction or dependence. Once this happens, you are at greater risk for any of thefollowing:Social and personal problems 2 General Instructions [facility] Emergency Department [address] [place] [address] Phone #: ext- [phone] 04/14/2020 14:24 Patient: NIEVES BLOCK Sex: M : 1990 Age: 29y Craving for the drug and not able to stop using even though you think you want to stop (psychological addiction) Drug withdrawal symptoms if you stop taking the drug (physical dependence) Loss of job or your family Arrest, conviction, and half-way sentence for possession of an illegal substance or for driving under the influenceHealth problems Strokes, heart attacks, kidney failure Accidental injuries to yourself or others while you are under the influence of the drug (in a car or at home) HIV infection (much gr eater risk if you use IV drugs) Skin infections Other sexually transmitted disease (STDs such as herpes, chlamydia, gonorrhea, and others) Severe and fatal infection of the heart valves (if you use IV drugs) Hepatitis B or C from overdoseHome careThe following suggestions can help you care for yourself at home: Admit you have a drug problem. Ask for help from your family and close friends. Seek professional help. This could be in the form of individual psychotherapy or counseling. There are also outpatient, inpatient, and residential drug treatment programs. Join a self-help group for drug abuse. Stay away from friends who abuse drugs or tempt you to continue abusing drugs. Eat a balanced diet and start a regular exercise program.Follow-up careFollow up with your healthcare provider, or as advised. Contact one of the resources below for help: National [employer] on Alcoholism and Drug Dependence www.ncadd.org 890-884-1468 3 General Instructions [facility] Emergency Department [address] [place] [address] Phone #: ext- [phone] 04/14/2020 14:24 Patient: NIEVES BLOCK Sex: M : 1990 Age: 29y Narcotics Anonymous www.[employer].org 517-236-0615 National Alcohol and Substance Abuse Information Center (for referral to treatment programs) www.addictioncareSol[facility].[employer] 447-124-6169Ikvr 911Call 911 if any of the following occur: Seizure Hard time breathing or slow, irregular breathing Chest pain Sudden weakness on one side of your body or sudden trouble speaking Very drowsy or trouble awakening Fainting or loss of consciousness Rapid heart rate Very slow heart rateWhen to seek medical adviceCall your healthcare provider right away if any of these occur: Agitation, anxiety, unable to sleep Unintended weight loss (more than 10 to 15 pounds over 3 months) Fever of 100.4F (38C) or higher, or as directed by your healthcare provider Shortness of breath Cough with colored sputum Redness, swelling, or tenderness at an injection site [id number] [employer]. [address] [place] [address]. All rights reserved. This information is not intended as asubstitute for professional medical care. Always follow your healthcare professional's instructions.Opiate AbuseUse and abuse of heroin or prescription pain medicines such as oxycodone, codeine, hydrocodone,morphine, methadone, and fentanyl may lead to addiction or dependence. Once this occurs, you areat greater risk for any of these: 4 General Instructions [facility] Department [address] [place] [address] Phone #: ext- [phone] 04/14/2020 14:24 Patient: NIEVES BLOCK Sex: M : 1990 Age: 29y Craving for the drug and unable to stop using the drug even though you think you want to stop (psychological addiction) Drug withdrawal symptoms if you stop taking the drug (physical dependence) Loss of your job or your family Arrest, conviction, and half-way sentence for possession of an illegal substance or for driving under the influence of such a substance Accidental injuries to yourself or others while you are under the influence of the drug in a car or at home or serious injury from overdoseHealth problemsThe list of potential health problems is a long one. It can be different with different medicines. Theycan cause problems even if you have no history of medical problems. It is also affected by othermedicines you may be taking, and chronic illnesses you may have. Besides the problems listedabove, abuse also has other effects, some directly related to the drugs, others from or related toaddiction or dependency. Anxiety Seizures Constipation Hepatitis (liver infection) Liver failure Blood pressure problems Depression Insomnia Nausea, vomiting, and stomach problems Drowsiness Slurred speech Trouble breathing Dizziness Skin infections 5 General Instructions [facility] Department [address] [place] [address] Phone #: ext- [phone] 04/14/2020 14:24 Patient: NIEVES BLOCK Sex: M : 1990 Age: 29y Muscle pain and spasms Stroke Heart attack Kidney failure HIV infection Skin infections Other sexually transmitted diseases Severe and fatal infection of the heart valves Coma and deathHome care Admit you have a drug problem. Ask for help from your family and close friends. Seek professional help. This could be individual psychotherapy, counseling, or a drug treatment program (outpatient or residential). Join a self-help group for drug abuse. Avoid friends who abuse drugs themselves or tempt you to continue your habit. Eat a balanced diet and begin a regular exercise program.Follow-up careFollow up with your healthcare provider, or as advised. Contact one of the resources below for help: National [place] [employer] Alcoholism and Drug Dependence, www.ncadd.org 203-902-QKCX Narcotics Anonymous. Check your phone book for a local listing, call 123-281-9997, or visit www.[employer].org. [employer] Alcohol and Substance Abuse Information Center for referral to treatment programs www.YouView 325-499-4097Swgl 911Call 91 if any of these occur: Seizure 6 General Instructions [facility] Department [address] [place] [address] Phone #: ext- [phone] 04/14/2020 14:24 Patient: NIEVES BLOCK Sex: M : 1990 Age: 29y Trouble breathing or slow, irregular breathing Chest pain Sudden weakness on one side of your body or sudden trouble speaking Very drowsy or trouble awakening Fainting or loss of consciousness Rapid heart rate Very slow heart rateWhen to seek medical adviceCall your healthcare provider right away if any of these occur: Symptoms of withdrawal. These include agitation, anxiety, trembling, sweats, diarrhea, unable to sleep. Fever of 100.4F (38.0C) or higher, or as directed by your healthcare provider Excessive drowsiness or inability to be awakened Redness, swelling, or tenderness at an injection site 1999- 2017 [employer]. [address] [place] [address]. All rights reserved. This information is not intended as asubstitute for professional medical care. Always follow your healthcare professional's instructions.Soft Tissue ContusionYou have a contusion. This is also called a bruise. There is swelling and some bleeding under theskin. This injury generally takes a few days to a few weeks to heal. During that time, the bruise willtypically change in color from reddish, to purple-blue, to greenish-yellow, then to yellow-brown.Home care Elevate the injured area to reduce pain and swelling. As much as possible, sit or lie down with the injured area raised about the level of your heart. This is especially important during the first 48 hours. Ice the injured area to help reduce pain and swelling. Wrap a cold source (ice pack or ice cubes in a plastic bag) in a thin towel. Apply to the bruised area for 20 minutes every 1 to 2 hours the first day. Continue this 3 to 4 times a day until the pain and swelling goes away. Unless another medicine was prescribed, you can take acetaminophen, ibuprofen, or naproxen to control pain. (If you have chronic liver or kidney disease or ever had a stomach 7 General Instructions [facility] Department [address] [place] [address] Phone #: ext- [phone] 04/14/2020 14:24 Patient: NIEVES BLOCK Sex: M : 1990 Age: 29y ulcer or gastrointestinal bleeding, talk with your doctor before using these medicines.)Follow-up careFollow up with your healthcare provider or our staff as advised. Call if you are not better in 1 to 2weeks.When to seek medical adviceCall your healthcare provider right away if you have any of the following: Increased pain or swelling Bruise is on an arm or leg and arm or leg becomes cold, blue, numb or tingly Signs of infection: Warmth, drainage, or increased redness or pain around the contusion Inability to move the injured area or body part Bruise is near your eye and you have problems with your eyesight or eye Frequent bruising for unknown reasons [id number] [employer]. [address] [place] [address]. All rights reserved. This information is not intended as asubstitute for professional medical care. Always follow your healthcare professional's instructions.Upper Extremity ContusionYou have a contusion (bruise) of an upper extremity (arm, wrist, hand, or fingers). Symptoms includepain, swelling, and skin discoloration. No bones are broken. This injury may take from a few days to afew weeks to heal. During that time, th e bruise may change from reddish in color, to purple-blue, togreen-yellow, to yellow-brown.Home care Unless another medicine was prescribed, you can take acetaminophen, ibuprofen, or naproxen to control pain. (If you have chronic liver or kidney disease or ever had a stomach ulcer or gastrointestinal bleeding, talk with your doctor before using these medicines.) Elevate the injured area to reduce pain and swelling. As much as possible, sit or lie down with the injured area raised about the level of your heart. This is especially important during the first 48 hours. Ice the injured area to help reduce pain and swelling. Wrap a cold source (ice pack or ice cubes in a plastic bag) in a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
[2020-09-16 21:17] VITALS: BP 150/83
--- OUTSIDE RECORDS SUMMARY | 2020-09-16 22:01 | CCD ---
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 Sulfapyridine Can see falsely depressed Can see falsely elevated result with up to 29% results with up to 10% decrease in measurement increase in measurement Recommend patients be collected for this test prior to administration of either drug. Alkaline Phosphatase 91 U/L 38-126 Normal (applies to non-num oracio results) [facility] can increase Alkaline Phosp le vels up to 2 times the normal adult value. Normal values for children and adolescents are 2 to 3 times the normal adult value. Total Protein 6.0-8.2 Normal (applies to non-numeric re sults) [facility] Albumin Level 3.4-5.0 Normal (applies to non-numeric re sults) [facility] ID Date Data Source [id number] 04/24/2020 01:58:00 PM EDT [facility] Name Value Range Interpretation Code Description Data Darlene rce(s) Supporting Document(s) Bilirubin,Direct 0.05-0.20 Normal (applies to non-numeric results) [facility] ID Date Data Source [id number] 04/24/2020 01:58:00 PM [facility] Value Range Interpretation Code Description Data Darlene rce(s) Supporting Document(s) Phosphorus 2.5-4.9 Normal (applies to non-numeric resul ts) [facility] ID Date Data Source [id number] 04/24/2020 01:58:00 PM EDT [facility] Name Value Range Interpretation Code Description Data Darlene rce(s) Supporting Document(s) Magnesium 1.8-2.4 Normal (applies to non-numeric resul ts) [facility] ID Date Data Source [id number] 04/24/2020 01:58:00 PM [facility] Value Range Interpretation Code Description Data Darlene rce(s) Supporting Document(s) Thyroid Stimulate Hormone TSH 0.358-3.74 No rmal (applies to non-numeric results) [facility] ID Date Data Source [id number] 04/24/2020 01:42:00 PM EDT [facility] Name Value Range Interpretation Code Description Data Darlene rce(s) Supporting Document(s) Ethanol Less than 10.0 Normal (applies to non-numeric r esults) [facility] ID Date Data Source [id number] 04/24/2020 01:39:00 PM EDT [facility] Name Value Range Interpretation Code Description Data Darlene rce(s) Supporting Document(s) White Blood Count 3.5-10.5 Normal (applies to non-numeri c results) [facility] Red Blood Count 4.30-5.70 Below low normal [facility] Hemoglobin 13.5-17.5 Below low normal [facility] Hematocrit 38.8-50.0 Normal (applies to non-numeric resul ts) [facility] Mean Corpuscular Volume 81.2-95.1 Normal (applies to non- numeric results) [facility] Mean Corpuscular Hgb 25.6-32.2 Normal (applies to non-num oracio results) [facility] Mean Corpuscular Hgb Conc 32.0-36.0 Normal (applies to no n-numeric results) [facility] Red Cell Distribution Width 11.8-15.6 Normal (appli es to non-numeric results) [facility] Platelet Count 294 x10 3/uL 150-450 Normal (applies to non-numeric results) [facility] Mean Platelet Volume 9.4-12.4 Below low normal [facility] Neutrophils% (Auto) 31.0-71.0 Normal (applies to non-nume leonard results) [facility] Lymphocytes% (Auto) 20.0-55.0 Normal (applies to non-nume leonard results) [facility] Monocytes% (Auto) 4.0-12.0 Normal (applies to non-numeri c results) [facility] Eosinophils% (Auto) 1.0-8.0 Normal (applies to non-nume leonard results) [facility] Basophils% (Auto) 0.0-2.0 Normal (applies to non-numeri c results) [facility] Immature Granulocytes% (Auto) 0.0-2.0 Normal (marli lies to non-numeric results) [facility] Neutrophils# (Auto) 1.50-6.20 Normal (applies to non-nume leonard results) [facility] Lymphocytes# (Auto) 1.20-4.00 Normal (applies to non-nume leonard results) [facility] Monocytes# (Auto) 0.00-0.90 Normal (applies to non-numeri c results) [facility] Eosinophils# (Auto) 0.00-0.50 Normal (applies to non-nume leonard results) [facility] Basophils# (Auto) 0.00-0.20 Normal (applies to non-numeri c results) [facility] Immature Granulocytes# (Auto) 0.00-7.00 No rmal (applies to non-numeric results) [facility] ID Date Data Source [id number] 04/27/2020 05:30:00 PM EDT [facility] Name Value Range Interpretation Code Description Data Darlene rce(s) Supporting Document(s) Hepatitis A Ab,IgG result Normal (applies to no n-numeric results) [facility] Result indicates immunity to hepatitis A infection from either vaccination or past exposure to hepatitis A. False-positive results may be observed in patients with CMV antibodies or heterophilic antibodies. REFERENCE VALUE Unvaccinated: Negative Vaccinated: Positive Test Performed by: [facility] [place] [address] Broiler Chef Or Cook: Charles Jones M.D. Ph.D.; CLIA# [id number] ID Date Data Source [id number] 04/27/2020 04:50:00 PM EDT [facility] Name Value Range Interpretation Code Description Data Darlene rce(s) Supporting Document(s) Hepatitis A Ab,IgG result Normal (applies to no n-numeric results) [facility] Result indicates immunity to hepatitis A infection from either vaccination or past exposure to hepatitis A. False-positive results may be observed in patients with CMV antibodies or heterophilic antibodies. REFERENCE VALUE Unvaccinated: Negative Vaccinated: Positive Test Performed by: [facility] [address] [place] [address] Broiler Chef Or Cook: Charles Jones M.D. Ph.D.; CLIA# [id number] ID Date Data Source [id number] 04/24/2020 02:24:00 PM EDT [facility] Name Value Range Interpretation Code Description Data Darlene rce(s) Supporting Document(s) UDS Phencyclidine Screen Negative Normal (applies to non -numeric results) [facility] UDS Benzodiazepines Screen Negative Normal (applies to n on-numeric results) [facility] UDS Cocaine Screen Negative Normal (applies to non-numer ic results) [facility] UDS Ampetamine Screen Negative [facility] UDS Cannabinoids Screen Negative Normal (applies to non- numeric results) [facility] UDS Opiates Screen Negative [facility] UDS Barbiturates Screen Negative Normal (applies to non- numeric results) [facility] UDS Tricyclic Screen Negative Normal (applies to non-num oracio results) [facility] Therapeutic Drug Ranges for Emergency Threshold Levels [...] treatment purposes only. ID Date Data Source [id number] 04/24/2020 02:21:00 PM T [facility] Collected By: Nurse's Aide Initials: AC Name Value Range Interpretation Code Description Data Darlene rce(s) Supporting Document(s) Color,Urine Colorl-Dk Y Normal (applies to non-numeric res ults) [facility] Clarity,Urine Clear Normal (applies to non-numeric re sults) [facility] Specific [place],Urine 1.005-1.030 Normal (applies to non- numeric results) [facility] pH,Urine 5.0-8.0 Normal (applies to non-numeric resul ts) [facility] Protein,Urine Negative Normal (applies to non-numeric re sults) [facility] Glucose,Urine Negative Normal (applies to non-numeric re sults) [facility] Ketones,Urine Negative Normal (applies to non-numeric re sults) [facility] Blood,Urine Negative Normal (applies to non-numeric resu lts) [facility] Bilirubin,Urine Negative Normal (applies to non-numeric results) [facility] Urobilinogen,Urine 0.2-1.0 Normal (applies to non-numer ic results) [facility] Leukocyte Esterase,Urine Negative Normal (applies to non -numeric results) [facility] Nitrite,Urine Negative Normal (applies to non-numeric re sults) [facility] ID Date Data Source [id number] 04/27/2020 12:36:00 PM EDT [facility] Name Value Range Interpretation Code Description Data Darlene rce(s) Supporting Document(s) Chlamydia,Urine result Negative Normal (applies to non-n umeric results) [facility] Test [facility]formed By: [facility] [address] [place] [address] Director: Patricia Roberson MD . GC Urine result Negative Normal (applies to non-numeric results) [facility] Test Performed By: [facility] [address] [place] [address] Director: Patricia Roberson MD . Methodology: Second generation nucleic acid amplification. ID Date Data Source [id number] 04/15/2020 12:11:00 PM EDT [facility] [address] [place] [address] PHONE: [phone] FAX: [phone] Name .................. : UMAIR Hanna Acct Number.................. : [id number] ROOM. ................. : -1B MR Number ................... : [id number] Stay type ............. : E/R Discharge Date......... ... : 04/14/20 Admit Date ......... : 04/14/20 Admit Phys .................... : KHUSHBOO MIN Date of ....... : 1990 Family Phys ................... : NONE Phone .................. : [phone] Age ................................ : 29 Film# .................. .:[id number] Sex ................................. : M Unsigned transcriptions are preliminary reports and do not represent a medical or legal document CHEST 2 VIEWS 15787 COMPLETE:04/14/20 16:51 [facility] [id number] Reason(s): Congestion CHEST X-RAY: 2-VIEWS INDICATION: Congestion. [...] rce(s) Supporting Document(s) ID Date Data Source [id number] 04/15/2020 12:11:00 PM EDT [facility] [address] [place] [address] PHONE: [phone] FAX: [phone] Name .................. : UMAIR Hanna Acct Number.................. : [id number] ROOM. ................. : TR-1B MR Number ................... : [id number] Stay type ............. : E/R Discharge Date......... ... : 04/14/20 Admit Date ......... : 04/14/20 Admit Phys .................... : KHUSHBOO MIN Date of ....... : 1990 Family Phys ................... : NONE Phone .................. : [phone] Age ................................ : 29 Film# .................. .:[id number] Sex ................................. : M Unsigned transcriptions are preliminary reports and do not represent a medical or legal document FOOT COMPLETE-[address] [place] [id number] COMPLETE:04/14/20 16:51 [facility] [id number] Reason(s): Pain RIGHT FOOT X-RAY: INDICATION: Status [...] rce(s) Supporting Document(s) ID Date Data Source [id number] 04/15/2020 12:11:00 [place] [address] PHONE: [phone] FAX: [phone] Name .................. : BLOCK NIEVES Hanna Acct Number.................. : [id number] ROOM. ................. : TR-1B MR Number ................... : [id number] Stay type ............. : E/R Discharge Date......... ... : 04/14/20 Admit Date ......... : 04/14/20 Admit Phys .................... : KHUSHBOO MIN Date of ....... : 1990 Family Phys ................... : NONE Phone .................. : [phone] Age ................................ : 29 Film# .................. .:[id number] Sex ................................. : M Unsigned transcriptions are preliminary reports and do not represent a medical or legal document WRIST COMPLETE RT [id number] COMPLETE:04/14/20 16:51 [facility] [id number] Reason(s): Pain RIGHT WRIST X-RAY: INDICATION: Status [...] rce(s) Supporting Document(s) ID Date Data Source [id number] 04/15/2020 12:05:00 PM EDT [facility] [address] [place] [address] PHONE: [phone] FAX: [phone] Name .................. : UMAIR Hanna Acct Number.................. : [id number] ROOM. ................. : -1B MR Number ................... : [id number] Stay type ............. : E/R Discharge Date......... ... : 04/14/20 Admit Date ......... : 04/14/20 Admit Phys .................... : KHUSHBOO MIN Date of ....... : 1990 Family Phys ................... : NONE Phone .................. : [phone] Age ................................ : 29 Film# .................. .:[id number] Sex ................................. : M Unsigned transcriptions are preliminary reports and do not represent a medical or legal document CT THORACIC SPINE W/CONTR 79610 COMPLETE:04/14/20 17:29 YANETH [address] Reason(s): REFORMAT: lower tspine pain; fall; hx [...] rce(s) Supporting Document(s) ID Date Data Source [id number] 04/15/2020 12:05:00 [place] [address] PHONE: [phone] FAX: [phone] Name .................. : UMAIR Hanna Acct Number.................. : [id number] ROOM. ................. : TR-1B MR Number ................... : [id number] Stay type ............. : E/R Discharge Date......... ... : 04/14/20 Admit Date ......... : 04/14/20 Admit Phys .................... : KHUSHBOO MIN Date of ....... : 1990 Family Phys ................... : NONE Phone .................. : [phone] Age ................................ : 29 Film# .................. .:[id number] Sex ................................. : M Unsigned transcriptions are preliminary reports and do not represent a medical or legal document CT LS W/CONTRAST 00177 COMPLETE:04/14/20 17:29 YANETH 23193 Reason(s): REFORMAT. hx of IVDU and upper [...] rce(s) Supporting Document(s) ID Date Data Source [id number] 04/15/2020 12:05:00 PM EDT [facility] [address] [place] [address] PHONE: [phone] FAX: [phone] Name .................. : UMAIR Hanna Acct Number.................. : [id number] ROOM. ................. : TR-1B MR Number ................... : [id number] Stay type ............. : E/R Discharge Date......... ... : 04/14/20 Admit Date ......... : 04/14/20 Admit Phys .................... : KHUSHBOO MIN Date of ....... : 1990 Family Phys ................... : NONE Phone .................. : [phone] Age ................................ : 29 Film# .................. .:[id number] Sex ................................. : M Unsigned transcriptions are preliminary reports and do not represent a medical or legal document CT ABD & PELVIS W/ IV ONLY 41131 COMPLETE:04/14/20 17:29 YANETH 15862 Reason(s): trauma. CT OF THE ABDOMEN AND [...] dose: 913.1 mGycm Page 1 of 2 [facility] [address] [place] [address] PHONE: [phone] FAX: [phone] Name .................. : UMAIR Hanna Acct Number.................. : [id number] ROOM. ................. : -1B MR Number ................... : [id number] Stay type ............. : E/R Discharge Date......... ... : 04/14/20 Admit Date ......... : 04/14/20 Admit Phys .................... : KHUSHBOO MIN Date of ....... : 1990 Family Phys ................... : NONE Phone .................. : [phone] Age ................................ : 29 Film# .................. .:[id number] Sex ................................. : M Unsigned transcriptions are preliminary reports and do not represent a medical or legal document CT ABD & PELVIS W/ IV ONLY [id number] COMPLETE:04/14/20 17:29 YANETH 13966 Reason(s): trauma. Contrast agent in mL: 75 [...] rce(s) Supporting Document(s) ID Date Data Source [id number] 04/15/2020 12:04:00 [place] [address] PHONE: [phone] FAX: [phone] Name .................. : UMAIR Hanna Acct Number.................. : [id number] ROOM. ................. : TR-1B MR Number ................... : [id number] Stay type ............. : E/R Discharge Date......... ... : 04/14/20 Admit Date ......... : 04/14/20 Admit Phys .................... : KHUSHBOO MIN Date of ....... : 1990 Family Phys ................... : NONE Phone .................. : [phone] Age ................................ : 29 Film# .................. .:[id number] Sex ................................. : M Unsigned transcriptions are preliminary reports and do not represent a medical or legal document CT THORAX W/CONTRAST 58423 COMPLETE:04/14/20 17:29 YANETH [address] Reason(s): trauma, rhonchi, lower t spine pain [...] By Ace Moreira MD , 04/15/20 12:04, [facility] Transcribe Initials: DIMITRIS , Transcribe Date: 04/14/20 22:25, Dictation Date: Page 1 of 2 [place] [address] PHONE: [phone] FAX: [phone] Name .................. : UMAIR Hanna Acct Number.................. : [id number] ROOM. ................. : TR-1B MR Number ................... : [id number] Stay type ............. : E/R Discharge Date......... ... : 04/14/20 Admit Date ......... : 04/14/20 Admit Phys .................... : KHUSHBOO MIN Date of ....... : 1990 Family Phys ................... : NONE Phone .................. : [phone] Age ................................ : 29 Film# .................. .:[id number] Sex ................................. : M Unsigned transcriptions are preliminary reports and do not represent a medical or legal document CT THORAX W/CONTRAST 56299 COMPLETE:04/14/20 17:29 YANETH 385[address] Reason(s): trauma, rhonchi, lower t spine pain s/p fall. hx of IVDU and has Copy for: ROSANA GOMEZ via fax Copy for: EMERGENCY DEPT via modem Copy for: 710 MED REC DISCHARGED Page 2 of 2 Name Value Range Interpretation Code Description Data Darlene rce(s) Supporting Document(s) ID Date Data Source [id number] 04/15/2020 12:03:00 [place] [address] PHONE: [phone] FAX: [phone] Name .................. : UMAIR aHnna Acct Number.................. : [id number] ROOM. ................. : TR-1B MR Number ................... : [id number] Stay type ............. : E/R Discharge Date......... ... : 04/14/20 Admit Date ......... : 04/14/20 Admit Phys .................... : KHUSHBOO LEONARD Date of ....... : 1990 Family Phys ................... : NONE Phone .................. : [phone] Age ................................ : 29 Film# .................. .:[id number] Sex ................................. : M Unsigned transcriptions are preliminary reports and do not represent a medical or legal document CT HEAD W/O CONTRAST [id number] COMPLETE:04/14/20 17:29 YANETH [id number] Reason(s): Head Injury CT OF THE HEAD [...] via fax Copy for: EMERGENCY DEPT via [facility] Copy for: 710 MED REC DISCHARGED Page 1 of 1 Name Value Range Interpretation Code Description Data Darlene rce(s) Supporting Document(s) ID Date Data Source [id number] 04/14/2020 02:27:00 PM EDT [facility] 1 OrderSheet [facility] Emergency Department [address] [place] [address] Phone #: ext- [phone] 04/14/2020 14:24 Patient: [...] STAT 14:55 04/14/2020 15:11 Grant, 2 OrderSheet [facility] Emergency Department [address] [place] [address] Phone #: ext- [phone] 04/14/2020 14:24 Patient: [...] P.A.-C;(IV?(Yes)) Reason for Study: trauma. 3 OrderSheet [facility] Emergency Department [address] [place] [address] Phone #: ext- [phone] 04/14/2020 14:24 Patient: [...] Burns R.N. P.A.-C;Blood Pressure 14:55 04/14/2020 15:01 [place] [facility] Mae Martinez P.A.-C; Qmae5JPS 14:55 04/14/2020 15:01 [place] [facility] Mae Martinez P.A.-C; Vmat3MCD 14:55 04/14/2020 15:02 Grant, 4 OrderSheet [facility] Emergency Department [address] [place] [address] Phone #: ext- [phone] 04/14/2020 14:24 Patient: NIEVES BLOCK Sex: M : 1990 Age: 29y Griffin Chirinos R.N., P.A.-C;Pulse oximeter 14:55 04/14/2020 15:01 [place] [facility](Continuous) Mae Martinez P.A.-C; Llun0Stcbki Lock 14:55 04/14/2020 15:02 Griffin Burns R.N., P.A.-C;Vitals 14:55 04/14/2020 15:01 [place] [facility] Mae Martinez P.A.-C; [id number] Monitor 14:55 04/14/2020 15:01 [place] [facility](continuous) Mae Martinez P.A.-C; Tech1[Electronically signed by Taran Burns R.N. (19:41 04/14/2020)][Electronically signed by Griffin Christianson P.A.-C (20:51 04/14/2020)][Electronically locked by Taran Burns R.N. (19:41 04/14/2020)] Name Value Range Interpretation Code Description Data Darlene rce(s) Supporting Document(s) ID Date Data Source [id number] 04/14/2020 02:27:00 PM EDT [facility] 1 Medication Reconciliation Report [facility] Emergency Department [address] [place] [address] Phone #: ext- [phone] 04/14/2020 14:24 Patient: [...] rce(s) Supporting Document(s) ID Date Data Source [id number] 04/14/2020 02:27:00 PM EDT [facility] 1 Medication Administration Record [facility] Emergency Department [address] [place] [address] Phone #: ext- [phone] 04/14/2020 14:24 Patient: [...] IV NS 1000 mL Bolus : Bolus [id number] 04/14/2020 Dose: IV Fluids mL (X1)Taran Burns R.N. Rate: 1000 mL/hr over 60 minute(s)---- Dispensed: 1000 mL bagStop Site: #1 left wrist19:40 04/14/2020Taran Burns R.N. Name Value Range Interpretation Code Description Data Darlene rce(s) Supporting Document(s) ID Date Data Source [id number] 04/14/2020 02:27:00 PM EDT [facility] 1 General Instructions [facility] Emergency Department [address] [place] [address] Phone #: ext- [phone] 04/14/2020 14:24 Patient: [...] to exceed.Please f/u with PCP or call [facility] to establish care.).Warnings: GENERAL WARNINGS: Return or contact your physician immediately if your conditionworsens or changes unexpectedly, if not improving as expected, or if other problems arise.Follow-up:Return to the emergency department as needed. Follow up with your healthcare provider in about twodays. Call for an appointment. Reason for referral: evaluation and treatment.Understanding of the discharge instructions verbalized by patient.Follow-up with: [facility], , , [address] [facility], ,[place], [address] Follow up. 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) Drug withdrawal symptoms if you stop taking the drug (physical dependence) Loss of job or your family Arrest, conviction, and mcfp sentence for possession of an illegal substance [...] of the resources below for help: National [place] on Alcoholism and Drug Dependence www.ncadd.org 908-045-6623 3 General Instructions [facility] Emergency Department [address] [place] [address] Phone #: ext- [phone] 04/14/2020 14:24 Patient: NIEVES BLOCK Sex: M : 1990 Age: 29y Narcotics Anonymous www.InfoVista.org 232-470-1735 National Alcohol and Substance Abuse Information Center (for referral to treatment programs) www.addictioncareValcare Medical.[employer] 639-141-6773Xrso 911Call 911 if any of the following [...] swelling, or tenderness at an injection site [phone] [employer]. [address] [place] [address]. All rights reserved. This information is not intended as asubstitute for professional medical care. Always follow your healthcare professional's instructions.Opiate AbuseUse and abuse of heroin or prescription pain medicines such as oxycodone, codeine, hydrocodone,morphine, methadone, and fentanyl may lead to addiction or dependence. Once this occurs, you areat greater risk for any of these: 4 General Instructions [facility] Emergency Department [address] [place] [address] Phone #: ext- [phone] 04/14/2020 14:24 Patient: NIEVES BLOCK Sex: M : 1990 Age: 29y Craving for the drug and unable to stop using the drug even though you think you want to stop (psychological addiction) Drug withdrawal symptoms if you stop taking the drug (physical dependence) Loss of your job or your family Arrest, conviction, and mcfp sentence for possession of an illegal substance [...] breathing Dizziness Skin infections 5 General Instructions [facility] Emergency Department [address] [place] [address] Phone #: ext- [phone] 04/14/2020 14:24 Patient: NIEVES LBOCK Sex: M : 1990 Age: 29y Muscle [...] of the resources below for help: National [place] on Alcoholism and Drug Dependence, www.ncadd.org 111-482-YARI Narcotics Anonymous. Check your phone book for a local listing, call 414-860-1195, or visit www.InfoVista.org. [place] Alcohol and Substance Abuse Information Center for referral to treatment programs www.Bang[employer] 412-312-9842Eldw 911Call 914 if any of these occur: Seizure 6 General Instructions [facility] Emergency Department [address] [place] [address] Phone #: ext- [phone] 04/14/2020 14:24 Patient: [...] at an injection site 1999- 2017 [employer]. [address] [place] [address]. All rights reserved. This information is not [...] ever had a stomach 7 General Instructions [facility] Emergency Department [address] [place] [address] Phone #: ext- [phone] 04/14/2020 14:24 Patient: [...] or eye Frequent bruising for unknown reasons [phone] [employer]. [address] [place] [address]. All rights reserved. This information is not [...] and swelling goes away. 8 General Instructions [facility] Emergency Department [address] [place] [address] Phone #: ext- [phone] 04/14/2020 14:24 Patient: [...] body part Frequent bruising for unknown reasons [phone] [employer]. [address] [place] [address]. All rights reserved. This information is not [...] using these medicines.)Follow up 9 General Instructions [facility] Emergency Department [address] [place] [address] Phone #: ext- [phone] 04/14/2020 14:24 Patient: [...] injured hand Frequent bruising for unknown reasons [phone] [employer]. [address] [place] [address]. All rights reserved. This information is not [...] leg without pain.Follow up 10 General Instructions [facility] Emergency Department [address] [place] [address] Phone #: ext- [phone] 04/14/2020 14:24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
== END 2020-09-16 21:58 | disposition left against medical advice (07) ==
LOC: M ED 21:01
DX: F11.10 Opioid abuse, uncomplicated (principal); Z88.5 Allergy status to narcotic agent

== ENCOUNTER 2020-10-02 19:08 | Emergency (ER) | payer OTHER ==
[~2020-10-02] VITALS: Ht 188 cm; Wt 64.5 kg
--- OUTSIDE RECORDS SUMMARY | 2020-10-02 19:13 | CCD ---
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 Sulfasalazine Sulfapyridine Can see falsely depressed Can see falsely elevated result with up to 29% results with up to 10% decrease in measurement increase in measurement Recommend patients be collected for this test prior to administration of either drug. Alkaline Phosphatase 91 U/L 38-126 Normal (applies to non-num oracio results) [facility] can increase Alkaline Phosp le vels up to 2 times the normal adult value. Normal values for children and adolescents are 2 to 3 times the normal adult value. Total Protein 6.0-8.2 Normal (applies to non-numeric re sults) [facility] Albumin Level 3.4-5.0 Normal (applies to non-numeric re sults) [facility] ID Date Data Source [id number] 04/24/2020 01:58:00 PM EDT [facility] Name Value Range Interpretation Code Description Data Darlene rce(s) Supporting Document(s) Bilirubin,Direct 0.05-0.20 Normal (applies to non-numeric results) [facility] ID Date Data Source [id number] 04/24/2020 01:58:00 PM EDT [facility] Name Value Range Interpretation Code Description Data Darlene rce(s) Supporting Document(s) Phosphorus 2.5-4.9 Normal (applies to non-numeric resul ts) [facility] ID Date Data Source [id number] 04/24/2020 01:58:00 PM EDT [facility] Value Range Interpretation Code Description Data Darlene rce(s) Supporting Document(s) Magnesium 1.8-2.4 Normal (applies to non-numeric resul ts) [facility] ID Date Data Source [id number] 04/24/2020 01:58:00 PM EDT [facility] Value Range Interpretation Code Description Data Darlene rce(s) Supporting Document(s) Thyroid Stimulate Hormone TSH 0.358-3.74 No rmal (applies to non-numeric results) [facility] ID Date Data Source [id number] 04/24/2020 01:42:00 PM EDT [facility] Value Range Interpretation Code Description Data Darlene rce(s) Supporting Document(s) Ethanol Less than 10.0 Normal (applies to non-numeric r esults) [facility] ID Date Data Source [id number] 04/24/2020 01:39:00 PM EDT [facility] Value Range Interpretation Code Description Data Darlene rce(s) Supporting Document(s) White Blood Count 3.5-10.5 Normal (applies to non-numeri c results) [facility] Red Blood Count 4.30-5.70 Below low normal [facility] Hemoglobin 13.5-17.5 Below low normal [facility] Hematocrit 38.8-50.0 Normal (applies to non-numeric resul ts) [facility] Mean Corpuscular Volume 81.2-95.1 Normal (applies to non- numeric results) [facility] Mean Corpuscular Hgb 25.6-32.2 Normal (applies to non-num oracio results) [facility] Mean Corpuscular Hgb Conc 32.0-36.0 Normal (applies to no n-numeric results) [facility] Red Cell Distribution Width 11.8-15.6 Normal (appli es to non-numeric results) [facility] Platelet Count 294 x10 3/uL 150-450 Normal (applies to non-numeric results) [facility] Mean Platelet Volume 9.4-12.4 Below low normal [facility] Neutrophils% (Auto) 31.0-71.0 Normal (applies to non-nume leonard results) [facility] Lymphocytes% (Auto) 20.0-55.0 Normal (applies to non-nume leonard results) [facility] Monocytes% (Auto) 4.0-12.0 Normal (applies to non-numeri c results) [facility] Eosinophils% (Auto) 1.0-8.0 Normal (applies to non-nume leonard results) [facility] Basophils% (Auto) 0.0-2.0 Normal (applies to non-numeri c results) [facility] Immature Granulocytes% (Auto) 0.0-2.0 Normal (marli lies to non-numeric results) [facility] Neutrophils# (Auto) 1.50-6.20 Normal (applies to non-nume leonard results) [facility] Lymphocytes# (Auto) 1.20-4.00 Normal (applies to non-nume leonard results) [facility] Monocytes# (Auto) 0.00-0.90 Normal (applies to non-numeri c results) [facility] Eosinophils# (Auto) 0.00-0.50 Normal (applies to non-nume leonard results) [facility] Basophils# (Auto) 0.00-0.20 Normal (applies to non-numeri c results) [facility] Immature Granulocytes# (Auto) 0.00-7.00 No rmal (applies to non-numeric results) [facility] ID Date Data Source [id number] 04/27/2020 05:30:00 PM EDT [facility] Name Value Range Interpretation Code Description Data Darlene rce(s) Supporting Document(s) Hepatitis A Ab,IgG result Normal (applies to no n-numeric results) [facility] Result indicates immunity to hepatitis A infection from either vaccination or past exposure to hepatitis A. False-positive results may be observed in patients with CMV antibodies or heterophilic antibodies. REFERENCE VALUE Unvaccinated: Negative Vaccinated: Positive Test Performed by: [facility] [place] [address] [employer] Machine Setter: Charles Jones M.D. Ph.D.; CLIA# [id number] ID Date Data Source [id number] 04/27/2020 04:50:00 PM EDT [facility] Name Value Range Interpretation Code Description Data Darlene rce(s) Supporting Document(s) Hepatitis A Ab,IgG result Normal (applies to no n-numeric results) [facility] Result indicates immunity to hepatitis A infection from either vaccination or past exposure to hepatitis A. False-positive results may be observed in patients with CMV antibodies or heterophilic antibodies. REFERENCE VALUE Unvaccinated: Negative Vaccinated: Positive Test Performed by: [place] [address] [employer] Setter: Charles Jones M.D. Ph.D.; CLIA# [id number] ID Date Data Source [id number] 04/24/2020 02:24:00 PM EDT [facility] Name Value Range Interpretation Code Description Data Darlene rce(s) Supporting Document(s) UDS Phencyclidine Screen Negative Normal (applies to non -numeric results) [facility] UDS Benzodiazepines Screen Negative Normal (applies to n on-numeric results) [facility] UDS Cocaine Screen Negative Normal (applies to non-numer ic results) [facility] UDS Ampetamine Screen Negative [facility] UDS Cannabinoids Screen Negative Normal (applies to non- numeric results) [facility] UDS Opiates Screen Negative [facility] UDS Barbiturates Screen Negative Normal (applies to non- numeric results) [facility] UDS Tricyclic Screen Negative Normal (applies to non-num oracio results) [facility] Therapeutic Drug Ranges for Emergency Threshold Levels [...] treatment purposes only. ID Date Data Source [id number] 04/24/2020 02:21:00 PM [facility] Collected By: Nurse's Aide Initials: AC Name Value Range Interpretation Code Description Data Darlene rce(s) Supporting Document(s) Color,Urine Colorl-Dk Y Normal (applies to non-numeric res ults) [facility] Clarity,Urine Clear Normal (applies to non-numeric re sults) [facility] Specific [place],Urine 1.005-1.030 Normal (applies to non- numeric results) [facility] pH,Urine 5.0-8.0 Normal (applies to non-numeric resul ts) [facility] Protein,Urine Negative Normal (applies to non-numeric re sults) [facility] Glucose,Urine Negative Normal (applies to non-numeric re sults) [facility] Ketones,Urine Negative Normal (applies to non-numeric re sults) [facility] Blood,Urine Negative Normal (applies to non-numeric resu lts) [facility] Bilirubin,Urine Negative Normal (applies to non-numeric results) [facility] Urobilinogen,Urine 0.2-1.0 Normal (applies to non-numer ic results) [facility] Leukocyte Esterase,Urine Negative Normal (applies to non -numeric results) [facility] Nitrite,Urine Negative Normal (applies to non-numeric re sults) [facility] ID Date Data Source [id number] 04/27/2020 12:36:00 PM EDT [facility] Name Value Range Interpretation Code Description Data Darlene rce(s) Supporting Document(s) Chlamydia,Urine result Negative Normal (applies to non-n umeric results) [facility] Test [facility]: [facility] [address] [place] [address] Director: Patricia Roberson MD . GC Urine result Negative Normal (applies to non-numeric results) [facility] Test Performed By: [facility] [address] [place] [address] Director: Patricia Roberson MD . Methodology: Second generation nucleic acid amplification. ID Date Data Source [id number] 04/15/2020 12:11:00 PM EDT [facility] [address] [place] [address] PHONE: [phone] FAX: [phone] Name .................. : UMAIR Hanna Acct Number.................. : [id number] ROOM. ................. : TR-1B MR Number ................... : [id number] Stay type ............. : E/R Discharge Date......... ... : 04/14/20 Admit Date ......... : 04/14/20 Admit Phys .................... : KHUSHBOO MIN Date of ....... : 1990 Family Phys ................... : NONE Phone .................. : [phone] Age ................................ : 29 Film# .................. .:[id number] Sex ................................. : M Unsigned transcriptions are preliminary reports and do not represent a medical or legal document CHEST 2 VIEWS 32662 COMPLETE:04/14/20 16:[place] [facility] [place] [address] Reason(s): Congestion CHEST X-RAY: 2-VIEWS INDICATION: Congestion. [...] Ann Jennings MD , 04/15/20 12:11, KGG Tr anscribe Initials: DZ , Transcribe Date: 04/14/20 22:21, Dictation Date: Copy for: ROSANA GOMEZ via fax Copy for: EMERGENCY DEPT via modem Copy for: 710 MED REC DISCHARGED Page 1 of 1 Name Value Range Interpretation Code Description Data Darlene rce(s) Supporting Document(s) ID Date Data Source [id number] 04/15/2020 12:11:00 PM EDT [facility] [address] [place] [address] PHONE: [phone] FAX: [phone] Name .................. : UMAIR Hanna Acct Number.................. : [id number] ROOM. ................. : TR-1B MR Number ................... : [id number] Stay type ............. : E/R Discharge Date......... ... : 04/14/20 Admit Date ......... : 04/14/20 Admit Phys .................... : KHUSHBOO MIN Date of ....... : 1990 Family Phys ................... : NONE Phone .................. : [phone] Age ................................ : 29 Film# .................. .:[id number] Sex ................................. : M Unsigned transcriptions are preliminary reports and do not represent a medical or legal document FOOT COMPLETE-[address] [place] [id number] COMPLETE:04/14/20 16:51 [facility] [place] [address] Reason(s): Pain RIGHT FOOT X-RAY: INDICATION: Status [...] rce(s) Supporting Document(s) ID Date Data Source [id number] 04/15/2020 12:11:00 [place] [address] PHONE: [phone] FAX: [phone] Name .................. : UMAIR Hanna Acct Number.................. : [id number] ROOM. ................. : [facility] MR Number ................... : [id number] Stay type ............. : E/R Discharge Date......... ... : 04/14/20 Admit Date ......... : 04/14/20 Admit Phys .................... : KHUSHBOO MIN Date of ....... : 1990 Family Phys ................... : NONE Phone .................. : [phone] Age ................................ : 29 Film# .................. .:[id number] Sex ................................. : M Unsigned transcriptions are preliminary reports and do not represent a medical or legal document [place] [id number] COMPLETE:04/14/20 16:51 [facility] [place] [address] Reason(s): Pain RIGHT WRIST X-RAY: INDICATION: Status [...] Transcribe Initials: DZ , Transcribe Date: 04/14/20 22:18, Dictation Date: Copy for: ROSANA GOMEZ via fax Copy for: EMERGENCY DEPT via modem Copy for: 710 MED REC DISCHARGED Page 1 of 1 Name Value Range Interpretation Code Description Data Darlene rce(s) Supporting Document(s) ID Date Data Source [id number] 04/15/2020 12:05:00 [place] [address] PHONE: [phone] FAX: [phone] Name .................. : BLOCK NIEVES Jacques Acct Number.................. : [id number] ROOM. ................. : TR-1B MR Number ................... : [id number] Stay type ............. : E/R Discharge Date......... ... : 04/14/20 Admit Date ......... : 08/26/20 Admit Phys .................... : KHUSHBOO MIN Date of ....... : 1990 Family Phys ................... : NONE Phone .................. : [phone] Age ................................ : 29 Film# .................. .:[id number] Sex ................................. : M Unsigned transcriptions are preliminary reports and do not represent a medical or legal document CT THORACIC SPINE W/CONTR 03409 COMPLETE:04/14/20 17:29 YANETH [address] Reason(s): REFORMAT: lower tspine pain; fall; hx [...] Transcribe Initials: DIMITRIS , Transcribe Date: 04/14/20 22:34, Dictation Date: Copy for: ROSANA GOMEZ via fax Copy for: EMERGENCY DEPT via modem Copy for: 710 MED REC DISCHARGED Page 1 of 1 Name Value Range Interpretation Code Description Data Darlene rce(s) Supporting Document(s) ID Date Data Source [id number] 04/15/2020 12:05:00 PM EDT [facility] [address] [place] [address] PHONE: [phone] FAX: [phone] Name .................. : UMAIR Hanna Acct Number.................. : [id number] ROOM. ................. : [facility] MR Number ................... : [id number] Stay type ............. : E/R Discharge Date......... ... : 04/14/20 Admit Date ......... : 04/14/20 Admit Phys .................... : KHUSHBOO MIN Date of ....... : 1990 Family Phys ................... : NONE Phone .................. : [phone] Age ................................ : 29 Film# .................. .:[id number] Sex ................................. : M Unsigned transcriptions are preliminary reports and do not represent a medical or legal document CT LS W/CONTRAST 83713 COMPLETE:04/14/20 17:29 YANETH [address] Reason(s): REFORMAT. hx of IVDU and upper [...] Transcribe Initials: DZ , Transcribe Date: 04/14/20 22:32, Dictation Date: Copy for: ROSANA GOMEZ via fax Copy for: EMERGENCY DEPT via modem Copy for: [facility] MED REC DISCHARGED Page 1 of 1 Name Value Range Interpretation Code Description Data Darlene rce(s) Supporting Document(s) ID Date Data Source [id number] 04/15/2020 12:05:00 [place] [address] PHONE: [phone] FAX: [phone] Name .................. : UMAIR Hanna Acct Number.................. : [id number] ROOM. ................. : TR-1B MR Number ................... : [id number] Stay type ............. : E/R Discharge Date......... ... : 04/14/20 Admit Date ......... : 04/14/20 Admit Phys .................... : KHUSHBOO MIN Date of ....... : 1990 Family Phys ................... : NONE Phone .................. : [phone] Age ................................ : 29 Film# .................. .:[id number] Sex ................................. : M Unsigned transcriptions are preliminary reports and do not represent a medical or legal document CT ABD & PELVIS W/ IV ONLY 55112 COMPLETE:04/14/20 17:29 YANETH [address] Reason(s): trauma. CT OF THE ABDOMEN AND [...] dose: 913.1 mGycm Page 1 of 2 [place] [address] PHONE: [phone] FAX: [phone] Name .................. : UMAIR Hanna Acct Number.................. : [id number] ROOM. ................. : TR-1B MR Number ................... : [id number] Stay type ............. : E/R Discharge Date......... ... : 04/14/20 Admit Date ......... : 04/14/20 Admit Phys .................... : KHUSHBOO MIN Date of ....... : 1990 Family Phys ................... : NONE Phone .................. : [phone] Age ................................ : 29 Film# .................. .:[id number] Sex ................................. : M Unsigned transcriptions are preliminary reports and do not represent a medical or legal document CT ABD & PELVIS W/ IV ONLY 59847 COMPLETE:04/14/20 17:29 YANETH [address] Reason(s): trauma. Contrast agent in mL: 75 Isovue 370 Method of administration: Intravenous Electronically Reviewed and Signed By Ace Moreira MD , 04/15/20 12:05, DARRYL Transcribe Initials: DIMITRIS , Transcribe Date: 04/14/20 22:28, Dictation Date: Copy for: ROSANA GOMEZ via fax Copy for: EMERGENCY DEPT via modem Copy for: 710 MED REC DISCHARGED Page 2 of 2 Name Value Range Interpretation Code Description Data Darlene rce(s) Supporting Document(s) ID Date Data Source [id number] 04/15/2020 12:04:00 PM EDT [facility] [address] [place] [address] PHONE: [phone] FAX: [phone] Name .................. : UMAIR Hanna Acct Number.................. : [id number] ROOM. ................. : TR-1B MR Number ................... : [id number] Stay type ............. : E/R Discharge Date......... ... : 04/14/20 Admit Date ......... : 04/14/20 Admit Phys .................... : KHUSHBOO MIN Date of ....... : 1990 Family Phys ................... : NONE Phone .................. : [phone] Age ................................ : 29 Film# .................. .:[id number] Sex ................................. : M Unsigned transcriptions are preliminary reports and do not represent a medical or legal document CT THORAX W/CONTRAST 78331 COMPLETE:04/14/20 17:29 YANETH [address] Reason(s): trauma, rhonchi, lower t spine pain [...] By Ace Moreira MD , 04/15/20 12:04, DARRYL Transcribe Initials: DIMITRIS , Transcribe Date: 04/14/20 22:25, Dictation Date: Page 1 of 2 [facility] [address] [place] [address] [place] [address] PHONE: [phone] FAX: [phone] Name .................. : UMAIR Hanna Acct Number.................. : [id number] ROOM. ................. : [facility] MR Number ................... : [id number] Stay type ............. : E/R Discharge Date......... ... : 04/14/20 Admit Date ......... : 04/14/20 Admit Phys .................... : KHUSHBOO MIN Date of ....... : 1990 Family Phys ................... : NONE Phone .................. : [phone] Age ................................ : 29 Film# .................. .:[id number] Sex ................................. : M Unsigned transcriptions are preliminary reports and do not represent a medical or legal document CT THORAX W/CONTRAST 12194 COMPLETE:04/14/20 17:29 YANETH 39[address] Reason(s): trauma, rhonchi, lower t spine pain s/p fall. hx of IVDU and has Copy for: ROSANA GOMEZ via fax Copy for: EMERGENCY DEPT via modem Copy for: 710 MED REC DISCHARGED Page 2 of 2 Name Value Range Interpretation Code Description Data Darlene rce(s) Supporting Document(s) ID Date Data Source [id number] 04/15/2020 12:03:00 PM EDT [facility] [address] [place] [address] PHONE: [phone] FAX: [phone] Name .................. : UMAIR Hanna Acct Number.................. : [id number] ROOM. ................. : [facility] MR Number ................... : [id number] Stay type ............. : E/R Discharge Date......... ... : 04/14/20 Admit Date ......... : 04/14/20 Admit Phys .................... : KHUSHBOO MIN Date of ....... : 1990 Family Phys ................... : NONE Phone .................. : [phone] Age ................................ : 29 Film# .................. .:[id number] Sex ................................. : M Unsigned transcriptions are preliminary reports and do not represent a medical or legal document CT HEAD W/O CONTRAST [id number] COMPLETE:04/14/20 17:29 YANETH [id number] Reason(s): Head Injury CT OF THE HEAD [...] rce(s) Supporting Document(s) ID Date Data Source [id number] 04/14/2020 02:27:00 PM EDT [facility] 1 OrderSheet [facility] Emergency Department [address] [place] [address] Phone #: ext- [phone] 04/14/2020 14:24 Patient: NIEVES BLOCK Sex: M : 1990 Age: 29yWEIGHT:81.6 kg (S) HEIGHT:74 inches (S) BMI:23.1ALLERGIES: TraMADol HClCHIEF COMPLAINT: cycling, head, back, streetDIAGNOSIS: Contusion, Drug abuse, Sinus tachycardia, ProblemLAB ORDERSOrder Description Priority Entered Acknowledged InitialedBlood Culture STAT 14:55 04/14/2020 16:04 Grant,q10m X2 (Sched Griffin Chirinos R.N.14:55 04/14/2020) P.A.-C;Blood Culture STAT 14:04/14/2020 16:04 Grant,q10m X2 (Sched Griffin Chirinos R.N.15:05 04/14/2020) P.A.- C;CBC w Diff STAT 14:04/14/2020 15:02 Griffin Burns R.N. P.A.-C;CMP STAT 14:04/14/2020 15:02 Griffin Burns R.N. P.A.-C;Culture, Urine STAT 14:04/14/2020 15:02 Grant,(Urine, Clean Griffin Chirinos R.N.Catch) P.A.-C;Lactic Acid STAT 14:04/14/2020 15:02 Koffi Burns R.N. P.A.-C;PT/INR STAT 14:55 04/14/2020 15:02 Griffin Burns R.N. P.A.-C;PT/PTT STAT 14:55 04/14/2020 15:02 Griffin Burns R.N. P.A.-C;Troponin-T STAT 14:04/14/2020 15:02 Griffin Burns R.N. P.A.-C;Urinalysis (Clean STAT 14:55 04/14/2020 15:42 Gilda Claros) Griffin Christianson RN P.A.-C;Venous Blood Gas STAT 14:04/14/2020 15:11 Grant, 2 OrderSheet [facility] Emergency Department [address] [place] [address] Phone #: ext- [phone] 04/14/2020 14:24 Patient: NIEVES BLOCK Sex: M : 1990 Age: 29y Griffin Chirinos R.N. P.A.- C;DIAGNOSTIC STUDY ORDERSOrder Description Priority Entered Acknowledged InitialedChest 2 View STAT 14:55 04/14/2020 Cancelled: Other 14:58 Griffin(Oxygen?(No)) Griffin Christianson P.A.-C P.A.-C; Reason for Study: FeverWrist Complete STAT 14:55 04/14/2020 15:25 Grant,Right Griffin Chirinos R.N.(Oxygen?(No)) P.A.-C; Reason for Study: Pain, Wrist InjuryFoot Complete STAT 14:55 04/14/2020 15:25 Grant,Right Griffin Chirinos R.N.(Oxygen?(No)) P.A.-C; Reason for Study: PainCT Head W/O Cont STAT 14:55 04/14/2020 Cancelled: Other 14:57 Griffin(Oxygen?(No)) Griffin Christianson P.A.-C P.A.-C; Reason for Study: Head InjuryMRI Spine Thoracic STAT 14:55 04/14/2020 Cancelled: Other 14:57 ChristopherW/O [...] PEL W/ IV STAT 16:12 04/14/2020 16:14 Grant,Sudha Only Griffin Chirinos R.N.(Oxygen?(No)) P.A.-C;(IV?(Yes)) Reason for Study: trauma. 3 OrderSheet [facility] Emergency Department [address] [place] [address] Phone #: ext- [phone] 04/14/2020 14:24 Patient: NIEVES BLOCK Sex: M : 1990 Age: 29yCT Spine Lumbar STAT 16:12 04/14/2020 16:14 Marika Burns Cont Griffin Chirinos R.N.(Oxygen?(No)) P.A.-C;(IV?(Yes)) Reason for Study: REFORMAT. hx of IVDU and upper lumber pain s/p fall, but has feverCT Spine Thoracic STAT 16:12 04/14/2020 16:14 Marika Burns R.N.(Oxygen?(No)) P.A.-C;(IV?(Yes)) Reason for Study: REFORMAT: lower tspine pain; fall; hx of IVDU; has feverCT Head W/O Cont STAT 16:13 04/14/2020 16:14 Grant(Oxygen?(No)) Griffin Chirinos R.N. P.A.-C; Reason for Study: Head InjuryMEDICATION/IV/DRIP/FLUID ORDERSOrder Description Priority Entered Acknowledged InitialedIV NS : Bolus 1000 14:55 04/14/2020 15:10 Grant,mL, then 75 mL/hr Griffin Chirinos R.N. P.A.-C;Ofirmev IV 1000 mg 14:55 04/14/2020 16:05 Grant,(NOW x1, Infuse Griffin Chirinos R.N.over 15 minutes) P.A.-C;Ativan IVP 2 mg 16:38 04/14/2020 16:43 Marquita,(HIGH ALERT Girffin Sam R.N.MEDICATION) P.A.-C;IV NS 1000 mL 17:36 04/14/2020 17:39 Grant,Bolus : Bolus 1000 Griffin Chirinos R.N.mL (X1) P.A.-C;GENERAL ORDERSOrder Description Priority Entered Acknowledged InitialedAccucheck 14:55 04/14/2020 15:11 Griffin Burns R.N. P.A.-C;Blood Pressure 14:55 04/14/2020 15:01 [place] EDMonitor Mae Martinez P.A.-C; Byzo4QOG 14:55 04/14/2020 15:01 [place] ED Mae Martinez P.A.-C; [id number] 14:55 04/14/2020 15:02 Grant, 4 OrderSheet [facility] Emergency Department [address] [place] [address] Phone #: ext- [phone] 04/14/2020 14:24 Patient: NIEVES BLOCK Sex: M : 1990 Age: 29y Griffin Chirinos R.N. P.A.-C;Pulse oximeter 14:55 04/14/2020 15:01 [place] ED(Continuous) Mae Martinez P.A.-C; [id number] Lock 14:55 04/14/2020 15:02 Griffin Burns R.N. P.A.-C;Vitals 14:55 04/14/2020 15:01 [place] ED Mae Martinez P.A.-C; Ejeh8Oavpiky Monitor 14:55 04/14/2020 15:01 [place] ED(continuous) Mae Martinez P.A.-C; Tech1[Electronically signed by Taran Burns R.N. (19:41 04/14/2020)][Electronically signed by Griffin Christianson P.A.-C (20:51 04/14/2020)][Electronically locked by Taran Burns R.N. (19:41 04/14/2020)] Name Value Range Interpretation Code Description Data Darlene rce(s) Supporting Document(s) ID Date Data Source [id number] 04/14/2020 02:27:00 PM EDT [facility] 1 Medication Reconciliation Report [facility] Emergency Department [address] [place] [address] Phone #: ext- [phone] 04/14/2020 14:24 Patient: [...] rce(s) Supporting Document(s) ID Date Data Source [id number] 04/14/2020 02:27:00 PM EDT [facility] 1 Medication Administration Record [facility] Emergency Department [address] [place] [address] Phone #: ext- [phone] 04/14/2020 14:24 Patient: [...] IV NS 1000 mL Bolus : Bolus [id number] 04/14/2020 Dose: IV Fluids mL (X1)Taran Burns R.N. Rate: 1000 mL/hr over 60 minute(s)---- Dispensed: 1000 mL bagStop Site: #1 left wrist19:40 04/14/2020Taran Burns R.N. Name Value Range Interpretation Code Description Data Darlene rce(s) Supporting Document(s) ID Date Data Source [id number] 04/14/2020 02:27:00 PM EDT [facility] 1 General Instructions [facility] Emergency Department [address] [place] [address] Phone #: ext- [phone] 04/14/2020 14:24 Patient: [...] to exceed.Please f/u with PCP or call [facility] to establish care.).Warnings: GENERAL WARNINGS: Return or contact your physician immediately if your conditionworsens or changes unexpectedly, if not improving as expected, or if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 Source [id number] 04/14/2020 03:42:00 PM EDT [facility] Name Value Range Interpretation Code Description Data Darlene rce(s) Supporting Document(s) pH of Serum or Plasma 7.40 7.32 - 7.43 [facility] pCO2 V 40.6 mm/HG 38.0 - 51.0 [facility] pO2 V 39.0 mm/HG 30.0 - 55.0 [facility] Bicarbonate [Moles/volume] in Venous blood 24.3 meq/L 22.0 - 29.0 [facility] TCO2 V 25.6 meq/L 22.0 - 29.0 [facility] Base excess in Blood by calculation -0.5 -2.0 - 2.0 [facility] O2 SAT V 73.2 % 40.0 - 85.0 [facility] ID Date Data Source [id number] 04/14/2020 03:42:00 PM EDT [facility] Name Value Range Interpretation Code Description Data Darlene rce(s) Supporting Document(s) Lactate [Moles/volume] in Serum or Plasma 3.1 MMOL/L 0.2 - 2.2 H [facility] Procedure Social History Code Duration Value Status Description Data Source(s ) Smoking 02/04/2020 12:00:00 AM EDT Unknown if ever smoked comp leted Unknown if ever smoked [facility]) Smoking 01/28/2020 12:00:00 AM EDT Unknown if ever smoked comp leted Unknown if ever smoked [facility] ([facility]) Smoking 01/13/2020 12:00:00 AM EDT Unknown if ever smoked comp leted Unknown if ever smoked [facility] ([facility]) Smoking 10/29/2019 12:00:00 AM EDT Unknown if ever smoked comp leted Unknown if ever smoked [facility] ([facility]) Smoking 10/23/2019 12:00:00 AM EST Unknown if ever smoked comp leted Unknown if ever smoked [facility] ([facility]) Smoking 10/22/2019 12:00:00 AM EST Unknown if ever smoked comp leted Unknown if ever smoked [facility] ([facility]) Smoking 10/20/2019 12:00:00 AM EST Unknown if ever smoked comp leted Unknown if ever smoked [facility] ([facility]) Smoking 10/14/2019 12:00:00 AM EST Unknown if ever smoked comp leted Unknown if ever smoked [facility] ([facility]) Smoking 10/10/2019 12:00:00 AM EST Unknown if ever smoked comp leted Unknown if ever smoked [facility] ([facility]) Smoking 10/06/2019 12:00:00 AM EST Unknown if ever smoked comp leted Unknown if ever smoked [facility] ([facility]) Smoking 08/28/2019 12:00:00 AM EST Unknown if ever smoked comp leted Unknown if ever smoked [facility] ([facility]) Smoking 08/22/2019 12:00:00 AM EST Unknown if ever smoked comp leted Unknown if ever smoked [facility] ([facility]) Smoking 08/11/2019 12:00:00 AM EST Unknown if ever smoked comp leted Unknown if ever smoked [facility] ([facility]) Smoking 08/04/2019 12:00:00 AM EST Unknown if ever smoked comp leted Unknown if ever smoked [facility] ([facility]) Vital Signs ID Date Data Source UNK Name Value Range Interpretation Code Description Data Source(s) Body temperature 98.8 [degF] 98.8 [degF] [facility] ([facility]) Body weight 185.00 [lb_av] 185.00 [lb_av] [facility] T ([facility]) Body temperature 98.4 [degF] 98.4 [degF] [facility] ([facility]) Respiratory rate 18 /min 18 /min [facility] ( [facility]) Heart rate 104 /min 104 /min [facility] ([facility]) Diastolic blood pressure 77 mm[Hg] 77 mm[Hg] [facility] ([facility]) Systolic blood pressure 113 mm[Hg] 113 mm[Hg] M EDENT ([facility]) ID Date Data Source [id number] 04/29/2020 08:04:00 AM EDT [facility] Name Value Range Interpretation Code Description Data Source(s) Weight Measurement Method 1 1 [facility] Weight (Calculated Kilograms) 80.51 80.51 [facility] Weight 2840 2840 [facility] Temperature Source 7 7 [facility] Temperature 97.9 97.9 [facility] Respiratory Effort 1 1 [facility] Respiratory Rate 18 18 [facility] Pulse Assessment Method 1 1 [facility] Pulse Rate 94 94 [facility]ital Height (Calculated Centimeters) 187.96 187. 96 [facility] Height 74 74 [facility] Blood Pressure 112/80 112/80 [facility] Body Mass Index (BMI) 22.8 22.8 [facility] Weight Measurement Method 1 1 [facility] Weight (Calculated Kilograms) 80.51 80.51 [facility] Weight 2840 2840 [facility] pital Temperature Source 7 7 [facility] Temperature [address] [facility] Respiratory Effort 1 1 [facility] Respiratory Rate 18 18 [facility] Pulse Assessment Method 1 1 [facility] Pulse Rate 94 94 [facility] pital Height (Calculated Centimeters) 187.96 187. 96 [facility] 74 [facility] 112/80 112/80 [facility] Body Mass Index (BMI) 22.8 22.8 [facility] Weight Measurement Method 1 1 [facility] Weight (Calculated Kilograms) 80.51 80.51 [facility] Weight 2840 2840 [facility] Temperature Source 7 7 [facility] Temperature 97.9 97.9 [facility] Respiratory Effort 1 1 [facility] Respiratory Rate 18 18 [facility] Pulse Assessment Method 1 1 [facility] Pulse Rate 94 94 [facility] p[facility] Height (Calculated Centimeters) 187.96 187. 96 [facility] Height 74 74 [facility] 112/80 112/80 [facility] Body Mass Index (BMI) 22.8 22.8 [facility] Weight Measurement Method 1 1 [facility] Weight (Calculated Kilograms) 80.51 80.51 [facility] Weight 2840 2840 [facility]ital Temperature Source 7 7 [facility] Temperature 97.6 97.6 [facility] Respiratory Effort 1 1 [facility] Respiratory Rate 18 18 [facility] Pulse Assessment Method 4 4 [facility] Pulse Rate [address] [facility] Height (Calculated Centimeters) 187.96 187. 96 [facility] Height [address] [facility] Blood Pressure 116/73 116/73 [facility] Body Mass Index (BMI) 22.8 22.8 [facility]
--- OUTSIDE RECORDS SUMMARY | 2020-10-02 19:49 | CCD ---
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 results) [facility] can increase Alkaline Phosp le vels up to 2 times the normal adult value. Normal values for children and adolescents are 2 to 3 times the normal adult value. Total Protein 6.0-8.2 Normal (applies to non-numeric re sults) [facility] Albumin Level 3.4-5.0 Normal (applies to non-numeric re sults) [facility] ID Date Data Source [id number] 04/24/2020 01:58:00 PM EDT [facility] Name Value Range Interpretation Code Description Data Darlene rce(s) Supporting Document(s) Bilirubin,Direct 0.05-0.20 Normal (applies to non-numeric results) [facility] ID Date Data Source [id number] 04/24/2020 01:58:00 PM EDT [facility] Name Value Range Interpretation Code Description Data Darlene rce(s) Supporting Document(s) Phosphorus 2.5-4.9 Normal (applies to non-numeric resul ts) [facility] ID Date Data Source [id number] 04/24/2020 01:58:00 PM EDT [facility] Value Range Interpretation Code Description Data Darlene rce(s) Supporting Document(s) Magnesium 1.8-2.4 Normal (applies to non-numeric resul ts) [facility] ID Date Data Source [id number] 04/24/2020 01:58:00 PM EDT [facility] Value Range Interpretation Code Description Data Darlene rce(s) Supporting Document(s) Thyroid Stimulate Hormone TSH 0.358-3.74 No rmal (applies to non-numeric results) [facility] ID Date Data Source [id number] 04/24/2020 01:42:00 PM EDT [facility] Value Range Interpretation Code Description Data Darlene rce(s) Supporting Document(s) Ethanol Less than 10.0 Normal (applies to non-numeric r esults) [facility] ID Date Data Source [id number] 04/24/2020 01:39:00 PM EDT [facility] Value Range Interpretation Code Description Data Darlene rce(s) Supporting Document(s) White Blood Count 3.5-10.5 Normal (applies to non-numeri c results) [facility] Red Blood Count 4.30-5.70 Below low normal [facility] Hemoglobin 13.5-17.5 Below low normal [facility]ital Hematocrit 38.8-50.0 Normal (applies to non-numeric resul ts) [facility] Mean Corpuscular Volume 81.2-95.1 Normal (applies to non- numeric results) [facility] Mean Corpuscular Hgb 25.6-32.2 Normal (applies to non-num oracio results) [facility] Mean Corpuscular Hgb Conc 32.0-36.0 Normal (applies to no n-numeric results) [facility] Red Cell Distribution Width 11.8-15.6 Normal (appli es to non-numeric results) [facility] Platelet Count 294 x10 3/uL 150-450 Normal (applies to non-numeric results) [facility] Mean Platelet Volume 9.4-12.4 Below low normal [facility] Neutrophils% (Auto) 31.0-71.0 Normal (applies to non-nume leonard results) [facility] Lymphocytes% (Auto) 20.0-55.0 Normal (applies to non-nume leonard results) [facility] Monocytes% (Auto) 4.0-12.0 Normal (applies to non-numeri c results) [facility] Eosinophils% (Auto) 1.0-8.0 Normal (applies to non-nume leonard results) [facility] Basophils% (Auto) 0.0-2.0 Normal (applies to non-numeri c results) [facility] Immature Granulocytes% (Auto) 0.0-2.0 Normal (marli lies to non-numeric results) [facility] Neutrophils# (Auto) 1.50-6.20 Normal (applies to non-nume leonard results) [facility] Lymphocytes# (Auto) 1.20-4.00 Normal (applies to non-nume leonard results) [facility] Monocytes# (Auto) 0.00-0.90 Normal (applies to non-numeri c results) [facility] Eosinophils# (Auto) 0.00-0.50 Normal (applies to non-nume leonard results) [facility] Basophils# (Auto) 0.00-0.20 Normal (applies to non-numeri c results) [facility] Immature Granulocytes# (Auto) 0.00-7.00 No rmal (applies to non-numeric results) [facility] ID Date Data Source [id number] 04/27/2020 05:30:00 PM EDT [facility] Name Value Range Interpretation Code Description Data Darlene rce(s) Supporting Document(s) Hepatitis A Ab,IgG result Normal (applies to no n-numeric results) [facility] Result indicates immunity to hepatitis A infection from either vaccination or past exposure to hepatitis A. False-positive results may be observed in patients with CMV antibodies or heterophilic antibodies. REFERENCE VALUE Unvaccinated: Negative Vaccinated: Positive Test Performed by: [facility] [place] [address] Professor Of Communication Arts: Charles Jones M.D. Ph.D.; CLIA# [id number] ID Date Data Source [id number] 04/27/2020 04:50:00 PM EDT [facility] Name Value Range Interpretation Code Description Data Darlene rce(s) Supporting Document(s) Hepatitis A Ab,IgG result Normal (applies to no n-numeric results) [facility] Result indicates immunity to hepatitis A infection from either vaccination or past exposure to hepatitis A. False-positive results may be observed in patients with CMV antibodies or heterophilic antibodies. REFERENCE VALUE Unvaccinated: Negative Vaccinated: Positive Test Performed by: [place] [address] Professor Of Communication Arts: Charles Jones M.D. Ph.D.; CLIA# [id number] ID Date Data Source [id number] 04/24/2020 02:24:00 PM EDT [facility] Name Value Range Interpretation Code Description Data Darlene rce(s) Supporting Document(s) UDS Phencyclidine Screen Negative Normal (applies to non -numeric results) [facility] UDS Benzodiazepines Screen Negative Normal (applies to n on-numeric results) [facility] UDS Cocaine Screen Negative Normal (applies to non-numer ic results) [facility] UDS Ampetamine Screen Negative [facility] UDS Cannabinoids Screen Negative Normal (applies to non- numeric results) [facility] UDS Opiates Screen Negative [facility] UDS Barbiturates Screen Negative Normal (applies to non- numeric results) [facility] UDS Tricyclic Screen Negative Normal (applies to non-num oracio results) [facility] Therapeutic Drug Ranges for Emergency Threshold [...] treatment purposes only. ID Date Data Source [id number] 04/24/2020 02:21:00 PM Located within [facility] Collected By: Nurse's Aide Initials: AC Name Value Range Interpretation Code Description Data Darlene rce(s) Supporting Document(s) Color,Urine Colorl-Dk Y Normal (applies to non-numeric res ults) [facility] Clarity,Urine Clear Normal (applies to non-numeric re sults) [facility] Specific Pavo,Urine 1.005-1.030 Normal (applies to non- numeric results) [facility] pH,Urine 5.0-8.0 Normal (applies to non-numeric resul ts) [facility] Protein,Urine Negative Normal (applies to non-numeric re sults) [facility] Glucose,Urine Negative Normal (applies to non-numeric re sults) [facility] Ketones,Urine Negative Normal (applies to non-numeric re sults) [facility] Blood,Urine Negative Normal (applies to non-numeric resu lts) [facility] Bilirubin,Urine Negative Normal (applies to non-numeric results) [facility] Urobilinogen,Urine 0.2-1.0 Normal (applies to non-numer ic results) [facility] Leukocyte Esterase,Urine Negative Normal (applies to non -numeric results) [facility] Nitrite,Urine Negative Normal (applies to non-numeric re sults) [facility] ID Date Data Source [id number] 04/27/2020 12:36:00 PM EDT [facility] Name Value Range Interpretation Code Description Data Darlene rce(s) Supporting Document(s) Chlamydia,Urine result Negative Normal (applies to non-n umeric results) [facility] Test [facility] By[facility] [address] [place] [address] Director: Patricia Roberson MD . GC Urine result Negative Normal (applies to non-numeric results) [facility] Test Performed By: [facility] [address] [place] [address] Director: Patricia Roberson MD . Methodology: Second generation nucleic acid amplification. ID Date Data Source [id number] 04/15/2020 12:11:00 PM EDT [facility] [address] [place] [address] PHONE: [phone] FAX: [phone] Name .................. : UMAIR Hanna Acct Number.................. : [id number] ROOM. ................. : TR-1B MR Number ................... : [id number] Stay type ............. : E/R Discharge Date......... ... : 04/14/20 Admit Date ......... : 04/14/20 Admit Phys .................... : KHUSHBOO MIN Date of ....... : 1990 Family Phys ................... : NONE Phone .................. : [phone] Age ................................ : 29 Film# .................. .:[id number] Sex ................................. : M Unsigned transcriptions are preliminary reports and do not represent a medical or legal document CHEST 2 VIEWS 80768 COMPLETE:04/14/20 16:51 [facility] [place] [address] Reason(s): Congestion CHEST X-RAY: 2-VIEWS INDICATION: Congestion. [...] rce(s) Supporting Document(s) ID Date Data Source [id number] 04/15/2020 12:11:00 PM EDT [facility] [address] [place] [address] PHONE: [phone] FAX: [phone] Name .................. : UMAIR Hanna Acct Number.................. : [id number] ROOM. ................. : TR-1B MR Number ................... : [id number] Stay type ............. : E/R Discharge Date......... ... : 04/14/20 Admit Date ......... : 04/14/20 Admit Phys .................... : KHUSHBOO MIN Date of ....... : 1990 Family Phys ................... : NONE Phone .................. : [phone] Age ................................ : 29 Film# .................. .:[id number] Sex ................................. : M Unsigned transcriptions are preliminary reports and do not represent a medical or legal document FOOT COMPLETE-[address] [place] [id number] COMPLETE:04/14/20 16:51 [facility] [place] [address] Reason(s): Pain RIGHT FOOT X-RAY: INDICATION: Status [...] rce(s) Supporting Document(s) ID Date Data Source [id number] 04/15/2020 12:11:00 [place] [address] PHONE: [phone] FAX: [phone] Name .................. : UMAIR Hanna Acct Number.................. : [id number] ROOM. ................. : [facility] MR Number ................... : [id number] Stay type ............. : E/R Discharge Date......... ... : 04/14/20 Admit Date ......... : 04/14/20 Admit Phys .................... : KHUSHBOO MIN Date of ....... : 1990 Family Phys ................... : NONE Phone .................. : [phone] Age ................................ : 29 Film# .................. .:[id number] Sex ................................. : M Unsigned transcriptions are preliminary reports and do not represent a medical or legal document WRIST COMPLETE [place] [id number] COMPLETE:04/14/20 16:51 [facility] [place] [address] Reason(s): Pain RIGHT WRIST X-RAY: INDICATION: Status [...] rce(s) Supporting Document(s) ID Date Data Source [id number] 04/15/2020 12:05:00 [place] [address] PHONE: [phone] FAX: [phone] Name .................. : BLOCK NIEVES Jacques Acct Number.................. : [id number] ROOM. ................. : TR-1B MR Number ................... : [id number] Stay type ............. : E/R Discharge Date......... ... : 04/14/20 Admit Date ......... : 08/26/20 Admit Phys .................... : KHUSHBOO MIN Date of ....... : 1990 Family Phys ................... : NONE Phone .................. : [phone] Age ................................ : 29 Film# .................. .:[id number] Sex ................................. : M Unsigned transcriptions are preliminary reports and do not represent a medical or legal document CT THORACIC SPINE W/CONTR 88528 COMPLETE:04/14/20 17:29 Y[facility] [address]4938 Reason(s): REFORMAT: lower tspine pain; fall; hx [...] rce(s) Supporting Document(s) ID Date Data Source [id number] 04/15/2020 12:05:00 PM EDT [facility] [address] [place] [address] PHONE: [phone] FAX: [phone] Name .................. : UMAIR Hanna Acct Number.................. : [id number] ROOM. ................. : [facility] MR Number ................... : [id number] Stay type ............. : E/R Discharge Date......... ... : 04/14/20 Admit Date ......... : 04/14/20 Admit Phys .................... : KHUSHBOO MIN Date of ....... : 1990 Family Phys ................... : NONE Phone .................. : [phone] Age ................................ : 29 Film# .................. .:[id number] Sex ................................. : M Unsigned transcriptions are preliminary reports and do not represent a medical or legal document CT LS W/CONTRAST 58305 COMPLETE:04/14/20 17:29 YAN[facility] 76887 Reason(s): REFORMAT. hx of IVDU and upper [...] for: EMERGENCY DEPT via modem Copy for: [facility] MED REC DISCHARGED Page 1 of 1 Name Value Range Interpretation Code Description Data Darlene rce(s) Supporting Document(s) ID Date Data Source [id number] 04/15/2020 12:05:00 [place] [address] PHONE: [phone] FAX: [phone] Name .................. : UMAIR Hanna Acct Number.................. : [id number] ROOM. ................. : TR-1B MR Number ................... : [id number] Stay type ............. : E/R Discharge Date......... ... : 04/14/20 Admit Date ......... : 04/14/20 Admit Phys .................... : KHUSHBOO MIN Date of ....... : 1990 Family Phys ................... : NONE Phone .................. : [phone] Age ................................ : 29 Film# .................. .:[id number] Sex ................................. : M Unsigned transcriptions are preliminary reports and do not represent a medical or legal document CT ABD & PELVIS W/ IV ONLY 95913 COMPLETE:04/14/20 17:29 [facility] 87571 Reason(s): trauma. CT OF THE ABDOMEN AND [...] dose: 913.1 mGycm Page 1 of 2 [place] [address] PHONE: [phone] FAX: [phone] Name .................. : UMAIR Hanna Acct Number.................. : [id number] ROOM. ................. : TR-1B MR Number ................... : [id number] Stay type ............. : E/R Discharge Date......... ... : 04/14/20 Admit Date ......... : 04/14/20 Admit Phys .................... : KHUSHBOO MIN Date of ....... : 1990 Family Phys ................... : NONE Phone .................. : [phone] Age ................................ : 29 Film# .................. .:[id number] Sex ................................. : M Unsigned transcriptions are preliminary reports and do not represent a medical or legal document CT ABD & PELVIS W/ IV ONLY 18593 COMPLETE:04/14/20 17:29 [facility] 81596 Reason(s): trauma. Contrast agent in mL: 75 [...] rce(s) Supporting Document(s) ID Date Data Source [id number] 04/15/2020 12:04:00 PM EDT [facility] [address] [place] [address] PHONE: [phone] FAX: [phone] Name .................. : UMAIR Hanna Acct Number.................. : [id number] ROOM. ................. : TR-1B MR Number ................... : [id number] Stay type ............. : E/R Discharge Date......... ... : 04/14/20 Admit Date ......... : 04/14/20 Admit Phys .................... : KHUSHBOO MIN Date of ....... : 1990 Family Phys ................... : NONE Phone .................. : [phone] Age ................................ : 29 Film# .................. .:[id number] Sex ................................. : M Unsigned transcriptions are preliminary reports and do not represent a medical or legal document CT THORAX W/CONTRAST 19113 COMPLETE:04/14/20 17:29 [facility] 83787 Reason(s): trauma, rhonchi, lower t spine pain [...] 22:25, Dictation Date: Page 1 of 2 [facility] [address] [place] [address] [place] [address] PHONE: [phone] FAX: [phone] Name .................. : UMAIR Hanna Acct Number.................. : [id number] ROOM. ................. : [facility] MR Number ................... : [id number] Stay type ............. : E/R Discharge Date......... ... : 04/14/20 Admit Date ......... : 04/14/20 Admit Phys .................... : KHUSHBOO MIN Date of ....... : 1990 Family Phys ................... : NONE Phone .................. : [phone] Age ................................ : 29 Film# .................. .:[id number] Sex ................................. : M Unsigned transcriptions are preliminary reports and do not represent a medical or legal document CT THORAX W/CONTRAST 05914 COMPLETE:04/14/20 17:29 [facility] 65991 Reason(s): trauma, rhonchi, lower t spine pain s/p fall. hx of IVDU and has Copy for: [facility] via fax Copy for: EMERGENCY DEPT via modem Copy for: 710 MED REC DISCHARGED Page 2 of 2 Name Value Range Interpretation Code Description Data Darlene rce(s) Supporting Document(s) ID Date Data Source [id number] 04/15/2020 12:03:00 PM EDT [facility] [address] [place] [address] PHONE: [phone] FAX: [phone] Name .................. : UMAIR Hanna Acct Number.................. : [id number] ROOM. ................. : [facility] MR Number ................... : [id number] Stay type ............. : E/R Discharge Date......... ... : 04/14/20 Admit Date ......... : 04/14/20 Admit Phys .................... : KHUSHBOO MIN Date of ....... : 1990 Family Phys ................... : NONE Phone .................. : [phone] Age ................................ : 29 Film# .................. .:[id number] Sex ................................. : M Unsigned transcriptions are preliminary reports and do not represent a medical or legal document CT HEAD W/O CONTRAST 47092 COMPLETE:04/14/20 17:29 [facility] [address]4095 Reason(s): Head Injury CT OF THE HEAD [...] rce(s) Supporting Document(s) ID Date Data Source [id number] 04/14/2020 02:27:00 PM EDT [facility] 1 OrderSheet [facility] Emergency Department [address] [place] [address] Phone #: ext- [phone] 04/14/2020 14:24 Patient: [...] Gas STAT 14:04/14/2020 15:11 [place], 2 OrderSheet [facility] Emergency Department [address] [place] [address] Phone #: ext- [phone] 04/14/2020 14:24 Patient: [...] P.A.-C;(IV?(Yes)) Reason for Study: trauma. 3 OrderSheet [facility] Emergency Department [address] [place] [address] Phone #: ext- [phone] 04/14/2020 14:24 Patient: NIEVES BLOCK Sex: M [...] Burns R.N. P.A.-C;Blood Pressure 14:55 04/14/2020 15:01 [facility]Monitor Mae Martinez P.A.-C; [id number] 14:55 04/14/2020 15:01 [facility] Mae Martinez P.A.-C; [id number] 14:55 04/14/2020 15:02 [place], 4 OrderSheet [facility] Emergency Department [address] [place] [address] Phone #: ext- [phone] 04/14/2020 14:24 Patient: NIEVES BLOCK Sex: M : 1990 Age: 29y Griffin Chirinos R.N. P.A.-C;Pulse oximeter 14:55 04/14/2020 15:01 [facility](Continuous) Mae Martinez P.A.-C; [id number] Lock 14:55 04/14/2020 15:02 Griffin Burns R.N. P.A.-C;Vitals 14:55 04/14/2020 15:01 [facility] Mae Martinez P.A.-C; [id number] Monitor 14:55 04/14/2020 15:01 [facility](continuous) Mae Martinez P.A.-C; Tech1[Electronically signed by Taran Burns R.N. (19:41 04/14/2020)][Electronically signed by Griffin Christianson P.A.-C (20:51 04/14/2020)][Electronically locked by Taran Burns R.N. (19:41 04/14/2020)] Name Value Range Interpretation Code Description Data Darlene rce(s) Supporting Document(s) ID Date Data Source [id number] 04/14/2020 02:27:00 PM EDT [facility] 1 Medication Reconciliation Report [facility] Emergency Department [address] [place] [address] Phone #: ext- [phone] 04/14/2020 14:24 Patient: [...] rce(s) Supporting Document(s) ID Date Data Source [id number] 04/14/2020 02:27:00 PM EDT [facility] 1 Medication Administration Record [facility] Emergency Department [address] [place] [address] Phone #: ext- [phone] 04/14/2020 14:24 Patient: [...] IV NS 1000 mL Bolus : Bolus [id number] 04/14/2020 Dose: IV Fluids mL (X1)Taran Burns R.N. Rate: 1000 mL/hr over 60 minute(s)---- Dispensed: 1000 mL bagStop Site: #1 left wrist19:40 04/14/2020Taran Burns R.N. Name Value Range Interpretation Code Description Data Darlene rce(s) Supporting Document(s) ID Date Data Source [id number] 04/14/2020 02:27:00 PM EDT [facility] 1 General Instructions [facility] Emergency Department [address] [place] [address] Phone #: ext- [phone] 04/14/2020 14:24 Patient: [...] to exceed.Please f/u with PCP or call [facility] to establish care.).Warnings: GENERAL WARNINGS: Return or contact your physician immediately if your conditionworsens or changes unexpectedly, if not improving as expected, or if other problems arise.Follow-up:Return to the emergency department as needed. Follow up with your healthcare provider in about twodays. Call for an appointment. Reason for referral: evaluation and treatment.Understanding of the discharge instructions verbalized by patient.Follow-up with: [facility], , , [address] [place] [address], [id number] Follow up. 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) Drug withdrawal symptoms if you stop taking the drug (physical dependence) Loss of job or your family Arrest, conviction, and assisted sentence for possession of an illegal substance [...] of the resources below for help: National [place] on Alcoholism and Drug Dependence www.ncadd.org 465-636-7038 3 General Instructions [facility] Emergency Department [address] [place] [address] Phone #: ext- [phone] 04/14/2020 14:24 Patient: NIEVES BLOCK Sex: M : 1990 Age: 29y Narcotics Anonymous www.na.org 150-860-8153 National Alcohol and Substance Abuse Information Center (for referral to treatment programs) www.addiction[employer]alis [employer].HOLLR 335-444-1289Oqtt 911[facility] 911 if any of the following occur: [...] swelling, or tenderness at an injection site [phone] [employer]. [address] [place] [address]. All rights reserved. This information is not intended as asubstitute for professional medical care. Always follow your healthcare professional's instructions.Opiate AbuseUse and abuse of heroin or prescription pain medicines such as oxycodone, codeine, hydrocodone,morphine, methadone, and fentanyl may lead to addiction or dependence. Once this occurs, you areat greater risk for any of these: 4 General Instructions [facility] Emergency Department [address] [place] [address] Phone #: ext- [phone] 04/14/2020 14:24 Patient: NIEVES BLOCK Sex: M : 1990 Age: 29y Craving for the drug and unable to stop using the drug even though you think you want to stop (psychological addiction) Drug withdrawal symptoms if you stop taking the drug (physical dependence) Loss of your job or your family Arrest, conviction, and assisted sentence for possession of an illegal substance [...] breathing Dizziness Skin infections 5 General Instructions [facility] Emergency Department [address] [place] [address] Phone #: ext- [phone] 04/14/2020 14:24 Patient: [...] of the resources below for help: National [place] on Alcoholism and Drug Dependence, www.ncadd.org 806-843-WDEX Narcotics Anonymous. Check your phone book for a local listing, call 472-427-0078, or visit www.na.org. National Alcohol and Substance Abuse Information Center for referral to treatment programs www.[employer].HOLLR 963-773-1113Hfac ene 912 if any of these occur: Seizure 6 General Instructions [facility] Emergency Department [address] [place] [address] Phone #: ext- [phone] 04/14/2020 14:24 Patient: [...] at an injection site 1999- 2017 [employer]. [address] [place] [address]. All rights reserved. This information is not [...] ever had a stomach 7 General Instructions [facility] Emergency Department [address] [place] [address] Phone #: ext- [phone] 04/14/2020 14:24 Patient: [...] or eye Frequent bruising for unknown reasons [phone] [employer]. [address] [place] [address]. All rights reserved. This information is not [...] and swelling goes away. 8 General Instructions [facility] Emergency Department [address] [place] [address] Phone #: ext- [phone] 04/14/2020 14:24 Patient: [...] body part Frequent bruising for unknown reasons [phone] [employer]. [address] [place] [address], [place] [address]. All rights reserved. This information is not [...] using these medicines.)Follow up 9 General Instructions [facility] Emergency Department [address] [place] [address] Phone #: ext- [phone] 04/14/2020 14:24 Patient: [...] injured hand Frequent bruising for unknown reasons [phone] [employer]. [address] [place] [address], [place] [address]. All rights reserved. This information is not [...] leg without pain.Follow up 10 General Instructions [facility] Emergency Department [address] [place] [address] Phone #: ext- [phone] 04/14/2020 14:24 Patient: [...] injured area Frequent bruising for unknown reasons [phone] [employer]. [address] [place] [address], [place] [address]. All rights reserved. This information is not [...] within 1to 2 weeks. 11 General Instructions [facility] Emergency Department [address] [place] [address] Phone #: ext- [phone]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
[2020-10-02 20:47] VITALS: BP 148/88
== END 2020-10-02 21:25 | disposition home or self-care (01) ==
LOC: M ED 19:08
DX: F15.10 Other stimulant abuse, uncomplicated (principal); F17.210 Nicotine dependence, cigarettes, uncomplicated

== ENCOUNTER 2020-10-02 22:41 | Emergency (ER) | payer OTHER ==
[~2020-10-02] VITALS: Ht 188 cm; Wt 64.5 kg
--- OUTSIDE RECORDS SUMMARY | 2020-10-02 22:46 | CCD ---
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 increase in measurement Recommend patients be collected for this test prior to administration of either drug. Alkaline Phosphatase 91 U/L 38-126 Normal (applies to non-num oracio results) [facility] can increase Alkaline Phosp le vels up to 2 times the normal adult value. Normal values for children and adolescents are 2 to 3 times the normal adult value. Total Protein 6.0-8.2 Normal (applies to non-numeric re sults) [facility] Albumin Level 3.4-5.0 Normal (applies to non-numeric re sults) [facility] ID Date Data Source [id number] 04/24/2020 01:58:00 PM EDT [facility] Name Value Range Interpretation Code Description Data Darlene rce(s) Supporting Document(s) Bilirubin,Direct 0.05-0.20 Normal (applies to non-numeric results) [facility] ID Date Data Source [id number] 04/24/2020 01:58:00 PM EDT [facility] Name Value Range Interpretation Code Description Data Darlene rce(s) Supporting Document(s) Phosphorus 2.5-4.9 Normal (applies to non-numeric resul ts) [facility] ID Date Data Source [id number] 04/24/2020 01:58:00 PM EDT [facility] Value Range Interpretation Code Description Data Darlene rce(s) Supporting Document(s) Magnesium 1.8-2.4 Normal (applies to non-numeric resul ts) [facility] ID Date Data Source [id number] 04/24/2020 01:58:00 PM EDT [facility] Value Range Interpretation Code Description Data Darlene rce(s) Supporting Document(s) Thyroid Stimulate Hormone TSH 0.358-3.74 No rmal (applies to non-numeric results) [facility] ID Date Data Source [id number] 04/24/2020 01:42:00 PM EDT [facility] Value Range Interpretation Code Description Data Darlene rce(s) Supporting Document(s) Ethanol Less than 10.0 Normal (applies to non-numeric r esults) [facility] ID Date Data Source [id number] 04/24/2020 01:39:00 PM EDT [facility] Value Range Interpretation Code Description Data Darlene rce(s) Supporting Document(s) White Blood Count 3.5-10.5 Normal (applies to non-numeri c results) [facility] Red Blood Count 4.30-5.70 Below low normal [facility] Hemoglobin 13.5-17.5 Below low normal [facility]ital Hematocrit 38.8-50.0 Normal (applies to non-numeric resul ts) [facility] Mean Corpuscular Volume 81.2-95.1 Normal (applies to non- numeric results) [facility] Mean Corpuscular Hgb 25.6-32.2 Normal (applies to non-num oracio results) [facility] Mean Corpuscular Hgb Conc 32.0-36.0 Normal (applies to no n-numeric results) [facility] Red Cell Distribution Width 11.8-15.6 Normal (appli es to non-numeric results) [facility] Platelet Count 294 x10 3/uL 150-450 Normal (applies to non-numeric results) [facility] Mean Platelet Volume 9.4-12.[address] [facility] Neutrophils% (Auto) 31.0-71.0 Normal (applies to non-nume leonard results) [facility] Lymphocytes% (Auto) 20.0-55.0 Normal (applies to non-nume leonard results) [facility] Monocytes% (Auto) 4.0-12.0 Normal (applies to non-numeri c results) [facility] Eosinophils% (Auto) 1.0-8.0 Normal (applies to non-nume leonard results) [facility] Basophils% (Auto) 0.0-2.0 Normal (applies to non-numeri c results) [facility] Immature Granulocytes% (Auto) 0.0-2.0 Normal (marli lies to non-numeric results) [facility] Neutrophils# (Auto) 1.50-6.20 Normal (applies to non-nume leonard results) [facility] Lymphocytes# (Auto) 1.20-4.00 Normal (applies to non-nume leonard results) [facility] Monocytes# (Auto) 0.00-0.90 Normal (applies to non-numeri c results) [facility] Eosinophils# (Auto) 0.00-0.50 Normal (applies to non-nume leonard results) [facility] Basophils# (Auto) 0.00-0.20 Normal (applies to non-numeri c results) [facility] Immature Granulocytes# (Auto) 0.00-7.00 No rmal (applies to non-numeric results) [facility] ID Date Data Source [id number] 04/27/2020 05:30:00 PM EDT [facility] Name Value Range Interpretation Code Description Data Darlene rce(s) Supporting Document(s) Hepatitis A Ab,IgG result Normal (applies to no n-numeric results) [facility] Result indicates immunity to hepatitis A infection from either vaccination or past exposure to hepatitis A. False-positive results may be observed in patients with CMV antibodies or heterophilic antibodies. REFERENCE VALUE Unvaccinated: Negative Vaccinated: Positive Test Performed by: [facility] [place] [address] [employer]borist Climber: Charles Jones M.D. Ph.D.; CLIA# [id number] ID Date Data Source [id number] 04/27/2020 04:50:00 PM EDT Health system Name Value Range Interpretation Code Description Data Darlene rce(s) Supporting Document(s) Hepatitis A Ab,IgG result Normal (applies to no n-numeric results) [facility] Result indicates immunity to hepatitis A infection from either vaccination or past exposure to hepatitis A. False-positive results may be observed in patients with CMV antibodies or heterophilic antibodies. REFERENCE VALUE Unvaccinated: Negative Vaccinated: Positive Test Performed by: [place] [address] [employer]: Charles Jones M.D. Ph.D.; CLIA# [id number] ID Date Data Source [id number] 04/24/2020 02:24:00 PM EDT [facility] Name Value Range Interpretation Code Description Data Darlene rce(s) Supporting Document(s) UDS Phencyclidine Screen Negative Normal (applies to non -numeric results) [facility] UDS Benzodiazepines Screen Negative Normal (applies to n on-numeric results) [facility] UDS Cocaine Screen Negative Normal (applies to non-numer ic results) [facility] UDS Ampetamine Screen Negative [facility] UDS Cannabinoids Screen Negative Normal (applies to non- numeric results) [facility] UDS Opiates Screen Negative [facility] UDS Barbiturates Screen Negative Normal (applies to non- numeric results) [facility] UDS Tricyclic Screen Negative Normal (applies to non-num oracio results) [facility] Therapeutic Drug Ranges for Emergency [...] treatment purposes only. ID Date Data Source [id number] 04/24/2020 02:21:00 PM [facility] Collected By: Nurse's Aide Initials: AC Name Value Range Interpretation Code Description Data Darlene rce(s) Supporting Document(s) Color,Urine Colorl-Dk Y Normal (applies to non-numeric res ults) [facility] Clarity,Urine Clear Normal (applies to non-numeric re sults) [facility] Specific Dayhoit,Urine 1.005-1.030 Normal (applies to non- numeric results) [facility] pH,Urine 5.0-8.0 Normal (applies to non-numeric resul ts) [facility] Protein,Urine Negative Normal (applies to non-numeric re sults) [facility] Glucose,Urine Negative Normal (applies to non-numeric re sults) [facility] Ketones,Urine Negative Normal (applies to non-numeric re sults) [facility] Blood,Urine Negative Normal (applies to non-numeric resu lts) [facility] Bilirubin,Urine Negative Normal (applies to non-numeric results) [facility] Urobilinogen,Urine 0.2-1.0 Normal (applies to non-numer ic results) [facility] Leukocyte Esterase,Urine Negative Normal (applies to non -numeric results) [facility] Nitrite,Urine Negative Normal (applies to non-numeric re sults) [facility] ID Date Data Source [id number] 04/27/2020 12:36:00 PM EDT [facility] Name Value Range Interpretation Code Description Data Darlene rce(s) Supporting Document(s) Chlamydia,Urine result Negative Normal (applies to non-n umeric results) [facility] Test [facility] [address] [place] [address] Director: Patricia Roberson MD . GC Urine result Negative Normal (applies to non-numeric results) [facility] Test Performed By: [facility] [address] [place] [address] Director: Patricia Roberson MD . Methodology: Second generation nucleic acid amplification. ID Date Data Source [id number] 04/15/2020 12:11:00 PM EDT [facility] [address] [place] [address] PHONE: [phone] FAX: [phone] Name .................. : UMAIR Hanna Acct Number.................. : [id number] ROOM. ................. : TR-1B MR Number ................... : [id number] Stay type ............. : E/R Discharge Date......... ... : 04/14/20 Admit Date ......... : 04/14/20 Admit Phys .................... : KHUSHBOO MIN Date of ....... : 1990 Family Phys ................... : NONE Phone .................. : [phone] Age ................................ : 29 Film# .................. .:[id number] Sex ................................. : M Unsigned transcriptions are preliminary reports and do not represent a medical or legal document CHEST 2 VIEWS [id number] COMPLETE:04/14/20 16:51 [facility] [place] [address] Reason(s): Congestion CHEST X-RAY: 2-VIEWS INDICATION: Congestion. [...] rce(s) Supporting Document(s) ID Date Data Source [id number] 04/15/2020 12:11:00 PM EDT [facility] [address] [place] [address] PHONE: [phone] FAX: [phone] Name .................. : UMAIR Hanna Acct Number.................. : [id number] ROOM. ................. : TR-1B MR Number ................... : [id number] Stay type ............. : E/R Discharge Date......... ... : 04/14/20 Admit Date ......... : 04/14/20 Admit Phys .................... : KHUSHBOO MIN Date of ....... : 1990 Family Phys ................... : NONE Phone .................. : [phone] Age ................................ : 29 Film# .................. .:[id number] Sex ................................. : M Unsigned transcriptions are preliminary reports and do not represent a medical or legal document FOOT COMPLETE-[address] [place] [id number] COMPLETE:04/14/20 16:51 [facility] [address] Reason(s): Pain RIGHT FOOT X-RAY: INDICATION: Status [...] this dictation. Electronically Reviewed and Signed By J oAnn Jennings MD , 04/15/20 12:11, KGG Transcribe Initials: DZ , Transcribe Date: 04/14/20 22:19, Dictation Date: Copy for: [facility] GOME[facility] via fax Copy for: EMERGENCY DEPT via modem Copy for: 710 MED REC DISCHARGED Page 1 of 1 Name Value Range Interpretation Code Description Data Darlene rce(s) Supporting Document(s) ID Date Data Source [id number] 04/15/2020 12:11:00 [place] [address] PHONE: [phone] FAX: [phone] Name .................. : UMAIR Hanna Acct Number.................. : [id number] ROOM. ................. : [facility] MR Number ................... : [id number] Stay type ............. : E/R Discharge Date......... ... : 04/14/20 Admit Date ......... : 04/14/20 Admit Phys .................... : KHUSHBOO MIN Date of ....... : 1990 Family Phys ................... : NONE Phone .................. : [phone] Age ................................ : 29 Film# .................. .:[id number] Sex ................................. : M Unsigned transcriptions are preliminary reports and do not represent a medical or legal document [place]RI[place] COMPLETE [place] [id number] COMPLETE:04/14/20 16:51 [facility] [place] [address] Reason(s): Pain RIGHT WRIST X-RAY: INDICATION: Status [...] rce(s) Supporting Document(s) ID Date Data Source [id number] 04/15/2020 12:05:00 [place] [address] PHONE: [phone] FAX: [phone] Name .................. : BLOCK NIEVES Jacques Acct Number.................. : [id number] ROOM. ................. : TR-1B MR Number ................... : [id number] Stay type ............. : E/R Discharge Date......... ... : 04/14/20 Admit Date ......... : 08/26/20 Admit Phys .................... : KHUSHBOO MIN Date of ....... : 1990 Family Phys ................... : NONE Phone .................. : [phone] Age ................................ : 29 Film# .................. .:[id number] Sex ................................. : M Unsigned transcriptions are preliminary reports and do not represent a medical or legal document CT THORACIC SPINE W/CONTR 84497 COMPLETE:04/14/20 17:29 YANETH [address] Reason(s): REFORMAT: lower tspine pain; fall; hx [...] rce(s) Supporting Document(s) ID Date Data Source [id number] 04/15/2020 12:05:00 PM EDT [facility] [address] [place] [address] PHONE: [phone] FAX: [phone] Name .................. : UMAIR Hanna Acct Number.................. : [id number] ROOM. ................. : [facility] MR Number ................... : [id number] Stay type ............. : E/R Discharge Date......... ... : 04/14/20 Admit Date ......... : 04/14/20 Admit Phys .................... : KHUSHBOO MIN Date of ....... : 1990 Family Phys ................... : NONE Phone .................. : [phone] Age ................................ : 29 Film# .................. .:[id number] Sex ................................. : M Unsigned transcriptions are preliminary reports and do not represent a medical or legal document CT LS W/CONTRAST 07024 COMPLETE:04/14/20 17:29 YANETH 71655 Reason(s): REFORMAT. hx of IVDU and upper [...] for: EMERGENCY DEPT via modem Copy for: [facility] MED REC DISCHARGED Page 1 of 1 Name Value Range Interpretation Code Description Data Darlene rce(s) Supporting Document(s) ID Date Data Source [id number] 04/15/2020 12:05:00 [place] [address] PHONE: [phone] FAX: [phone] Name .................. : UMAIR Hanna Acct Number.................. : [id number] ROOM. ................. : TR-1B MR Number ................... : [id number] Stay type ............. : E/R Discharge Date......... ... : 04/14/20 Admit Date ......... : 04/14/20 Admit Phys .................... : KHUSHBOO MIN Date of ....... : 1990 Family Phys ................... : NONE Phone .................. : [phone] Age ................................ : 29 Film# .................. .:[id number] Sex ................................. : M Unsigned transcriptions are preliminary reports and do not represent a medical or legal document CT ABD & PELVIS W/ IV ONLY 65805 COMPLETE:04/14/20 17:29 YANETH 32066 Reason(s): trauma. CT OF THE ABDOMEN AND [...] dose: 913.1 mGycm Page 1 of 2 [place] [address] PHONE: [phone] FAX: [phone] Name .................. : UMAIR Hanna Acct Number.................. : [id number] ROOM. ................. : TR-1B MR Number ................... : [id number] Stay type ............. : E/R Discharge Date......... ... : 04/14/20 Admit Date ......... : 04/14/20 Admit Phys .................... : KHUSHBOO MIN Date of ....... : 1990 Family Phys ................... : NONE Phone .................. : [phone] Age ................................ : 29 Film# .................. .:[id number] Sex ................................. : M Unsigned transcriptions are preliminary reports and do not represent a medical or legal document CT ABD & PELVIS W/ IV ONLY 94435 COMPLETE:04/14/20 17:29 YANETH [address]407 Reason(s): trauma. Contrast agent in mL: 75 [...] rce(s) Supporting Document(s) ID Date Data Source [id number] 04/15/2020 12:04:00 PM EDT [facility] [address] [place] [address] PHONE: [phone] FAX: [phone] Name .................. : UMAIR Hanna Acct Number.................. : [id number] ROOM. ................. : TR-1B MR Number ................... : [id number] Stay type ............. : E/R Discharge Date......... ... : 04/14/20 Admit Date ......... : 04/14/20 Admit Phys .................... : KHUSHBOO MIN Date of ....... : 1990 Family Phys ................... : NONE Phone .................. : [phone] Age ................................ : 29 Film# .................. .:[id number] Sex ................................. : M Unsigned transcriptions are preliminary reports and do not represent a medical or legal document CT THORAX W/CONTRAST 69704 COMPLETE:04/14/20 17:29 YANETH 32756 Reason(s): trauma, rhonchi, lower t spine pain [...] 22:25, Dictation Date: Page 1 of 2 [facility] [address] [place] [address] [place] [address] PHONE: [phone] FAX: [phone] Name .................. : UMAIR Hanna Acct Number.................. : [id number] ROOM. ................. : [facility] MR Number ................... : [id number] Stay type ............. : E/R Discharge Date......... ... : 04/14/20 Admit Date ......... : 04/14/20 Admit Phys .................... : KHUSHBOO MIN Date of ....... : 1990 Family Phys ................... : NONE Phone .................. : [phone] Age ................................ : 29 Film# .................. .:[id number] Sex ................................. : M Unsigned transcriptions are preliminary reports and do not represent a medical or legal document CT THORAX W/CONTRAST 11110 COMPLETE:04/14/20 17:29 YANETH 34942 Reason(s): trauma, rhonchi, lower t spine pain s/p fall. hx of IVDU and has Copy for: [facility] via fax Copy for: EMERGENCY DEPT via modem Copy for: 710 MED REC DISCHARGED Page 2 of 2 Name Value Range Interpretation Code Description Data Darlene rce(s) Supporting Document(s) ID Date Data Source [id number] 04/15/2020 12:03:00 PM EDT [facility] [address] [place] [address] PHONE: [phone] FAX: [phone] Name .................. : UMAIR Hanna Acct Number.................. : [id number] ROOM. ................. : [facility] MR Number ................... : [id number] Stay type ............. : E/R Discharge Date......... ... : 04/14/20 Admit Date ......... : 04/14/20 Admit Phys .................... : KHUSHBOO MIN Date of ....... : 1990 Family Phys ................... : NONE Phone .................. : [phone] Age ................................ : 29 Film# .................. .:[id number] Sex ................................. : M Unsigned transcriptions are preliminary reports and do not represent a medical or legal document CT HEAD W/O CONTRAST 98377 COMPLETE:04/14/20 17:29 YANETH 41866 Reason(s): Head Injury CT OF THE HEAD [...] rce(s) Supporting Document(s) ID Date Data Source [id number] 04/14/2020 02:27:[address] [facility] [address] [facility] Emergency Department [address] [place] [address] Phone #: [phone] 04/14/2020 14:24 Patient: [...] Gas STAT 14:04/14/2020 15:11 [place], [address] [facility] Emergency Department [address] [place] [address] Phone #: ext- [phone] 04/14/2020 14:24 Patient: [...] P.A.-C;(IV?(Yes)) Reason for Study: trauma. [address] [facility] Emergency Department [address] [place] [address] Phone #: ext- [phone] 04/14/2020 14:24 Patient: NIEVES BLOCK Sex: M [...] Burns R.N. P.A.-C;Blood Pressure 14:55 04/14/2020 15:01 [place] [facility] Mae Martinez P.A.-C; Iceo2CHT 14:55 04/14/2020 15:01 [place] [facility] Mae Martinez P.A.-C; Owfu1IVL 14:55 04/14/2020 15:02 [place], [address] [facility] Emergency Department [address] [place] [address] Phone #: ext- [phone] 04/14/2020 14:24 Patient: NIEVES BLOCK Sex: M : 1990 Age: 29y Griffin Chirinos R.N. P.A.-C;Pulse oximeter 14:55 04/14/2020 15:01 [place] [facility](Continuous) Mae Martinez P.A.-C; [id number] Lock 14:55 04/14/2020 15:02 Griffin Burns R.N. P.A.-C;Vitals 14:55 04/14/2020 15:01 [place] [facility] Mae Martinez P.A.-C; Iykc3Oeqlprf Monitor 14:55 04/14/2020 15:01 [place] [facility](continuous) Mae Martinez P.A.-C; Tech1[Electronically signed by Taran Burns R.N. (19:41 04/14/2020)][Electronically signed by Griffin Christianson P.A.-C (20:51 04/14/2020)][Electronically locked by Taran Burns R.N. (19:41 04/14/2020)] Name Value Range Interpretation Code Description Data Darlene rce(s) Supporting Document(s) ID Date Data Source [id number] 04/14/2020 02:27:[address] [facility] [address] [facility] Emergency Department [address] [place] [address] Phone #: ext- [phone] 04/14/2020 14:24 Patient: [...] rce(s) Supporting Document(s) ID Date Data Source [id number] 04/14/2020 02:27:[address] [facility] [address] [facility] Emergency Department [address] [place] [address] Phone #: ext- [phone] 04/14/2020 14:24 Patient: [...] IV NS 1000 mL Bolus : Bolus [id number] 04/14/2020 Dose: IV Fluids mL (X1)Taran Burns R.N. Rate: 1000 mL/hr over 60 minute(s)---- Dispensed: 1000 mL bagStop Site: #1 left wrist19:40 04/14/2020Taran Burns R.N. Name Value Range Interpretation Code Description Data Darlene rce(s) Supporting Document(s) ID Date Data Source [id number] 04/14/2020 02:27:[address] [facility] [address] [facility] Emergency Department [address] [place] [address] Phone #: ext- [phone] 04/14/2020 14:24 Patient: [...] to exceed.Please f/u with PCP or call [facility] to establish care.).Warnings: GENERAL WARNINGS: Return [...] verbalized by patient.Follow-up with: [facility], , , [address] [place] [address], [phone] Follow up. Reason for referral: evaluation, treatment [...] thefollowing:Social and personal problems [address] 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 Emergency Department [address] [place] [address] Phone #: ext- [phone] 04/14/2020 14:24 Patient: NIEVES BLOCK Sex: M : 1990 Age: 29y Narcotics Anonymous www.na.org 685-985-6790 National Alcohol and Substance Abuse Information Center (for referral to treatment programs) www.addiction[employer].Honestly.com 220-903-7654Rmbw 911C[facility] 911 if any of the following occur: [...] swelling, or tenderness at an injection site [phone] [employer]. [address] [place] [address]. All rights reserved. This information is not intended as asubstitute for professional medical care. Always follow your healthcare professional's instructions.Opiate AbuseUse and abuse of heroin or prescription pain medicines such as oxycodone, codeine, hydrocodone,morphine, methadone, and fentanyl may lead to addiction or dependence. Once this occurs, you areat greater risk for any of these: [address] [facility] Emergency Department [address] [place] [address] Phone #: ext- [phone] 04/14/2020 14:24 Patient: NIEVES BLOCK Sex: M : 1990 Age: 29y Craving for the drug and unable to stop using the drug even though you think you want to stop (psychological addiction) Drug withdrawal symptoms if you stop taking the drug (physical dependence) Loss of your job or your family Arrest, conviction, and senior living sentence for possession of an illegal substance [...] breathing Dizziness Skin infections [address] [facility] Emergency Department [address] [place] [address] Phone #: ext- [phone] 04/14/2020 14:24 Patient: [...] of the resources below for help: National [place] on Alcoholism and Drug Dependence, www.ncadd.org 691-489-RFDW Narcotics Anonymous. Check your phone book for a local listing, call 675-505-4310, or visit www.na.org. National Alcohol and Substance Abuse Information Center for referral to treatment programs www.[facility]ictioncare[facility] [facility].Honestly.com 193-741-1694Gvvn 50mns 916 if any of these occur: Seizure [address] [facility] Emergency Department [address] [place] [address] Phone #: ext- [phone] 04/14/2020 14:24 Patient: [...] at an injection site 1999- 2017 [employer] [address] [place] [address]. All rights reserved. This information is not [...] ever had a stomach [address] [facility] Emergency Department [address] [place] [address] Phone #: ext- [phone] 04/14/2020 14:24 Patient: [...] or eye Frequent bruising for unknown reasons [phone] [employer] [address] [place] [address]. All rights reserved. This information is not [...] and swelling goes away. [address] [facility] Emergency Department [address] [place] [address] Phone #: ext- [phone] 04/14/2020 14:24 Patient: [...] body part Frequent bruising for unknown reasons [phone] [employer]. [address] [place] [address], [place] [address]. All rights reserved. This information is not [...] using these medicines.)Follow up [address] [facility] Emergency Department [address] [place] [address] Phone #: ext- [phone] 04/14/2020 14:24 Patient: [...] injured hand Frequent bruising for unknown reasons [phone] [employer]. [address] [place] [address], [place] [address]. All rights reserved. This information is not [...] leg without pain.Follow up [address] [facility] Emergency Department [address] [place] [address] Phone #: ext- [phone] 04/14/2020 14:24 Patient: [...] injured area Frequent bruising for unknown reasons [phone] [employer]. [address] [place] [address], [place] [address]. All rights reserved. This information is not [...] within 1to 2 weeks[address] [facility] Emergency Department [address] [place] [address] Phone #: ext- [phone] 04/14/2020 14:24 Patient: NIEVES BLOCK Sex: M [...] injured foot Frequent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
[2020-10-02] MEDS ORDERED: LORazepam 2 MG/ML VIAL IM STA ×3 (22:47→23:20)
[2020-10-02] MEDS ORDERED: LORazepam 2 MG/ML VIAL As Ordered ONE (22:49)
--- OUTSIDE RECORDS SUMMARY | 2020-10-02 22:55 | CCD ---
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 Phosphatase 91 U/L 38-126 Normal (applies to non-num oracio results) [facility] can increase Alkaline Phosp le vels up to 2 times the normal adult value. Normal values for children and adolescents are 2 to 3 times the normal adult value. Total Protein 6.0-8.2 Normal (applies to non-numeric re sults) [facility] Albumin Level 3.4-5.0 Normal (applies to non-numeric re sults) [facility] ID Date Data Source [id number] 04/24/2020 01:58:00 PM EDT [facility] Name Value Range Interpretation Code Description Data Darlene rce(s) Supporting Document(s) Bilirubin,Direct 0.05-0.20 Normal (applies to non-numeric results) [facility] ID Date Data Source [id number] 04/24/2020 01:58:00 PM EDT [facility] Name Value Range Interpretation Code Description Data Darlene rce(s) Supporting Document(s) Phosphorus 2.5-4.9 Normal (applies to non-numeric resul ts) [facility] ID Date Data Source [id number] 04/24/2020 01:58:00 PM EDT [facility] Value Range Interpretation Code Description Data Darlene rce(s) Supporting Document(s) Magnesium 1.8-2.4 Normal (applies to non-numeric resul ts) [facility] ID Date Data Source [id number] 04/24/2020 01:58:00 PM EDT [facility] Value Range Interpretation Code Description Data Darlene rce(s) Supporting Document(s) Thyroid Stimulate Hormone TSH 0.358-3.74 No rmal (applies to non-numeric results) [facility] ID Date Data Source [id number] 04/24/2020 01:42:00 PM EDT [facility] Value Range Interpretation Code Description Data Darlene rce(s) Supporting Document(s) Ethanol Less than 10.0 Normal (applies to non-numeric r esults) [facility] ID Date Data Source [id number] 04/24/2020 01:39:00 PM EDT [facility] Value Range Interpretation Code Description Data Darlene rce(s) Supporting Document(s) White Blood Count 3.5-10.5 Normal (applies to non-numeri c results) [facility] Red Blood Count 4.30-5.70 Below low normal [facility] Hemoglobin 13.5-17.5 Below low normal [facility] ospital Hematocrit 38.8-50.0 Normal (applies to non-numeric resul ts) [facility] Mean Corpuscular Volume 81.2-95.1 Normal (applies to non- numeric results) [facility] Mean Corpuscular Hgb 25.6-32.2 Normal (applies to non-num oracio results) [facility] Mean Corpuscular Hgb Conc 32.0-36.0 Normal (applies to no n-numeric results) [facility] Red Cell Distribution Width 11.8-15.6 Normal (appli es to non-numeric results) [facility] Platelet Count 294 x10 3/uL 150-450 Normal (applies to non-numeric results) [facility] Mean Platelet Volume 9.4-12.4 Below low normal [facility] Neutrophils% (Auto) 31.0-71.0 Normal (applies to non-nume leonard results) [facility] Lymphocytes% (Auto) 20.0-55.0 Normal (applies to non-nume leonard results) [facility] Monocytes% (Auto) 4.0-12.0 Normal (applies to non-numeri c results) [facility] Eosinophils% (Auto) 1.0-8.0 Normal (applies to non-nume leonard results) [facility] Basophils% (Auto) 0.0-2.0 Normal (applies to non-numeri c results) [facility] Immature Granulocytes% (Auto) 0.0-2.0 Normal (marli lies to non-numeric results) [facility] Neutrophils# (Auto) 1.50-6.20 Normal (applies to non-nume leonard results) [facility] Lymphocytes# (Auto) 1.20-4.00 Normal (applies to non-nume leonard results) [facility] Monocytes# (Auto) 0.00-0.90 Normal (applies to non-numeri c results) [facility] Eosinophils# (Auto) 0.00-0.50 Normal (applies to non-nume leonard results) [facility] Basophils# (Auto) 0.00-0.20 Normal (applies to non-numeri c results) [facility] Immature Granulocytes# (Auto) 0.00-7.00 No rmal (applies to non-numeric results) [facility] ID Date Data Source [id number] 04/27/2020 05:30:00 PM EDT [facility] Name Value Range Interpretation Code Description Data Darlene rce(s) Supporting Document(s) Hepatitis A Ab,IgG result Normal (applies to no n-numeric results) [facility] Result indicates immunity to hepatitis A infection from either vaccination or past exposure to hepatitis A. False-positive results may be observed in patients with CMV antibodies or heterophilic antibodies. REFERENCE VALUE Unvaccinated: Negative Vaccinated: Positive Test Performed by: [facility] [place] [address] Machine Bender: Charles Jones M.D. Ph.D.; CLIA# [id number] ID Date Data Source [id number] 04/27/2020 04:50:00 PM EDT [facility] Name Value Range Interpretation Code Description Data Darlene rce(s) Supporting Document(s) Hepatitis A Ab,IgG result Normal (applies to no n-numeric results) [facility] Result indicates immunity to hepatitis A infection from either vaccination or past exposure to hepatitis A. False-positive results may be observed in patients with CMV antibodies or heterophilic antibodies. REFERENCE VALUE Unvaccinated: Negative Vaccinated: Positive Test Performed by: [place] [address] Machine Bender: Charles Jones M.D. Ph.D.; CLIA# [id number] ID Date Data Source [id number] 04/24/2020 02:24:00 PM EDT [facility] Name Value Range Interpretation Code Description Data Darlene rce(s) Supporting Document(s) UDS Phencyclidine Screen Negative Normal (applies to non -numeric results) [facility] UDS Benzodiazepines Screen Negative Normal (applies to n on-numeric results) [facility] UDS Cocaine Screen Negative Normal (applies to non-numer ic results) [facility] UDS Ampetamine Screen Negative [facility] UDS Cannabinoids Screen Negative Normal (applies to non- numeric results) [facility] UDS Opiates Screen Negative [facility] UDS Barbiturates Screen Negative Normal (applies to non- numeric results) [facility] UDS Tricyclic Screen Negative Normal (applies to non-num oracio results) [facility] Therapeutic Drug Ranges for Emergency Threshold Levels [...] treatment purposes only. ID Date Data Source [id number] 04/24/2020 02:21:00 PM [facility] Collected By: Nurse's Aide Initials: AC Name Value Range Interpretation Code Description Data Darlene rce(s) Supporting Document(s) Color,Urine Colorl-Dk Y Normal (applies to non-numeric res ults) [facility] Clarity,Urine Clear Normal (applies to non-numeric re sults) [facility] Specific [place],Urine 1.005-1.030 Normal (applies to non- numeric results) [facility] pH,Urine 5.0-8.0 Normal (applies to non-numeric resul ts) [facility] Protein,Urine Negative Normal (applies to non-numeric re sults) [facility] Glucose,Urine Negative Normal (applies to non-numeric re sults) [facility] Ketones,Urine Negative Normal (applies to non-numeric re sults) [facility] Blood,Urine Negative Normal (applies to non-numeric resu lts) [facility] Bilirubin,Urine Negative Normal (applies to non-numeric results) [facility] Urobilinogen,Urine 0.2-1.0 Normal (applies to non-numer ic results) [facility] Leukocyte Esterase,Urine Negative Normal (applies to non -numeric results) [facility] Nitrite,Urine Negative Normal (applies to non-numeric re sults) [facility] ID Date Data Source [id number] 04/27/2020 12:36:00 PM EDT [facility] Name Value Range Interpretation Code Description Data Darlene rce(s) Supporting Document(s) Chlamydia,Urine result Negative Normal (applies to non-n umeric results) [facility] Test [facility] [address] [place] [address] Director: Patricia Roberson MD . GC Urine result Negative Normal (applies to non-numeric results) [facility] Test [facility]formed By: [facility] [address] [place] [address] Director: Patricia Roberson MD . Methodology: Second generation nucleic acid amplification. ID Date Data Source [id number] 04/15/2020 12:11:00 PM EDT [facility] [address] [place] [address] PHONE: [phone] FAX: [phone] Name .................. : UMAIR Hanna Acct Number.................. : [id number] ROOM. ................. : TR-1B MR Number ................... : [id number] Stay type ............. : E/R Discharge Date......... ... : 04/14/20 Admit Date ......... : 04/14/20 Admit Phys .................... : KHUSHBOO MIN Date of ....... : 1990 Family Phys ................... : NONE Phone .................. : [phone] Age ................................ : 29 Film# .................. .:[id number] Sex ................................. : M Unsigned transcriptions are preliminary reports and do not represent a medical or legal document CHEST 2 VIEWS 65627 COMPLETE:04/14/20 16:51 [facility] [address] Reason(s): Congestion CHEST X-RAY: 2-VIEWS INDICATION: Congestion. [...] rce(s) Supporting Document(s) ID Date Data Source [id number] 04/15/2020 12:11:00 PM EDT [facility] [address] [place] [address] PHONE: [phone] FAX: [phone] Name .................. : UMAIR Hanna Acct Number.................. : [id number] ROOM. ................. : TR-1B MR Number ................... : [id number] Stay type ............. : E/R Discharge Date......... ... : 04/14/20 Admit Date ......... : 04/14/20 Admit Phys .................... : KHUSHBOO MIN Date of ....... : 1990 Family Phys ................... : NONE Phone .................. : [phone] Age ................................ : 29 Film# .................. .:[id number] Sex ................................. : M Unsigned transcriptions are preliminary reports and do not represent a medical or legal document FOOT COMPLETE-[address] [place] [address] COMPLETE:04/14/20 16:51 [facility] [address] Reason(s): Pain RIGHT FOOT X-RAY: INDICATION: Status [...] rce(s) Supporting Document(s) ID Date Data Source [id number] 04/15/2020 12:11:00 [place] [address] PHONE: [phone] FAX: [phone] Name .................. : UMAIR Hanna Acct Number.................. : [id number] ROOM. ................. : [facility] MR Number ................... : [id number] Stay type ............. : E/R Discharge Date......... ... : 04/14/20 Admit Date ......... : 04/14/20 Admit Phys .................... : KHUSHBOO MIN Date of ....... : 1990 Family Phys ................... : NONE Phone .................. : [phone] Age ................................ : 29 Film# .................. .:[id number] Sex ................................. : M Unsigned transcriptions are preliminary reports and do not represent a medical or legal document WRIST COMPLETE [place] [id number] COMPLETE:04/14/20 16:51 [facility] [address] Reason(s): Pain RIGHT WRIST X-RAY: INDICATION: Status [...] rce(s) Supporting Document(s) ID Date Data Source [id number] 04/15/2020 12:05:00 [place] [address] PHONE: [phone] FAX: [phone] Name .................. : BLOCK NIEVES Jacques Acct Number.................. : [id number] ROOM. ................. : TR-1B MR Number ................... : [id number] Stay type ............. : E/R Discharge Date......... ... : 04/14/20 Admit Date ......... : 08/26/20 Admit Phys .................... : KHUSHBOO MIN Date of ....... : 1990 Family Phys ................... : NONE Phone .................. : [phone] Age ................................ : 29 Film# .................. .:[id number] Sex ................................. : M Unsigned transcriptions are preliminary reports and do not represent a medical or legal document CT THORACIC SPINE W/CONTR 45895 COMPLETE:04/14/20 17:29 YANETH 20319 Reason(s): REFORMAT: lower tspine pain; fall; hx [...] rce(s) Supporting Document(s) ID Date Data Source [id number] 04/15/2020 12:05:00 PM EDT [facility] [address] [place] [address] PHONE: [phone] FAX: [phone] Name .................. : UMAIR Hanna Acct Number.................. : [id number] ROOM. ................. : [facility] MR Number ................... : [id number] Stay type ............. : E/R Discharge Date......... ... : 04/14/20 Admit Date ......... : 04/14/20 Admit Phys .................... : KHUSHBOO MIN Date of ....... : 1990 Family Phys ................... : NONE Phone .................. : [phone] Age ................................ : 29 Film# .................. .:[id number] Sex ................................. : M Unsigned transcriptions are preliminary reports and do not represent a medical or legal document CT LS W/CONTRAST 33702 COMPLETE:04/14/20 17:29 YANETH 21671 Reason(s): REFORMAT. hx of IVDU and upper [...] for: EMERGENCY DEPT via modem Copy for: [facility] MED REC DISCHARGED Page 1 of 1 Name Value Range Interpretation Code Description Data Darlene rce(s) Supporting Document(s) ID Date Data Source [id number] 04/15/2020 12:05:00 [place] [address] PHONE: [phone] FAX: [phone] Name .................. : UMAIR Hanna Acct Number.................. : [id number] ROOM. ................. : TR-1B MR Number ................... : [id number] Stay type ............. : E/R Discharge Date......... ... : 04/14/20 Admit Date ......... : 04/14/20 Admit Phys .................... : KHUSHBOO MIN Date of ....... : 1990 Family Phys ................... : NONE Phone .................. : [phone] Age ................................ : 29 Film# .................. .:[id number] Sex ................................. : M Unsigned transcriptions are preliminary reports and do not represent a medical or legal document CT ABD & PELVIS W/ IV ONLY 57739 COMPLETE:04/14/20 17:29 YANETH 36235 Reason(s): trauma. CT OF THE ABDOMEN AND [...] dose: 913.1 mGycm Page 1 of 2 [place] [address] PHONE: [phone] FAX: [phone] Name .................. : UMAIR Hanna Acct Number.................. : [id number] ROOM. ................. : TR-1B MR Number ................... : [id number] Stay type ............. : E/R Discharge Date......... ... : 04/14/20 Admit Date ......... : 04/14/20 Admit Phys .................... : KHUSHBOO MIN Date of ....... : 1990 Family Phys ................... : NONE Phone .................. : [phone] Age ................................ : 29 Film# .................. .:[id number] Sex ................................. : M Unsigned transcriptions are preliminary reports and do not represent a medical or legal document CT ABD & PELVIS W/ IV ONLY 47037 COMPLETE:04/14/20 17:29 YANETH 38289 Reason(s): trauma. Contrast agent in mL: 75 [...] rce(s) Supporting Document(s) ID Date Data Source [id number] 04/15/2020 12:04:00 PM EDT [facility] [address] [place] [address] PHONE: [phone] FAX: [phone] Name .................. : UMAIR Hanna Acct Number.................. : [id number] ROOM. ................. : TR-1B MR Number ................... : [id number] Stay type ............. : E/R Discharge Date......... ... : 04/14/20 Admit Date ......... : 04/14/20 Admit Phys .................... : KHUSHBOO MIN Date of ....... : 1990 Family Phys ................... : NONE Phone .................. : [phone] Age ................................ : 29 Film# .................. .:[id number] Sex ................................. : M Unsigned transcriptions are preliminary reports and do not represent a medical or legal document CT THORAX W/CONTRAST 50166 COMPLETE:04/14/20 17:29 YANETH 31093 Reason(s): trauma, rhonchi, lower t spine pain [...] 22:25, Dictation Date: Page 1 of 2 [facility] [address] [place] [address] [place] [address] PHONE: [phone] FAX: [phone] Name .................. : UMAIR Hanna Acct Number.................. : [id number] ROOM. ................. : [facility] MR Number ................... : [id number] Stay type ............. : E/R Discharge Date......... ... : 04/14/20 Admit Date ......... : 04/14/20 Admit Phys .................... : KHUSHBOO MIN Date of ....... : 1990 Family Phys ................... : NONE Phone .................. : [phone] Age ................................ : 29 Film# .................. .:[id number] Sex ................................. : M Unsigned transcriptions are preliminary reports and do not represent a medical or legal document CT THORAX W/CONTRAST [id number] COMPLETE:04/14/20 17:29 YANETH [id number] Reason(s): trauma, rhonchi, lower t spine pain s/p fall. hx of IVDU and has Copy for: ROSANA GOMEZ via fax Copy for: EMERGENCY DEPT via modem Copy for: 710 MED REC DISCHARGED Page 2 of 2 Name Value Range Interpretation Code Description Data Darlene rce(s) Supporting Document(s) ID Date Data Source [id number] 04/15/2020 12:03:00 PM EDT [facility] [address] [place] [address] PHONE: [phone] FAX: [phone] Name .................. : UMAIR Hanna Acct Number.................. : [id number] ROOM. ................. : [facility] MR Number ................... : [id number] Stay type ............. : E/R Discharge Date......... ... : 04/14/20 Admit Date ......... : 04/14/20 Admit Phys .................... : KHUSHBOO MIN Date of ....... : 1990 Family Phys ................... : NONE Phone .................. : [phone] Age ................................ : 29 Film# .................. .:[id number] Sex ................................. : M Unsigned transcriptions are preliminary reports and do not represent a medical or legal document CT HEAD W/O CONTRAST [id number] COMPLETE:04/14/20 17:29 YANETH [id number] Reason(s): Head Injury CT OF THE HEAD [...] rce(s) Supporting Document(s) ID Date Data Source [id number] 04/14/2020 02:27:[address] [facility] [address] [facility] Emergency Department [address] [place] [address] Phone #: ext- [phone] 04/14/2020 14:24 Patient: [...] STAT 14:04/14/2020 15:11 [place], [address] [facility] Emergency Department [address] [place] [address] Phone #: ext- [phone] 04/14/2020 14:24 Patient: [...] Reason for Study: trauma. [address] [facility] Emergency Department [address] [place] [address] Phone #: ext- [phone] 04/14/2020 14:24 Patient: NIEVES BLOCK Sex: M [...] Burns R.N. P.A.-C;Blood Pressure 14:55 04/14/2020 15:01 [place] EDMonitor Mae Martinez P.A.-C; [id number] 14:55 04/14/2020 15:01 [place] ED Mae Martinez P.A.-C; [id number] 14:55 04/14/2020 15:02 [place], [address] [facility] Emergency Department [address] [place] [address] Phone #: ext- [phone] 04/14/2020 14:24 Patient: NIEVES BLOCK Sex: M : 1990 Age: 29y Griffin Chirinos R.N. P.A.-C;Pulse oximeter 14:55 04/14/2020 15:01 [place] ED(Continuous) Mae Martinez P.A.-C; Ksyx4Piciib Lock 14:55 04/14/2020 15:02 [place] Burns R.N. P.A.-C;Vitals 14:55 04/14/2020 15:01 [place] ED Mae Martinez P.A.-C; [id number] Monitor 14:55 04/14/2020 15:01 [place] ED(continuous) Mae Martinez P.A.-C; Tech1[Electronically signed by Taran Burns R.N. (19:41 04/14/2020)][Electronically signed by Griffin Christianson P.A.-C (20:51 04/14/2020)][Electronically locked by Taran Burns R.N. (19:41 04/14/2020)] Name Value Range Interpretation Code Description Data Darlene rce(s) Supporting Document(s) ID Date Data Source [id number] 04/14/2020 02:27:[address] [facility] [address] [facility] Emergency Department [address] [place] [address] Phone #: ext- [phone] 04/14/2020 14:24 Patient: [...] rce(s) Supporting Document(s) ID Date Data Source [id number] 04/14/2020 02:27:[address] [facility] [address] [facility] Emergency Department [address] [place] [address] Phone #: ext- [phone] 04/14/2020 14:24 Patient: [...] IV NS 1000 mL Bolus : Bolus [id number] 04/14/2020 Dose: IV Fluids mL (X1)Taran Burns R.N. Rate: 1000 mL/hr over 60 minute(s)---- Dispensed: 1000 mL bagStop Site: #1 left wrist19:40 04/14/2020Taran Burns R.N. Name Value Range Interpretation Code Description Data Darlene rce(s) Supporting Document(s) ID Date Data Source [id number] 04/14/2020 02:27:[address] [facility] [address] [facility] Emergency Department [address] [place] [address] Phone #: ext- [phone] 04/14/2020 14:24 Patient: [...] to exceed.Please f/u with PCP or call [facility] to establish care.).Warnings: GENERAL WARNINGS: Return or contact your physician immediately if your conditionworsens or changes unexpectedly, if not improving as expected, or if other problems arise.Follow-up:Return to the emergency department as needed. Follow up with your healthcare provider in about twodays. Call for an appointment. Reason for referral: evaluation and treatment.Understanding of the discharge instructions verbalized by patient.Follow-up with: [facility], , , [address] [place] [address], [address] Follow up. Reason for referral: evaluation, treatment [...] and personal problems [address] 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 Emergency Department [address] [place] [address] Phone #: ext- [phone] 04/14/2020 14:24 Patient: NIEVES BLOCK Sex: M : 1990 Age: 29y Narcotics Anonymous www.na.org 970-162-7288 National Alcohol and Substance Abuse Information Center (for referral to treatment programs) www.addictionApplyInc.com.Startpack 494-854-4363Pzah 911Cuc [facility] 911 if any of the following occur: [...] swelling, or tenderness at an injection site 1192-1298 [employer]. [address] [place] [address]. All rights reserved. This information is not intended as asubstitute for professional medical care. Always follow your healthcare professional's instructions.Opiate AbuseUse and abuse of heroin or prescription pain medicines such as oxycodone, codeine, hydrocodone,morphine, methadone, and fentanyl may lead to addiction or dependence. Once this occurs, you areat greater risk for any of these: [address] [facility] Emergency Department [address] [place] [address] Phone #: ext- [phone] 04/14/2020 14:24 Patient: NIEVES BLOCK Sex: M : 1990 Age: 29y Craving for the drug and unable to stop using the drug even though you think you want to stop (psychological addiction) Drug withdrawal symptoms if you stop taking the drug (physical dependence) Loss of your job or your family Arrest, conviction, and correction sentence for possession of an illegal substance [...] Dizziness Skin infections [address] [facility] Emergency Department [address] [place] [address] Phone #: ext- [phone] 04/14/2020 14:24 Patient: [...] [place] on Alcoholism and Drug Dependence, www.ncadd.org 690-468-QAEK Narcotics Anonymous. Check your phone book for a local listing, call 201-965-4441, or visit www.na.org. National Alcohol and Substance Abuse Information Center for referral to treatment programs www.AddictioncareCloud [employer].Startpack 547-522-6266Xlft 88nnk 915 if any of these occur: Seizure [address] [facility] Emergency Department [address] [place] [address] Phone #: ext- [phone] 04/14/2020 14:24 Patient: [...] at an injection site 1999- 2017 [employer] [address] [place] [address]. All rights reserved. This information is not [...] had a stomach [address] [facility] Emergency Department [address] [place] [address] Phone #: ext- [phone] 04/14/2020 14:24 Patient: [...] or eye Frequent bruising for unknown reasons 7687-5462 [employer] [address] [place] [address]. All rights reserved. This information is not [...] swelling goes away. [address] [facility] Emergency Department [address] [place] [address] Phone #: ext- [phone] 04/14/2020 14:24 Patient: [...] body part Frequent bruising for unknown reasons 2043-1982 [employer]. [address] [place] [address], [place] [address]. All rights reserved. This information is not [...] these medicines.)Follow up [address] [facility] Emergency Department [address] [place] [address] Phone #: ext- [phone] 04/14/2020 14:24 Patient: [...] injured hand Frequent bruising for unknown reasons 1740-0818 [employer] [address] [place] [address], [place] [address]. All rights reserved. This information is not [...] without pain.Follow up [address] [facility] Emergency Department [address] [place] [address] Phone #: ext- [phone] 04/14/2020 14:24 Patient: [...] injured area Frequent bruising for unknown reasons 9518-8225 [employer] [address] [place] [address], [place] [address]. All rights reserved. This information is not [...] 1to [address] weeks[address] [facility] Emergency Department [address] [place] [address] Phone #: ext- [phone] 04/14/2020 14:24 Patient: NIEVES BLOCK Sex: M [...] injured foot Frequent bruising for unknown reasons 8357-0685 [employer] [address] [place] [address], [place] [address]. All rights reserved. This information is not [...] coffee, tea, cola and some medicines. Some xanj-dnh-nooksgz cold andsinus remedies, diet pills, and some [...] few minutes.Follow-up care [address] [facility] Emergency Department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
[2020-10-02] MEDS ORDERED: NS 1,000 ML IV ONE (23:00)
[2020-10-03 03:03] LABS: HEMATOCRIT 38.8 % (42.0-52.0); HEMOGLOBIN 12.1 g/dl (13.5-17.5); MEAN CORPUSCULAR HEMOGLOBIN 29.2 pg (27.0-33.0); MEAN CORPUSCULAR HGB CONC 31.2 g/dl (32.0-36.5); MEAN CORPUSCULAR VOLUME 93.5 fl (80.0-96.0); PLATELET COUNT, AUTOMATED 248 10^3/uL (150-450); RED BLOOD COUNT 4.15 10^6/uL (4.30-6.10); WHITE BLOOD COUNT 9.3 10^3/uL (4.0-10.0)
[2020-10-03] MEDS ORDERED: NS 1,000 ML IV ONE ×2 (03:15→04:15)
[2020-10-03 03:48] LABS: ACETAMINOPHEN LEVEL < 2.0 UG/ML (10.0-30.0); ALBUMIN 3.7 GM/DL (3.2-5.2); ALT/SGPT 29 U/L (12-78); BILIRUBIN,DIRECT 0.1 MG/DL (0.0-0.2); BILIRUBIN,TOTAL 0.6 MG/DL (0.2-1.0); BLOOD UREA NITROGEN 22 MG/DL (7-18); CALCIUM LEVEL 8.5 MG/DL (8.5-10.1); CARBON DIOXIDE LEVEL 25 MEQ/L (21-32); CHLORIDE LEVEL 108 MEQ/L (98-107); CPK CREATINE PHOSPHOKINASE 538 U/L (39-308); CREATININE FOR GFR 0.88 MG/DL (0.70-1.30); ETHYL ALCOHOL (ETHANOL) < 0.003 % (0.000-0.010); GLOMERULAR FILTRATION RATE > 60.0 (>60); GLUCOSE, FASTING 84 MG/DL (70-100); POTASSIUM SERUM 4.3 MEQ/L (3.5-5.1); SALICYLATE LEVEL < 1.7 MG/DL (5.0-30.0); SODIUM LEVEL 142 MEQ/L (136-145); TOTAL PROTEIN 7.3 GM/DL (6.4-8.2)
[2020-10-03 06:04] LABS: AMPHETAMINES LEVEL URINE POSITIVE (NEGATIVE); BARBITURATES URINE NEGATIVE (NEGATIVE); BENZODIAZEPINES URINE NEGATIVE (NEGATIVE); CANNABINOIDS URINE NEGATIVE (NEGATIVE); COCAINE METABOLITE URINE NEGATIVE (NEGATIVE); METHADONE URINE NEGATIVE (NEGATIVE); OPIATES URINE POSITIVE (NEGATIVE); PHENCYCLIDINE URINE NEGATIVE (NEGATIVE)
[2020-10-03 11:30] VITALS: BP 114/68
== END 2020-10-03 11:47 | disposition home or self-care (01) ==
LOC: M ED 22:41
DX: F15.159 Other stimulant abuse with stimulant-induced psychotic disorder, unspecified (principal); Z88.5 Allergy status to narcotic agent
CPT/HCPCS: 51701; 80048; 80076; 80143; 80307; 82077; 82550; 84443; 85027; 93041; 94760; 96360; 96361; 96372; 99285; J2060

== ENCOUNTER 2020-10-15 04:38 | Emergency (ER) | payer OTHER ==
[~2020-10-15] VITALS: Ht 188 cm; Wt 65.4 kg
[2020-10-15] MEDS ORDERED: diphenhydrAMINE 50MG/ML VIAL (J1200) IM ONE (04:45)
[2020-10-15] MEDS ORDERED: HALOPERIDOL 5MG/ML VIAL (J1630 PER 1) IM ONE (04:45)
[2020-10-15] MEDS ORDERED: LORazepam 2 MG/ML VIAL IM ONE (04:45)
[2020-10-15] MEDS ORDERED: NS 1,000 ML IV ONE (04:45)
[2020-10-15] MEDS ORDERED: HALOPERIDOL 5MG/ML VIAL (J1630 PER 1) As Ordered ONE (04:51)
[2020-10-15] MEDS ORDERED: diphenhydrAMINE 50MG/ML VIAL (J1200) As Ordered ONE (04:51)
[2020-10-15] MEDS ORDERED: LORazepam 2 MG/ML VIAL As Ordered ONE ×2 (04:52→05:12)
[2020-10-15] MEDS ORDERED: LORazepam 2 MG/ML VIAL IM STA (05:10)
--- OUTSIDE RECORDS SUMMARY | 2020-10-15 05:38 | CCD | Continuity of Care Document ---
Author Author Josue GASPAR M.D. Organization Unknown Address [address] [place] [address] Phone [phone] Problems Description No Information Available Social History Type Date Description Comments Sex Unknown Allergies, Adverse Reactions, Alerts Description No Known Drug Allergies Medications Description No Active Medications Immunizations Description No Information Available Vital Signs Date Vital Result Comment 01/06/2020 10:27am Body Temperature 98.8 F 12/22/2019 8:50am BP Systolic 113 mmHg BP Diastolic 77 mmHg Heart Rate 104 /min Respiratory Rate 18 /min Body Temperature 98.4 F Weight 185.00 lb Results Description No Information Available Procedures Description No Information Available Medical Devices Description No Information Available Encounters Description No Information Available Assessments Description No Information Available Plan of Treatment No Information Available Functional Status Description No Information Available Mental Status Description No Information Available Referrals Description No Information Available
--- OUTSIDE RECORDS SUMMARY | 2020-10-15 05:38 | CCD | Continuity of Care Document ---
Author Author Nurse 2, Josue Hanna Organization Unknown Address [address] [place] [address] Phone Unavailable Problems Description No Information Available Social History Type Date Description Comments Sex Unknown Allergies, Adverse Reactions, Alerts Description No Known Drug Allergies Medications Active Medications SIG Qnty Indications Ordering Provide r Date Acetaminophen 325mg Tablets 2 tabs by mouth twice a day x 5 days 10tabs Carl London M.D. 0 10/05/2020 Immunizations Description No Information Available Vital Signs Date Vital Result Comment 10/05/2020 9:33am BP Systolic 111 mmHg BP Diastolic 74 mmHg Heart Rate 95 /min Respiratory Rate 18 /min Body Temperature 98.1 F Weight 157.00 lb 01/06/2020 10:27am Body Temperature 98.8 F Results Description No Information Available Procedures Description No Information Available Medical Devices Description No Information Available Encounters Description No Information Available Assessments Description No Information Available Plan of Treatment No Information Available Functional Status Description No Information Available Mental Status Description No Information Available Referrals Description No Information Available
--- OUTSIDE RECORDS SUMMARY | 2020-10-15 05:39 | CCD ---
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 results) [facility] ID Date Data Source [id number] 04/24/2020 01:58:00 PM EDT [facility] Name Value Range Interpretation Code Description Data Darlene rce(s) Supporting Document(s) Phosphorus 2.5-4.9 Normal (applies to non-numeric resul ts) [facility] ID Date Data Source [id number] 04/24/2020 01:58:00 PM EDT [facility] Name Value Range Interpretation Code Description Data Darlene rce(s) Supporting Document(s) Magnesium 1.8-2.4 Normal (applies to non-numeric resul ts) [facility] ID Date Data Source [id number] 04/24/2020 01:58:00 PM EDT [facility] Name Value Range Interpretation Code Description Data Darlene rce(s) Supporting Document(s) Thyroid Stimulate Hormone TSH 0.358-3.74 No rmal (applies to non-numeric results) [facility] ID Date Data Source [id number] 04/24/2020 01:42:00 PM EDT [facility] Name Value Range Interpretation Code Description Data Darlene rce(s) Supporting Document(s) Ethanol Less than 10.0 Normal (applies to non-numeric r esults) [facility] ID Date Data Source [id number] 04/24/2020 01:39:00 PM EDT [facility] Name Value Range Interpretation Code Description Data Darlene rce(s) Supporting Document(s) White Blood Count 3.5-10.5 Normal (applies to non-numeri c results) [facility] Red Blood Count 4.30-5.70 Below low normal [facility] Hemoglobin 13.5-17.5 Below low normal [facility] Hematocrit 38.8-50.0 Normal (applies to non-numeric resul ts) [facility] Mean Corpuscular Volume 81.2-95.1 Normal (applies to non- numeric results) [facility] Mean Corpuscular Hgb 25.6-32.2 Normal (applies to non-num oracio results) [facility] Mean Corpuscular Hgb Conc 32.0-36.0 Normal (applies to no n-numeric results) [facility] Red Cell Distribution Width 11.8-15.6 Normal (appli es to non-numeric results) [facility] Platelet Count 294 x10 3/uL 150-450 Normal (applies to non-numeric results) [facility] Mean Platelet Volume 9.4-12.4 Below low normal [facility] Neutrophils% (Auto) 31.0-71.0 Normal (applies to non-nume leonard results) [facility] Lymphocytes% (Auto) 20.0-55.0 Normal (applies to non-nume leonard results) [facility] Monocytes% (Auto) 4.0-12.0 Normal (applies to non-numeri c results) [facility] Eosinophils% (Auto) 1.0-8.0 Normal (applies to non-nume leonard results) [facility] Basophils% (Auto) 0.0-2.0 Normal (applies to non-numeri c results) [facility] Immature Granulocytes% (Auto) 0.0-2.0 Normal (marli lies to non-numeric results) [facility] Neutrophils# (Auto) 1.50-6.20 Normal (applies to non-nume leonard results) [facility] Lymphocytes# (Auto) 1.20-4.00 Normal (applies to non-nume leonard results) [facility] Monocytes# (Auto) 0.00-0.90 Normal (applies to non-numeri c results) [facility] Eosinophils# (Auto) 0.00-0.50 Normal (applies to non-nume leonard results) [facility] Basophils# (Auto) 0.00-0.20 Normal (applies to non-numeri c results) [facility] Immature Granulocytes# (Auto) 0.00-7.00 No rmal (applies to non-numeric results) [facility] ID Date Data Source [id number] 04/27/2020 05:30:00 PM EDT [facility] Name Value Range Interpretation Code Description Data Darlene rce(s) Supporting Document(s) Hepatitis A Ab,IgG result Normal (applies to no n-numeric results) [facility] Result indicates immunity to hepatitis A infection from either vaccination or past exposure to hepatitis A. False-positive results may be observed in patients with CMV antibodies or heterophilic antibodies. REFERENCE VALUE Unvaccinated: Negative Vaccinated: Positive Test Performed by: [facility] [address] [place] [address] Security Guards Dispatcher: Charles Jones M.D. Ph.D.; CLIA# [id number] ID Date Data Source [id number] 04/27/2020 04:50:00 PM EDT [facility] Name Value Range Interpretation Code Description Data Darlene rce(s) Supporting Document(s) Hepatitis A Ab,IgG result Normal (applies to no n-numeric results) [facility] Result indicates immunity to hepatitis A infection from either vaccination or past exposure to hepatitis A. False-positive results may be observed in patients with CMV antibodies or heterophilic antibodies. REFERENCE VALUE Unvaccinated: Negative Vaccinated: Positive Test Performed by: [facility] [address] [place] [address] [employer] Dispatcher: Charles Jnoes M.D. Ph.D.; CLIA# [id number] ID Date Data Source [id number] 04/24/2020 02:24:00 PM [place] [facility] Name Value Range Interpretation Code Description Data Darlene rce(s) Supporting Document(s) UDS Phencyclidine Screen Negative Normal (applies to non -numeric results) [facility] UDS Benzodiazepines Screen Negative Normal (applies to n on-numeric results) [facility] UDS Cocaine Screen Negative Normal (applies to non-numer ic results) [facility] UDS Ampetamine Screen Negative [facility] UDS Cannabinoids Screen Negative Normal (applies to non- numeric results) [facility] UDS Opiates Screen Negative [facility] UDS Barbiturates Screen Negative Normal (applies to non- numeric results) [facility] UDS Tricyclic Screen Negative Normal (applies to non-num oracio results) [facility] Therapeutic Drug Ranges for Emergency [...] treatment purposes only. ID Date Data Source [id number] 04/24/2020 02:21:00 PM [place] [facility] Collected By: Nurse's Aide Initials: AC Name Value Range Interpretation Code Description Data Darlene rce(s) Supporting Document(s) Color,Urine Colorl-Dk Y Normal (applies to non-numeric res ults) [facility] Clarity,Urine Clear Normal (applies to non-numeric re sults) [facility] Specific [place],Urine 1.005-1.030 Normal (applies to non- numeric results) [facility] pH,Urine 5.0-8.0 Normal (applies to non-numeric resul ts) [facility] Protein,Urine Negative Normal (applies to non-numeric re sults) [facility] Glucose,Urine Negative Normal (applies to non-numeric re sults) [facility] Ketones,Urine Negative Normal (applies to non-numeric re sults) [facility] Blood,Urine Negative Normal (applies to non-numeric resu lts) [facility] Bilirubin,Urine Negative Normal (applies to non-numeric results) [facility] Urobilinogen,Urine 0.2-1.0 Normal (applies to non-numer ic results) [facility] Leukocyte Esterase,Urine Negative Normal (applies to non -numeric results) [facility] Nitrite,Urine Negative Normal (applies to non-numeric re sults) [facility] ID Date Data Source [id number] 04/27/2020 12:36:00 PM EDT [facility] Name Value Range Interpretation Code Description Data Darlene rce(s) Supporting Document(s) Chlamydia,Urine result Negative Normal (applies to non-n umeric results) [facility] Test Performed By: [facility] [address] [place] [address] Director: Patricia Roberson MD . GC Urine result Negative Normal (applies to non-numeric results) [facility] Test Performed By: [facility] [address] [place] [address] Director: Patricia Roberson MD . Methodology: Second generation nucleic acid amplification. ID Date Data Source [id number] 04/15/2020 12:11:00 PM EDT [facility] [address] [place] [address] PHONE: [phone] FAX: [phone] Name .................. : UMAIR Hanna Acct Number.................. : [id number] ROOM. ................. : [facility] MR Number ................... : [id number] Stay type ............. : E/R Discharge Date......... ... : 04/14/20 Admit Date ......... : 04/14/20 Admit Phys .................... : KHUSHBOO MIN Date of ....... : 1990 Family Phys ................... : NONE Phone .................. : [phone] Age ................................ : 29 Film# .................. .:[id number] Sex ................................. : M Unsigned transcriptions are preliminary reports and do not represent a medical or legal document CHEST 2 VIEWS 28083 COMPLETE:04/14/20 16:51 [facility] [address] Reason(s): Congestion CHEST X-RAY: 2-VIEWS INDICATION: Congestion. [...] rce(s) Supporting Document(s) ID Date Data Source [id number] 04/15/2020 12:11:00 [place] [address] PHONE: [phone] FAX: [phone] Name .................. : UMAIR Hanna Acct Number.................. : [id number] ROOM. ................. : TR-1B MR Number ................... : [id number] Stay type ............. : E/R Discharge Date......... ... : 04/14/20 Admit Date ......... : 04/14/20 Admit Phys .................... : KHUSHBOO MIN Date of ....... : 1990 Family Phys ................... : NONE Phone .................. : [phone] Age ................................ : 29 Film# .................. .:[id number] Sex ................................. : M Unsigned transcriptions are preliminary reports and do not represent a medical or legal document FOOT COMPLETE-[address] [place] [id number] COMPLETE:04/14/20 16:51 [facility] [address] Reason(s): Pain RIGHT FOOT X-RAY: INDICATION: Status [...] rce(s) Supporting Document(s) ID Date Data Source [id number] 04/15/2020 12:11:00 [place] [address] PHONE: [phone] FAX: [phone] Name .................. : UMAIR Hanna Acct Number.................. : [id number] ROOM. ................. : TR-1B MR Number ................... : [id number] Stay type ............. : E/R Discharge Date......... ... : 04/14/20 Admit Date ......... : 04/14/20 Admit Phys .................... : KHUSHBOO LEONARD Date of ....... : 1990 Family Phys ................... : NONE Phone .................. : [phone] Age ................................ : 29 Film# .................. .:[id number] Sex ................................. : M Unsigned transcriptions are preliminary reports and do not represent a medical or legal document WRIST COMPLETE RT [id number] COMPLETE:04/14/20 16:51 [facility] [address] Reason(s): Pain RIGHT WRIST X-RAY: INDICATION: Status [...] via fax Copy for: EMERGENCY DEPT via [employer] Copy for: 710 MED REC DISCHARGED Page 1 of 1 Name Value Range Interpretation Code Description Data Darlene rce(s) Supporting Document(s) ID Date Data Source [id number] 04/15/2020 12:05:00 PM EDT [facility] [address] [place] [address] PHONE: [phone] FAX: [phone] Name .................. : UMAIR Hanna Acct Number.................. : [id number] ROOM. ................. : [facility] MR Number ................... : [id number] Stay type ............. : E/R Discharge Date......... ... : 04/14/20 Admit Date ......... : 04/14/20 Admit Phys .................... : KHUSHBOO MIN Date of ....... : 1990 Family Phys ................... : NONE Phone .................. : [phone] Age ................................ : 29 Film# .................. .:[id number] Sex ................................. : M Unsigned transcriptions are preliminary reports and do not represent a medical or legal document CT THORACIC SPINE W/CONTR 52198 COMPLETE:04/14/20 17:29 YANETH 16684 Reason(s): REFORMAT: lower tspine pain; fall; hx [...] rce(s) Supporting Document(s) ID Date Data Source [id number] 04/15/2020 12:05:00 [place] [address] PHONE: [phone] FAX: [phone] Name .................. : UMAIR Hanna Acct Number.................. : [id number] ROOM. ................. : TR-1B MR Number ................... : [id number] Stay type ............. : E/R Discharge Date......... ... : 04/14/20 Admit Date ......... : 04/14/20 Admit Phys .................... : KHUSHBOO MIN Date of ....... : 1990 Family Phys ................... : NONE Phone .................. : [phone] Age ................................ : 29 Film# .................. .:[id number] Sex ................................. : M Unsigned transcriptions are preliminary reports and do not represent a medical or legal document CT LS W/CONTRAST 13462 COMPLETE:04/14/20 17:29 YANETH 10772 Reason(s): REFORMAT. hx of IVDU and upper [...] rce(s) Supporting Document(s) ID Date Data Source [id number] 04/15/2020 12:05:00 PM EDT [facility] [address] [place] [address] PHONE: [phone] FAX: [phone] Name .................. : UMAIR Hanna Acct Number.................. : [id number] ROOM. ................. : TR-1B MR Number ................... : [id number] Stay type ............. : E/R Discharge Date......... ... : 04/14/20 Admit Date ......... : 04/14/20 Admit Phys .................... : KHUSHBOO LEONARD Date of ....... : 1990 Family Phys ................... : NONE Phone .................. : [phone] Age ................................ : 29 Film# .................. .:[id number] Sex ................................. : M Unsigned transcriptions are preliminary reports and do not represent a medical or legal document CT ABD & PELVIS W/ IV ONLY 63473 COMPLETE:04/14/20 17:29 YANETH 74253 Reason(s): trauma. CT OF THE ABDOMEN AND [...] dose: 913.1 mGycm Page 1 of [address] [place] [id number] PHONE: [phone] FAX: [phone] Name .................. : UMAIR Hanna Acct Number.................. : [id number] ROOM. ................. : TR-1B MR Number ................... : [id number] Stay type ............. : E/R Discharge Date......... ... : 04/14/20 Admit Date ......... : 04/14/20 Admit Phys .................... : KHUSHBOO MIN Date of ....... : 1990 Family Phys ................... : NONE Phone .................. : [phone] Age ................................ : 29 Film# .................. .:[id number] Sex ................................. : M Unsigned transcriptions are preliminary reports and do not represent a medical or legal document CT ABD & PELVIS W/ IV ONLY 84631 COMPLETE:04/14/20 17:29 YANETH 71162 Reason(s): trauma. Contrast agent in mL: 75 [...] rce(s) Supporting Document(s) ID Date Data Source [id number] 04/15/2020 12:04:00 [place] [address] PHONE: [phone] FAX: [phone] Name .................. : UMAIR Hanna Acct Number.................. : [id number] ROOM. ................. : [facility] MR Number ................... : [id number] Stay type ............. : E/R Discharge Date......... ... : 04/14/20 Admit Date ......... : 04/14/20 Admit Phys .................... : KHUSHBOO MIN Date of ....... : 1990 Family Phys ................... : NONE Phone .................. : [phone] Age ................................ : 29 Film# .................. .:[id number] Sex ................................. : M Unsigned transcriptions are preliminary reports and do not represent a medical or legal document CT THORAX W/CONTRAST 58516 COMPLETE:04/14/20 17:29 YANETH 19995 Reason(s): trauma, rhonchi, lower t spine pain [...] 22:25, Dictation Date: Page 1 of 2 [place] [address] PHONE: [phone] FAX: [phone] Name .................. : UMAIR Hanna Acct Number.................. : [id number] ROOM. ................. : TR-1B MR Number ................... : [id number] Stay type ............. : E/R Discharge Date......... ... : 04/14/20 Admit Date ......... : 04/14/20 Admit Phys .................... : KHUSHBOO LEONARD Date of ....... : 1990 Family Phys ................... : NONE Phone .................. : [phone] Age ................................ : 29 Film# .................. .:[id number] Sex ................................. : M Unsigned transcriptions are preliminary reports and do not represent a medical or legal document CT THORAX W/CONTRAST 77810 COMPLETE:04/14/20 17:29 YANETH 51383 Reason(s): trauma, rhonchi, lower t spine pain s/p fall. hx of IVDU and has Copy for: ROSANA GOMEZ via fax Copy for: EMERGENCY DEPT via modem Copy for: 710 MED REC DISCHARGED Page 2 of 2 Name Value Range Interpretation Code Description Data Darlene rce(s) Supporting Document(s) ID Date Data Source [id number] 04/15/2020 12:03:00 [place] [address] PHONE: [phone] FAX: [phone] Name .................. : UMAIR Hanna Acct Number.................. : [id number] ROOM. ................. : TR-1B MR Number ................... : [id number] Stay type ............. : E/R Discharge Date......... ... : 04/14/20 Admit Date ......... : 04/14/20 Admit Phys .................... : KHUSHBOO MIN Date of ....... : 1990 Family Phys ................... : NONE Phone .................. : [phone] Age ................................ : 29 Film# .................. .:[id number] Sex ................................. : M Unsigned transcriptions are preliminary reports and do not represent a medical or legal document CT HEAD W/O CONTRAST 15119 COMPLETE:04/14/20 17:29 YANETH 64845 Reason(s): Head Injury CT OF THE HEAD [...] rce(s) Supporting Document(s) ID Date Data Source [id number] 04/14/2020 02:27:00 PM EDT [facility] 1 OrderSheet [facility] Emergency Department [address] [place] [address] Phone #: [phone] 04/14/2020 14:24 Patient: NIEVES BLOCK Sex: M : 1990 Age: 29yWEIGHT:81.6 kg (S) HEIGHT:74 inches (S) BMI:23.1ALLERGIES: TraMADol HClCHIEF COMPLAINT: cycling, head, back, streetDIAGNOSIS: Contusion, Drug abuse, Sinus tachycardia, ProblemLAB ORDERSOrder Description Priority Entered Acknowledged InitialedBlood Culture STAT 14:55 04/14/2020 16:04 Grant,q10m X2 (Sched Griffin Chirinos R.N.14:55 04/14/2020) P.A.-C;Blood Culture STAT 14:55 04/14/2020 16:04 Grant,q10m X2 (Sched Griffin Chirinos R.N.15:05 04/14/2020) P.A.- C;CBC w Diff STAT 14:55 04/14/2020 15:02 Griffin Burns R.N. P.A.-C;CMP STAT 14:55 04/14/2020 15:02 Griffin Burns R.N. P.A.-C;Culture, Urine STAT 14:55 04/14/2020 15:02 Grant,(Urine, Clean Griffin Chirinos R.N.Catch) P.A.-C;Lactic Acid STAT 14:55 04/14/2020 15:02 Koffi Burns R.N. P.A.-C;PT/INR STAT 14:55 04/14/2020 15:02 Griffin Burns R.N. P.A.-C;PT/PTT STAT 14:55 04/14/2020 15:02 Griffin Burns R.N.A.-C;Troponin-T STAT 14:55 04/14/2020 15:02 Griffin Burns R.N..A.-C;Urinalysis (Clean STAT 14:55 04/14/2020 15:42 Gilda Claros) Griffin Christianson RN P.A.-C;Venous Blood Gas STAT 14:55 04/14/2020 15:11 Grant, 2 OrderSheet [facility] Emergency Department [address] [place] [address] Phone #: ext- [phone] 04/14/2020 14:24 Patient: NIEVES BLOCK Sex: M : 1990 Age: 29y Griffin Chirinos R.N. P.A.- C;DIAGNOSTIC STUDY ORDERSOrder Description Priority Entered Acknowledged InitialedChest 2 View STAT 14:55 04/14/2020 Cancelled: Other 14:58 Griffin(Oxygen?(No)) Griffin An-C P.A.-C; Reason for Study: FeverWrist Complete STAT 14:55 04/14/2020 15:25 Grant,Right Griffin Chirinos R.N.(Oxygen?(No)) P.A.-C; Reason for Study: Pain, Wrist InjuryFoot Complete STAT 14:55 04/14/2020 15:25 Grant,Right Griffin Chirinos R.N.(Oxygen?(No)) P.A.-C; Reason for Study: PainCT Head W/O Cont STAT 14:55 04/14/2020 Cancelled: Other 14:57 Griffin(Oxygen?(No)) Griffin LucianoA.-C P.A.-C; Reason for Study: Head InjuryMRI Spine Thoracic STAT 14:55 04/14/2020 Cancelled: Other 14:57 LuxopherW/O Cont Christopher Christianson Christianson P.A.-C(Oxygen?(No)) (No) P.A.-C; Reason for Study: ? spinal abscess vs injuryMRI Spine Lumbar STAT 14:55 04/14/2020 Cancelled: Other 14:57 GriffinW/O Cont Griffin LucianoA.-C(Oxygen?(No)) (No) P.A.-C; Reason for Study: ? spinal abscess vs injuryChest 2 View STAT 14:59 04/14/2020 15:25 Grant,(Oxygen?(No)) Griffin Chirinos R.N. P.A.-C; Reason for Study: Congestion, FeverCT Chest W/ Cont STAT 16:12 04/14/2020 16:14 Grant(Oxygen?(No)) Griffin Chirinos R.N.(IV?(Yes)) P.A.-C; Reason for Study: trauma, rhochi, lower t spine pain s/p fall. hx of IVDU and has feverCT Abd PEL W/ IV STAT 16:12 04/14/2020 16:14 Grant,Contrast Only Griffin Chirinos R.N.(Oxygen?(No)) P.A.-C;(IV?(Yes)) Reason for Study: trauma. 3 OrderSheet [facility] Emergency Department [address] [place] [address] Phone #: ext- [phone] 04/14/2020 14:24 Patient: NIEVES BLOCK Sex: M : 1990 Age: 29yCT Spine Lumbar STAT 16:12 04/14/2020 16:14 Marika Burns R.N.(Oxygen?(No)) P.A.-C;(IV?(Yes)) Reason for Study: REFORMAT. hx [...] 16:38 04/14/2020 16:43 Marquita,(HIGH ALERT Griffin Sam R.NMasoudMEDICATION) P.A.-C;IV NS 1000 mL 17:36 04/14/2020 17:39 Grant,Bolus : Bolus 1000 Griffin ChapinNMasoudmL (X1) P.A.-C;GENERAL ORDERSOrder Description Priority Entered Acknowledged InitialedAccucheck 14:55 04/14/2020 15:11 Griffin Burns R.N. P.A.-C;Blood Pressure 14:55 04/14/2020 15:01 [place] EDMonitor Mae Martinez P.A.-C; Bcgn3THL 14:55 04/14/2020 15:01 Jacy ED Mae Martinez P.A.-C; Xhcs3BQO 14:55 04/14/2020 15:02 Grant, 4 OrderSheet [facility] Emergency Department [address] [place] [address] Phone #: ext- [phone] 04/14/2020 14:24 Patient: NIEVES BLOCK Sex: M : 1990 Age: 29y Griffin Chirinos R.N., P.A.-C;Pulse oximeter 14:55 04/14/2020 15:01 [place] ED(Continuous) Mae Martinez P.A.-C; Xazs7Sqhviw Lock 14:55 04/14/2020 15:02 Griffin Burns R.N., P.A.-C;Vitals 14:55 04/14/2020 15:01 [place] ED Mae Martinez P.A.-C; Dfrr3Wqzyszr Monitor 14:55 04/14/2020 15:01 [place] ED(continuous) Mae Martinez P.A.-C; Tech1[Electronically signed by Taran Burns R.N. (19:41 04/14/2020)][Electronically signed by Griffin Christianson P.A.-C (20:51 04/14/2020)][Electronically locked by Taran Burns R.N. (19:41 04/14/2020)] Name Value Range Interpretation Code Description Data Darlene rce(s) Supporting Document(s) ID Date Data Source [id number] 04/14/2020 02:27:00 PM EDT [facility] 1 Medication Reconciliation Report [facility] Emergency Department [address] [place] [address] Phone #: ext- [phone] 04/14/2020 14:24 Patient: [...] rce(s) Supporting Document(s) ID Date Data Source [id number] 04/14/2020 02:27:00 PM EDT [facility] 1 Medication Administration Record [facility] Emergency Department [address] [place] [address] Phone #: ext- [phone] 04/14/2020 14:24 Patient: [...] IV NS 1000 mL Bolus : Bolus [id number] 04/14/2020 Dose: IV Fluids mL (X1)Taran Burns R.N. Rate: 1000 mL/hr over 60 minute(s)---- Dispensed: 1000 mL bagStop Site: #1 left wrist19:40 04/14/2020Taran Burns R.N. Name Value Range Interpretation Code Description Data Darlene rce(s) Supporting Document(s) ID Date Data Source [id number] 04/14/2020 02:27:00 PM EDT [facility] 1 General Instructions [facility] Emergency Department [address] [place] [address] Phone #: ext- [phone] 04/14/2020 14:24 Patient: NIEVES BLOCK Sex: M [...] to exceed.Please f/u with PCP or call [facility] to establish care.).Warnings: GENERAL WARNINGS: Return or contact your physician immediately if your conditionworsens or changes unexpectedly, if not improving as expected, or if other problems arise.Follow-up:Return to the emergency department as needed. Follow up with your healthcare provider in about twodays. Call for an appointment. Reason for referral: evaluation and treatment.Understanding of the discharge instructions verbalized by patient.Follow-up with: [facility], , , [address] [place], [address] Follow up. 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) Drug withdrawal symptoms if you stop taking the drug (physical dependence) Loss of job or your family Arrest, conviction, and long-term sentence for possession of an illegal substance [...] of the resources below for help: National [place] on Alcoholism and Drug Dependence www.ncadd.org 782-988-3453 3 General Instructions [facility] Emergency Department [address] [place] [address] Phone #: ext- [phone] 04/14/2020 14:24 Patient: NIEVES BLOCK Sex: M : 1990 Age: 29y Narcotics Anonymous www.uGift.org 889-544-8663 National Alcohol and Substance Abuse Information Center (for referral to treatment programs) www.addictioncareTrajectory, Inc[employer] 696-697-3815Nlcl 911Call 911 if any of the following [...] swelling, or tenderness at an injection site [phone] [employer]. [address] [place] [address], [place] [address]. All rights reserved. This information is not intended as asubstitute for professional medical care. Always follow your healthcare professional's instructions.Opiate AbuseUse and abuse of heroin or prescription pain medicines such as oxycodone, codeine, hydrocodone,morphine, methadone, and fentanyl may lead to addiction or dependence. Once this occurs, you areat greater risk for any of these: 4 General Instructions [facility] Emergency Department [address] [place] [address] Phone #: ext- [phone] 04/14/2020 14:24 Patient: NIEVES BLOCK Sex: M : 1990 Age: 29y Craving for the drug and unable to stop using the drug even though you think you want to stop (psychological addiction) Drug withdrawal symptoms if you stop taking the drug (physical dependence) Loss of your job or your family Arrest, conviction, and long-term sentence for possession of an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 spital Respiratory Effort 1 1 [facility] Respiratory Rate [address] [facility] Pulse Assessment Method 1 1 [facility] Pulse Rate 94 94 [facility] pital Height (Calculated Centimeters) 187.96 187. 96 [facility] 74 74 [facility] 112/80 112/80 [facility] Body Mass Index (BMI) 22.8 22.8 [facility] Weight Measurement Method 1 1 [facility] Weight (Calculated Kilograms) 80.51 80.51 [facility] Weight 2840 2840 [facility] pital Temperature Source 7 7 [facility] Temperature 97.9 97.9 [facility] spital Respiratory Effort 1 1 [facility] Respiratory Rate [address] [facility] Pulse Assessment Method 1 1 [facility] Pulse Rate 94 94 [facility] pital Height (Calculated Centimeters) 187.96 187. 96 [facility] Height 74 74 [facility] 112/80 112/80 [facility] Body Mass Index (BMI) 22.8 22.8 [facility] Weight Measurement Method 1 1 [facility] Weight (Calculated Kilograms) 80.51 80.51 [facility] Weight 2840 2840 [facility] pital Temperature Source 7 7 [facility] Temperature 97.9 97.9 [place] [facility] Respiratory Effort 1 1 [facility] Respiratory Rate [address] [facility] Pulse Assessment Method 1 1 [facility] Pulse Rate 94 94 [facility] pital Height (Calculated Centimeters) 187.96 187. 96 [facility] Height 74 74 [facility] Pressure 112/80 112/80 [facility] Body Mass Index (BMI) 22.8 22.8 [facility] Weight Measurement Method 1 1 [facility] Weight (Calculated Kilograms) 80.51 80.51 [facility] Weight 2840 2840 [facility] pital Temperature Source 7 7 [facility] Temperature 97.6 97.6 [place] [facility] Respiratory Effort 1 1 [facility] Respiratory Rate [address] [facility] Pulse Assessment Method 4 4 [facility] Pulse Rate 80 80 [facility] pital Height (Calculated Centimeters) 187.96 187. 96 [facility] Height 74 74 [facility] Blood Pressure 116/73 116/73 [facility] Body Mass Index (BMI) 22.[address]
--- OUTSIDE RECORDS SUMMARY | 2020-10-15 06:01 | CCD ---
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 Interpretation Code Description Data Darlene rce(s) Supporting Document(s) Phosphorus 2.5-4.9 Normal (applies to non-numeric resul ts) [facility] ID Date Data Source [id number] 04/24/2020 01:58:00 PM EDT [facility] Name Value Range Interpretation Code Description Data Darlene rce(s) Supporting Document(s) Magnesium 1.8-2.4 Normal (applies to non-numeric resul ts) [facility] ID Date Data Source [id number] 04/24/2020 01:58:00 PM EDT [facility] Name Value Range Interpretation Code Description Data Darlene rce(s) Supporting Document(s) Thyroid Stimulate Hormone TSH 0.358-3.74 No rmal (applies to non-numeric results) [facility] ID Date Data Source [id number] 04/24/2020 01:42:00 PM EDT [facility] Name Value Range Interpretation Code Description Data Darlene rce(s) Supporting Document(s) Ethanol Less than 10.0 Normal (applies to non-numeric r esults) [facility] ID Date Data Source [id number] 04/24/2020 01:39:00 PM EDT [facility] Name Value Range Interpretation Code Description Data Darlene rce(s) Supporting Document(s) White Blood Count 3.5-10.5 Normal (applies to non-numeri c results) [facility] Red Blood Count 4.30-5.70 Below low normal [facility] Hemoglobin 13.5-17.5 Below low normal [facility] ospital Hematocrit 38.8-50.0 Normal (applies to non-numeric resul ts) [facility] Mean Corpuscular Volume 81.2-95.1 Normal (applies to non- numeric results) [facility] Mean Corpuscular Hgb 25.6-32.2 Normal (applies to non-num oracio results) [facility] Mean Corpuscular Hgb Conc 32.0-36.0 Normal (applies to no n-numeric results) [facility] Red Cell Distribution Width 11.8-15.6 Normal (appli es to non-numeric results) [facility] Platelet Count 294 x10 3/uL 150-450 Normal (applies to non-numeric results) [facility] Mean Platelet Volume 9.4-12.4 Below low normal [facility] Neutrophils% (Auto) 31.0-71.0 Normal (applies to non-nume leonard results) [facility] Lymphocytes% (Auto) 20.0-55.0 Normal (applies to non-nume leonard results) [facility] Monocytes% (Auto) 4.0-12.0 Normal (applies to non-numeri c results) [facility] Eosinophils% (Auto) 1.0-8.0 Normal (applies to non-nume leonard results) [facility] Basophils% (Auto) 0.0-2.0 Normal (applies to non-numeri c results) [facility] Immature Granulocytes% (Auto) 0.0-2.0 Normal (marli lies to non-numeric results) [facility] Neutrophils# (Auto) 1.50-6.20 Normal (applies to non-nume leonard results) [facility] Lymphocytes# (Auto) 1.20-4.00 Normal (applies to non-nume leonard results) [facility] Monocytes# (Auto) 0.00-0.90 Normal (applies to non-numeri c results) [facility] Eosinophils# (Auto) 0.00-0.50 Normal (applies to non-nume leonard results) [facility] Basophils# (Auto) 0.00-0.20 Normal (applies to non-numeri c results) [facility] Immature Granulocytes# (Auto) 0.00-7.00 No rmal (applies to non-numeric results) [facility] ID Date Data Source [id number] 04/27/2020 05:30:00 PM EDT [facility] Name Value Range Interpretation Code Description Data Darlene rce(s) Supporting Document(s) Hepatitis A Ab,IgG result Normal (applies to no n-numeric results) [facility] Result indicates immunity to hepatitis A infection from either vaccination or past exposure to hepatitis A. False-positive results may be observed in patients with CMV antibodies or heterophilic antibodies. REFERENCE VALUE Unvaccinated: Negative Vaccinated: Positive Test Performed by: [facility] [address] [place] [address] Global Compensation Director: Charles Jones M.D. Ph.D.; CLIA# [id number] ID Date Data Source [id number] 04/27/2020 04:50:00 PM EDT [facility] Name Value Range Interpretation Code Description Data Darlene rce(s) Supporting Document(s) Hepatitis A Ab,IgG result Normal (applies to no n-numeric results) [facility] Result indicates immunity to hepatitis A infection from either vaccination or past exposure to hepatitis A. False-positive results may be observed in patients with CMV antibodies or heterophilic antibodies. REFERENCE VALUE Unvaccinated: Negative Vaccinated: Positive Test Performed by: [facility] [address] [place] [address] Global Compensation Director: Charles Jones M.D. Ph.D.; CLIA# [id number] ID Date Data Source [id number] 04/24/2020 02:24:00 PM [facility] Name Value Range Interpretation Code Description Data Darlene rce(s) Supporting Document(s) UDS Phencyclidine Screen Negative Normal (applies to non -numeric results) [facility] UDS Benzodiazepines Screen Negative Normal (applies to n on-numeric results) [facility] UDS Cocaine Screen Negative Normal (applies to non-numer ic results) [facility] UDS Ampetamine Screen Negative [facility] UDS Cannabinoids Screen Negative Normal (applies to non- numeric results) [facility] UDS Opiates Screen Negative [facility] UDS Barbiturates Screen Negative Normal (applies to non- numeric results) [facility] UDS Tricyclic Screen Negative Normal (applies to non-num oracio results) [facility] Therapeutic Drug Ranges for Emergency [...] treatment purposes only. ID Date Data Source [id number] 04/24/2020 02:21:00 PM [facility] Collected By: Nurse's Aide Initials: AC Name Value Range Interpretation Code Description Data Darlene rce(s) Supporting Document(s) Color,Urine Colorl-Dk Y Normal (applies to non-numeric res ults) [facility] Clarity,Urine Clear Normal (applies to non-numeric re sults) [facility] Specific [place],Urine 1.005-1.030 Normal (applies to non- numeric results) [facility] pH,Urine 5.0-8.0 Normal (applies to non-numeric resul ts) [facility] Protein,Urine Negative Normal (applies to non-numeric re sults) [facility] Glucose,Urine Negative Normal (applies to non-numeric re sults) [facility] Ketones,Urine Negative Normal (applies to non-numeric re sults) [facility] Blood,Urine Negative Normal (applies to non-numeric resu lts) [facility] Bilirubin,Urine Negative Normal (applies to non-numeric results) [facility] Urobilinogen,Urine 0.2-1.0 Normal (applies to non-numer ic results) [facility] Leukocyte Esterase,Urine Negative Normal (applies to non -numeric results) [facility] Nitrite,Urine Negative Normal (applies to non-numeric re sults) [facility] ID Date Data Source [id number] 04/27/2020 12:36:00 PM EDT [facility] Name Value Range Interpretation Code Description Data Darlene rce(s) Supporting Document(s) Chlamydia,Urine result Negative Normal (applies to non-n umeric results) [facility] Test Performed By: [facility] [address] [place] [address] Director: Patricia Roberson MD . GC Urine result Negative Normal (applies to non-numeric results) [facility] Test Performed By: [facility] [address] [place] [address] Director: Patricia Roberson MD . Methodology: Second generation nucleic acid amplification. ID Date Data Source [id number] 04/15/2020 12:11:00 PM EDT [facility] [address] [place] [address] PHONE: [phone] FAX: [phone] Name .................. : UMAIR Hanna Acct Number.................. : [id number] ROOM. ................. : [facility] MR Number ................... : [id number] Stay type ............. : E/R Discharge Date......... ... : 04/14/20 Admit Date ......... : 04/14/20 Admit Phys .................... : KHUSHBOO MIN Date of ....... : 1990 Family Phys ................... : NONE Phone .................. : [phone] Age ................................ : 29 Film# .................. .:[id number] Sex ................................. : M Unsigned transcriptions are preliminary reports and do not represent a medical or legal document CHEST 2 VIEWS 22757 COMPLETE:04/14/20 16:51 [facility] [place] [address] Reason(s): Congestion CHEST X-RAY: 2-VIEWS INDICATION: Congestion. [...] rce(s) Supporting Document(s) ID Date Data Source [id number] 04/15/2020 12:11:00 [place] [address] PHONE: [phone] FAX: [phone] Name .................. : UMAIR Hanna Acct Number.................. : [id number] ROOM. ................. : TR-1B MR Number ................... : [id number] Stay type ............. : E/R Discharge Date......... ... : 04/14/20 Admit Date ......... : 04/14/20 Admit Phys .................... : KHUSHBOO MIN Date of ....... : 1990 Family Phys ................... : NONE Phone .................. : [phone] Age ................................ : 29 Film# .................. .:[id number] Sex ................................. : M Unsigned transcriptions are preliminary reports and do not represent a medical or legal document FOOT COMPLETE-[address] [place] [id number] COMPLETE:04/14/20 16:51 [facility] [place] [address] Reason(s): Pain RIGHT FOOT X-RAY: INDICATION: Status [...] rce(s) Supporting Document(s) ID Date Data Source [id number] 04/15/2020 12:11:00 [place] [address] PHONE: [phone] FAX: [phone] Name .................. : UMAIR Hanna Acct Number.................. : [id number] ROOM. ................. : TR-1B MR Number ................... : [id number] Stay type ............. : E/R Discharge Date......... ... : 04/14/20 Admit Date ......... : 04/14/20 Admit Phys .................... : KHUSHBOO LEONARD Date of ....... : 1990 Family Phys ................... : NONE Phone .................. : [phone] Age ................................ : 29 Film# .................. .:[id number] Sex ................................. : M Unsigned transcriptions are preliminary reports and do not represent a medical or legal document WRIST COMPLETE RT [id number] COMPLETE:04/14/20 16:51 [facility] [place] [address] Reason(s): Pain RIGHT WRIST X-RAY: INDICATION: Status [...] via fax Copy for: EMERGENCY DEPT via [employer] Copy for: 710 MED REC DISCHARGED Page 1 of 1 Name Value Range Interpretation Code Description Data Darlene rce(s) Supporting Document(s) ID Date Data Source [id number] 04/15/2020 12:05:00 PM EDT [facility] [address] [place] [address] PHONE: [phone] FAX: [phone] Name .................. : UMAIR Hanna Acct Number.................. : [id number] ROOM. ................. : [facility] MR Number ................... : [id number] Stay type ............. : E/R Discharge Date......... ... : 04/14/20 Admit Date ......... : 04/14/20 Admit Phys .................... : KHUSHBOO MIN Date of ....... : 1990 Family Phys ................... : NONE Phone .................. : [phone] Age ................................ : 29 Film# .................. .:[id number] Sex ................................. : M Unsigned transcriptions are preliminary reports and do not represent a medical or legal document CT THORACIC SPINE W/CONTR 12318 COMPLETE:04/14/20 17:29 YANETH [address] Reason(s): REFORMAT: lower tspine pain; fall; hx [...] rce(s) Supporting Document(s) ID Date Data Source [id number] 04/15/2020 12:05:00 [place] [address] PHONE: [phone] FAX: [phone] Name .................. : UMAIR Hanna Acct Number.................. : [id number] ROOM. ................. : TR-1B MR Number ................... : [id number] Stay type ............. : E/R Discharge Date......... ... : 04/14/20 Admit Date ......... : 04/14/20 Admit Phys .................... : KHUSHBOO MIN Date of ....... : 1990 Family Phys ................... : NONE Phone .................. : [phone] Age ................................ : 29 Film# .................. .:[id number] Sex ................................. : M Unsigned transcriptions are preliminary reports and do not represent a medical or legal document CT LS W/CONTRAST 83111 COMPLETE:04/14/20 17:29 YANETH [address] Reason(s): REFORMAT. hx of IVDU and upper [...] rce(s) Supporting Document(s) ID Date Data Source [id number] 04/15/2020 12:05:00 PM EDT [facility] [address] [place] [address] PHONE: [phone] FAX: [phone] Name .................. : UMAIR Hanna Acct Number.................. : [id number] ROOM. ................. : TR-1B MR Number ................... : [id number] Stay type ............. : E/R Discharge Date......... ... : 04/14/20 Admit Date ......... : 04/14/20 Admit Phys .................... : KHUSHBOO LEONARD Date of ....... : 1990 Family Phys ................... : NONE Phone .................. : [phone] Age ................................ : 29 Film# .................. .:[id number] Sex ................................. : M Unsigned transcriptions are preliminary reports and do not represent a medical or legal document CT ABD & PELVIS W/ IV ONLY 75185 COMPLETE:04/14/20 17:29 YANETH [address]6629 Reason(s): trauma. CT OF THE ABDOMEN AND [...] dose: 913.1 mGycm Page 1 of [address] [place] [id number] PHONE: [phone] FAX: [phone] Name .................. : UMAIR Hanna Acct Number.................. : [id number] ROOM. ................. : TR-1B MR Number ................... : [id number] Stay type ............. : E/R Discharge Date......... ... : 04/14/20 Admit Date ......... : 04/14/20 Admit Phys .................... : KHUSHBOO MIN Date of ....... : 1990 Family Phys ................... : NONE Phone .................. : [phone] Age ................................ : 29 Film# .................. .:[id number] Sex ................................. : M Unsigned transcriptions are preliminary reports and do not represent a medical or legal document CT ABD & PELVIS W/ IV ONLY 73272 COMPLETE:04/14/20 17:29 YANETH [address] Reason(s): trauma. Contrast agent in mL: 75 [...] rce(s) Supporting Document(s) ID Date Data Source [id number] 04/15/2020 12:04:00 [place] [address] PHONE: [phone] FAX: [phone] Name .................. : UMAIR Hanna Acct Number.................. : [id number] ROOM. ................. : [facility] MR Number ................... : [id number] Stay type ............. : E/R Discharge Date......... ... : 04/14/20 Admit Date ......... : 04/14/20 Admit Phys .................... : KHUSHBOO MIN Date of ....... : 1990 Family Phys ................... : NONE Phone .................. : [phone] Age ................................ : 29 Film# .................. .:[id number] Sex ................................. : M Unsigned transcriptions are preliminary reports and do not represent a medical or legal document CT THORAX W/CONTRAST 47365 COMPLETE:04/14/20 17:29 YANETH [address] Reason(s): trauma, rhonchi, lower t spine pain [...] 22:25, Dictation Date: Page 1 of 2 [place] [address] PHONE: [phone] FAX: [phone] Name .................. : UMAIR Hanna Acct Number.................. : [id number] ROOM. ................. : TR-1B MR Number ................... : [id number] Stay type ............. : E/R Discharge Date......... ... : 04/14/20 Admit Date ......... : 04/14/20 Admit Phys .................... : KHUSHBOO LEONARD Date of ....... : 1990 Family Phys ................... : NONE Phone .................. : [phone] Age ................................ : 29 Film# .................. .:[id number] Sex ................................. : M Unsigned transcriptions are preliminary reports and do not represent a medical or legal document CT THORAX W/CONTRAST 25750 COMPLETE:04/14/20 17:29 YANETH [address] Reason(s): trauma, rhonchi, lower t spine pain s/p fall. hx of IVDU and has Copy for: ROSANA GOMEZ via fax Copy for: EMERGENCY DEPT via modem Copy for: 710 MED REC DISCHARGED Page 2 of 2 Name Value Range Interpretation Code Description Data Darlene rce(s) Supporting Document(s) ID Date Data Source [id number] 04/15/2020 12:03:00 [place] [address] PHONE: [phone] FAX: [phone] Name .................. : UMAIR Hanna Acct Number.................. : [id number] ROOM. ................. : TR-1B MR Number ................... : [id number] Stay type ............. : E/R Discharge Date......... ... : 04/14/20 Admit Date ......... : 04/14/20 Admit Phys .................... : KHUSHBOO MIN Date of ....... : 1990 Family Phys ................... : NONE Phone .................. : [phone] Age ................................ : 29 Film# .................. .:[id number] Sex ................................. : M Unsigned transcriptions are preliminary reports and do not represent a medical or legal document CT HEAD W/O CONTRAST 90132 COMPLETE:04/14/20 17:29 YANETH [address]6042 Reason(s): Head Injury CT OF THE HEAD [...] rce(s) Supporting Document(s) ID Date Data Source [id number] 04/14/2020 02:27:00 PM EDT [facility] 1 OrderSheet [facility] Emergency Department [address] [place] [address] Phone #: ext- [phone] 04/14/2020 14:24 Patient: [...] STAT 14:55 04/14/2020 15:11 Grant, 2 OrderSheet [facility] Emergency Department [address] [place] [address] Phone #: ext- [phone] 04/14/2020 14:24 Patient: [...] Complete STAT 14:55 04/14/2020 15:25 Grant,Right Griffin Chirinso R.N.(Oxygen?(No)) P.A.-C; Reason for Study: PainCT Head [...] P.A.-C;(IV?(Yes)) Reason for Study: trauma. 3 OrderSheet [facility] Emergency Department [address] [place] [address] Phone #: ext- [phone] 04/14/2020 14:24 Patient: [...] Burns R.N. P.A.-C;Blood Pressure 14:55 04/14/2020 15:01 [place] [facility] Mae Martinez P.A.-C; [id number] 14:55 04/14/2020 15:01 [facility] ED Mae Martinez P.A.-C; [id number] 14:55 04/14/2020 15:02 Grant, 4 OrderSheet [facility] Emergency Department [address] [place] [address] Phone #: ext- [phone] 04/14/2020 14:24 Patient: NIEVES BLOCK Sex: M : 1990 Age: 29y Griffin Chirinos R.N., P.A.-C;Pulse oximeter 14:55 04/14/2020 15:01 [facility](Continuous) Mae Martinez P.A.-C; [id number] Lock 14:55 04/14/2020 15:02 Griffin Burns R.N., P.A.-C;Vitals 14:55 04/14/2020 15:01 [facility] Mae Martinez P.A.-C; [id number] Monitor 14:55 04/14/2020 15:01 [facility](continuous) Mae Martinez P.A.-C; Tech1[Electronically signed by Taran Burns R.N. (19:41 04/14/2020)][Electronically signed by Griffin Christianson P.A.-C (20:51 04/14/2020)][Electronically locked by Taran Burns R.N. (19:41 04/14/2020)] Name Value Range Interpretation Code Description Data Darlene rce(s) Supporting Document(s) ID Date Data Source [id number] 04/14/2020 02:27:00 PM EDT [facility] 1 Medication Reconciliation Report [facility] Emergency Department [address] [place] [address] Phone #: ext- [phone] 04/14/2020 14:24 Patient: [...] rce(s) Supporting Document(s) ID Date Data Source [id number] 04/14/2020 02:27:00 PM EDT [facility] 1 Medication Administration Record [facility] Emergency Department [address] [place] [address] Phone #: ext- [phone] 04/14/2020 14:24 Patient: [...] IV NS 1000 mL Bolus : Bolus [id number] 04/14/2020 Dose: IV Fluids mL (X1)Taran Burns R.N. Rate: 1000 mL/hr over 60 minute(s)---- Dispensed: 1000 mL bagStop Site: #1 left wrist19:40 04/14/2020Taran Burns R.N. Name Value Range Interpretation Code Description Data Darlene rce(s) Supporting Document(s) ID Date Data Source [id number] 04/14/2020 02:27:00 PM EDT [facility] 1 General Instructions [facility] Emergency Department [address] [place] [address] Phone #: ext- [phone] 04/14/2020 14:24 Patient: NIEVES BLOCK Sex: M [...] to exceed.Please f/u with PCP or call [facility] to establish care.).Warnings: GENERAL WARNINGS: Return or contact your physician immediately if your conditionworsens or changes unexpectedly, if not improving as expected, or if other problems arise.Follow-up:Return to the emergency department as needed. Follow up with your healthcare provider in about twodays. Call for an appointment. Reason for referral: evaluation and treatment.Understanding of the discharge instructions verbalized by patient.Follow-up with: [facility], , , [address] [place], [address] Follow up. 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) Drug withdrawal symptoms if you stop taking the drug (physical dependence) Loss of job or your family Arrest, conviction, and mcc sentence for possession of an illegal substance [...] of the resources below for help: National [employer] [place] [employer] on Alcoholism and Drug Dependence www.ncadd.org 466-464-4210 3 General Instructions [facility] Emergency Department [address] [place] [address] Phone #: ext- [phone] 04/14/2020 14:24 Patient: NIEVES BLOCK Sex: M : 1990 Age: 29y Narcotics Anonymous www.Clarimedix.org 539-461-8565 National Alcohol and Substance Abuse Information Center (for referral to treatment programs) www.addictioncareNeolane.Bswift 123-613-8618Hisy 911Call 911 if any of the following [...] swelling, or tenderness at an injection site [phone] [employer]. [address] [place] [address], [place] [address]. All rights reserved. This information is not intended as asubstitute for professional medical care. Always follow your healthcare professional's instructions.Opiate AbuseUse and abuse of heroin or prescription pain medicines such as oxycodone, codeine, hydrocodone,morphine, methadone, and fentanyl may lead to addiction or dependence. Once this occurs, you areat greater risk for any of these: 4 General Instructions [facility] Emergency Department [address] [place] [address] Phone #: ext- [phone] 04/14/2020 14:24 Patient: NIEVES BLOCK Sex: M : 1990 Age: 29y Craving for the drug and unable to stop using the drug even though you think you want to stop (psychological addiction) Drug withdrawal symptoms if you stop taking the drug (physical dependence) Loss of your job or your family Arrest, conviction, and mcc sentence for possession of an illegal substance [...] breathing Dizziness Skin infections 5 General Instructions [facility] Emergency Department [address] [place] [address] Phone #: ext- [phone] 04/14/2020 14:24 Patient: NIEVES BLOCK Sex: M : 1990 Age: 29y Muscle pain and spasms Stroke Heart attack Kidney failure HIV infection Skin infections Other sexually transmitted diseases Severe and fatal infection of the heart valves [facility] and deathHome care Admit you have a [...] of the resources below for help: National [employer] on Alcoholism and Drug Dependence, www.ncadd.org 677-705-RJFA Narcotics Anonymous. Check your phone book for a local listing, call 607-659-0966, or visit www.Clarimedix.org. National Alcohol and Substance Abuse Information Center for referral to treatment programs www.Glycode.Bswift 778-738-2283Fjqd 911Call 916 if any of these occur: Seizure 6 General Instructions [facility] Emergency Department [address] [place] [address] Phone #: ext- [phone] 04/14/2020 14:24 Patient: [...] at an injection site 1999- 2017 [employer] [address] [place] [address]. All rights reserved. This information is not [...] ever had a stomach 7 General Instructions [facility] Emergency Department [address] [place] [address] Phone #: ext- [phone] 04/14/2020 14:24 Patient: NIEVES BLOCK Sex: M [...] or eye Frequent bruising for unknown reasons [phone] [employer] [address] [place] [address], [place] [id number]. All rights reserved. This information is not [...] and swelling goes away. 8 General Instructions [facility] Emergency Department [address] [place] [address] Phone #: ext- [phone] 04/14/2020 14:24 Patient: [...] body part Frequent bruising for unknown reasons [phone] [employer] [address] [place] [address]. All rights reserved. This information is not [...] using these medicines.)Follow up 9 General Instructions [facility] Emergency Department [address] [place] [address] Phone #: ext- [phone] 04/14/2020 14:24 Patient: NIEVES BLOCK Sex: M [...] injured hand Frequent bruising for unknown reasons [phone] [employer] [address] [place] [address]. All rights reserved. This information is not [...] leg without pain.Follow up 10 General Instructions [facility] Emergency Department [address] [place] [address] Phone #: ext- [phone] 04/14/2020 14:24 Patient: [...] injured area Frequent bruising for unknown reasons [phone] [employer] [address] [place] [address]. All rights reserved. This information is not [...] within 1to 2 weeks. 11 General Instructions [facility] Emergency Department [address] [place] [address] Phone #: ext- [phone] 04/14/2020 14:24 Patient: NIEVES BLOCK Sex: M [...] injured foot Frequent bruising for unknown reasons [phone] [employer] [address] [place] [address]. All rights reserved. This information is not [...] coffee, tea, cola and some medicines. Some ojcr-yhr-lqadjbm cold andsinus remedies, diet pills, and some [...] a few minutes.Follow-up care 12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
[2020-10-15 06:23] LABS: BASO % 0.3 % (0.0-1.0); EOS % 0.4 % (0.0-3.0); HEMATOCRIT 41.7 % (42.0-52.0); HEMOGLOBIN 13.5 g/dl (13.5-17.5); LYMPH # 1.8 10^3/uL (1.5-5.0); LYMPH % 18.5 % (24.0-44.0); MEAN CORPUSCULAR HEMOGLOBIN 30.1 pg (27.0-33.0); MEAN CORPUSCULAR HGB CONC 32.4 g/dl (32.0-36.5); MEAN CORPUSCULAR VOLUME 93.1 fl (80.0-96.0); MONO % 10.1 % (2.0-8.0); NEUTROPHILS # 6.7 10^3/uL (1.5-8.5); NEUTROPHILS % 70.5 % (36.0-66.0); PLATELET COUNT, AUTOMATED 320 10^3/uL (150-450); RED BLOOD COUNT 4.48 10^6/uL (4.30-6.10); WHITE BLOOD COUNT 9.6 10^3/uL (4.0-10.0)
[2020-10-15 06:54] LABS: ACETAMINOPHEN LEVEL < 2.0 UG/ML (10.0-30.0); ALBUMIN 4.4 GM/DL (3.2-5.2); ALT/SGPT 30 U/L (12-78); BILIRUBIN,DIRECT 0.2 MG/DL (0.0-0.2); BILIRUBIN,TOTAL 0.9 MG/DL (0.2-1.0); BLOOD UREA NITROGEN 28 MG/DL (7-18); CARBON DIOXIDE LEVEL 28 MEQ/L (21-32); CHLORIDE LEVEL 107 MEQ/L (98-107); CPK CREATINE PHOSPHOKINASE 432 U/L (39-308); CREATININE FOR GFR 1.25 MG/DL (0.70-1.30); ETHYL ALCOHOL (ETHANOL) 0.003 % (0.000-0.010); GLOMERULAR FILTRATION RATE > 60.0 (>60); GLUCOSE, FASTING 90 MG/DL (70-100); POTASSIUM SERUM 3.6 MEQ/L (3.5-5.1); SALICYLATE LEVEL < 1.7 MG/DL (5.0-30.0); SODIUM LEVEL 143 MEQ/L (136-145); TOTAL PROTEIN 8.4 GM/DL (6.4-8.2)
[2020-10-15 11:45] VITALS: BP 102/67
== END 2020-10-15 15:30 | disposition home or self-care (01) ==
LOC: M ED 04:38
DX: F15.10 Other stimulant abuse, uncomplicated (principal)
CPT/HCPCS: 36415; 80048; 80076; 80143; 82077; 82550; 84443; 85025; 93041; 94760; 96372; 99285; J1200; J1630; J2060

== ENCOUNTER 2020-10-20 23:11 | Emergency (ER) | payer OTHER ==
[~2020-10-20] VITALS: Ht 188 cm; Wt 65.4 kg
[2020-10-20] MEDS ORDERED: LORazepam 2 MG/ML VIAL IM STA ×2 (23:14→23:28)
[2020-10-20] MEDS ORDERED: LORazepam 2 MG/ML VIAL As Ordered ONE (23:32)
[2020-10-21 14:08] VITALS: BP 135/68
== END 2020-10-21 14:11 | disposition home or self-care (01) ==
LOC: M ED 23:11 → ENRESERV 10-21 11:13 → M ED 10-21 14:11
DX: T40.2X1A Poisoning by other opioids, accidental (unintentional), initial encounter (principal); X58.XXXA Exposure to other specified factors, initial encounter; Y92.89 Other specified places as the place of occurrence of the external cause; F15.10 Other stimulant abuse, uncomplicated; Z88.5 Allergy status to narcotic agent
CPT/HCPCS: 96372; 99284; J2060

== ENCOUNTER 2020-11-02 23:26 | Emergency (ER) | payer OTHER ==
[2020-11-02] MEDS ORDERED: HALOPERIDOL 5MG/ML VIAL (J1630 PER 1) IM ONE (23:30)
[2020-11-02] MEDS ORDERED: NS 1,000 ML IV ONE (23:30)
[2020-11-02] MEDS ORDERED: LORazepam 2 MG/ML VIAL IM ONE (23:30)
[2020-11-02] MEDS ORDERED: LORazepam 2 MG/ML VIAL As Ordered ONE ×2 (23:30→23:52)
[2020-11-02] MEDS ORDERED: diphenhydrAMINE 50MG/ML VIAL (J1200) IM ONE (23:30)
[2020-11-02] MEDS ORDERED: HALOPERIDOL 5MG/ML VIAL (J1630 PER 1) As Ordered ONE (23:32)
[2020-11-02] MEDS ORDERED: diphenhydrAMINE 50MG/ML VIAL (J1200) As Ordered ONE (23:32)
[2020-11-02] MEDS ORDERED: LORazepam 2 MG/ML VIAL IV STA (23:51)
[2020-11-03] MEDS ORDERED: DEXTROSE 50% 50 ML SYRINGE IV STA (00:08)
[2020-11-03] MEDS ORDERED: DEXTROSE 50% 50 ML SYRINGE As Ordered ONE (00:09)
[2020-11-03 00:28] LABS: BASO % 0.3 % (0.0-1.0); EOS % 2.1 % (0.0-3.0); HEMATOCRIT 43.8 % (42.0-52.0); HEMOGLOBIN 13.8 g/dl (13.5-17.5); LYMPH # 2.8 10^3/uL (1.5-5.0); MEAN CORPUSCULAR HEMOGLOBIN 29.7 pg (27.0-33.0); MEAN CORPUSCULAR HGB CONC 31.5 g/dl (32.0-36.5); MEAN CORPUSCULAR VOLUME 94.2 fl (80.0-96.0); MONO % 8.9 % (2.0-8.0); NEUTROPHILS # 4.9 10^3/uL (1.5-8.5); NEUTROPHILS % 56.4 % (36.0-66.0); PLATELET COUNT, AUTOMATED 367 10^3/uL (150-450); RED BLOOD COUNT 4.65 10^6/uL (4.30-6.10); WHITE BLOOD COUNT 8.6 10^3/uL (4.0-10.0)
[2020-11-03 00:29] LABS: EOS # 0.2 10^3/uL (0.0-0.5); MONO # 0.8 10^3/uL (0.0-0.8)
[2020-11-03 00:56] LABS: AMPHETAMINES LEVEL URINE POSITIVE (NEGATIVE); BARBITURATES URINE NEGATIVE (NEGATIVE); BENZODIAZEPINES URINE NEGATIVE (NEGATIVE); CANNABINOIDS URINE NEGATIVE (NEGATIVE); COCAINE METABOLITE URINE NEGATIVE (NEGATIVE); METHADONE URINE NEGATIVE (NEGATIVE); OPIATES URINE POSITIVE (NEGATIVE); PHENCYCLIDINE URINE NEGATIVE (NEGATIVE)
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
[2020-11-03 01:09] LABS: ACETAMINOPHEN LEVEL < 2.0 UG/ML (10.0-30.0); ALT/SGPT 40 U/L (12-78); BILIRUBIN,DIRECT 0.1 MG/DL (0.0-0.2); BILIRUBIN,TOTAL 0.3 MG/DL (0.2-1.0); BLOOD UREA NITROGEN 24 MG/DL (7-18); CALCIUM LEVEL 8.8 MG/DL (8.5-10.1); CARBON DIOXIDE LEVEL 27 MEQ/L (21-32); CHLORIDE LEVEL 106 MEQ/L (98-107); CPK CREATINE PHOSPHOKINASE 536 U/L (39-308); CREATININE FOR GFR 1.07 MG/DL (0.70-1.30); ETHYL ALCOHOL (ETHANOL) < 0.003 % (0.000-0.010); GLOMERULAR FILTRATION RATE > 60.0 (>60); GLUCOSE, FASTING 70 MG/DL (70-100); POTASSIUM SERUM 4.4 MEQ/L (3.5-5.1); SALICYLATE LEVEL 1.9 MG/DL (5.0-30.0); SODIUM LEVEL 139 MEQ/L (136-145)
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
[2020-11-03] MEDS ORDERED: NS 1,000 ML IV ONE (03:05)
[2020-11-03 10:00] VITALS: BP 120/69
--- NOTE | 2020-11-03 10:01 | ECGEPIP ---
[facility] - ED Test Date: 2020-11-03 Pat Name: NIEVES BLOCK Department: Room: - Gender: Male Lopper: : 1990 Requested By: PARAG Rodgers Order Number: [id number] Reading MD: Nilson Mcdaniel Measurements Intervals [place] Rate: 103 P: 77 NC: 132 QRS: 62 QRSD: 92 T: 62 QT: 378 QTc: 495 Interpretive Statements Sinus tachycardia POOR R WAVE PROGRESSION SIMILAR TO 08/30/20 Electronically Signed on 11-03-2020 10:01:02 EDT by Nilson Mcdaniel
== END 2020-11-03 10:19 | disposition home or self-care (01) ==
LOC: M ED 23:26
DX: F15.10 Other stimulant abuse, uncomplicated (principal); Z88.5 Allergy status to narcotic agent
CPT/HCPCS: 36415; 51701; 70450; 72125; 80048; 80076; 80143; 80307; 82077; 82550; 84443; 85025; 93005; 93041; 94760; 96361; 96372; 96374; 99285; J1200; J1630; J2060

== ENCOUNTER 2020-11-03 12:17 | Emergency (ER) | payer OTHER ==
[2020-11-03] MEDS ORDERED: NALOXONE 2MG/2ML SYRINGE (J2310 PER 1MG) IM STA (12:25)
[2020-11-03 12:27] VITALS: BP 122/66
== END 2020-11-03 13:29 | disposition home or self-care (01) ==
LOC: EDBD 12:17 → M ED 12:17
DX: Z76.5 Malingerer [conscious simulation] (principal); F15.10 Other stimulant abuse, uncomplicated; B19.20 Unspecified viral hepatitis C without hepatic coma; Z88.5 Allergy status to narcotic agent
CPT/HCPCS: 96372; 99284; J2310

== ENCOUNTER 2020-11-09 09:02 | Emergency (ER) | payer OTHER ==
[~2020-11-09] VITALS: Ht 188 cm; Wt 69.4 kg
[2020-11-09] MEDS ORDERED: ACETAMINOPHEN 325 MG TAB PO ONE (09:10)
[2020-11-09 09:31] VITALS: BP 124/77
== END 2020-11-09 10:56 | disposition left against medical advice (07) ==
LOC: EDBD 09:02 → M ED 09:02
DX: Z04.6 Encounter for general psychiatric examination, requested by authority (principal); B19.20 Unspecified viral hepatitis C without hepatic coma; F15.10 Other stimulant abuse, uncomplicated; Z88.5 Allergy status to narcotic agent

== ENCOUNTER 2020-11-09 16:45 | Inpatient (IN) | payer OTHER ==
[~2020-11-09] VITALS: Ht 188 cm; Wt 60.0 kg
[2020-11-09 20:01] LABS: HEMATOCRIT 42.4 % (42.0-52.0); HEMOGLOBIN 13.8 g/dl (13.5-17.5); MEAN CORPUSCULAR HEMOGLOBIN 29.8 pg (27.0-33.0); MEAN CORPUSCULAR HGB CONC 32.5 g/dl (32.0-36.5); MEAN CORPUSCULAR VOLUME 91.6 fl (80.0-96.0); PLATELET COUNT, AUTOMATED 324 10^3/uL (150-450); RED BLOOD COUNT 4.63 10^6/uL (4.30-6.10); WHITE BLOOD COUNT 13.2 10^3/uL (4.0-10.0)
[2020-11-09 20:39] LABS: ACETAMINOPHEN LEVEL < 2.0 UG/ML (10.0-30.0); ALT/SGPT 38 U/L (12-78); BILIRUBIN,DIRECT 0.2 MG/DL (0.0-0.2); BILIRUBIN,TOTAL 0.6 MG/DL (0.2-1.0); BLOOD UREA NITROGEN 22 MG/DL (7-18); CALCIUM LEVEL 9.2 MG/DL (8.5-10.1); CARBON DIOXIDE LEVEL 31 MEQ/L (21-32); CHLORIDE LEVEL 106 MEQ/L (98-107); CREATININE FOR GFR 0.81 MG/DL (0.70-1.30); ETHYL ALCOHOL (ETHANOL) < 0.003 % (0.000-0.010); GLOMERULAR FILTRATION RATE > 60.0 (>60); GLUCOSE, FASTING 88 MG/DL (70-100); POTASSIUM SERUM 4.3 MEQ/L (3.5-5.1); SALICYLATE LEVEL < 1.7 MG/DL (5.0-30.0); SODIUM LEVEL 140 MEQ/L (136-145); TOTAL PROTEIN 7.9 GM/DL (6.4-8.2)
[2020-11-09 23:13] LABS: AMPHETAMINES LEVEL URINE POSITIVE (NEGATIVE); BARBITURATES URINE NEGATIVE (NEGATIVE); BENZODIAZEPINES URINE NEGATIVE (NEGATIVE); CANNABINOIDS URINE NEGATIVE (NEGATIVE); COCAINE METABOLITE URINE NEGATIVE (NEGATIVE); METHADONE URINE NEGATIVE (NEGATIVE); OPIATES URINE POSITIVE (NEGATIVE); PHENCYCLIDINE URINE NEGATIVE (NEGATIVE)
[2020-11-10 03:11] LABS: RSV AMPLIFICATION NEGATIVE (NEGATIVE)
[2020-11-10] MEDS ORDERED: traZODone 50 MG TAB PO PRN (05:05)
[2020-11-10] MEDS ORDERED: MOM 30ML SUSPENSION UDC PO PRN (05:05)
[2020-11-10] MEDS ORDERED: MAALOX 30 ML SUSP *UDC PO PRN (05:05)
[2020-11-10 06:44] VITALS: BP 132/76
[2020-11-10] MEDS ORDERED: cloNIDine 0.2 MG TAB PO SCH (09:00)
[2020-11-10] MEDS: ACETAMINOPHEN TAB 650MG DOSE (2X325MG) PO PRN ×2 (10:22→18:06)
--- NOTE | 2020-11-10 12:27 | MHHPEPDOC ---
General Date Of Admission: Nov 10, 2020 Legal Status: 9.39 Chief Complaint Drug use, Suicidal History of Present Illness HISTORY OF THE PRESENT ILLNESS: Patient is a 30 -year-old , male * PT has a long hx of mental illness with addiction. His last admission to [facility] was 04/2019. PT has been seen repeatedly in this department for drug induce psyhosis. PT has had medical admissions do to drug abuse. Typically when PT is brought to the ED he has been acting bizzare in the community and is unable to be calmed. PT will often use drugs in a public place such as a [employer] and once he starts acting out by hitting cavazos or yelling the police are called. PT has been offered [facility] admissions in the past and PT has declined and would d/c from ED only to return again sometimes more than once on the same date. Attempts have been made to get PT into detox/rehab programs in prior visits but he declined. PT has been suicidal in the past but he would be able to CFS after he had time to rest. He is often homeless. PT's mother tries to be supportive and advocate for treatment. PT was brought to ED today 9.41 after he was witnessed outside rolling around on the ground and scaring the kids that were in the area. He was allowed to rest and then a medical work up was completed. Upon d/c PT stated to charge nurse Abimbola Dow that he needed to be admitted as he planned to kill himself. Abimbola attempted to discuss with PT if he truly felt suicidal and he continue to stress that he will in fact kill himself. PT was brought back to [facility] and TW met with him. Had a direct converstion in regards to PT's goal for treatment and when reminded that [facility] was not a detox unit his response was "But maybe this will help me". PT could not CFS and states he is tired of the life he is leading. Patient states he feels terrible. He is going through withdrawal from heroin and mildly numerous ER visits and he just "wanted to get away from things for a few days. That is why he states he stated he was suicidal. He is not suicidal. He just was told by friends that he would be able to go through withdrawal easier on an inpatient unit. He states I just wanted to get away." He is homeless and has just been spending time in various places "bouncing around". He is used drugs for over 7 years, mostly heroin and mildly. He states that those drugs, take away the pain and bring him up." His legal history is negative. His surgical history is positive for jaw surgery. Patient claims she has atrial fibrillation, which has never been treated. Neurological history is negative. He has visited the emergency room many times but never the psychiatric inpatient unit. Alcohol history is negative. Family history is positive for father and mother living in [place]. He has not lived with them since she was 16. He states they both use alcohol. 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 He has a sister and he does not describe her as having any difficulties. He denies suicidal ideation numerous times. She denies homicidal ideation. He denies hallucinations, delu sions, obsessions, compulsions and phobias. Psychiatric Review of Systems Depression (2 or more weeks): denies Valerie (4 or more days of): denies Psychosis: denies PTSD: denies Anxiety: denies Anxiety/ 6 months or more of: other Past Psychiatric History Previous Psychiatric Diagnosis: In emergency room substance intoxication. Previous Psychiatric Admissions:. No previous admissions. Suicide Attempts:. No known suicide attempts. Psychiatric Follow-up:. Follow-up. Psychiatric medications:. No medications. 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 Social Support: None. Legal: Negative. Marital:, Single. Mental Status Examination General Appearance: unkempt Build: average Demeanor: average Eye Contact: average Activity: average Behavior: cooperative Speech: slurred Mood: euthymic Affect: constricted, congruent Thought Process: logical/linear Thought Content (Delusions): none reported Thought Content (Other): none reported Thought Content (Aggressive): none reported Perception (Hallucinations): none reported Perception (Other): none reported Cognition (Impairment of): none reported Cognition(Intelligence Est.): average Oriented: Awake, Alert, Oriented times three Insight: fair Judgment: Poor Psychosis: Denies Diagnoses Heroin Christina Intoxicatiion A-FIB/CHADSVASC A-FIB History Current/History of A-Fib/PAF?: Yes Current PO Anticoag Therapy: No Age/Risk Factor Scoring CHADSVASC: CHADSVASC Response (Comments) Value Age Risk Factor Age < 65 years old 0 Gender Risk Factor Male 0 Hx of CHF No 0 Hx of HTN No 0 Hx of Stroke/TIA/or VTE No 0 Hx of Diabetes No 0 Hx of Vascular Disease No 0 Total 0 Treatment Treatment ordered: NONE Initial Treatment Plan 1. Patient was admitted on a [9.39] status. 2. Complete history was obtained. 3. With patients permission, family will be contacted and database will be expanded. 4. Patients medication regimen will be reviewed and changed accordingly. 5. Patient will be provided with protected environment. 6. Patient will be treated with individual, group, and milieu therapies. 7. Patient will receive supportive psych-education. 8. Discharge planning will commence immediately. 9. Outpatient follow-up treatment will be strongly recommended. 10. The initial treatment plan will focus initially on: * Depression. * Risk for suicide. ESTIMATED LENGTH OF STAY: - DAYS. TIME SPENT COUNSELING AND COORDINATING INITIAL CARE: minutes. N/A-No Antipsychotics Vital Signs Vital Signs Date Time Temp Pulse Resp B/P (MAP) Pulse Ox O2 Delivery O2 Flow Rate FiO2 11/10/20 06:44 99.3 80 16 132/76 (94) 100 Room Air Laboratory Data 24H Labs Laboratory Tests 2 11/09/20 18:55: Urine Opiates Screen POSITIVEH, Urine Methadone Screen NEGATIVE, Urine Barbiturates Screen NEGATIVE, Urine Phencyclidine Screen NEGATIVE, Urine Amphetamines Screen POSITIVEH, Urine Benzodiazepines Screen NEGATIVE, Urine Cocaine Metabolite Screen NEGATIVE, Urine Cannabinoids Screen NEGATIVE 11/09/20 19:40: Nucleated Red Blood Cells % (auto) 0.0, Anion Gap 3L, Glomerular Filtration Rate > 60.0, Calcium Level 9.2, Total Bilirubin 0.6, Direct Bilirubin 0.2, Aspartate Amino Transf (AST/SGOT) 51H, Alanine Aminotransferase (ALT/SGPT) 38, Alkaline Phosphatase 123H, Total Protein 7.9, Albumin 4.0, Albumin/Globulin Ratio 1.0, Thyroid Stimulating Hormone (TSH) 1.500, Salicylates Level < 1.7L, Acetaminophen Level < 2.0L, Ethyl Alcohol Level < 0.003 11/10/20 02:22: Coronavirus (COVID-19)(PCR) NEGATIVE, Influenza Type A (RT-PCR) NEGATIVE, Influenza Type B (RT-PCR) NEGATIVE, Respiratory Syncytial Virus (PCR) NEGATIVE CBC/BMP Laboratory Tests 11/09/20 19:40 Medications No Active Prescriptions or Reported Meds Allergies Coded Allergies: tramadol (Verified Allergy, Intermediate, HIVES, 10/15/20) TRISHA BRANDON MD Nov 10, 2020 12:27
[2020-11-10] MEDS: cloNIDine 0.1MG TABLET PO SCH ×3 (12:35→21:00)
--- NOTE | 2020-11-10 15:16 | HPEPDOC ---
[facility] Medical History & Physical Date of Admission Nov 09, 2020 Date of Service: Nov 10, 2020 Attending Physician: Patricia Duque MD History and Physical MEDICAL H&P HISTORY OF PRESENT ILLNESS: Patient is a 30-year-old male with past medical history of polysubstance abuse, anxiety, depression, psychosis with left mental health admission 2019, hypertension, migraine headaches who presented to [facility] emergency room after being brought in by [facility] as he was found rolling on the ground scaring children in the community. The patient had a positive UDS for amphetamines and marijuana. The patient admitted to being depressed, having decreased appetite, being "tired" of living this life and having thoughts of dying. He was admitted to inpatient mental health for unspecified depressive disorder. Evaluation by myself day the patient answered appropriately; however, did not offer much information about his current situation. He states that he is not hopeless, tearful, depressed. He wants to know how he can get Suboxone and methadone prescribed to him as outpatient. He also states that he feels as though he may be close to calling into withdraws as he has had increased feelings of anxiety. His last use of heroin he states was earlier yesterday. His vital signs were within normal limits, WBC 13.2, AST 51 positive opiates and amphetamines on UDS. He has numerous track daugherty on his left and right arm where he shoots heroin. The patient denied homicidal, suicidal ideation, visual or auditory hallucinations, feelings of paranoia to myself during exam. He denied chest pain, fevers, chills, nausea, vomiting, abdominal pain. REVIEW OF SYSTEMS: Neg except mentioned above PAST MEDICAL HISTORY: polysubstance abuse anxiety/ depression costochondritis hypertension migraines right foot drop PAST SURGICAL HISTORY: Jaw surgery FAMILY HISTORY: COPD (father), Hypertension (father) SOCIAL HISTORY: Smoker: current smoker Alcohol: rarely Drugs: heroin, other (amphetamine) ALLERGIES: Please see below. HOME MEDICATIONS: Please see below. PHYSICAL EXAMINATION: CONSTITUTIONAL: No acute distress, resting comfortably, AAO x 3 EYES: PERRLA, EOM intact HENT, MOUTH: Normocephalic, atraumatic, moist mucous membranes, poor oral hygeine, dentition NECK: SUPPLE, no JVD, no lymphadenopathy, no carotid bruit CV: Regular rate and rhythm, S1S2 normal, no murmurs/rubs/gallops RESPIRATORY: Clear to auscultation bilaterally, no rales/rhonchi/wheezes GI: BS positive in 4 quadrants, soft, nontender, nondistended, no rebound or guarding, no organomegaly : Deferred MUSCULOSKELETAL: Normal ROM. No cyanosis, clubbing, swelling, joint deformity, extremity edema INTEGUMENTARY: numerous scabbed tract daugherty on upper b/l extremities, no open lesions, no erythema NEUROLOGIC: Cranial Nerves II-XII are intact, no focal deficits LABORATORY DATA: Please see below IMAGING: None ASSESSMENT: 30 y/o M admitted to [facility] for unspecified depressive disorder. PLAN: Unspecified depressive disorder -Plan per psychiatry Polysubstance abuse -No tachycardia, abnormal VS on exam today -UDS + for amphetamines and marijuana -Monitor closely for s/s of withdrawl, start on CIWA protocol if needed -Patient asked if I could prescribe him suboxone or methadone, which I cannot do. HTN hx -Stable DISPOSITION: Thank you kindly for this consult. At this time, will sign off on patient's case but if we are needed again please do not hesitate to call at any time. Vital Signs Vital Signs Date Time Temp Pulse Resp B/P (MAP) Pulse Ox O2 Delivery O2 Flow Rate FiO2 11/10/20 12:35 118/78 11/10/20 09:45 Room Air 11/10/20 06:44 99.3 80 16 100 Laboratory Data Labs 24H Laboratory Tests 2 11/09/20 18:55: Urine Opiates Screen POSITIVEH, Urine Methadone Screen NEGATIVE, Urine Barbiturates Screen NEGATIVE, Urine Phencyclidine Screen NEGATIVE, Urine Amphetamines Screen POSITIVEH, Urine Benzodiazepines Screen NEGATIVE, Urine Coca ine Metabolite Screen NEGATIVE, Urine Cannabinoids Screen NEGATIVE 11/09/20 19:40: Nucleated Red Blood Cells % (auto) 0.0, Anion Gap 3L, Glomerular Filtration Rate > 60.0, Calcium Level 9.2, Total Bilirubin 0.6, Direct Bilirubin 0.2, Aspartate Amino Transf (AST/SGOT) 51H, Alanine Aminotransferase (ALT/SGPT) 38, Alkaline Phosphatase 123H, Total Protein 7.9, Albumin 4.0, Albumin/Globulin Ratio 1.0, Thyroid Stimulating Hormone (TSH) 1.500, Salicylates Level < 1.7L, Acetaminophen Level < 2.0L, Ethyl Alcohol Level < 0.003 11/10/20 02:22: Coronavirus (COVID-19)(PCR) NEGATIVE, Influenza Type A (RT-PCR) NEGATIVE, Influenza Type B (RT-PCR) NEGATIVE, Respiratory Syncytial Virus (PCR) NEGATIVE CBC/BMP Laboratory Tests 11/09/20 19:40 Home Medications No Active Prescriptions or Reported Meds Allergies Coded Allergies: tramadol (Verified Allergy, Intermediate, HIVES, 10/15/20) A-FIB/CHADSVASC A-FIB History Current/History of A-Fib/PAF?: No Current PO Anticoag Therapy: No Age/Risk Factor Scoring CHADSVASC: CHADSVASC Response (Comments) Value Age Risk Factor Age < 65 years old 0 Gender Risk Factor Male 0 Hx of CHF No 0 Hx of HTN Yes 1 Hx of Stroke/TIA/or VTE No 0 Hx of Diabetes No 0 Hx of Vascular Disease No 0 Total 1 Treatment Treatment ordered: NONE Other anticoagulant ordered: none Patricia Duque MD Nov 10, 2020 15:16
[2020-11-10 17:03] VITALS: BP 118/78
[2020-11-11 06:44] VITALS: BP 126/71
[2020-11-11] MEDS: ACETAMINOPHEN TAB 650MG DOSE (2X325MG) PO PRN (07:35)
--- NOTE | 2020-11-11 08:20 | MHIPNPDOC ---
[facility] Progress Note Progress Note DATE OF SERVICE: 11/11/20 HISTORY: Patient states he feels terrible. He is going through withdrawal from heroin. Many ER visits and he just "wanted to get away from things for a few days. That is why he states he stated he was suicidal. He is not suicidal. He just was told by friends that he would be able to go through withdrawal easier on an inpatient unit. He states I just wanted to get away." He is homeless and has just been spending time in various places "bouncing around". He is used drugs for over 7 years, mostly heroin and mildly. He states that those drugs, take away the pain and bring him up." His legal history is negative. His surgical history is positive for jaw surgery. Patient claims she has atrial fibrillation, which has never been treated. Neurological history is negative. He has visited the emergency room many times but never the psychiatric inpatient unit. Alcohol history is negative. Family history is positive for father and mother living in [place]. He has not lived with them since she was 16. He states they both use alcohol. 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 He has a sister and he does not describe her as having any difficulties. He denies suicidal ideation numerous times. She denies homicidal ideation. He denies hallucinations, delusions, obsessions, compulsions and phobias.Today states he is having a rough time. I increased his catapres. VITAL SIGNS: See below. NEW TEST RESULTS: General Appearance: unkempt Build: average Demeanor: average Eye Contact: average Activity: average Behavior: cooperative Speech: slurred Mood: euthymic Affect: constricted, congruent Thought Process: logical/linear Thought Content (Delusions): none reported Thought Content (Other): none reported Thought Content (Aggressive): none reported Perception (Hallucinations): none reported Perception (Other): none reported Cognition (Impairment of): none reported Cognition(Intelligence Est.): average Oriented: Awake, Alert, Oriented times three Insight: fair Judgment: Poor Psychosis: Denies Diagnosis: Opiate Abuse MANAGEMENT PLAN:Withdrawal Regimen TIME SPENT: 25 minutes. Vital Signs Vital Signs Date Time Temp Pulse Resp B/P (MAP) Pulse Ox O2 Delivery O2 Flow Rate FiO2 11/11/20 06:44 98.1 78 18 126/71 (89) 100 Room Air Current Medications Current Medications Medications (Trade) Dose Ordered Sig/Zhang Route PRN Reason Start Time Stop Time Status Last Admin Dose Admin Acetaminophen (Tylenol Tab) 650 mg Q6HP PRN PO HEADACHE or DISCOMFORT 11/10/20 05:05 11/11/20 07:35 Al Hydrox/Mg Hydrox/Simethicone (Mylanta) 30 ml Q4HP PRN PO HEARTBURN/INDIGESTION 11/10/20 05:05 Clonidine HCl (Catapres) 0.1 mg QID PO 11/10/20 13:00 11/11/20 07:15 DC 11/10/20 18:06 Clonidine HCl (Catapres) 0.2 mg QID PO 11/11/20 09:00 Clonidine HCl (Catapres) 0.2 mg TID PO 11/10/20 09:00 11/10/20 12:14 DC Home Med (Med Rec Complete!) ASDIRECTED XX 11/10/20 05:05 11/10/20 05:05 DC Magnesium Hydroxide (Milk Of Magnesia) 30 ml DAILYPRN PRN PO CONSTIPATION 11/10/20 05:05 Trazodone HCl (Desyrel) 50 mg QHSP PRN PO INSOMNIA 11/10/20 05:05 Allergies Coded Allergies: tramadol (Verified Allergy, Intermediate, HIVES, 10/15/20) TRISHA BRANDON MD Nov 11, 2020 08:20
[2020-11-11] MEDS ORDERED: cloNIDine 0.1MG TABLET PO SCH (09:00)
[2020-11-11 09:11] VITALS: BP 133/76
--- NOTE | 2020-11-11 09:23 | ECGEPIP ---
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
== END 2020-11-11 12:26 | disposition home or self-care (01) | DRG 773 ==
LOC: M ED 16:45 → EDBD 16:45 → M ED INP 11-10 05:05 → M PSY 11-10 06:04
PROVIDERS: ADMIT Psychiatry & Neurology Psychiatry; ATTEND Psychiatry & Neurology Child & Adolescent Psychiatry
DX: F11.129 Opioid abuse with intoxication, unspecified (principal); I10 Essential (primary) hypertension; F41.9 Anxiety disorder, unspecified; F32.9 Major depressive disorder, single episode, unspecified; G43.909 Migraine, unspecified, not intractable, without status migrainosus; F17.200 Nicotine dependence, unspecified, uncomplicated; F11.13 Opioid abuse with withdrawal; Z20.822 Contact with and (suspected) exposure to COVID-19; Z81.1 Family history of alcohol abuse and dependence; Z88.5 Allergy status to narcotic agent

== ENCOUNTER 2020-11-17 12:28 | Emergency (ER) | payer OTHER ==
[~2020-11-17] VITALS: Ht 188 cm; Wt 72.7 kg
[2020-11-17 12:28] VITALS: BP 131/83
== END 2020-11-17 13:50 | disposition home or self-care (01) ==
LOC: EDBD → M ED 12:28
DX: L72.0 Epidermal cyst (principal); F17.200 Nicotine dependence, unspecified, uncomplicated; Z88.8 Allergy status to other drugs, medicaments and biological substances

== ENCOUNTER 2020-11-21 09:00 | Emergency (ER) | payer MEDICAID, OTHER ==
[~2020-11-21] VITALS: Ht 188 cm; Wt 72.7 kg
[2020-11-21] MEDS ORDERED: LORazepam 2 MG/ML VIAL IV STA ×2 (09:03→10:07)
[2020-11-21] MEDS ORDERED: NS 1,000 ML IV ONE (09:05)
[2020-11-21 09:25] LABS: BASO % 0.2 % (0.0-1.0); EOS % 0.2 % (0.0-3.0); HEMATOCRIT 42.6 % (42.0-52.0); HEMOGLOBIN 13.6 g/dl (13.5-17.5); MEAN CORPUSCULAR HEMOGLOBIN 30.2 pg (27.0-33.0); MEAN CORPUSCULAR HGB CONC 31.9 g/dl (32.0-36.5); MEAN CORPUSCULAR VOLUME 94.7 fl (80.0-96.0); MONO % 8.1 % (2.0-8.0); NEUTROPHILS # 11.9 10^3/uL (1.5-8.5); PLATELET COUNT, AUTOMATED 394 10^3/uL (150-450); WHITE BLOOD COUNT 18.5 10^3/uL (4.0-10.0)
[2020-11-21 10:13] LABS: MONO # 1.5 10^3/uL (0.0-0.8)
[2020-11-21 10:40] LABS: ACETAMINOPHEN LEVEL < 2.0 UG/ML (10.0-30.0); ALBUMIN 4.4 GM/DL (3.2-5.2); ALT/SGPT 31 U/L (12-78); BILIRUBIN,DIRECT 0.1 MG/DL (0.0-0.2); BILIRUBIN,TOTAL 0.4 MG/DL (0.2-1.0); BLOOD UREA NITROGEN 33 MG/DL (7-18); CARBON DIOXIDE LEVEL 18 MEQ/L (21-32); CHLORIDE LEVEL 98 MEQ/L (98-107); CPK CREATINE PHOSPHOKINASE 562 U/L (39-308); CREATININE FOR GFR 1.42 MG/DL (0.70-1.30); ETHYL ALCOHOL (ETHANOL) < 0.003 % (0.000-0.010); GLOMERULAR FILTRATION RATE > 60.0 (>60); GLUCOSE, FASTING 90 MG/DL (70-100); POTASSIUM SERUM 3.9 MEQ/L (3.5-5.1); SALICYLATE LEVEL 1.8 MG/DL (5.0-30.0); SODIUM LEVEL 135 MEQ/L (136-145); TOTAL PROTEIN 8.3 GM/DL (6.4-8.2)
[2020-11-21 10:46] VITALS: BP 113/55
[2020-11-21 18:59] LABS: AMPHETAMINES LEVEL URINE POSITIVE (NEGATIVE); BARBITURATES URINE NEGATIVE (NEGATIVE); BENZODIAZEPINES URINE NEGATIVE (NEGATIVE); CANNABINOIDS URINE NEGATIVE (NEGATIVE); COCAINE METABOLITE URINE NEGATIVE (NEGATIVE); METHADONE URINE NEGATIVE (NEGATIVE); OPIATES URINE POSITIVE (NEGATIVE); PHENCYCLIDINE URINE NEGATIVE (NEGATIVE)
--- NOTE | 2020-11-21 19:19 | ECGEPIP ---
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
== END 2020-11-21 11:55 | disposition left against medical advice (07) ==
LOC: EDBD → M ED 09:00
DX: F19.188 Other psychoactive substance abuse with other psychoactive substance-induced disorder (principal); R94.31 Abnormal electrocardiogram [ECG] [EKG]
CPT/HCPCS: 80048; 80076; 80143; 80307; 82077; 82550; 84443; 85025; 93005; 96374; 99284; J2060

== ENCOUNTER 2020-11-22 04:09 | Emergency (ER) | payer OTHER ==
[~2020-11-22] VITALS: Ht 188 cm; Wt 66.8 kg
[2020-11-22 04:20] VITALS: BP 131/78
== END 2020-11-22 04:57 | disposition home or self-care (01) ==
LOC: EDBD → M ED 04:09
DX: T50.901A Poisoning by unspecified drugs, medicaments and biological substances, accidental (unintentional), initial encounter (principal); F19.120 Other psychoactive substance abuse with intoxication, uncomplicated

== ENCOUNTER 2020-11-22 18:25 | Emergency (ER) | payer OTHER ==
[~2020-11-22] VITALS: Ht 182.9 cm; Wt 66.8 kg
[2020-11-22] MEDS ORDERED: LORazepam 2 MG/ML VIAL IV STA (20:32)
[2020-11-22] MEDS ORDERED: NS 1,000 ML IV ONE (20:35)
[2020-11-22 21:01] VITALS: BP 116/55
[2020-11-22 23:19] LABS: ACETAMINOPHEN LEVEL < 2.0 UG/ML (10.0-30.0); ALBUMIN 4.3 GM/DL (3.2-5.2); ALT/SGPT 54 U/L (12-78); BILIRUBIN,DIRECT 0.2 MG/DL (0.0-0.2); BILIRUBIN,TOTAL 0.9 MG/DL (0.2-1.0); BLOOD UREA NITROGEN 37 MG/DL (7-18); CALCIUM LEVEL 9.1 MG/DL (8.5-10.1); CARBON DIOXIDE LEVEL 25 MEQ/L (21-32); CHLORIDE LEVEL 107 MEQ/L (98-107); CPK CREATINE PHOSPHOKINASE 1768 U/L (39-308); CREATININE FOR GFR 1.16 MG/DL (0.70-1.30); ETHYL ALCOHOL (ETHANOL) < 0.003 % (0.000-0.010); GLOMERULAR FILTRATION RATE > 60.0 (>60); GLUCOSE, FASTING 81 MG/DL (70-100); POTASSIUM SERUM 4.4 MEQ/L (3.5-5.1); SALICYLATE LEVEL < 1.7 MG/DL (5.0-30.0); SODIUM LEVEL 139 MEQ/L (136-145)
[2020-11-22 23:30] LABS: AMPHETAMINES LEVEL URINE POSITIVE (NEGATIVE); BARBITURATES URINE NEGATIVE (NEGATIVE); BENZODIAZEPINES URINE NEGATIVE (NEGATIVE); CANNABINOIDS URINE NEGATIVE (NEGATIVE); COCAINE METABOLITE URINE NEGATIVE (NEGATIVE); METHADONE URINE NEGATIVE (NEGATIVE); OPIATES URINE NEGATIVE (NEGATIVE); PHENCYCLIDINE URINE NEGATIVE (NEGATIVE)
== END 2020-11-22 23:07 | disposition left against medical advice (07) ==
LOC: M ED 18:25
DX: F15.10 Other stimulant abuse, uncomplicated (principal); Z88.8 Allergy status to other drugs, medicaments and biological substances
CPT/HCPCS: 80048; 80076; 80143; 80307; 82077; 82550; 84443; 96361; 96374; 99285; J2060

== ENCOUNTER 2020-11-23 13:31 | Emergency (ER) | payer OTHER ==
[2020-11-23] MEDS ORDERED: LORazepam 2 MG/ML VIAL IM STA ×2 (13:40→16:34)
[2020-11-23] MEDS ORDERED: diphenhydrAMINE 50MG/ML VIAL (J1200) IV ONE (13:40)
[2020-11-23] MEDS ORDERED: NS 1,000 ML IV ONE (13:45)
[2020-11-24 06:31] VITALS: BP 102/59
== END 2020-11-24 15:53 | disposition home or self-care (01) ==
LOC: M ED 13:31 → EDBD 13:31 → M ED 11-24 15:53
DX: F15.10 Other stimulant abuse, uncomplicated (principal); Z88.5 Allergy status to narcotic agent; F17.210 Nicotine dependence, cigarettes, uncomplicated
CPT/HCPCS: 94760; 96372; 96374; 99285; J1200; J2060

== ENCOUNTER 2020-11-26 15:32 | Emergency (ER) | payer OTHER ==
[~2020-11-26] VITALS: Ht 182.9 cm; Wt 72.7 kg
[2020-11-26] MEDS ORDERED: LORazepam 2 MG/ML VIAL IM STA ×3 (15:38→16:44)
[2020-11-26] MEDS ORDERED: OLANZapine INTRAMUSCULAR 10MG VIAL IM ONE (17:15)
[2020-11-26] MEDS ORDERED: LORazepam 2 MG/ML VIAL IM ONE (17:15)
[2020-11-26] MEDS ORDERED: LORazepam 2 MG/ML VIAL IV PRN (18:00)
[2020-11-26] MEDS ORDERED: NS 1,000 ML IV ONE (18:00)
[2020-11-26 18:23] LABS: HEMATOCRIT 38.3 % (42.0-52.0); HEMOGLOBIN 12.4 g/dl (13.5-17.5); MEAN CORPUSCULAR HEMOGLOBIN 30.4 pg (27.0-33.0); MEAN CORPUSCULAR HGB CONC 32.4 g/dl (32.0-36.5); MEAN CORPUSCULAR VOLUME 93.9 fl (80.0-96.0); PLATELET COUNT, AUTOMATED 301 10^3/uL (150-450); RED BLOOD COUNT 4.08 10^6/uL (4.30-6.10); WHITE BLOOD COUNT 9.2 10^3/uL (4.0-10.0)
[2020-11-26 19:09] LABS: ACETAMINOPHEN LEVEL < 2.0 UG/ML (10.0-30.0); ALBUMIN 3.7 GM/DL (3.2-5.2); ALT/SGPT 70 U/L (12-78); BILIRUBIN,DIRECT 0.1 MG/DL (0.0-0.2); BILIRUBIN,TOTAL 0.6 MG/DL (0.2-1.0); BLOOD UREA NITROGEN 23 MG/DL (7-18); CALCIUM LEVEL 8.8 MG/DL (8.5-10.1); CARBON DIOXIDE LEVEL 26 MEQ/L (21-32); CHLORIDE LEVEL 111 MEQ/L (98-107); CPK CREATINE PHOSPHOKINASE 1171 U/L (39-308); CREATININE FOR GFR 1.04 MG/DL (0.70-1.30); ETHYL ALCOHOL (ETHANOL) < 0.003 % (0.000-0.010); GLOMERULAR FILTRATION RATE > 60.0 (>60); GLUCOSE, FASTING 75 MG/DL (70-100); POTASSIUM SERUM 3.7 MEQ/L (3.5-5.1); SALICYLATE LEVEL < 1.7 MG/DL (5.0-30.0); SODIUM LEVEL 144 MEQ/L (136-145)
--- NOTE | 2020-11-26 21:16 | ECGEPIP ---
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
[2020-11-27 04:00] VITALS: BP 130/69
== END 2020-11-27 09:35 | disposition home or self-care (01) ==
LOC: EDBD 15:32 → M ED 15:32
DX: F15.10 Other stimulant abuse, uncomplicated (principal); B19.20 Unspecified viral hepatitis C without hepatic coma; Z88.5 Allergy status to narcotic agent
CPT/HCPCS: 36415; 80048; 80076; 80143; 82077; 82550; 84443; 85027; 93005; 96372; 99285; J2060

== ENCOUNTER 2020-11-28 04:54 | Emergency (ER) | payer OTHER ==
[~2020-11-28] VITALS: Ht 182.9 cm; Wt 72.7 kg
[2020-11-28 04:57] VITALS: BP 118/86
[2020-11-28] MEDS ORDERED: LORazepam 2 MG/ML VIAL IM STA ×3 (04:58→05:16)
== END 2020-11-28 08:15 | disposition home or self-care (01) ==
LOC: M ED 04:54
DX: F15.10 Other stimulant abuse, uncomplicated (principal); B19.20 Unspecified viral hepatitis C without hepatic coma; G43.909 Migraine, unspecified, not intractable, without status migrainosus; Z88.8 Allergy status to other drugs, medicaments and biological substances
CPT/HCPCS: 96372; 99285; J2060

== ENCOUNTER 2020-11-29 23:39 | Emergency (ER) | payer OTHER ==
[2020-11-29] MEDS ORDERED: LORazepam 2 MG/ML VIAL IM STA (23:43)
[2020-11-30 08:12] VITALS: BP 109/60
== END 2020-11-30 10:04 | disposition home or self-care (01) ==
LOC: M ED 23:39
DX: F15.10 Other stimulant abuse, uncomplicated (principal); B19.20 Unspecified viral hepatitis C without hepatic coma; Z88.5 Allergy status to narcotic agent
CPT/HCPCS: 96372; 99284; J2060

== ENCOUNTER 2021-01-28 01:14 | Inpatient (IN) | payer OTHER ==
[~2021-01-28] VITALS: Ht 188 cm; Wt 72.0 kg
[2021-01-28] MEDS ORDERED: LORazepam 2 MG/ML VIAL IM ONE (01:20)
[2021-01-28] MEDS ORDERED: OLANZapine INTRAMUSCULAR 10MG VIAL IM ONE (01:20)
[2021-01-28 18:26] LABS: HEMATOCRIT 40.6 % (42.0-52.0); HEMOGLOBIN 13.2 g/dl (13.5-17.5); MEAN CORPUSCULAR HEMOGLOBIN 30.8 pg (27.0-33.0); MEAN CORPUSCULAR HGB CONC 32.5 g/dl (32.0-36.5); MEAN CORPUSCULAR VOLUME 94.6 fl (80.0-96.0); PLATELET COUNT, AUTOMATED 250 10^3/uL (150-450); RED BLOOD COUNT 4.29 10^6/uL (4.30-6.10); WHITE BLOOD COUNT 6.2 10^3/uL (4.0-10.0)
[2021-01-28 18:56] LABS: ACETAMINOPHEN LEVEL < 2.0 UG/ML (10.0-30.0); ALBUMIN 3.7 GM/DL (3.2-5.2); ALT/SGPT 28 U/L (12-78); BILIRUBIN,DIRECT 0.2 MG/DL (0.0-0.2); BILIRUBIN,TOTAL 0.6 MG/DL (0.2-1.0); BLOOD UREA NITROGEN 17 MG/DL (7-18); CALCIUM LEVEL 8.7 MG/DL (8.5-10.1); CARBON DIOXIDE LEVEL 24 MEQ/L (21-32); CHLORIDE LEVEL 108 MEQ/L (98-107); CREATININE FOR GFR 1.13 MG/DL (0.70-1.30); ETHYL ALCOHOL (ETHANOL) < 0.003 % (0.000-0.010); GLOMERULAR FILTRATION RATE > 60.0 (>60); GLUCOSE, FASTING 189 MG/DL (70-100); POTASSIUM SERUM 3.2 MEQ/L (3.5-5.1); SALICYLATE LEVEL < 1.7 MG/DL (5.0-30.0); SODIUM LEVEL 142 MEQ/L (136-145); THYROID STIMULATING HORMONE 0.454 uIU/ML (0.358-3.740); TOTAL PROTEIN 7.4 GM/DL (6.4-8.2)
[2021-01-28 23:24] LABS: AMPHETAMINES LEVEL URINE POSITIVE (NEGATIVE); BARBITURATES URINE NEGATIVE (NEGATIVE); BENZODIAZEPINES URINE NEGATIVE (NEGATIVE); CANNABINOIDS URINE NEGATIVE (NEGATIVE); COCAINE METABOLITE URINE NEGATIVE (NEGATIVE); METHADONE URINE NEGATIVE (NEGATIVE); OPIATES URINE NEGATIVE (NEGATIVE); PHENCYCLIDINE URINE NEGATIVE (NEGATIVE)
[2021-01-29] MEDS ORDERED: NICOTINE 21MG/24HR 1 EA TRANSDERMAL TD PRN
[2021-01-29] MEDS ORDERED: traZODone 50 MG TAB PO PRN
[2021-01-29] MEDS ORDERED: OLANZapine ORAL DISINTEGRATING TAB 5MG PO PRN
[2021-01-29] MEDS ORDERED: MOM 30ML SUSPENSION UDC PO PRN
[2021-01-29] MEDS ORDERED: ACETAMINOPHEN TAB 650MG DOSE (2X325MG) PO PRN
[2021-01-29] MEDS ORDERED: MAALOX 30 ML SUSP *UDC PO PRN
[2021-01-29 00:29] LABS: RSV AMPLIFICATION NEGATIVE (NEGATIVE)
[2021-01-29 01:50] VITALS: BP 128/72
--- NOTE | 2021-01-29 14:33 | MHHPE ---
[facility] HISTORY AND PHYSICAL DATE OF ADMISSION: 01/28/2021 DATE OF EVALUATION: 01/29/2021 HISTORY OF PRESENT ILLNESS: The patient refused to see me today, and so this is basically done with the information obtained from the chart. The patient is a 30-year-old man who has a history of one prior psychiatric hospitalization on 11/10/2020, where he was voicing suicidal ideations. He was only admitted for a day, because the next day he was minimizing everything, and he requested discharge. He was discharged on no medications. The patient has been coming to the emergency room about forty times since August of this year, often coming on a day basis, sometimes more than once, and often it is drug-induced psychotic-type symptoms that he presents with, but once sandy up, then he requests to go home. The patient presented similarly to the emergency room this time. Actually, a friend had called saying that the patient was using Christina, and he was in an incoherent state. Initially, once he cleared, they were getting ready to discharge him, and then the patient became suicidal, although without specific plan. He complained that he was having panic attacks and anxiety. PAST PSYCHIATRIC HISTORY: This is as noted above. I did not find any history of suicidal attempts in those records that were available to me. MEDICAL HISTORY: The emergency room record says that he says he has a history of atrial fibrillation, but it is not clear if he gets this treated or not. FAMILY HISTORY: Unable to obtain. ABUSE HISTORY: The records from the prior hospitalization indicate that there is no history of any physical or sexual abuse. SUBSTANCE USE: The patient was using heroin in October 2020 when he was admitted to [facility], and it appears that now he has been using Christina. REVIEW OF SYSTEMS: VITAL SIGNS: Blood pressure is , pulse is , respiration is . Unable to do any further review of systems, as the patient refused to talk to me. MENTAL STATUS EXAMINATION: Unable to complete. DIAGNOSES: 1. Unspecified depressive disorder. 2. Amphetamine use disorder. 3. Opioid use disorder. TREATMENT PLAN: The patient will be further evaluated, and we will continue give him time to sober up from his substance use and then see if we need to treat this margaux for depression. We should recommend that he go inpatient for rehabilitation treatment for his substance abuse.
[2021-01-29 16:19] VITALS: BP 100/56
--- NOTE | 2021-01-29 16:54 | HPEPDOC ---
[facility] Medical History & Physical Date of Admission Jan 29, 2021 Date of Service: Jan 29, 2021 History and Physical CHIEF COMPLAINT: psychosis HISTORY OF PRESENT ILLNESS: 30 yo M with PMHx of HTN, self-report atrial fibrill ation (takes no meds, not on AC, doesn't follow with cardiology), polysubstance abuse (heroin, amphetamines), anxiety, depression, psychosis, frequent ER visits (approximately 40 in the past year) with acute intoxication and psychotic type symptoms, the ultimately asking to leaving within a day. He was admitted to [facility] after he developed suicidal ideation upon being prepared for discharge from ER on 01/28/21. He is currently not forthcoming during the history. He denies chest pain, SOB, palpitations, n/v/d. He denies any reduced exercise tolerance, PND, orthopnea or any palpitations in recent memory. Hospitalist was consulted for medical intake. PAST MEDICAL HISTORY: polysubstance abuse anxiety/ depression reports atrial fibrillation costochondritis hypertension migraines right foot drop PAST SURGICAL HISTORY: jaw surgery SOCIAL HISTORY: Current smoker hx of polysubstance abuse, includes heroin, amphetamine states he uses alcohol rarely FAMILY HISTORY: father: HTN Mother: COPD ALLERGIES: Please see below. REVIEW OF SYSTEMS: 10 point ROS was conducted, relevant findings are noted in HPI HOME MEDICATIONS: Please see below. PHYSICAL EXAMINATION: VITAL SIGNS: please see below General: NAD, comfortable HEENT: PERRLA, EOMI, sclerae clear Neck: supple, normal ROM, no JVD Respiratory: lungs CTAB, no wheeze, no rales, no crackles CVS: RRR, normal S1, S2, no murmurs Abdo: soft, no masses, no hepatosplenomegaly, BS+, no rebound tenderness Extremities: no edema, pulses 2+ MSK: no joint deformities, normal ROM Neuro: no focal neuro deficits, moving all 4 extremities, CN2-12 intact. Strength 5/5 in all 4 extremities. No nystagmus. Psych: calm, cooperative, AAO x 3 LABORATORY DATA: See below. MICROBIOLOGY: Please see below. ASSESSMENT: 30 yo M with PMHx of HTN, self-report atrial fibrillation (takes no meds, not on AC, doesn't follow with cardiology), polysubstance abuse (heroin, amphetamines), anxiety, depression, psychosis, frequent ER visits (approximately 40 in the past year) with acute intoxication and psychotic type symptoms, the ultimately asking to leaving within a day. He was admitted to [facility] after he developed suicidal ideation upon being prepared for discharge from ER on 01/28/21. He is currently not forthcoming during the history. He denies chest pain, SOB, palpitations, n/v/d. He denies any reduced exercise tolerance, PND, orthopnea or any palpitations in recent memory. Hospitalist was consulted for medical intake. . PLAN: unspecified depressive disorder: - per psychiatry polysubstance abuse - VS stable. No tachycardia. Stable - CIWA protocol ordered in event of withdrawal Patient reported hx of atrial fibrillation - I was unable to find this documented in prior admission notes - in 12/2015, patient had an EKG that documented atrial fibrillation - he states that he takes no medications, is not on AC, and does not follow with cardiology - last echo in 04/2019: Normal EF. Normal systolic and diastolic function. Trace mitral regurgitation. Normal pulmonary artery systolic pressure. - calculated [id number] score is 1 (hx of HTN). Low risk category. Risk of Stroke 0.6%. - will not start patient on anticoagulation at this time - will provide referral to cardiology - rate currently wnl - will obtain EKG HTN - BP appropriate Thank you for the consult. Will sign off. Please reconsult as needed. Vital Signs Vital Signs Date Time Temp Pulse Resp B/P (MAP) Pulse Ox O2 Delivery O2 Flow Rate FiO2 01/29/21 16:19 97.4 58 16 100/56 (71) 100 Room Air 01/28/21 17:00 2.0 Laboratory Data Labs 24H Laboratory Tests 2 01/28/21 18:12: Nucleated Red Blood Cells % (auto) 0.0, Anion Gap 10, Glomerular Filtration Rate > 60.0, Calcium Level 8.7, Total Bilirubin 0.6, Direct Bilirubin 0.2, Aspartate Amino Transf (AST/SGOT) 37, Alanine Aminotransferase (ALT/SGPT) 28, Alkaline Phosphatase 81, Total Protein 7.4, Albumin 3.7, Albumin/Globulin Ratio 1.0, Thyroid Stimulating Hormone (TSH) 0.454, Salicylates Level < 1.7L, Acetaminophen Level < 2.0L, Ethyl Alcohol Level < 0.003 01/28/21 22:44: Urine Opiates Screen NEGATIVE, Urine Methadone Screen NEGATIVE, Urine Barbiturates Screen NEGATIVE, Urine Phencyclidine Screen NEGATIVE, Urine Amphetamines Screen POSITIVEH, Urine Benzodiazepines Screen NEGATIVE, Urine Cocaine Metabolite Screen NEGATIVE, Urine Cannabinoids Screen NEGATIVE 01/28/21 23:20: Coronavirus (COVID-19)(PCR) NEGATIVE, Influenza Type A (RT-PCR) NEGATIVE, Influenza Type B (RT-PCR) NEGATIVE, Respiratory Syncytial Virus (PCR) NEGATIVE CBC/BMP Laboratory Tests 01/28/21 18:12 Home Medications Unable to Obtain Active Prescriptions or Reported Meds Allergies Coded Allergies: tramadol (Verified Allergy, Intermediate, HIVES, 10/15/20) DAYANA MAGUIRE MD Jan 29, 2021 16:54
[2021-01-30 06:42] VITALS: BP 122/66
[2021-01-30 15:35] VITALS: BP 129/73
[2021-01-31 06:33] VITALS: BP 130/72
--- NOTE | 2021-01-31 11:00 | MHDSPDOC ---
[facility] Discharge Summary Discharge Summary DATE OF ADMISSION: Jan 28, 2021 at 02:11 DATE OF DISCHARGE: Jan 31, 2021 at 10:08 DISCHARGE DIAGNOSES: 1. . Depressive disorder, NOS 2. . Polysubstance use disorder REASON FOR ADMISSION: This patient has a long history of polysubstance abuse with a several brief inpatient treatment. He was admitted after using Christina became somewhat disorganized and later reported feeling suicidal. CONSULTANTS INVOLVED: None TREATMENT AND PROGRESS ON THE UNIT : The first day the patient was very withdrawn and almost mute, but since then has been verbally productive and in good control and denies any suicidal thoughts. On examination with this M.DMasoud Patient is alert, awake, pleasant and cooperative. He admits to using drugs, but denies any ongoing depression and denies any suicidal thoughts. He is in good control and in no acute distress. HOSPITAL COURSE: Is not showing any psychotic symptoms and maintaining good control and strongly denies any suicidal thoughts DISCHARGE ASSESSMENT: Stable, not suicidal, not psychotic MENTAL STATUS EXAMINATION ON DISCHARGE: Patient is a 30-year old male, who is , pleasant. Speech is rational productive good. Language skills are good. Thought processes including: [Relevant. Thought content: Denied any suicidal thoughts. Abstract reasoning, and computation: Fair. Description of associations: , Organized. Description of abnormal or psychotic thoughts: Denies. Judgment: fair. Insight: fair. Orientation to , well oriented, fair. Recent and remote memory: fair. Attention span and concentration: . Language: . Fund of knowledge: . Mood: Euthymic. Affect: , Appropriate. MEDICATIONS ON DISCHARGE: - for . No medication - for . - for . PLAN/FOLLOWUP ARRANGEMENTS: [Arranged by the meeting/event planner]. The amount of time spent in the coordination of care for this patient was approximately [30] minutes. ETOH/Disorder Med Rx ETOH/DRUG DISORDER RX: N/A Vital Signs/I&Os Vital Signs Date Time Temp Pulse Resp B/P (MAP) Pulse Ox O2 Delivery O2 Flow Rate FiO2 01/31/21 06:33 98.3 76 20 130/72 (91) 99 Room Air 01/28/21 17:00 2.0 Medications No Active Prescriptions or Reported Meds Allergies Coded Allergies: tramadol (Verified Allergy, Intermediate, HIVES, 10/15/20) VJ GRIMM M.D. Jan 31, 2021 11:00
--- NOTE | 2021-01-31 14:43 | MHIPN ---
[facility] PSYCHIATRIC PROGRESS NOTE DATE: 01/30/2021 HISTORY OF PRESENT ILLNESS: Today the patient states "I am doing fine." He tells me he is not depressed and he is not suicidal. He says he slept good. He has no complaints. MENTAL STATUS EXAM: This patient is alert and oriented times 3. Eye contact is fair. Psychomotor activity is normal. There is no formal thought disorder noted. He says his mood is "fine." Affect is flat. He is not psychotic, suicidal or homicidal. Concentration fair. Insight and judgment is fair. DIAGNOSES: 1. Unspecified depressive disorder. 2. Amphetamine use disorder. 3. Opioid use disorder. TREATMENT PLAN: At this point we will continue to monitor the patient for continued resolution of suicidal ideation and stabilization of his mood.
== END 2021-01-31 10:08 | disposition home or self-care (01) | DRG 754 ==
LOC: M ED 02:10 → M ED INP 02:11 → M PSY 01-29 01:52
PROVIDERS: ADMIT Psychiatry & Neurology Psychiatry; ATTEND Psychiatry & Neurology Psychiatry
DX: F32.9 Major depressive disorder, single episode, unspecified (principal); I48.21 Permanent atrial fibrillation; F11.10 Opioid abuse, uncomplicated; F15.14 Other stimulant abuse with stimulant-induced mood disorder; I10 Essential (primary) hypertension; F41.9 Anxiety disorder, unspecified; F29 Unspecified psychosis not due to a substance or known physiological condition; R45.851 Suicidal ideations; M94.0 Chondrocostal junction syndrome [Tietze]; G43.909 Migraine, unspecified, not intractable, without status migrainosus; M21.371 Foot drop, right foot; F17.210 Nicotine dependence, cigarettes, uncomplicated; Z20.822 Contact with and (suspected) exposure to COVID-19; Z88.8 Allergy status to other drugs, medicaments and biological substances

== ENCOUNTER 2021-02-03 22:42 | Emergency (ER) | payer OTHER ==
[~2021-02-03] VITALS: Ht 188 cm; Wt 80.0 kg
[~2021-02-03 22:42] MED LIST changes: -DOXY100C37 PO; +DOXY1CAP62 PO
[2021-02-03 22:54] VITALS: BP 137/87
== END 2021-02-03 23:36 | disposition home or self-care (01) ==
LOC: M ED 22:42
DX: F15.10 Other stimulant abuse, uncomplicated (principal); F17.210 Nicotine dependence, cigarettes, uncomplicated

== ENCOUNTER 2021-02-04 09:15 | Observation (INO) | payer OTHER ==
[~2021-02-04] VITALS: Ht 188 cm; Wt 77.3 kg
[2021-02-04] MEDS ORDERED: NS 1,000 ML IV ONE ×2 (09:20→10:05)
[2021-02-04] MEDS ORDERED: LORazepam 2 MG/ML VIAL IV STA ×6 (09:23→12:57)
[2021-02-04 10:40] LABS: BASO % 0.2 % (0.0-1.0); EOS % 0.1 % (0.0-3.0); HEMATOCRIT 41.1 % (42.0-52.0); HEMOGLOBIN 13.7 g/dl (13.5-17.5); LYMPH # 2.2 10^3/uL (1.5-5.0); LYMPH % 14.9 % (24.0-44.0); MEAN CORPUSCULAR HEMOGLOBIN 30.5 pg (27.0-33.0); MEAN CORPUSCULAR HGB CONC 33.3 g/dl (32.0-36.5); MEAN CORPUSCULAR VOLUME 91.5 fl (80.0-96.0); MONO # 1.7 10^3/uL (0.0-0.8); NEUTROPHILS # 10.9 10^3/uL (1.5-8.5); NEUTROPHILS % 73.3 % (36.0-66.0); PLATELET COUNT, AUTOMATED 414 10^3/uL (150-450); RED BLOOD COUNT 4.49 10^6/uL (4.30-6.10); WHITE BLOOD COUNT 14.9 10^3/uL (4.0-10.0)
[2021-02-04 11:05] LABS: MONO % 11.1 % (2.0-8.0)
[2021-02-04 11:11] LABS: RSV AMPLIFICATION NEGATIVE (NEGATIVE)
[2021-02-04 11:11] LABS: ACETAMINOPHEN LEVEL < 2.0 UG/ML (10.0-30.0); ALBUMIN 4.4 GM/DL (3.2-5.2); ALT/SGPT 27 U/L (12-78); BILIRUBIN,DIRECT 0.2 MG/DL (0.0-0.2); BLOOD UREA NITROGEN 25 MG/DL (7-18); CALCIUM LEVEL 9.8 MG/DL (8.5-10.1); CARBON DIOXIDE LEVEL 25 MEQ/L (21-32); CHLORIDE LEVEL 100 MEQ/L (98-107); CPK CREATINE PHOSPHOKINASE 463 U/L (39-308); ETHYL ALCOHOL (ETHANOL) < 0.003 % (0.000-0.010); GLOMERULAR FILTRATION RATE > 60.0 (>60); GLUCOSE, FASTING 62 MG/DL (70-100); POTASSIUM SERUM 3.8 MEQ/L (3.5-5.1); SALICYLATE LEVEL < 1.7 MG/DL (5.0-30.0); SODIUM LEVEL 136 MEQ/L (136-145); TOTAL PROTEIN 8.9 GM/DL (6.4-8.2)
[2021-02-04] MEDS ORDERED: diphenhydrAMINE 50MG/ML VIAL (J1200) IV STA (12:03)
[2021-02-04] MEDS ORDERED: diphenhydrAMINE 50MG/ML VIAL (J1200) As Ordered ONE (12:04)
[2021-02-04] MEDS ORDERED: HALOPERIDOL 5MG/ML VIAL (J1630 PER 1) IV ONE (13:00)
[2021-02-04] MEDS ORDERED: D5W/0.9% SODIUM CHLORIDE 1,000 ML IV ONE (16:20)
--- NOTE | 2021-02-04 17:22 | REPVR ---
PROCEDURE INFORMATION: Exam: CT Head Without Contrast Exam date and time: 02/04/2021 4:53 PM Age: 30 years old Clinical indication: Altered mental status/memory loss; Additional info: Alterd ms TECHNIQUE: Imaging protocol: Computed tomography of the head without contrast. Radiation optimization: All CT scans at this facility use at least one of these dose optimization techniques: automated exposure control; mA and/or kV adjustment per patient size (includes targeted exams where dose is matched to clinical indication); or iterative reconstruction. COMPARISON: 1. CT Head without contrast 11/03/2020 12:[address] Head without contrast 07/10/2020 12:08:33 PM FINDINGS: Brain: No hemorrhage. Unremarkable white matter for the patient's age. No mass effect. No evolving territorial infarct. Cerebral ventricles: The ventricles are mildly prominent, stable compared to prior studies. Paranasal sinuses: Trace right maxillary sinus mucosal thickening. No fluid levels. Mastoid air cells: Visualized mastoid air cells are well aerated. Bones/joints: Unremarkable. No acute fracture. Soft tissues: Unremarkable. IMPRESSION: No acute intracranial abnormality seen. Electronically signed by: Heather Frye On 02/04/2021 17:22:16 PM
[2021-02-04] MEDS ORDERED: GLUCAGON INJ 1MG VIAL SC PRN (17:40)
[2021-02-04] MEDS ORDERED: DEXTROSE 50% 50 ML SYRINGE IV PRN (17:40)
[2021-02-04] MEDS ORDERED: GLUCOSE 4GM CHEW TABLET PO PRN (17:40)
[2021-02-04] MEDS ORDERED: ACETAMINOPHEN TAB 650MG DOSE (2X325MG) PO PRN (17:40)
[2021-02-04] MEDS ORDERED: LORazepam 2 MG/ML VIAL IV PRN (17:40)
--- NOTE | 2021-02-04 18:19 | HPEPDOC ---
General Date of Admission Feb 04, 2021 at 17:36 Date of Service: Feb 04, 2021 Chief Complaint The patient is a 30-year-old male admitted with a reason for visit of Polysubstance Abuse. Source: RN/MD Exam Limitations: Intoxication History of Present Illness Mr. Oliveros is a 30 year old male who is here for polysubstance abuse. Patient has been frequently in the ED with agitation 2/2 polysubstance abuse and usually requires a dose of Ativan before returning to baseline and being sent home. He came in agitated today and has received 6mg of IV Ativan, 2mg of IV Haldol, and 25mg of IV Benadryl. He was observed for 6 hours, but is not wake enough for discharge. Otherwise, he has been hypoglycemic with blood sugar of 62. I was not able to obtain history from patient as he is still lethargic. Patient will be placed in observation for polysubstance abuse and hypoglycemia Home Medications No Active Prescriptions or Reported Meds Allergies Coded Allergies: tramadol (Verified Allergy, Intermediate, HIVES, 10/15/20) Past Medical History Medical History 1. Polysubstance abuse 2. Anxiety/depression 3. Costochondritis 4. Hypertension 5. Migraines 6. Right foot drop Surgical History 1. Jaw surgery Family History Father: COPD and hypertension Mother: COPD Social History * Smoker: current smoker Alcohol: occationally Drugs: cocaine, heroin, other (amphetamines) Patient is heavily sedated, unable to obtain history from patient. History obtained from chart A-FIB/CHADSVASC A-FIB History Current/History of A-Fib/PAF?: No Review of Systems Other systems Unable to obtain review of systems as patient is heavily sedated with Ativan Physical Examination General Exam: Negative: Alert, Cooperative Eye Exam: Positive: Other Eye Symptoms (Pupils pinpoint, mildly reactive to light); Negative: Sclera icteric Chest Exam: Positive: Clear to auscultation Heart Exam: Positive: Tachycardic, Regular Rhythm Abdomen Exam: Positive: Normal bowel sounds, Soft Extremity Exam: Negative: Edema Skin Exam: Positive: Nl turgor and temperature Neuro Exam: Positive: Other (Unable to perform neuro exam due to patient's sedation ) Psych Exam: Negative: Mental status NL Vital Signs Vital Signs Date Time Temp Pulse Resp B/P (MAP) Pulse Ox O2 Delivery O2 Flow Rate FiO2 02/04/21 16:30 90 02/04/21 16:15 100 111/72 (85) 02/04/21 10:20 99.0 22 Laboratory Data Labs 24H Laboratory Tests 2 02/04/21 10:22: Immature Granulocyte % (Auto) 0.4, Neutrophils (%) (Auto) 73.3H, Lymphocytes (%) (Auto) 14.9L, Monocytes (%) (Auto) 11.1H, Eosinophils (%) (Auto) 0.1, Basophils (%) (Auto) 0.2, Neutrophils # (Auto) 10.9H, Lymphocytes # (Auto) 2.2, Monocytes # (Auto) 1.7H, Eosinophils # (Auto) 0.0, Basophils # (Auto) 0.0, Nucleated Red Blood Cells % (auto) 0.0, Anion Gap 11, Glomerular Filtration Rate > 60.0, Calcium Level 9.8, Total Bilirubin 1.0, Direct Bilirubin 0.2, Aspartate Amino Transf (AST/SGOT) 47H, Alanine Aminotransferase (ALT/SGPT) 27, Alkaline Phosphatase 105, Total Creatine Kinase 463H, Total Protein 8.9H, Albumin 4.4, Albumin/Globulin Ratio 1.0, Thyroid Stimulating Hormone (TSH) 1.900, Salicylates Level < 1.7L, Acetaminophen Level < 2.0L, Ethyl Alcohol Level < 0.003 02/04/21 10:27: Coronavirus (COVID-19)(PCR) NEGATIVE, Influenza Type A (RT-PCR) NEGATIVE, Influenza Type B (RT-PCR) NEGATIVE, Respiratory Syncytial Virus (PCR) NEGATIVE 02/04/21 16:34: Bedside Glucose (Misc Panel) 79 02/04/21 16:41: CBC/BMP Laboratory Tests 02/04/21 10:22 Assessment/Plan Mr. Oliveros is a 30 year old male who is here for polysubstance abuse. He uses Christina frequently and may have had a bad batch of Christina. Patient is now lethargic. Will observe patient overnight. Patient is a hard stick and unable to obtain access in arms. Patient has access in foot. Due to patient's agitation, patient may do better with intermittent boluses than continuous fluids as patient may tug at the line and loose access. Plan / VTE VTE Prophylaxis Ordered?: Yes Plan Plan 1. Polysubstance abuse and overdose -Patient is very lethargic -Monitor on telemetry -Intermittent boluses of fluid as needed as only access in foot. If continuous fluid, patient may tug line and loose access 2. Hypoglycemia -Hypoglycemia protocol 3. SATHYA -Pre-renal from dehydration -Patient is tachycardic and blood pressure is soft -Patient has received 3L of fluid in the ED 4. DVT ppx -On heparin subQ Disposition: Pending clinical improvement KAVITHA CONTRERAS DO Feb 04, 2021 18:19
[2021-02-04 21:00] VITALS: O2SAT 97
[2021-02-04] MEDS: HEPARIN SOD (PORCINE) 5000UNITS/ML 1ML VIAL/SYRINGE SQ SCH (21:00)
[2021-02-04 22:00] VITALS: O2SAT 96
[2021-02-04 23:00] VITALS: O2SAT 96
[2021-02-05] VITALS (10 sets, daily range): BP systolic 121–130; BP diastolic 62–67; O2SAT 94–98
[2021-02-05 06:52] LABS: HEMATOCRIT 40.4 % (42.0-52.0); HEMOGLOBIN 13.1 g/dl (13.5-17.5); MEAN CORPUSCULAR HEMOGLOBIN 30.5 pg (27.0-33.0); MEAN CORPUSCULAR HGB CONC 32.4 g/dl (32.0-36.5); MEAN CORPUSCULAR VOLUME 94.2 fl (80.0-96.0); PLATELET COUNT, AUTOMATED 328 10^3/uL (150-450); RED BLOOD COUNT 4.29 10^6/uL (4.30-6.10); WHITE BLOOD COUNT 6.7 10^3/uL (4.0-10.0)
--- NOTE | 2021-02-05 06:52 | ECGEPIP ---
[facility] - ED Test Date: 2021-02-04 Pat Name: NIEVES BLOCK Department: Room: - Gender: Male Apron Operator: hc : 1990 Requested By: Vani Chairez Order Number: [id number] Reading MD: Carl Murphy Measurements Intervals [place] Rate: 120 P: 59 AZ: 132 QRS: 31 QRSD: 92 T: 49 QT: 334 QTc: 472 Interpretive Statements Sinus tachycardia Similar to tracing done 11-26-20 but with increased rate Electronically Signed on 02-05-2021 6:52:38 EDT by Carl Murphy
[2021-02-05] MEDS ORDERED: SODIUM CHLORIDE 0.9% 1000ML IV ONE (07:00)
[2021-02-05 07:15] LABS: BLOOD UREA NITROGEN 19 MG/DL (7-18); CALCIUM LEVEL 8.2 MG/DL (8.5-10.1); CARBON DIOXIDE LEVEL 26 MEQ/L (21-32); CHLORIDE LEVEL 108 MEQ/L (98-107); CREATININE FOR GFR 0.81 MG/DL (0.70-1.30); GLOMERULAR FILTRATION RATE > 60.0 (>60); GLUCOSE, FASTING 86 MG/DL (70-100); POTASSIUM SERUM 3.9 MEQ/L (3.5-5.1); SODIUM LEVEL 140 MEQ/L (136-145)
[2021-02-05] MEDS: HEPARIN SOD (PORCINE) 5000UNITS/ML 1ML VIAL/SYRINGE SQ SCH (09:00)
[2021-02-05] MEDS ORDERED: NS 1,000 ML IV ONE (09:00)
--- NOTE | 2021-02-05 13:09 | DS.PDOC ---
Discharge Summary General Date of Admission Feb 04, 2021 at 17:36 Date of Discharge Feb 05, 2021 Discharge Summary PROCEDURES PERFORMED DURING STAY: None ADMITTING DIAGNOSES: 1. Polysubstance abuse 2. Hypoglycemia 3. SATHYA 4. Rhabdomyolysis DISCHARGE DIAGNOSES: 1. Polysubstance abuse 2. Hypoglycemia 3. SATHYA 4. Rhabdomyolysis COMPLICATIONS/CHIEF COMPLAINT: Polysubstance Abuse. HISTORY OF PRESENT ILLNESS: Mr. Oliveros is a 30 year old male who is here for polysubstance abuse. Patient has been frequently in the ED with agitation 2/2 polysubstance abuse and usually requires a dose of Ativan before returning to baseline and being sent home. He came in agitated today and has received 6mg of IV Ativan, 2mg of IV Haldol, and 25mg of IV Benadryl. He was observed for 6 hours, but is not wake enough for discharge. Otherwise, he has been hypoglycemic with blood sugar of 62. I was not able to obtain history from patient as he is still lethargic. Patient will be placed in observation for polysubstance abuse and hypoglycemia HOSPITAL COURSE: This morning, he was more awake and feeling well. Denies chest pain or dyspnea. Renal function improve. His CPK was elevated indicating rhabdomyolysis. I gave additional 1.5L of fluid bolus and ordered for repeat CPK at noon. If his CPK improved, I was going to discharge him home. After patient finished his lunch, he didn't want to stay for his CPK results. CPK was pending at the time. Patient left AMA. DISCHARGE MEDICATIONS: Please see below. ALLERGIES: Please see below. PHYSICAL EXAMINATION ON DISCHARGE: VITAL SIGNS: Please see below. GENERAL: Comfortable, in no apparent distress. HEENT: Head normocephalic/atraumatic, EOMI, sclera clear. NECK: Supple. RESPIRATORY: Lungs clear to auscultation bilaterally, no rales, wheeze or rhonchi. CARDIOVASCULAR: Tachycardic but regular. ABDOMEN: Soft, nontender, no guarding or rebound tenderness. Normal bowel sounds. MUSCLE SKELETAL: Muscle strength 5/5 in all extremities. NEUROLOGICAL: CN 312 grossly intact, no focal deficits noted. PSYCHOLOGICAL: Normal mood and affect LABORATORY DATA: Please see below. IMAGING: Radiologist interpretation CT head No acute intracranial abnormality seen. PROGNOSIS: Okay ACTIVITY: As tolerated. DIET: Regular DISCHARGE PLAN: LEFT AMA DISPOSITION: 07 Against Medical Advice. DISCHARGE INSTRUCTIONS: 1. Patient will need to follow up with PCP within 1 week ITEMS TO FOLLOWUP ON ON OUTPATIENT: 1. Renal function and CPK DISCHARGE CONDITION: Stable. Total time spent on discharge planning, discharge summary, and medication reconciliation: 20 minutes Vital Signs/I&Os Vital Signs Date Time Temp Pulse Resp B/P (MAP) Pulse Ox O2 Delivery O2 Flow Rate FiO2 02/05/21 12:00 99.2 97 18 130/67 (88) 98 Room Air I&O- Last 24 Hours up to 6 AM 02/05/21 06:00 Intake Total 1350 ml Balance 1350 ml Laboratory Data Labs 24H Laboratory Tests 2 02/04/21 16:34: Bedside Glucose (Misc Panel) 79 02/04/21 16:41: Total Creatine Kinase 2766#H 02/04/21 22:33: Bedside Glucose (Misc Panel) 69L 02/05/21 00:18: Bedside Glucose (Misc Panel) 107H 02/05/21 04:49: Bedside Glucose (Misc Panel) 94 02/05/21 05:32: Nucleated Red Blood Cells % (auto) 0.0, Anion Gap 6L, Glomerular Filtration Rate > 60.0, Calcium Level 8.2#L 02/05/21 12:14: CBC/BMP Laboratory Tests 02/05/21 05:32 FSBS Laboratory Tests Test 02/04/21 16:34 02/04/21 22:33 02/05/21 00:18 02/05/21 04:49 Range/Units Bedside Glucose (Misc Panel) 79 69 107 94 70-105 MG/DL Discharge Medications No Active Prescriptions or Reported Meds Allergies Coded Allergies: tramadol (Verified Allergy, Intermediate, HIVES, 10/15/20) KAVITHA CONTRERAS DO Feb 05, 2021 13:09
== END 2021-02-05 13:01 | disposition left against medical advice (07) ==
LOC: M ED 09:15 → EDBD 09:15 → M ED INP 17:36 → M PCU 20:10
PROVIDERS: ADMIT Internal Medicine; ATTEND Internal Medicine
DX: T50.901A Poisoning by unspecified drugs, medicaments and biological substances, accidental (unintentional), initial encounter (principal); Y92.89 Other specified places as the place of occurrence of the external cause; F19.10 Other psychoactive substance abuse, uncomplicated; E16.2 Hypoglycemia, unspecified; N17.9 Acute kidney failure, unspecified; M62.82 Rhabdomyolysis; E86.0 Dehydration; R45.1 Restlessness and agitation; R00.0 Tachycardia, unspecified; R41.82 Altered mental status, unspecified; F32.9 Major depressive disorder, single episode, unspecified; F41.9 Anxiety disorder, unspecified; M94.0 Chondrocostal junction syndrome [Tietze]; I10 Essential (primary) hypertension; G43.909 Migraine, unspecified, not intractable, without status migrainosus; M21.371 Foot drop, right foot; Z88.5 Allergy status to narcotic agent; F17.200 Nicotine dependence, unspecified, uncomplicated
CPT/HCPCS: 36415; 70450; 80048; 80076; 80143; 82077; 82550; 84443; 85025; 85027; 87631; 93005; 96361; 96374; 96375; 96376; 99285; J1200; J1630; J2060

== ENCOUNTER 2021-12-26 22:37 | Emergency (ER) | payer MEDICAID, OTHER ==
[~2021-12-26] VITALS: Ht 188 cm; Wt 81.1 kg
[~2021-12-26 22:37] MED LIST changes: +DOXY-443 PO; -DOXY1CAP62 PO; +LOSA50TA28 PO; -LOSA50TA88 PO
[2021-12-26 22:45] VITALS: BP 136/84
[2021-12-26] MEDS ORDERED: ACETAMINOPHEN 325 MG TAB PO ONE (22:50)
== END 2021-12-26 23:53 | disposition left against medical advice (07) ==
LOC: M ED 22:37
DX: Z53.29 Procedure and treatment not carried out because of patient's decision for other reasons (principal)

== ENCOUNTER 2021-12-27 00:19 | Emergency (ER) | payer OTHER ==
[~2021-12-27] VITALS: Ht 188 cm; Wt 86.1 kg
[2021-12-27 00:20] VITALS: BP 130/77
== END 2021-12-27 02:21 | disposition left against medical advice (07) ==
LOC: M ED 00:19
DX: Z53.29 Procedure and treatment not carried out because of patient's decision for other reasons (principal)

== ENCOUNTER 2022-01-20 01:30 | Emergency (ER) | payer OTHER ==
[~2022-01-20] VITALS: Ht 188 cm; Wt 80.1 kg
[2022-01-20 01:31] VITALS: BP 123/80
[2022-01-20] MEDS ORDERED: METH-1177 PO (01:47)
== END 2022-01-20 02:30 | disposition left against medical advice (07) ==
LOC: M ED 01:30
DX: Z53.29 Procedure and treatment not carried out because of patient's decision for other reasons (principal)

== ENCOUNTER 2022-01-20 14:53 | Emergency (ER) | payer OTHER ==
[~2022-01-20] VITALS: Ht 188 cm; Wt 78.7 kg
[2022-01-20 14:53] VITALS: BP 131/92
[~2022-01-20 14:53] MED LIST changes: +METH-1177 PO
== END 2022-01-20 16:50 | disposition left against medical advice (07) ==
LOC: M ED 14:53
DX: Z53.21 Procedure and treatment not carried out due to patient leaving prior to being seen by health care provider (principal)

== ENCOUNTER 2022-01-26 08:37 | Emergency (ER) | payer MEDICAID, OTHER ==
[~2022-01-26] VITALS: Ht 188 cm; Wt 80.1 kg
[2022-01-26 12:40] VITALS: BP 123/75
== END 2022-01-26 12:42 | disposition home or self-care (01) ==
LOC: M ED 08:37
DX: B34.9 Viral infection, unspecified (principal); F41.9 Anxiety disorder, unspecified; I48.91 Unspecified atrial fibrillation; G43.909 Migraine, unspecified, not intractable, without status migrainosus; F32.A Depression, unspecified; F19.10 Other psychoactive substance abuse, uncomplicated

== ENCOUNTER 2022-05-09 05:29 | Emergency (ER) | payer MEDICAID, OTHER ==
[~2022-05-09] VITALS: Ht 188 cm; Wt 81.8 kg
[2022-05-09 07:17] LABS: RSV AMPLIFICATION NEGATIVE (NEGATIVE)
[2022-05-09 07:18] LABS: BASO % 0.3 % (0.0-1.0); EOS # 0.1 10^3/uL (0.0-0.5); EOS % 0.7 % (0.0-3.0); HEMATOCRIT 38.9 % (42.0-52.0); HEMOGLOBIN 12.7 g/dl (13.5-17.5); LYMPH # 1.8 10^3/uL (1.5-5.0); MEAN CORPUSCULAR HEMOGLOBIN 29.9 pg (27.0-33.0); MEAN CORPUSCULAR HGB CONC 32.6 g/dl (32.0-36.5); MEAN CORPUSCULAR VOLUME 91.5 fl (80.0-96.0); MONO # 0.5 10^3/uL (0.0-0.8); MONO % 6.9 % (2.0-8.0); NEUTROPHILS # 4.7 10^3/uL (1.5-8.5); PLATELET COUNT, AUTOMATED 252 10^3/uL (150-450); RED BLOOD COUNT 4.25 10^6/uL (4.30-6.10)
[2022-05-09 07:47] LABS: ALBUMIN 3.8 GM/DL (3.2-5.2); ALT/SGPT 27 U/L (12-78); BILIRUBIN,DIRECT < 0.1 MG/DL (0.0-0.2); BILIRUBIN,TOTAL 0.3 MG/DL (0.2-1.0); BLOOD UREA NITROGEN 10 MG/DL (7-18); CARBON DIOXIDE LEVEL 29 MEQ/L (21-32); CHLORIDE LEVEL 104 MEQ/L (98-107); CK-MB VALUE MASS < 1.0 NG/ML (<3.6); CPK CREATINE PHOSPHOKINASE 60 U/L (39-308); CREATININE FOR GFR 0.74 MG/DL (0.70-1.30); GLOMERULAR FILTRATION RATE > 60.0 (>60); GLUCOSE, FASTING 95 MG/DL (70-100); LIPASE 66 U/L (73-393); MB/CK RELATIVE INDEX 1.67 (< OR =4); POTASSIUM SERUM 4.1 MEQ/L (3.5-5.1); SODIUM LEVEL 138 MEQ/L (136-145); TOTAL PROTEIN 7.6 GM/DL (6.4-8.2)
[2022-05-09 07:48] VITALS: BP 148/89
== END 2022-05-09 08:10 | disposition left against medical advice (07) ==
LOC: M ED 05:29
DX: Z53.29 Procedure and treatment not carried out because of patient's decision for other reasons (principal)

== ENCOUNTER 2023-04-28 12:15 | Emergency (ER) | payer OTHER ==
[~2023-04-28] VITALS: Ht 188 cm; Wt 93.2 kg
[2023-04-28] MEDS ORDERED: METH10CO3 PO (12:36)
[2023-04-28] MEDS ORDERED: LIDOCAINE 5% (LIDODERM) PATCH TD ONE (14:30)
[2023-04-28] MEDS ORDERED: KETOROLAC 60MG 2ML VIAL IM ONE (14:30)
[2023-04-28 14:50] LABS: BASO % 0.2 % (0.0-1.0); EOS % 0.1 % (0.0-3.0); HEMATOCRIT 39.7 % (42.0-52.0); HEMOGLOBIN 13.4 g/dl (13.5-17.5); LYMPH # 1.4 10^3/uL (1.5-5.0); LYMPH % 17.6 % (24.0-44.0); MEAN CORPUSCULAR HEMOGLOBIN 30.7 pg (27.0-33.0); MEAN CORPUSCULAR HGB CONC 33.8 g/dl (32.0-36.5); MEAN CORPUSCULAR VOLUME 91.1 fl (80.0-96.0); MONO # 0.4 10^3/uL (0.0-0.8); MONO % 4.9 % (2.0-8.0); NEUTROPHILS # 6.2 10^3/uL (1.5-8.5); NEUTROPHILS % 76.8 % (36.0-66.0); PLATELET COUNT, AUTOMATED 285 10^3/uL (150-450); RED BLOOD COUNT 4.36 10^6/uL (4.30-6.10); WHITE BLOOD COUNT 8.1 10^3/uL (4.0-10.0)
[2023-04-28] MEDS ORDERED: KETOROLAC 30 MG/ML 1ML VIAL IV ONE (14:50)
[2023-04-28 15:17] LABS: INR 1.19; PROTHROMBIN TIME 14.7 SECONDS (12.5-14.5)
[2023-04-28 15:18] LABS: CK-MB VALUE MASS < 1.0 NG/ML (<3.6); CPK CREATINE PHOSPHOKINASE 71 U/L (46-171); LIPASE 24 U/L (12-53); PARTIAL THROMBOPLASTIN TIME 30.8 SECONDS (24.8-34.2)
[2023-04-28 15:20] LABS: ALKALINE PHOSPHATASE 78 U/L (46-116); ALT/SGPT 34 U/L (7.0-40); AST/SGOT 24 U/L (<34); BILIRUBIN,DIRECT 0.2 MG/DL (<0.4); BILIRUBIN,TOTAL 0.5 MG/DL (0.3-1.2); BLOOD UREA NITROGEN 10 MG/DL (9-23); CARBON DIOXIDE LEVEL 27 MMOL/L (20-31); CHLORIDE LEVEL 104 MMOL/L (98-107); CK-MB VALUE MASS < 1.0 NG/ML (<3.6); CREATININE FOR GFR 0.81 MG/DL (0.70-1.30); D-DIMER QUANT < 0.27 ug/mL (<0.5); GLOMERULAR FILTRATION RATE > 60.0 (>60); GLUCOSE, FASTING 94 MG/DL (60-100); POTASSIUM SERUM 3.9 MMOL/L (3.5-5.1); SODIUM LEVEL 136 MMOL/L (136-145); TOTAL PROTEIN 7.9 G/DL (5.7-8.2)
[2023-04-28 15:22] LABS: CPK CREATINE PHOSPHOKINASE 78 U/L (46-171); FREE T4 1.03 NG/DL (0.89-1.76); MB/CK RELATIVE INDEX 1.28 (< OR =4); THYROID STIMULATING HORMONE 1.157 uIU/ML (0.55-4.78)
[2023-04-28] MEDS ORDERED: METH-1165 PO (15:57)
[2023-04-28] MEDS ORDERED: ASPE4PAD TOP (15:57)
[2023-04-28] MEDS ORDERED: methocarbamoL 750 MG TAB PO ONE (16:00)
[2023-04-28 16:02] LABS: CK-MB VALUE MASS < 1.0 NG/ML (<3.6)
[2023-04-28 16:03] LABS: CPK CREATINE PHOSPHOKINASE 68 U/L (46-171); MB/CK RELATIVE INDEX 1.47 (< OR =4)
[2023-04-28 16:14] VITALS: TEMP 97.8
[2023-04-28 16:30] VITALS: BP 132/73; O2SAT 99
== END 2023-04-28 16:41 | disposition home or self-care (01) ==
LOC: EDBD 12:15 → M ED 12:15
DX: R07.89 Other chest pain (principal); I48.91 Unspecified atrial fibrillation; I10 Essential (primary) hypertension; F17.200 Nicotine dependence, unspecified, uncomplicated
CPT/HCPCS: 36415; 71045; 80048; 80076; 82550; 82553; 83690; 84439; 84443; 85025; 85379; 85610; 85730; 93005; 93041; 94760; 96374; 99285; J1885

== ENCOUNTER 2023-07-19 20:30 | Emergency (ER) | payer OTHER ==
[~2023-07-19] VITALS: Ht 188 cm; Wt 80.1 kg
[~2023-07-19 20:30] MED LIST changes: +ASPE4PAD TOP; +METH-1165 PO; +METH10CO3 PO
[2023-07-19 20:31] VITALS: BP 121/83; TEMP 98.9; O2SAT 100
== END 2023-07-19 22:32 | disposition left against medical advice (07) ==
LOC: M ED 20:30
DX: Z53.21 Procedure and treatment not carried out due to patient leaving prior to being seen by health care provider (principal)

== ENCOUNTER → 2025-06-15 | Outpatient (CLI) | payer OTHER ==
[~2025-06-15] MED LIST changes: +DOXY-441 PO; -DOXY-443 PO; -IBUP-1022 PO; +IBUP600T42 PO; +ONDA-282 PO; -ONDA4TAB6 PO
[2025-06-15 14:03] LABS: PLATELET COUNT, AUTOMATED 258 10^3/uL (150-450)
[2025-06-15 14:30] LABS: ALT/SGPT 77 U/L (7.0-40); AST/SGOT 49 U/L (<34); CALCIUM LEVEL 9.1 MG/DL (8.5-10.1); CARBON DIOXIDE LEVEL 29 MMOL/L (20-31); CHLORIDE LEVEL 108 MMOL/L (98-107); CREATININE FOR GFR 1.04 MG/DL (0.70-1.30); GLOMERULAR FILTRATION RATE > 90.0 (>60); POTASSIUM SERUM 4.4 MMOL/L (3.5-5.1); SODIUM LEVEL 142 MMOL/L (136-145)
[2025-06-15 15:02] LABS: HIV 1&2 SCREEN NEGATIVE (NEGATIVE)
[2025-06-15 15:26] LABS: HEPATITIS C VIRUS ABY INDEX > 11.00 INDEX (<0.8)
[2025-06-18 09:42] LABS: HCV RNA QUANTITATION <15 NOT DETECTED IU/mL (NOT DETECTED); HCV RNA log10 <1.18 NOT DETECTED Log IU/mL (NOT DETECTED)
== END ==
LOC: M LAB 13:14
PROVIDERS: ATTEND Family Medicine
DX: F11.20 Opioid dependence, uncomplicated (principal)